=== PATIENT | female | born 1985 | race Caucasian/White ===

== ENCOUNTER 2021-06-24 00:07 | Emergency (ER) | payer MEDICARE, SELFPAY ==
[2021-06-24 00:41] VITALS: BP 111/77; PULSE 93; RESP 18; TEMP 36.4; O2SAT 98; BMI 16.6
== END 2021-06-24 01:27 | disposition left against medical advice (07) ==
PROVIDERS: Emergency Provider Emergency Medicine
DX: R10.9 Unspecified abdominal pain (principal); Z87.442 Personal history of urinary calculi
CPT/HCPCS: 99282; 99283

== ENCOUNTER 2022-09-24 15:22 | Outpatient (REF) | payer MEDICARE, MEDICAID, SELFPAY ==
--- NOTE | ~2022-09-24 | CT_ITS ---
EXAMINATION: CT SOFT TISSUE NECK WITH CONTRAST CLINICAL INFORMATION: Throat pain COMPARISON: None. TECHNIQUE: Following the administration of 60 mL of Omnipaque 350 intravenous contrast, helical imaging was performed in the axial plane with generation of coronal and sagittal reformatted images. This CT examination was performed using dose optimization techniques as appropriate, variously including the following: *Automated exposure control. *Adjustment of mA and/or kV according to patient size (this includes techniques or standardized protocols for targeted exams where dose is matched to indication/reason for exam; i.e. extremities or head). *Use of iterative reconstruction technique. DLP: 153 mGy-cm. FINDINGS: Nasopharynx/skull base: The fat planes of the skull base and soft tissues of the nasopharynx are unremarkable. The mastoids are clear. Mild mucosal thickening in the alveolar recesses of the maxillary sinuses. There are several dental caries. Periapical lucency associated with a carious left maxillary second molar with dehiscence of the buccal cortex. The temporomandibular joints are normal. Suprahyoid neck: The oral cavity, and bilateral salivary gland tissues are unremarkable. There is asymmetric fullness of the right palatine tonsil (series 2 image 37) which demonstrates peripheral hyperenhancement and central hypoenhancement measuring approximately 1.5 cm. There is minimal inflammatory change of the adjacent parapharyngeal fat. Infrahyoid neck: The hypopharynx and larynx are unremarkable. No aerodigestive tract mass. Thyroid: The thyroid gland is normal. Lymph nodes: There is no cervical chain lymphadenopathy. Lung apices: The partially visualized lung apices are clear. Small triangular soft tissue in the anterior mediastinum, likely residual thymic tissue. Vascular structures: No hemodynamically significant stenosis, dissection, or occlusion. Osseous structures: The osseous structures are intact without suspicious focal lesion. Partially visualized leftward curvature of the lower cervical and upper thoracic spine. Congenital nonfusion of the posterior arch of C1. Other: The imaged portions of the brain parenchyma are unremarkable. CT/CT soft tissue neck w IV con IMPRESSION: 1. Asymmetric fullness and peripheral hyperenhancement of the right palatine tonsil with central hypodensity. Differential considerations include a primary mucosal malignancy versus infectious tonsillitis. No cervical lymphadenopathy. Correlate with clinical history and direct visual inspection. 2. Several dental caries as well as a periapical lucency associated with a carious left maxillary second molar Findings to be called to the ordering clinician by a [facility] Admitting Clerk.
[2022-09-24] MEDS: iohexoL 350 MG/ML 100 ML INFUS..BTL IV (16:38)
== END 2022-09-24 15:23 | disposition home or self-care (01) ==
LOC: HO.CT 15:22
PROVIDERS: PCP Internal Medicine; Visit Provider Otolaryngology
DX: H92.01 Otalgia, right ear (principal)
CPT/HCPCS: 70491; Q9967

== ENCOUNTER 2022-09-26 08:45 | Outpatient (REF) | payer MEDICARE, MEDICAID, SELFPAY ==
[2022-09-26 12:51] LABS: Influenza A PCR NEGATIVE (Negative); Influenza B PCR NEGATIVE (Negative); Resp Syncy Virus RNA Qual PCR NEGATIVE (Negative); SARS COV2 PCR INHOUSE NEGATIVE (Negative)
== END 2022-09-26 08:46 | disposition home or self-care (01) ==
LOC: HO.LAB 08:45
PROVIDERS: Visit Provider Nurse Practitioner Family
DX: Z20.822 Contact with and (suspected) exposure to COVID-19 (principal); J02.9 Acute pharyngitis, unspecified
CPT/HCPCS: 0241U

== ENCOUNTER 2022-12-07 10:44 | Emergency (ER) | payer MEDICARE, MEDICAID, SELFPAY ==
[2022-12-07 10:56] VITALS: PULSE 103; RESP 19; TEMP 36.6; O2SAT 99; BMI 17.6
--- NOTE | 2022-12-07 11:15 | ECG_ITS ---
Test Reason : palpitations Blood Pressure : / mmHG Vent. Rate : 077 BPM Atrial Rate : 077 BPM P-R Int : 172 ms QRS Dur : 072 ms QT Int : 362 ms P-R-T Axes : 063 072 063 degrees QTc Int : 409 ms Normal sinus rhythm Normal ECG No previous ECGs available Referred By: Sofya Martin Electronically Signed By:DAVON CERNA
--- NOTE | 2022-12-07 11:18 | ED_ITS ---
HPI - Dizziness General Chief Complaint: Dizziness Stated Complaint: lightheadedness/sweating Time Seen by Provider: 12/07/22 11:14 Source: patient and old records reviewed Mode of arrival: ambulatory Limitations: no limitations History of Present Illness HPI Narrative: 37 yo female with history of SVT since 2013 on metoprolol and cardizem who presents to the ER for evaluation of intermittent episodes of dizziness and palpitations for the last 2 weeks. She states she has lightheaded and dizzy episodes almost every morning, or when she stands for too long. The episodes are associated with diaphoresis and cold sweats. She reports the episodes can last minutes to hours. She reports compliance with her medications. She follows w/ a [facility] in [place]. Her metoprolol was decreased several months ago f rom 50 mg per day to 25 mg per day due to soft BP 90/60s. She states during the dizzy episodes, she checks her HR and it is as high as 130s. Her BP has been stable 110s. She feels dehydrated and states her PO intake has been poor. She is tearful and anxious on arrival. She denies any associated SOB, or chest pain. She reports LE swelling when she is on her feet for too long. She is currently asymptomatic. She reports a history of anxiety and has been off of Zoloft for 1 year since moving to [facility]. elicited complaint: dizziness and other (palpitations) Pertinent past history: other Onset (ago): week(s) (2) Timing: sudden onset Severity: severe Description: lightheadedness Context: change in medication, change in body position and anxiety History of similar symptoms: Yes Exacerbating factors: change in body position and standing Relieving factors: nothing Associated symptoms: diaphoresis and other (palpitations) Related Data Home Medications Medication Instructions Recorded Confirmed aripiprazole 5 mg tablet 5 mg PO DAILY 08/19/22 aspirin 81 mg tablet,delayed 81 mg PO DAILY 08/19/22 release budesonide-formoterol HFA 160 2 puff inhalation BID 08/19/22 mcg-4.5 mcg/actuation aerosol inhaler (Symbicort) dicyclomine 10 mg capsule 10 mg PO Q6H PRN 08/19/22 diltiazem HCl 120 mg mg PO 08/19/22 capsule,extended release 24 hr ferrous sulfate 325 mg (65 mg 325 mg PO DAILY 08/19/22 iron) tablet folic acid 1 mg tablet 1 mg PO DAILY 08/19/22 medroxyprogesterone 150 mg/mL 150 mg IM [id number] 08/19/22 intramuscular suspension metoprolol succinate 50 mg 0 mg PO 08/19/22 tablet,extended release 24 hr sertraline 100 mg tablet 150 mg PO DAILY 08/19/22 Previous Rx's Medication Instructions Recorded ciprofloxacin 0.3 %-dexamethasone 4 drp otic (ears) BID 7 days #7.5 08/19/22 0.1 % ear drops,suspension mL (Ciprodex) doxycycline hyclate 100 mg capsule 100 mg PO BID 10 days #20 caps 08/19/22 azithromycin 250 mg tablet See Rx Instructions PO .COMPLEX #6 09/24/22 tabs penicillin V potassium 500 mg 500 mg PO BID 10 days #20 tabs 09/26/22 tablet clindamycin HCl 300 mg capsule 600 mg PO QID 10 days #80 caps 10/02/22 Allergies Allergy/AdvReac Type Severity Reaction Status Date / Time celecoxib [From CELEBREX] Allergy Intermediate HIVES Verified 12/07/22 10:56 vancomycin [VANCOMYCIN] Allergy Intermediate HIVES Verified 12/07/22 10:56 Review of Systems Review of Systems: Yes all other systems are reviewed and are negative [facility] Social History Social History Advance Directives: No Advance Directives Information Provided: Yes Physical Exam Vital Signs: Vital Signs: Last Vital Signs Temp 98.3 F 12/07/22 11:42 Pulse 78 12/07/22 14:00 Resp 17 12/07/22 11:42 BP 104/67 12/07/22 14:00 Pulse Ox 99 12/07/22 14:00 O2 Del Method Room Air 12/07/22 14:00 BMI result Body Mass Index 17.6 Appearance: Alert. Oriented X3. Frail and thin frame Head: normocephalic, atraumatic. Eyes: Pupils equal, round and reactive to light. ENT: Pharynx normal. No tonsillar swelling or exudate. Neck: Normal inspection. Neck supple. CVS: Normal heart rate and rhythm. Pulses normal. Respiratory: No respiratory distress. Breath sounds normal. Abdomen: Soft and nontender. +BS x4 Skin: Skin warm and dry. Normal skin color. Normal skin turgor. No rashes. Extremities: No lower extremity edema. No joint swelling. Neuro/psych: Oriented X 3. Tearful and anxious No motor deficit. No sensory deficit. CN II-XII intact. Normal speech and cognition. Medications Administered Discontinued Medications Generic Name Dose Route Start Last Admin Trade Name Irais PRN Reason Stop Dose Admin Sodium Chloride 1,000 mls @ 999 mls/hr 12/07/22 11:30 12/07/22 14:10 Ns IVCONT 12/07/22 12:30 Infused .Q1H1M ELVA Infusion Medical Decision Making Medical Decision Making [facility] Narrative: 37-year-old female with a history of SVT on both Cardizem and Lopressor presents to the ER for evaluation of frequent episodes of dizziness and palpitations along with diaphoresis for the last couple of weeks. She has been med compliant. She reports stable blood pressures at home. She states her heart rates go up to the 130s. This most likely episodes of SVT. She is hemodynamically stable here, EKG is normal. She has had no runs of SVT on telemetry here. her orthostatic vital signs are negative. Her lab workup was unremarkable including a normal TSH. At this time patient is stable for discharge home. She is to continue her metoprolol and Cardizem. 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 We discussed taking additional metoprolol if symptomatic and her heart rates are over 120. She agreed with plan. She has plenty of medications at home. She is stable for discharge home. Return precautions were discussed. Differential Diagnosis Differential Diagnoses: The differential diagnosis associated with the presentation includes SVT, WINKLER, Afib/aflutter, dehydration, hyperthyroidism, electrolyte derrangement, orthostatic hypotension, anxiety Admission/Observation Consideration of admission/observation: Escalation of care including admission/observation considered recurrent episodes likely due to cardiac arrhythmia, admission was considered Lab Data [facility] Lab Attestation statement: I reviewed the patient's lab results. Unremarkable 12/07/22 12:31 12/07/22 13:26 Labs: Lab Results 12/07/22 12/07/22 12/07/22 Range/Units 12:31 12:31 12:31 WBC 6.8 (4.8-10.8) X10*3/uL RBC 4.19 L (4.20-5.50) X10*6/uL Hgb 14.1 (12.0-16.0) g/dl Hct 43.2 (37.0-47.0) % MCV 103.1 H (80.0-98.0) fL MCH 33.7 H (27.0-33.0) pg MCHC 32.6 (31.0-35.0) g/dl RDW 14.5 (11.0-16.0) % Plt Count 283 (160-400) X10*3/uL MPV 9.2 L (9.4-12.3) fL Immature Gran % (Auto) 0.1 (0.0-0.4) % Neut % (Auto) 71.4 (45-73) % Lymph % (Auto) 18.9 L (20-40) % Milam % (Auto) 6.0 (2-11) % Eos % (Auto) 3.2 (0-4) % Baso % (Auto) 0.4 (0-2) % Lymph # (Auto) 1.3 (1.2-4.9) X10*3/uL Milam # (Auto) 0.4 (0.1-1.2) X10*3/uL Eos # (Auto) 0.2 (0.0-0.4) X10*3/uL Baso # (Auto) 0.0 (0.0-0.2) X10*3/uL Abs Immat Gran (auto) 0.01 (0.00-0.03) X10*3/uL Absolute Neuts (auto) 4.9 (2.0-8.3) x10*3/uL Absolute Nucleated RBC 0.000 (0.0-0.012) X10*3/uL Nucleated RBC % (auto) 0.0 (0.0-0.2) /100WBC Sodium (135-145) mmol/L Potassium (3.3-5.1) mmol/L Chloride (96-108) mmol/L Carbon Dioxide (22-29) mmol/L Anion Gap (12-20) BUN (9-16) mg/dL Creatinine (0.5-1.4) mg/dL Estim Creat Clear Calc Estimated GFR Random Glucose (60-115) mg/dL Calcium (8.4-10.2) mg/dL Magnesium (1.6-2.6) mg/dL Total Bilirubin (0.0-1.0) mg/dL Direct Bilirubin (0.0-0.5) mg/dL AST (5-31) U/L ALT (0-31) U/L Alkaline Phosphatase (39-117) U/L Total Protein (6.5-8.0) g/dL Albumin (3.5-5.0) g/dL TSH 0.50 (0.32-4.0) uIU/mL Urine Color Yellow Urine Appearance Clear Urine pH 6.0 (5.0-9.0) Ur Specific Bazine 1.010 (1.005-1.025) Urine Protein Negative (Neg-Trace) mg/dL Urine Glucose (UA) Negative (Negative) mg/dL Urine Ketones Negative (Negative) mg/dL Urine Blood Small (1+) H (Negative) Urine Nitrite Negative (Negative) Ur Leukocyte Esterase Trace H (Negative) Urine RBC 3-5 H (0-2) /HPF Urine WBC 0-5 (0-5) /HPF Ur Squamous Epith Cells 0-2 (0-2) /HPF Urine Bacteria None Seen (None Seen) Hyaline Casts 0-2 (0-2) /LPF Urine Opiates Screen (Not Detect) Urine Fentanyl Screen (Not Detect) Ur Barbiturates Screen (Not Detect) Ur Phencyclidine Scrn (Not Detect) Ur Amphetamines Screen (Not Detect) U Benzodiazepines Scrn (Not Detect) Urine Cocaine Screen (Not Detect) U Marijuana (THC) Screen (Not Detect) 12/07/22 12/07/22 Range/Units 12:31 13:26 WBC (4.8-10.8) X10*3/uL RBC (4.20-5.50) X10*6/uL Hgb (12.0-16.0) g/dl Hct (37.0-47.0) % MCV (80.0-98.0) fL MCH (27.0-33.0) pg MCHC (31.0-35.0) g/dl RDW (11.0-16.0) % Plt Count (160-400) X10*3/uL MPV (9.4-12.3) fL Immature Gran % (Auto) (0.0-0.4) % Neut % (Auto) (45-73) % Lymph % (Auto) (20-40) % Milam % (Auto) (2-11) % Eos % (Auto) (0-4) % Baso % (Auto) (0-2) % Lymph # (Auto) (1.2-4.9) X10*3/uL Milam # (Auto) (0.1-1.2) X10*3/uL Eos # (Auto) (0.0-0.4) X10*3/uL Baso # (Auto) (0.0-0.2) X10*3/uL Abs Immat Gran (auto) (0.00-0.03) X10*3/uL Absolute Neuts (auto) (2.0-8.3) x10*3/uL Absolute Nucleated RBC (0.0-0.012) X10*3/uL Nucleated RBC % (auto) (0.0-0.2) /100WBC Sodium 142 (135-145) mmol/L Potassium 4.4 (3.3-5.1) mmol/L Chloride 111 H (96-108) mmol/L Carbon Dioxide 22 (22-29) mmol/L Anion Gap 13 (12-20) BUN 11 (9-16) mg/dL Creatinine 0.67 (0.5-1.4) mg/dL Estim Creat Clear Calc 73.4 Estimated GFR > 60 Random Glucose 82 (60-115) mg/dL Calcium 9.0 (8.4-10.2) mg/dL Magnesium 2.1 (1.6-2.6) mg/dL Total Bilirubin 0.3 (0.0-1.0) mg/dL Direct Bilirubin 0.1 (0.0-0.5) mg/dL AST 15 (5-31) U/L ALT 26 (0-31) U/L Alkaline Phosphatase 44 (39-117) U/L Total Protein 5.8 L (6.5-8.0) g/dL Albumin 4.0 (3.5-5.0) g/dL TSH (0.32-4.0) uIU/mL Urine Color Urine Appearance Urine pH (5.0-9.0) Ur Specific Bazine (1.005-1.025) Urine Protein (Neg-Trace) mg/dL Urine Glucose (UA) (Negative) mg/dL Urine Ketones (Negative) mg/dL Urine Blood (Negative) Urine Nitrite (Negative) Ur Leukocyte Esterase (Negative) Urine RBC (0-2) /HPF Urine WBC (0-5) /HPF Ur Squamous Epith Cells (0-2) /HPF Urine Bacteria (None Seen) Hyaline Casts (0-2) /LPF Urine Opiates Screen Not Detected (Not Detect) Urine Fentanyl Screen Not Detected (Not Detect) Ur Barbiturates Screen Not Detected (Not Detect) Ur Phencyclidine Scrn Not Detected (Not Detect) Ur Amphetamines Screen Not Detected (Not Detect) U Benzodiazepines Scrn Not Detected (Not Detect) Urine Cocaine Screen Not Detected (Not Detect) U Marijuana (THC) Screen Not Detected (Not Detect) Independent Interpretation I performed an independent interpretation of an: EKG Interpretation: EKG showing normal sinus rhythm, ventricular rate 77 beats per minute, normal OR interval, normal QTC, no ST segment elevations or depressions. Independent Historian Clinical information obtained from an independent historian. History obtained from or confirmed by: Parent External Record Review External record reviewed: Outpatient record, Prior outpatient labs and Prior outpatient radiology Prescription Management I considered prescription management with: Other (antihypertensives) Chronic Conditions Patient?s care impacted by: Other (SVT, anxiety) Critical Care Time Critical Care Time Critical Care Time: No Discharge Plan Discharge Clinical Impression: Dizziness, Heart palpitations Patient Disposition: Home, Self-Care Instructions: Heart Palpitations (DC), Dizziness (ED) Additional Instructions: Your lab workup, vital signs, EKG were all unremarkable today. Your symptoms are most consistent with runs of SVT. Recommend monitoring your vital signs when your feeling lightheaded and having palpitations. If your heart rate is over 120-130, recommend taking an additional dose of metoprolol. Follow-up with your produce team member this week. Follow-up with your primary care doctor for further evaluation and treatment of anxiety. this also may be contributing. Make sure you are drinking plenty of fluids and staying hydrated. If you develop new or worsening symptoms call 911 or come back to the ER for further evaluation. Prescriptions: No Action azithromycin 250 mg tablet See Rx Instructions PO .COMPLEX Qty: 6 0RF Rx Instructions: take 500 mg today (day 1), then 250 mg for 4 days (days 2-5) PO budesonide-formoterol [Symbicort] 160-4.5 mcg/actuation HFA aerosol inhaler 2 puff inhalation BID aspirin 81 mg tablet,delayed release (DR/EC) 81 mg PO DAILY dicyclomine 10 mg capsule 10 mg PO Q6H PRN diltiazem HCl 120 mg capsule,extended release 24hr PO medroxyprogesterone 150 mg/mL suspension 150 mg IM [id number] metoprolol succinate 50 mg tablet extended release 24 hr 0 mg PO ferrous sulfate 325 mg (65 mg iron) tablet 325 mg PO DAILY folic acid 1 mg tablet 1 mg PO DAILY sertraline 100 mg tablet 150 mg PO DAILY aripiprazole 5 mg tablet 5 mg PO DAILY doxycycline hyclate 100 mg capsule 100 mg PO BID 10 Days Qty: 20 0RF ciprofloxacin-dexamethasone [Ciprodex] 0.3-0.1 % drops,suspension 4 drp otic (ears) BID 7 Days Qty: 7.5 0RF penicillin V potassium 500 mg tablet 500 mg PO BID 10 Days Qty: 20 0RF clindamycin HCl 300 mg capsule 600 mg PO QID 10 Days Qty: 80 0RF Referrals: Manjit Hall MD [Primary Care Provider] - (anxiety, SVT)
[2022-12-07 11:42] VITALS: BP 110/73; PULSE 88; RESP 17; TEMP 36.8; O2SAT 98
[2022-12-07 11:44] VITALS: BP 107/69; BP 114/76; PULSE 85; PULSE 93
[2022-12-07 11:45] VITALS: BP 109/71; PULSE 89
[2022-12-07 12:42] LABS: MANUAL DIFF FLAG NO
[2022-12-07 12:44] LABS: Basophils Percent Auto 0.4 % (0-2); Eosinophils Absolute Auto 0.2 X10*3/uL (0.0-0.4); Eosinophils Percent Auto 3.2 % (0-4); Hematocrit 43.2 % (37.0-47.0); Hemoglobin 14.1 g/dl (12.0-16.0); Imm Gran Abs Auto 0.01 X10*3/uL (0.00-0.03); Imm Gran Pct Auto 0.1 % (0.0-0.4); Lymphocytes Absolute Auto 1.3 X10*3/uL (1.2-4.9); Lymphocytes Percent Auto 18.9 % (20-40); Mean Corpuscular HGB Conc 32.6 g/dl (31.0-35.0); Mean Corpuscular Hemoglobin 33.7 pg (27.0-33.0); Mean Corpuscular Volume 103.1 fL (80.0-98.0); Mean Platelet Volume 9.2 fL (9.4-12.3); Monocytes Absolute Auto 0.4 X10*3/uL (0.1-1.2); Neutrophils Absolute Auto 4.9 x10*3/uL (2.0-8.3); Neutrophils Percent Auto 71.4 % (45-73); Platelet Count 283 X10*3/uL (160-400); Red Blood Count 4.19 X10*6/uL (4.20-5.50); Red Cell Distribution Width 14.5 % (11.0-16.0); White Blood Count 6.8 X10*3/uL (4.8-10.8)
[2022-12-07 12:46] LABS: Color Urine Yellow; Glucose Urine UA Negative (Negative); Leukocyte Esterase Urine Trace (Negative); Nitrite Urine Negative (Negative); UMIC TRIGGER UACC YES; Urine Blood Small (1+) (Negative); Urine Ketones Negative (Negative); Urine Protein Negative (Neg-Trace)
[2022-12-07] MEDS: 0.9 % Sodium Chloride 1,000 ML 999 ML IVCONT (12:46)
[2022-12-07 12:47] LABS: Appearance Urine Clear
[2022-12-07 12:58] LABS: Bacteria Urine None Seen (None Seen); Hyaline Casts Urine 0-2 /LPF (0-2); Squamous Epithelial Cell Urine 0-2 /HPF (0-2); WBC Urine 0-5 /HPF (0-5)
[2022-12-07 13:07] LABS: Amphetamine Screen Urine Not Detected (Not Detect); Barbiturates, Urine Not Detected (Not Detect); Benzodiazepines Screen Urine Not Detected (Not Detect); Cannabinoid Screen Urine Not Detected (Not Detect); Cocaine Screen Urine Not Detected (Not Detect); Opiate Screen Urine Not Detected (Not Detect); Phencyclidine Screen Urine Not Detected (Not Detect)
[2022-12-07 13:14] LABS: Fentanyl, urine Not Detected (Not Detect)
[2022-12-07 13:50] LABS: Alanine Aminotransferase 26 U/L (0-31); Alkaline Phosphatase 44 U/L (39-117); Anion Gap 13 (12-20); Aspartate Amino Transferase 15 U/L (5-31); Bilirubin Direct 0.1 mg/dL (0.0-0.5); Bilirubin Total 0.3 mg/dL (0.0-1.0); Blood Urea Nitrogen 11 mg/dL (9-16); Carbon Dioxide 22 mmol/L (22-29); Chloride 111 mmol/L (96-108); Creatinine Clr Calc Pharmacy 73.4; Estimated Glomerular Filt Rate > 60; Glucose Random 82 mg/dL (60-115); Magnesium 2.1 mg/dL (1.6-2.6); Potassium 4.4 mmol/L (3.3-5.1); Sodium 142 mmol/L (135-145); Total Protein 5.8 g/dL (6.5-8.0)
[2022-12-07 14:00] VITALS: BP 104/67; PULSE 78; O2SAT 99
--- NOTE | 2022-12-07 14:55 | PC.NURSE ---
pt cleared for discharge, discharge instructions reviewed with pt, denies pain, vss. iv removed.
== END 2022-12-07 14:55 | disposition home or self-care (01) ==
PROVIDERS: Physician Assistant; Emergency Provider Emergency Medicine; PCP Internal Medicine
DX: R00.2 Palpitations (principal); R42 Dizziness and giddiness; Z79.899 Other long term (current) drug therapy
CPT/HCPCS: 36415; 80048; 80076; 80307; 81001; 83735; 84443; 85025; 93005; 99284

== ENCOUNTER 2023-11-15 12:10 | Emergency (ER) | payer MEDICARE, MEDICAID, SELFPAY ==
[2023-11-15 12:24] VITALS: BP 110/75; PULSE 97; RESP 16; TEMP 37.3; O2SAT 97; BMI 17.1
--- NOTE | 2023-11-15 12:24 | ED.SKABFB ---
HPI - Skin/Abscess/Foreign Bdy General Chief complaint: Dental/Oral Stated complaint: Sent by urgent care - abscess Time Seen by Provider: 11/15/23 12:33 Source: patient Mode of arrival: ambulatory History of Present Illness HPI narrative: 38-year-old female with atrial fibrillation and on chronic anticoagulation who was sent in by urgent care for a throat abscess . Patient states that she has had right-sided throat discomfort for 4 days without associated fever, chills, difficulty breathing. Patient reports that she had rapid strep test done at urgent care which was negative, she is status post tonsillectomy and has had her uvula removed as well due to infection . Related Data Home Medications ?Medication ?Instructions ?Recorded ?Confirmed aripiprazole 5 mg tablet 5 mg PO DAILY 08/19/22 aspirin 81 mg tablet,delayed 81 mg PO DAILY 08/19/22 release budesonide-formoterol HFA 160 2 puff inhalation BID 08/19/22 mcg-4.5 mcg/actuation aerosol inhaler (Symbicort) dicyclomine 10 mg capsule 10 mg PO Q6H PRN 08/19/22 diltiazem HCl 120 mg mg PO 08/19/22 capsule,extended release 24 hr ferrous sulfate 325 mg (65 mg 325 mg PO DAILY 08/19/22 iron) tablet folic acid 1 mg tablet 1 mg PO DAILY 08/19/22 medroxyprogesterone 150 mg/mL 150 mg IM [id number] 08/19/22 intramuscular suspension metoprolol succinate 50 mg 0 mg PO 08/19/22 tablet,extended release 24 hr sertraline 100 mg tablet 150 mg PO DAILY 08/19/22 Previous Rx's ?Medication ?Instructions ?Recorded ciprofloxacin 0.3 %-dexamethasone 4 drp otic (ears) BID 7 days #7.5 08/19/22 0.1 % ear drops,suspension mL (Ciprodex) doxycycline hyclate 100 mg capsule 100 mg PO BID 10 days #20 caps 08/19/22 azithromycin 250 mg tablet See Rx Instructions PO .COMPLEX #6 09/24/22 tabs penicillin V potassium 500 mg 500 mg PO BID 10 days #20 tabs 09/26/22 tablet clindamycin HCl 300 mg capsule 600 mg (2 x 300 mg) PO QID 10 days 10/02/22 #80 caps Allergies Allergy/AdvReac Type Severity Reaction Status Date / Time celecoxib [From CELEBREX] Allergy Intermediate HIVES Verified 11/15/23 12:26 vancomycin [VANCOMYCIN] Allergy Intermediate HIVES Verified 11/15/23 12:26 Review of Systems Review of Systems: Pertinent positives and negatives as stated in HPI PMFSH Past Medical History Source: nursing notes reviewed Social History Social History Advance Directives: No Advance Directives Information Provided: No Physical Exam Vital Signs: Vital Signs: Last Vital Signs Temp 99.1 F 11/15/23 12:24 Pulse 97 11/15/23 12:24 Resp 16 11/15/23 12:24 BP 110/75 11/15/23 12:24 Pulse Ox 97 11/15/23 12:24 O2 Del Method Room Air 11/15/23 12:24 BMI result Body Mass Index 17.1 VITAL SIGNS: Reviewed. GENERAL: Well developed, well nourished, in no acute distress. HEAD: Normocephalic/atraumatic EYES: PERRLA, EOMI EARS: Ext canals without abnormality, TMs non-bulging and non-erythematous NOSE: Nares patent bilateral OROPHARYNX: no oral lesions noted, posterior pharynx clear and non-erythematous without noted tonsillar enlargement/erythema/exudates, no trismus, no oral thrush, most importantly I do not see any evidence of dental caries or abscess NECK: Supple, NO adenopathy LUNGS: Normal breath sounds. No adventitious sounds or accessory muscle use. SpO2<97> CARDIOVASCULAR: Regular rate and rhythm without noted murmurs ABDOMEN: Soft, non-tender, non-distended with bowel sounds. MUSCULOSKELETAL: No tenderness, deformities, or effusions noted on gross inspection. EXTREMITIES: No cyanosis, clubbing or edema. SKIN: Inspection of the skin reveals no rashes NEUROLOGIC: Alert and oriented x 4. Strength and sensation to light touch were grossly intact x 4. Course Course Course Narrative: This is an RME: Additional HPI, ROS, PE not included below will be deferred to primary provider. Patient is a 38-year-old female who presents emergency department coming from [facility] urgent care for evaluation of ?///?peritonsillar abscess, onset 4 days ago, reportedly had negative strep testing. Reports recent hx of facial abscess, MRSA +. Medical Decision Making Medical Decision Making MDM Narrative: 38-year-old female with history and clinical presentation, DDX: Pharyngitis, throat abscess, dental caries, AOM, oral thrush On my clinical exam I see no evidence of posterior pharynx abscess, patient no longer has uvula and I do not appreciate any asymmetrical tonsillar pillar distribution, there is no corresponding adenopathy, the ears are clear and do not seem to be contributing to patient's right-sided throat discomfort. Patient received Cepacol and was discharged home with strict return precautions if she should develop any fever, chills. Differential Diagnosis Differential Diagnoses: The differential diagnosis associated with the presentation includes Please see the discussion above Admission/Observation Consideration of admission/observation: Escalation of care including admission/observation considered Please see the discussion above Discharge Plan Discharge Clinical Impression: Pharyngitis Patient Disposition: Home, Self-Care Instructions: Pharyngitis (ED) Additional Instructions: 1. Recommend Tylenol for pain, [id number] Cepacol throat lozenges for the pain as well and also recommend saline gargles, 2 to 3 times a day (this is a combination of warm tap water and table salt). 2. Follow-up with primary care provider on Thursday morning. Return to the ER if you experience any fever, chills, inability to breathe. Prescriptions: No Action azithromycin 250 mg tablet See Rx Instructions PO .COMPLEX Qty: 6 0RF Rx Instructions: take 500 mg today (day 1), then 250 mg for 4 days (days 2-5) PO budesonide-formoterol [Symbicort] 160-4.5 mcg/actuation HFA aerosol inhaler 2 puff inhalation BID aspirin 81 mg tablet,delayed release (DR/EC) 81 mg PO DAILY dicyclomine 10 mg capsule 10 mg PO Q6H PRN diltiazem HCl 120 mg capsule,extended release 24hr PO medroxyprogesterone 150 mg/mL suspension 150 mg IM [id number] metoprolol succinate 50 mg tablet extended release 24 hr 0 mg PO ferrous sulfate 325 mg (65 mg iron) tablet 325 mg PO DAILY folic acid 1 mg tablet 1 mg PO DAILY sertraline 100 mg tablet 150 mg PO DAILY aripiprazole 5 mg tablet 5 mg PO DAILY doxycycline hyclate 100 mg capsule 100 mg PO BID 10 Days Qty: 20 0RF ciprofloxacin-dexamethasone [Ciprodex] 0.3-0.1 % drops,suspension 4 drp otic (ears) BID 7 Days Qty: 7.5 0RF penicillin V potassium 500 mg tablet 500 mg PO BID 10 Days Qty: 20 0RF clindamycin HCl 300 mg capsule 600 mg PO QID 10 Days Qty: 80 0RF Referrals: Manjit Hall MD [Primary Care Provider] - Print Language: Chinese
[2023-11-15 15:13] VITALS: BP 110/75; PULSE 97; RESP 16; TEMP 37.3; O2SAT 97
== END 2023-11-15 15:14 | disposition home or self-care (01) ==
PROVIDERS: Emergency Provider Student in an Organized Health Care Education/Training Program; PCP Internal Medicine
DX: J02.9 Acute pharyngitis, unspecified (principal); I48.91 Unspecified atrial fibrillation; Z79.01 Long term (current) use of anticoagulants; Z88.1 Allergy status to other antibiotic agents; Z88.6 Allergy status to analgesic agent
CPT/HCPCS: 99282

== ENCOUNTER 2024-05-22 07:00 | Emergency (ER) | payer MEDICARE, MEDICAID, SELFPAY ==
--- NOTE | 2024-05-22 | ECG_ITS ---
Test Reason : TACHYCARDIA Blood Pressure : / mmHG Vent. Rate : 092 BPM Atrial Rate : 092 BPM P-R Int : 148 ms QRS Dur : 070 ms QT Int : 338 ms P-R-T Axes : 060 071 067 degrees QTc Int : 417 ms Normal sinus rhythm Normal ECG When compared with ECG of 07-DEC-2022 13:33, No significant change was found Referred By: Poly Gutierrez Electronically Signed By:DAVON CERNA
--- NOTE | ~2024-05-22 | CT_ITS ---
EXAMINATION: CT ABDOMEN AND PELVIS WITH CONTRAST CLINICAL INFORMATION: Abdominal pain COMPARISON: CT 02/28/2019 TECHNIQUE: Multidetector volumetric images were obtained from the superior aspect of the liver through the pubic symphysis following administration 85 mL of Omnipaque 350 intravenous contrast. Sagittal and coronal reformatted images were obtained on the technologist's workstation. Oral contrast: No This CT examination was performed using dose optimization techniques as appropriate, variously including the following: *Automated exposure control *Adjustment of mA and/or kV according to patient size (this includes techniques or standardized protocols for targeted exams where dose is matched to indication/reason for exam; i.e. extremities or head) *Use of iterative reconstruction technique DLP: 209 mGy-cm FINDINGS: LUNG BASES: The visualized lung bases are unremarkable. LIVER, GALLBLADDER, AND BILIARY TREE: Diffuse fatty infiltration of the liver. No biliary ductal dilatation. The gallbladder is unremarkable with no evidence of radiopaque gallstones, gallbladder wall thickening, or obvious pericholecystic inflammatory changes. PANCREAS: Unremarkable. SPLEEN: Unremarkable. ADRENAL GLANDS: Unremarkable. KIDNEYS AND URETERS: The kidneys are normal in size, shape, and attenuation. No hydronephrosis. There are no calculi in each kidney measuring 2-4 mm in size in the upper and lower poles.. BLADDER: Unremarkable. GASTROINTESTINAL TRACT: Postsurgical changes of the stomach likely a partial gastrectomy and gastric bypass. The proximal stomach is distended with material. There are also postsurgical changes/anastomosis in the left lower quadrant which is mildly distended. Prominent stool in the cecum and ascending colon. No proximal small bowel dilatation to suggest obstruction. ABDOMINAL WALL: No significant hernia is appreciated. LYMPH NODES: Normal. VASCULAR: Unremarkable. PELVIC VISCERA: Unremarkable. OSSEOUS STRUCTURES: Unremarkable. CT/CT abdomen pelvis w IV con IMPRESSION: 1. No focal inflammatory process or small bowel obstruction. Partial gastrectomy/gastric bypass with distention of the proximal stomach with material. 2. Bilateral nephrolithiasis which is new since prior. 3. Diffuse fatty infiltration of the liver. Fleischner guidelines were followed. Electronically signed by: Jonnie Lazo MD 05/22/2024 09:50 AM EDT
[2024-05-22 07:03] VITALS: BP 109/75; PULSE 115; RESP 18; TEMP 36.3; O2SAT 100; BMI 15.8
[2024-05-22 07:22] LABS: Basophils Absolute Auto 0.1 X10*3/uL (0.0-0.2); Basophils Percent Auto 0.5 % (0-2); Eosinophils Absolute Auto 0.3 X10*3/uL (0.0-0.4); Eosinophils Percent Auto 3.2 % (0-4); Hematocrit 33.8 % (37.0-47.0); Hemoglobin 11.1 g/dl (12.0-16.0); Imm Gran Abs Auto 0.04 X10*3/uL (0.00-0.03); Imm Gran Pct Auto 0.4 % (0.0-0.4); Lymphocytes Absolute Auto 2.1 X10*3/uL (1.2-4.9); Lymphocytes Percent Auto 21.9 % (20-40); Mean Corpuscular HGB Conc 32.8 g/dl (31.0-35.0); Mean Corpuscular Hemoglobin 39.1 pg (27.0-33.0); Mean Platelet Volume 8.3 fL (9.4-12.3); Monocytes Absolute Auto 0.5 X10*3/uL (0.1-1.2); Monocytes Percent Auto 5.5 % (2-11); Neutrophils Absolute Auto 6.5 x10*3/uL (2.0-8.3); Neutrophils Percent Auto 68.5 % (45-73); Red Blood Count 2.84 X10*6/uL (4.20-5.50); Red Cell Distribution Width 14.5 % (11.0-16.0); White Blood Count 9.5 X10*3/uL (4.8-10.8)
[2024-05-22 07:37] LABS: Alanine Aminotransferase 38 U/L (0-31); Albumin Level 4.1 g/dL (3.5-5.0); Alkaline Phosphatase 124 U/L (39-117); Anion Gap 11 (12-20); Aspartate Amino Transferase 26 U/L (5-31); Bilirubin Total 0.3 mg/dL (0.0-1.0); Blood Urea Nitrogen 20 mg/dL (9-16); Calcium 9.2 mg/dL (8.4-10.2); Carbon Dioxide 13 mmol/L (22-29); Chloride 120 mmol/L (96-108); Creatinine Clr Calc Pharmacy 46.2; Estimated Glomerular Filt Rate > 60; Glucose Random 127 mg/dL (60-115); Potassium 3.8 mmol/L (3.3-5.1); Sodium 140 mmol/L (135-145); Total Protein 6.4 g/dL (6.5-8.0)
[2024-05-22 07:45] LABS: MANUAL DIFF FLAG SCAN; Platelet Count 416 X10*3/uL (160-400)
[2024-05-22 07:46] LABS: SLIDE REVIEW VERIFIED
[2024-05-22 07:53] VITALS: BP 99/59; PULSE 98; RESP 16; O2SAT 100
--- NOTE | 2024-05-22 07:55 | PC.NURSE ---
Pt is alert/oriented. RLQ abd pain x 2 days, denies n/v/d. Pt denies urinary sx or constipation. +Bowel sounds x 4 quads with abd soft and non tender. skin is mildy pale and mucous membranes appear dry however pt reports eating/drinking normally. H/O stomach surgery and SBO in the past. VSS. Speaking full sentences.
[2024-05-22] MEDS: 0.9 % Sodium Chloride 1,000 ML 999 ML IV (08:12)
--- NOTE | 2024-05-22 08:13 | ED_ITS ---
HPI - Abdominal Pain General Chief Complaint: Abdominal Pain Stated Complaint: Sciatic pain, ulcer Time Seen by Provider: 05/22/24 07:43 Source: patient Mode of arrival: ambulatory Limitations: no limitations History of Present Illness ED Provider: DR. Gutierrez HPI narrative: 38-year-old female history of SVT came in for evaluation of mild abdominal pain, patient had rectal bleed for the past 4 days last bowel movement was yesterday patient noted that the bleed was stopped, mild mid abdominal discomfort, patient had a history of perforated peptic ulcer disease that require intra-abdominal surgery and gastrectomy patient [place] official medical record are not available. Stated that she has been using lot of ibuprofen for chronic back pain and sciatica lately. Currently patient has no nausea, no vomiting, no abdominal pain, last bowel movement was yesterday was brown with no blood in it, no dysuria, no frequency urination, no vaginal bleeding, no CP, no SOB. 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 Related Data Home Medications ?Medication ?Instructions ?Recorded ?Confirmed aripiprazole 5 mg tablet 5 mg PO DAILY 08/19/22 aspirin 81 mg tablet,delayed 81 mg PO DAILY 08/19/22 release budesonide-formoterol HFA 160 2 puff inhalation BID 08/19/22 mcg-4.5 mcg/actuation aerosol inhaler (Symbicort) dicyclomine 10 mg capsule 10 mg PO Q6H PRN 08/19/22 diltiazem HCl 120 mg mg PO 08/19/22 capsule,extended release 24 hr ferrous sulfate 325 mg (65 mg 325 mg PO DAILY 08/19/22 iron) tablet folic acid 1 mg tablet 1 mg PO DAILY 08/19/22 medroxyprogesterone 150 mg/mL 150 mg IM [id number] 08/19/22 intramuscular suspension metoprolol succinate 50 mg 0 mg PO 08/19/22 tablet,extended release 24 hr sertraline 100 mg tablet 150 mg PO DAILY 08/19/22 Previous Rx's ?Medication ?Instructions ?Recorded ciprofloxacin 0.3 %-dexamethasone 4 drp otic (ears) BID 7 days #7.5 08/19/22 0.1 % ear drops,suspension mL (Ciprodex) doxycycline hyclate 100 mg capsule 100 mg PO BID 10 days #20 caps 08/19/22 azithromycin 250 mg tablet See Rx Instructions PO .COMPLEX #6 09/24/22 tabs penicillin V potassium 500 mg 500 mg PO BID 10 days #20 tabs 09/26/22 tablet clindamycin HCl 300 mg capsule 600 mg (2 x 300 mg) PO QID 10 days 10/02/22 #80 caps Allergies Allergy/AdvReac Type Severity Reaction Status Date / Time celecoxib [From CELEBREX] Allergy Intermediate HIVES Verified 05/22/24 07:06 vancomycin [VANCOMYCIN] Allergy Intermediate HIVES Verified 05/22/24 07:06 Review of Systems Review of Systems All other systems are reviewed and are negative Constitutional: Reports as per HPI and Reports no additional constitutional complaints Eyes: Reports as per HPI and Reports no additional eye complaints Reports system reviewed and no additional complaints, except as documented Cardiovascular: Reports as per HPI and Reports no additional cardiovascular complaints Respiratory: Reports as per HPI and Reports no additional respiratory complaints Gastrointestinal: Reports as per HPI and Reports no additional gastrointestinal complaints Genitourinary: Reports no additional female genitourinary complaints Musculoskeletal: Reports no additional musculoskeletal complaints Skin/Breast: Reports system reviewed and no additional complaints, except as docu Psychiatric: Reports no additional psychiatric complaints Endocrine: Reports no additional endocrine complaints Hematologic/Lymphatic: Reports no additional hematologic/lymphatic complaints Allergic/Immunologic: Reports no additional allergic/immunologic complaints Reports system reviewed and no additional complaints, except as documented and Reports Abnormal speech present [facility] Social History Social History Smoked in Last 30 Days: No Use of substances other than those prescribed or required for medical reasons: No Advance Directives: No Advance Directives Information Provided: No Do you have a plan to hurt others: No Plan Physical Exam ED Vital Signs: Vital Signs - 24 hr 05/22/24 07:03 05/22/24 07:53 05/22/24 08:23 Temperature 97.3 F Pulse Rate 115 H 98 116 H Respiratory Rate 18 16 16 Blood Pressure 109/75 99/59 L 107/75 Pulse Oximetry 100 100 100 Oxygen Delivery Method Room Air Room Air Room Air 05/22/24 08:23 05/22/24 08:24 05/22/24 08:24 Temperature Pulse Rate 102 H 116 H 128 H Respiratory Rate Blood Pressure 106/66 107/75 104/68 Pulse Oximetry Oxygen Delivery Method 05/22/24 10:44 Temperature Pulse Rate 110 H Respiratory Rate 16 Blood Pressure 114/78 Pulse Oximetry 100 Oxygen Delivery Method Room Air BMI result Body Mass Index 15.8 Vital signs have been reviewed and appear to be correct. Blood pressure elevated. Heart rate normal. Respiratory rate normal. Temperature normal. Oxygen saturation normal. Appearance: Alert. Oriented X3. No acute distress. Head: Normal external exam. Normocephalic. Atraumatic. No Palumbo signs noted. No raccoon eyes noted Eyes: PERRLA. EOMI. Conjunctiva and sclera normal. Eyelids normal. ENT: TM's Normal. Pharynx normal. Uvula midline. Moist mucous membranes. No trismus noted. No drooling noted. No muffled voice noted. Neck: Normal inspection. Neck supple. FROM. No adenopathy. Thyroid Normal. No meningeal signs. No neck mass noted. CVS: Normal heart rate and rhythm. Heart sound normal. No murmurs noted. Pulses normal throughout. Respiratory: No respiratory distress. Painless inspiration. Breath sounds normal. No wheezes/rales/rhonchi noted. Chest nontender. No accessory muscle usage noted or decreased air movement noted. Abdomen: Soft and nontender. Bowel sounds normal in all 4 quadrants. No distention noted. No organomegaly noted. No visible injury noted. Rectal exam: Brown stool guaiac trace positive for blood. Back: No CVA tenderness. Full range of motion noted. Skin: Skin warm and dry. Normal skin color. Normal skin turgor. No rashes/lesions/lacerations noted. Extremities: No lower extremity edema. Extremities exhibit normal range of motion. Extremities nontender. Neuro: Oriented X 3. Cranial nerve exam: II-XII are grossly intact No motor deficit. No sensory deficit. Reflexes normal. Course Reevaluation(s) Reevaluation #1: Patient has no abdominal pain now tolerating p.o. intake, no nausea, no vomiting patient confirmed no rod bleeding per rectum, rectal exam shows trace positive blood on guaiac card, hemodynamically stable. Patient was tachycardic EKG showed normal sinus rhythm at 92. Patient was instructed to avoid using NSAIDs, follow-up with GI. Patient is already on PPI instructed to continue on it. Time: 11:51 Medical Decision Making Differential Diagnosis Differential Diagnoses: The differential diagnosis associated with the presentation includes ( anemia, GI bleed, perforated viscus, arrhythmia, electrolyte derangement , UTI, .) Admission/Observation Consideration of admission/observation: Escalation of care including admission/observation considered Lab Data MDM Lab Attestation statement: I reviewed the patient's lab results. 05/22/24 07:13 05/22/24 07:13 Labs: Lab Results 05/22/24 05/22/24 05/22/24 Range/Units 07:13 08:22 09:27 WBC 9.5 (4.8-10.8) X10*3/uL RBC 2.84 L D (4.20-5.50) X10*6/uL Hgb 11.1 L D (12.0-16.0) g/dl Hct 33.8 L D (37.0-47.0) % MCV 119.0 H (80.0-98.0) fL MCH 39.1 H (27.0-33.0) pg MCHC 32.8 (31.0-35.0) g/dl RDW 14.5 (11.0-16.0) % Plt Count 416 H D (160-400) X10*3/uL MPV 8.3 L (9.4-12.3) fL Immature Gran % (Auto) 0.4 (0.0-0.4) % Neut % (Auto) 68.5 (45-73) % Lymph % (Auto) 21.9 (20-40) % [place] % (Auto) 5.5 (2-11) % Eos % (Auto) 3.2 (0-4) % Baso % (Auto) 0.5 (0-2) % Lymph # (Auto) 2.1 (1.2-4.9) X10*3/uL [place] # (Auto) 0.5 (0.1-1.2) X10*3/uL Eos # (Auto) 0.3 (0.0-0.4) X10*3/uL Baso # (Auto) 0.1 (0.0-0.2) X10*3/uL Abs Immat Gran (auto) 0.04 H (0.00-0.03) X10*3/uL Absolute Neuts (auto) 6.5 (2.0-8.3) x10*3/uL Absolute Nucleated RBC 0.000 (0.0-0.012) X10*3/uL Nucleated RBC % (auto) 0.0 (0.0-0.2) /100WBC Smear Tech's Comments VERIFIED Sodium 140 (135-145) mmol/L Potassium 3.8 (3.3-5.1) mmol/L Chloride 120 H (96-108) mmol/L Carbon Dioxide 13 L (22-29) mmol/L Anion Gap 11 L (12-20) BUN 20 H (9-16) mg/dL Creatinine 0.95 (0.5-1.4) mg/dL Estim Creat Clear Calc 46.2 Estimated GFR > 60 Random Glucose 127 H (60-115) mg/dL Calcium 9.2 (8.4-10.2) mg/dL Total Bilirubin 0.3 (0.0-1.0) mg/dL AST 26 (5-31) U/L ALT 38 H (0-31) U/L Alkaline Phosphatase 124 H (39-117) U/L Total Protein 6.4 L (6.5-8.0) g/dL Albumin 4.1 (3.5-5.0) g/dL Beta HCG, Quant < 2 mIU/mL Urine Color Yellow Urine Appearance Clear Urine pH 6.0 (5.0-9.0) Ur Specific [place] 1.025 (1.005-1.025) Urine Protein 100 (2+) H (Neg-Trace) mg/dL Urine Glucose (UA) Negative (Negative) mg/dL Urine Ketones Negative (Negative) mg/dL Urine Blood Moderate (2+) H (Negative) Urine Nitrite Negative (Negative) Ur Leukocyte Esterase Negative (Negative) Urine RBC 11-20 H (0-2) /HPF Urine WBC 0-5 (0-5) /HPF Ur Squamous Epith Cells 0-2 (0-2) /HPF Urine Bacteria None Seen (None Seen) Hyaline Casts 3-5 (0-2) /LPF Granular Casts Present Stool Occult Blood POSITIVE (NEGATIVE) Independent Interpretation I performed an independent interpretation of an: CT Scan ( Abdomen pelvis:. No focal inflammatory process or small bowel obstruction. Partial gastrectomy/gastric bypass with distention of the proximal stomach with material. 2. Bilateral nephrolithiasis which is new since prior. 3. Diffuse fatty infiltration of the liver. ) Radiology Impression Discussion of test interpretation with radiology: I have reviewed the radiologist's reading. Medications Administered Discontinued Medications Generic Name Dose Route Start Last Admin Trade Name Irais PRN Reason Stop Dose Admin Sodium Chloride 1,000 mls @ 999 mls/hr 05/22/24 08:08 05/22/24 10:33 Ns IV 05/22/24 09:08 Infused .Q1H1M ONE Infusion Iohexol 100 ml 05/22/24 09:25 05/22/24 09:25 Iohexol 350 Mg/Ml 100 Ml Infus..Btl IV 05/22/24 09:26 85 ml ONCE ONE Administration Pantoprazole Sodium 40 mg 05/22/24 08:08 05/22/24 08:17 Pantoprazole Sodium 40 Mg/10 Ml Vial IVPUSH 05/22/24 08:09 40 mg ONCE ONE Administration Discharge Plan Discharge Clinical Impression: Peptic ulcer disease, Abdominal pain, Anemia Patient Disposition: Home, Self-Care Instructions: Abdominal Pain (ED) Additional Instructions: refrain from eating spicy food, taking ibuprofen, Advil, or aspirin you can take Tylenol for pain. 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 Seek immediate medical attention for black stool or vomiting blood. Prescriptions: No Action azithromycin 250 mg tablet See Rx Instructions PO .COMPLEX Qty: 6 0RF Rx Instructions: take 500 mg today (day 1), then 250 mg for 4 days (days 2-5) PO budesonide-formoterol [Symbicort] 160-4.5 mcg/actuation HFA aerosol inhaler 2 puff inhalation BID aspirin 81 mg tablet,delayed release (DR/EC) 81 mg PO DAILY dicyclomine 10 mg capsule 10 mg PO Q6H PRN diltiazem HCl 120 mg capsule,extended release 24hr PO medroxyprogesterone 150 mg/mL suspension 150 mg IM [id number] metoprolol succinate 50 mg tablet extended release 24 hr 0 mg PO ferrous sulfate 325 mg (65 mg iron) tablet 325 mg PO DAILY folic acid 1 mg tablet 1 mg PO DAILY sertraline 100 mg tablet 150 mg PO DAILY aripiprazole 5 mg tablet 5 mg PO DAILY doxycycline hyclate 100 mg capsule 100 mg PO BID 10 Days Qty: 20 0RF ciprofloxacin-dexamethasone [Ciprodex] 0.3-0.1 % drops,suspension 4 drp otic (ears) BID 7 Days Qty: 7.5 0RF penicillin V potassium 500 mg tablet 500 mg PO BID 10 Days Qty: 20 0RF clindamycin HCl 300 mg capsule 600 mg PO QID 10 Days Qty: 80 0RF Print Language: Filipino
[2024-05-22] MEDS: Pantoprazole Sodium 40 MG/10 ML VIAL IVPUSH (08:17)
[2024-05-22 08:23] VITALS: BP 106/66; BP 107/75; PULSE 102; PULSE 116; RESP 16; O2SAT 100
[2024-05-22 08:24] VITALS: BP 104/68; BP 107/75; PULSE 116; PULSE 128
[2024-05-22 08:29] LABS: OBS Int Ctl Valid YES; OBS1 POSITIVE (NEGATIVE)
[2024-05-22 08:56] LABS: HCG Quantitative < 2 mIU/mL
[2024-05-22] MEDS: iohexoL 350 MG/ML 100 ML INFUS..BTL IV (09:25)
[2024-05-22 09:33] LABS: Appearance Urine Clear; Color Urine Yellow; Glucose Urine UA Negative (Negative); Leukocyte Esterase Urine Negative (Negative); Nitrite Urine Negative (Negative); Specific Gravity - Urine 1.025 (1.005-1.025); UMIC TRIGGER UACC YES; Urine Blood Moderate (2+) (Negative); Urine Ketones Negative (Negative); Urine Protein 100 (2+) mg/dL (Neg-Trace)
[2024-05-22 09:43] LABS: Bacteria Urine None Seen (None Seen); Granular Casts Urine Present; Squamous Epithelial Cell Urine 0-2 /HPF (0-2); WBC Urine 0-5 /HPF (0-5)
[2024-05-22 10:44] VITALS: BP 114/78; PULSE 110; RESP 16; O2SAT 100
[2024-05-22 12:05] VITALS: BP 114/78; PULSE 98; RESP 16; TEMP 36.7; O2SAT 100
== END 2024-05-22 12:06 | disposition home or self-care (01) ==
PROVIDERS: Emergency Provider Emergency Medicine; PCP Internal Medicine
DX: K27.9 Peptic ulcer, site unspecified, unspecified as acute or chronic, without hemorrhage or perforation (principal); M54.40 Lumbago with sciatica, unspecified side; D64.9 Anemia, unspecified; R00.0 Tachycardia, unspecified; R11.0 Nausea; R10.2 Pelvic and perineal pain; Z79.899 Other long term (current) drug therapy
CPT/HCPCS: 36415; 74177; 80053; 81001; 82272; 84702; 85025; 93005; 96361; 96374; 99284; 99285; J2470; Q9967

== ENCOUNTER → 2024-05-22 08:26 | Outpatient (BNV) | payer MEDICARE, MEDICAID, SELFPAY | PROVIDERS: Emergency Provider Emergency Medicine; PCP Internal Medicine; Visit Provider Internal Medicine | DX: R00.0 Tachycardia, unspecified (principal) | CPT/HCPCS: 93010 ==

== ENCOUNTER 2025-03-28 02:57 | Emergency (ER) | payer MEDICARE, MEDICAID, SELFPAY ==
--- OUTSIDE RECORDS SUMMARY | 2025-01-21 17:30 | XMS_ITS ---
Author Organization [facility] Address [address] [place] [address] Care Team Providers [employer] Supervisor Name Role Phone NORBERT MENDOZA Primary Care Provider Unavailab Jason Kwong Unavailable [phone] Migration, Provider Unavailable Unavailable Allergies Allergen (clinical drug ingredient) Drug/Non Drug Allergy documented on EMR Reaction Allergy Type Onset Date Status celecoxib CeleBREX Muscle Aches Drug Allergy Acti ve vancomycin Vancomycin Unknown Drug Allergy Activ e [facility] Encounter Medications Medication SIG (Take, Route, Frequency, Duration) Notes Start Date End Date Status dilTIAZem HCl ER 180 MG/24 HOURS CAPSULE, EXTENDED RELEASE TAKE 1 CAPSULE DAILY.; Duration: 90 *Please review and pick correct strength-formulatio n from [employer] options. If intended option is not shown, discontinue and re-order from Quick Search* Active ARIPiprazole 2 MG Tablet TAKE 1 TABLET DAILY; Duration: 30 Active Dulera 100-5 MCG/ACT Aerosol 2 puff(s) inhaled 2 times a day Active Metoprolol Tartrate 75 MG Tablet 1 tab(s) orally 1 times a day Active ProAir HFA CFC FREE 90 MCG/INH AEROSOL INHALE 2 PUFFS EVERY 4-6 HOURS NEEDED WITH COUGH, FOR SHORTNESS OF BREATH , AND WHEEZING; Duration: 30 *Please review and pick correct strength-formulatio n from [employer] options. If intended option is not shown, discontinue and re-order from Quick Search* Active Zoloft 150 MG TABLET 1 TAB(S) ORALLY ONCE A DAY *Please review and pick correct strength-formulatio n from [employer] options. If intended option is not shown, discontinue and re-order from Quick Search* Active KlonoPIN 0.5 MG Tablet 1 tab(s) orally bid Active Macrobid 100 MG Capsule 1 cap(s) orally 2 times a day; Duration: 7 DAYS 12/31/2017 Active Pantoprazole Sodium 40 MG Tablet Delayed Release 1 tab(s) orally once a day Active Isosorbide Mononitrate 40 MG TABLET 1 TAB(S) ORALLY QD *Please review and pick correct strength-formulatio n from [employer] options. If intended option is not shown, discontinue and re-order from Quick Search* Active Encounters Encounter Location Date Provider Diagnosis [facility] [address] [place] [address] 01/21/2025 Provider Migration Plan Of Treatment No Information Progress Notes * GHISLAINE HARRISPILIOB:[birth year] (39 yo F)Acc No.[id number]:01/21/2025 Patient: URIAH RODGERS Provider: :1985 A ge:39 Y S ex:Female Date:01/21/2025 Address:[address] [place] [address] Pcp:NORBERT MENDOZA Subjective: * Chief Complaints: * M ultum To [facility] Conversion Encounter * Medications: T akingMacrobid 100 MG Capsule 1 cap(s) orally 2 times a day Isosorbide Mononitrate 40 MG TABLET 1 TAB(S) ORALLY QD , Notes to Pharmacist: *Please review and pick correct strength-formulation from [employer] options. If intended option is not shown, discontinue and re-order from Quick Search*Pantoprazole Sodium 40 MG Tablet Delayed Release 1 tab(s) orally once a day KlonoPIN 0.5 MG Tablet 1 tab(s) orally bid Zoloft 150 MG TABLET 1 TAB(S) ORALLY ONCE A DAY , Notes to Pharmacist: *Please review and pick correct strength-formulation from [employer] options. If intended option is not shown, discontinue and re-order from Quick Search*ProAir HFA CFC FREE 90 MCG/INH AEROSOL INHALE 2 PUFFS EVERY 4-6 HOURS NEEDED WITH COUGH, FOR SHORTNESS OF BREATH , AND WHEEZING , Notes to Pharmacist: *Please review and pick correct strength-formulation from [employer] options. If intended option is not shown, discontinue and re-order from Quick Search*ARIPiprazole 2 MG Tablet TAKE 1 TABLET DAILY dilTIAZem HCl ER 180 MG/24 HOURS CAPSULE, EXTENDED RELEASE TAKE 1 CAPSULE DAILY. , Notes to Pharmacist: *Please review and pick correct strength- formulation from [employer] options. If intended option is not shown, discontinue and re-order from Quick Search*Metoprolol Tartrate 75 MG Tablet 1 tab(s) orally 1 times a day Dulera 100-5 MCG/ACT Aerosol 2 puff(s) inhaled 2 times a day Taking Macrobid 100 MG Capsule 1 cap(s) orally 2 times a day Taking Isosorbide Mononitrate 40 MG TABLET 1 TAB(S) ORALLY QD , Notes to Pharmacist: *Please review and pick correct strength- formulation from [employer] options. If intended option is not shown, discontinue and re-order from Quick Search*Taking Pantoprazole Sodium 40 MG Tablet Delayed Release 1 tab(s) orally once a day Taking KlonoPIN 0.5 MG Tablet 1 tab(s) orally bid Taking Zoloft 150 MG TABLET 1 TAB(S) ORALLY ONCE A DAY , Notes to Pharmacist: *Please review and pick correct strength-formulation from [employer] options. If intended option is not shown, discontinue and re-order from Quick Search*Taking ProAir HFA CFC FREE 90 MCG/INH AEROSOL INHALE 2 PUFFS EVERY 4-6 HOURS NEEDED WITH COUGH, FOR SHORTNESS OF BREATH , AND WHEEZING , Notes to Pharmacist: *Please review and pick correct strength-formulation from [employer] options. If intended option is not shown, discontinue and re-order from Quick Search*Taking ARIPiprazole 2 MG Tablet TAKE 1 TABLET DAILY Taking dilTIAZem HCl ER 180 MG/24 HOURS CAPSULE, EXTENDED RELEASE TAKE 1 CAPSULE DAILY. , Notes to Pharmacist: *Please review and pick correct strength-formulation from [employer] options. If intended option is not shown, discontinue and re-order from Quick Search*Taking Metoprolol Tartrate 75 MG Tablet 1 tab(s) orally 1 times a day Taking Dulera 100-5 MCG/ACT Aerosol 2 puff(s) inhaled 2 times a day * Allergies: C eleBREX: Muscle AchesVancomycin * Electronic signature of Prov ider Migration on 03/28/2025 at 06:28 AM EDT Sign off status: Pending * Provider: Date: 0 01/21/2025 Generated for Cassandra phillip/Dominguez/Akiitting on: 0 03/28/2025 06:28 AM EDT
--- OUTSIDE RECORDS SUMMARY | 2025-03-24 05:47 | XMS_ITS | Encounter Summary ---
Author Organization [facility] Address [address] [place] [address] Care Team Providers Care Fire Extinguisher Tester Name Role Phone Manjit Hall MD Primary Care Provider [phone] Reason for Visit * Auth/Cert (Routine) Specialty Diagnoses / Procedures Referred By Harlan t Referred To Contact Diagnoses Calculus of kidney Calculus of kidney Procedures TN CYSTO W URETEROSCOPY/PYELOSCOPY W LITHOTRIPSY INCL INDWELLING URTRL STNT CYSTOSCOPY URETEROSCOPY LASER LITHOTRIPSY & STENT RIGHT Alexei Medeiros MD 100 [facility] [address] [address] Phone: tel: fax: [facility] Main OR [address] [place] [phone] Phone: tel: Referral ID Status Reason Start Date Expiration Date Visits Re quested Visits Authorized [id number] 1 1 Encounter Details Date Type Department Care Team (Latest Contact Info) Description 03/24/2025 5:47 AM EDT - 03/24/2025 11:15 AM EDT Hospital Encounter [facility] Main OR [address] [place] [phone] Alexei Medeiros MD [address] [facility] [address] [address] Discharge Disposition: Home or Self Care Social History Tobacco Use Types Packs/Day Years Used Date Smoking Tobacco: Never Cigarettes Smokeless Tobacco: Never Alcohol Use Standard Drinks/Week Comments No 0 (1 standard drink = 0.6 oz pur e alcohol) Interpersonal Safety Answer Date Record ed Physical Abuse 03/24/2025 Verbal Abuse 03/24/2025 Comments No Sex and Gender Information Value Date Recorded Sex Assigned at Female 09/23/2024 10:01 AM EST Legal Sex Female 11:41 PM EST Gender Identity Female 09/23/2024 10:01 AM EST Sexual Orientation Straight 09/23/2024 10 :01 AM EST documented as of this encounter Last Filed Vital Signs Vital Sign Reading Time Taken Comments Blood Pressure 97/76 03/24/2025 9:21 AM EDT Pulse 77 03/24/2025 9:21 AM EDT Temperature 37 C (98.6 F) 03/24/2025 9:21 AM EDT Respiratory Rate 16 03/24/2025 9:21 AM EDT Oxygen Saturation 98% 03/24/2025 9:21 AM EDT Inhaled Oxygen Concentration - - Weight - - Height - - Body Mass Index - - documented in this encounter Discharge Instructions * Attachments The following attachments cannot be sent through Care Everywhere. * General Anesthesia (Welsh) documented in this encounter Medications at Time of Discharge acetaminophen (TYLENOL) 500 mg tablet Take 1 tablet (500 mg total) by mouth every 6 hours as needed. albuterol HFA (Ventolin HFA) 90 mcg/actuation inhaler Inhale 2 puffs by mouth every 4 (four) hours if needed for wheezing or shortness of breath. 8 g 5 01/24/2025 amitriptyline (ELAVIL) 10 mg tablet TAKE 1 TABLET BY MOUTH EVERYDAY AT BEDTIME 90 tablet 1 03/14/2025 ARIPiprazole (ABILIFY) 5 mg tablet 07/22/2021 cholecalciferol (Vitamin D3) 50 mcg (2,000 unit) capsule Take 1 capsule (2,000 Units total) by mouth 1 (one) time each day. 90 each 3 01/25/2025 dilTIAZem CD (CARDIZEM CD) 120 mg 24 hr capsule TAKE 1 CAPSULE (120 MG TOTAL) BY MOUTH 3 (THREE) TIMES A DAY. 270 capsule 1 01/09/2025 fluticasone propionate (FLONASE) 50 mcg/actuation nasal spray 2 Sprays by Nasal route daily. 10/18/2010 levocetirizine (XYZAL) 5 mg tablet Take 1 tablet (5 mg total) by mouth 1 (one) time each day. 12/13/2019 linaCLOtide (Linzess) 290 mcg capsule Take 1 capsule (290 mcg total) by mouth 1 (one) time each day. 30 capsule 11 10/14/2024 medroxyPROGESTERon e 150 mg/mL injection syringeIndications :Surveillance for Depo-Provera contraception Inject 1 mL (150 mg total) into the shoulder, thigh, or buttocks every 3 (three) months. 1 mL 3 09/13/2024 metoprolol succinate (TOPROL-XL) 25 mg 24 hr tablet Take 1 tablet (25 mg total) by mouth 2 (two) times a day. Do not crush or chew. 180 tablet 1 02/27/2025 mometasone-formote rol (DULERA 100) 100-5 mcg/actuation inhaler 2 inhalations by Inhaled route every 12 (twelve) hours. multivitamin (MULTIPLE VITAMINS ORAL) Take 1 tablet by mouth daily. mupirocin (BACTROBAN) 2 % ointment APPLY TO AFFECTED AREA TWICE A DAY 22 g 3 02/27/2025 naloxegoL (Movantik) 25 mg tablet Take 1 tablet (25 mg total) by mouth 1 (one) time each day. 30 tablet 11 09/28/2024 nitroglycerin (Nitrostat) 0.4 mg SL tablet 06/26/2015 omega-3/dha/epa/fi sh oil (OMEGA-3 ORAL) pantoprazole (PROTONIX) 40 mg EC tablet TAKE 1 TABLET BY MOUTH 2 TIMES DAILY (BEFORE MEALS). TAKE ON EMPTY STOMACH, WAIT 30 MINUTES AND THEN EAT TO ACTIVATE MEDICATION.- BEFORE BREAKFAST AND SUPPER 180 tablet 3 12/19/2024 pramipexole (MIRAPEX) 0.125 mg tablet 11/14/2019 sertraline (ZOLOFT) 100 mg tablet Take 1 tablet (100 mg total) by mouth 1 (one) time each day. sucralfate (CARAFATE) 1 gram tablet TAKE 1 TABLET BY MOUTH 3 TIMES DAILY WITH MEALS 30 tablet 10/13/2024 tamsulosin (FLOMAX) 0.4 mg 24 hr capsule 1 capsule (0.4 mg total) 1 (one) time each day if needed. 05/31/2020 documented as of this encounter Discharge Disposition Disposition Code Departure Means Destination Comment s Home or Self Care Wheelchair Home documented in this encounter H&P Notes * Alexei Medeiros MD - 03/24/2025 7:09 AM EDT History Of Present Illness (include Chief Complaint): Joslyn Beaulieu is a 39 y.o. female presenting with R kidney stones. Past Medical History: She has a past medical history of Allergic rhinitis (05/21/2010), Anemia, Anxiety (10/20/2011), Arrhythmia, Asperger's disorder (12/12/2021), Asthma, Autism disorder, Autistic disorder (12/12/2021), Bowel obstruction ([facility] V24, [facility] V28) (2018), Chronic constipation, Chronic kidney disease, Chronic pain disorder, Closed rib fracture (12/12/2021), Constipation, Constipation, Depression, Elbow fracture, right (12/12/2021), Endocarditis, Esophageal reflux, GERD (gastroesophageal reflux disease), H/O abdominal surgery, H/O: upper GI bleed, Hemorrhagic varicella pneumonitis (09/10/2006), History of fracture of phalanx of toe (12/12/2021), History of GI bleed (12/12/2021), History of infectious mononucleosis (01/1999), History of small bowel obstruction (12/12/2021), History of transfusion, Irregular heart beat, Irritable bowel syndrome, Lower limb amputation, ankle ([facility] V24, [facility] V28), Migraine, Mitral valve prolapse, MRSA (methicillin resistant Staphylococcus aureus), Other specified viral warts (05/2002), Palpitations (12/12/2021), Peptic ulcer disease (12/12/2021), Pepticulcer disease, Rheumatic heart disease, 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 She has no past medical history of Historical Medical DX, Nevus, non-neoplastic, or Personal history of malignant melanoma of skin. Surgical History: She has a past surgical history that includes Foot surgery; Other surgical history; Arrhythmia surgery (N/A, 09/05/2015); Arrhythmia surgery (N/A, 09/05/2015); Arrhythmia surgery (N/A, 09/05/2015); Atrial ablation surgery (N/A, 02/06/2014); Arrhythmia surgery (N/A, 02/06/2014); Arrhythmia surgery (N/A, 02/06/2014); Arrhythmia surgery (N/A, 02/06/2014); Tonsillectomy (3rd grade); Ankle surgery (11/02/2007); Wrist surgery; Foot surgery (08/03/2009); Colonoscopy (11/11/2012); Esophagogastroduodenoscopy (11/11/2012); Other surgical history (05/11/2017); Colonoscopy (07/18/2015); and Other surgical history (Left, 08/21/2023). Family History: family history includes Breast cancer in her paternal grandmother; Breast cancer (age of onset: 50)in her aunt; Leukemia in her paternal grandfather; Other: back in her father. Social History: She reports that she has never smoked. She has never used smokeless tobacco. She reports that she does not drink alcohol and does not use drugs. Allergies: Amoxicillin, Celecoxib, Fluconazole, Ibuprofen, and Vancomycin Home Medications: Medications Prior to Admission Medication Sig Dispense Refill Last Dose/Taking acetaminophen (TYLENOL) 500 mg tablet Take 1 tablet (500 mg total) by mouth every 6 hours as needed. 03/23/2025 Morning albuterol HFA (Ventolin HFA) 90 mcg/actuation inhaler Inhale 2 puffs by mouth every 4 (four) hours if needed for wheezing or shortness of breath. 8 g 5 03/23/2025 amitriptyline (ELAVIL) 10 mg tablet TAKE 1 TABLET BY MOUTH EVERYDAY AT BEDTIME 90 tablet 1 03/23/2025 Bedtime ARIPiprazole (ABILIFY) 5 mg tablet 03/23/2025 Morning cholecalciferol (Vitamin D3) 50 mcg (2,000 unit) capsule Take 1 capsule (2,000 Units total) by mouth 1 (one) time each day. 90 each 3 03/23/2025 Morning dicyclomine (BENTYL) 10 mg capsule TAKE 1 CAPSULE (10 MG TOTAL) BY MOUTH 4 (FOUR) TIMES A DAY IF NEEDED (ABDOMINAL CRAMPING). 360 capsule 0 03/23/2025 Morning dilTIAZem CD (CARDIZEM CD) 120 mg 24 hr capsule TAKE 1 CAPSULE (120 MG TOTAL) BY MOUTH 3 (THREE) TIMES A DAY. 270 capsule 1 03/24/2025 Morning fluticasone propionate (FLONASE) 50 mcg/actuation nasal spray 2 Sprays by Nasal route daily. 03/23/2025 Morning levocetirizine (XYZAL) 5 mg tablet Take 1 tablet (5 mg total) by mouth 1 (one) time each day. 03/23/2025 Morning linaCLOtide (Linzess) 290 mcg capsule Take 1 capsule (290 mcg total) by mouth 1 (one) time each day. 30 capsule 11 03/23/2025 Morning medroxyPROGESTERone 150 mg/mL injection syringe Inject 1 mL (150 mg total) into the shoulder, thigh, or buttocks every 3 (three) months. 1 mL 3 Past Month metoprolol succinate (TOPROL-XL) 25 mg 24 hr tablet Take 1 tablet (25 mg total) by mouth 2 (two) times a day. Do not crush or chew. 180 tablet 1 03/24/2025 Morning mometasone-formoterol (DULERA 100) 100-5 mcg/actuation inhaler 2 inhalations by Inhaled route every12 (twelve) hours. 03/23/2025 Evening multivitamin (MULTIPLE VITAMINS ORAL) Take 1 tablet by mouth daily. 03/23/2025 Morning naloxegoL (Movantik) 25 mg tablet Take 1 tablet (25 mg total) by mouth 1 (one) time each day. 30 tablet 11 03/23/2025 Morning nitroglycerin (Nitrostat) 0.4 mg SL tablet Past Month omega-3/dha/epa/fish oil (OMEGA-3 ORAL) 03/23/2025 Morning pantoprazole (PROTONIX) 40 mg EC tablet TAKE 1 TABLET BY MOUTH 2 TIMES DAILY (BEFORE MEALS). TAKE ON EMPTY STOMACH, WAIT 30 MINUTES AND THEN EAT TO ACTIVATE MEDICATION.- BEFORE BREAKFAST AND SUPPER 180 tablet 3 03/23/2025 Morning pramipexole (MIRAPEX) 0.125 mg tablet 03/23/2025 Morning sertraline (ZOLOFT) 100 mg tablet Take 1 tablet (100 mg total) by mouth 1 (one) time each day. 03/23/2025 Morning sucralfate (CARAFATE) 1 gram tablet TAKE 1 TABLET BY MOUTH 3 TIMES DAILY WITH MEALS 30 tablet 0 03/23/2025 Morning tamsulosin (FLOMAX) 0.4 mg 24 hr capsule 1 capsule (0.4 mg total) 1 (one) time each day if needed. Past Week mupirocin (BACTROBAN) 2 % ointment APPLY TO AFFECTED AREA TWICE A DAY 22 g 3 Review of Systems Last Recorded Vitals: Blood pressure 104/80, pulse 88, temperature 36.5 ??C (97.7 ??F), resp. rate 16, SpO2 100%. Physical Exam Relevant Results: Gen: NAD CV: RRR Resp: unlabored breathing Abd: s/nd/nt Assessment/Plan Active Problems: No Active Problems: There are no active problems currently on the Problem List. Please update the Problem List and refresh. 39yo F with R kidney stones. - to OR for R URS and LL - ancef 1g for ppx documented in this encounter Procedure Notes * Marina Rico RN - 03/24/2025 10:53 AM EDT at bedside speaking with patient Discharge instructions reviewed with stated understanding * Alexei Medeiros MD - 03/24/2025 7:58 AM EDT CYSTOSCOPY URETEROSCOPY LASER LITHOTRIPSY & STENT RIGHT (R) OPERATIVE NOTE Date: 03/24/2025 Location: [facility] OR Name: Joslyn Beualieu, : 1985, Diagnosis Pre-op Diagnosis * Calculus of kidney [N20.0] Post-op Diagnosis * Calculus of kidney [N20.0] Procedures CYSTOSCOPY URETEROSCOPY LASER LITHOTRIPSY & STENT RIGHT [address] - [place] CYSTO W URETEROSCOPY/PYELOSCOPY W LITHOTRIPSY INCL INDWELLING URTRL STNT Additional Procedures Indications: Joslyn Beaulieu is an 39 y.o. female who is having surgery for Calculus of kidney. Surgeon(s) & Digital Cartographer(s) * Alexei Medeiros MD - Primary Anesthesia: general ASA: III Estimated Blood Loss: None Drains: RIGHT 6Fr ureteral stent Specimen: none Procedure Details: The patient was consented for the operation, marked and brought to the operation room and placed inthe supine position on the operating room table. The patient was induced with general anesthesia and given perioperative weight appropriate antibiotics. The patient was then repositioned into dorsolithotomy position taking care to pad the lower extremities. SCDs were confirmed in place and active. The patient was prepped and draped in the standard sterile fashion and a preoperative timeout was performed confirming laterality of the surgery. A 21 Tunisian cystoscope was inserted via urethra into the patient's bladder. Cystoscopy was notable for a normal appearing bladder. I turned my attention to the right ureteral orifice which was cannulated with a sensor wire. I thenused a dual lumen catheter to perform a retrograde pyelogram. No filling defects or hydronephrosis noted. I then placed a second wire and then a 11-13Fr ureteral access sheath. A flexible ureteroscope was then advanced into the RIGHT kidney. Careful pyeloscopy revealed a cluster of fragments in thelower pole. Using a 200um laser fiber, this cluster was dusted. I then performed pyeloscopy and allother large fragments were dusted. I then withdrew the scope and sheath in tandem and the ureter was seen to be free of stone and injury. A 6 Fr variable length ureteral stent was placed in the standard retrograde fashion over the safetywire achieving excellent coiling proximally within the kidney on fluoroscopy and excellent coiling within the bladder as well. The patient's bladder was then emptied and the patient was woken anesthesia and brought to the recovery room in stable condition. The patient will follow up in the office for stent removal Findings: R kidney stone fragments Complications: None; patient tolerated the procedure well. Disposition: PACU - hemodynamically stable. Condition: stable * Shalini Richard RN - 03/24/2025 6:47 AM EDT Hermann pazMilagro Jasper [phone] documented in this encounter Plan of Treatment Upcoming Encounters Date Type Department Care Team (Late st Contact Info) Description 03/30/2025 3:30 PM EDT Consult Thoracic Surgery - [place] [address] [place] [phone] Kendall Ricks MD [address] [place], [place] [phone] 04/11/2025 1:00 PM EDT Appointment [facility] Interventional Radiology [address] [place] [phone] 04/17/2025 3:20 PM EDT Office Visit Gastroenterology - [place] [address] [place] [phone] Bisi Dinero, COMMUTATOR ASSEMBLER [address] [place] [address] 05/05/2025 3:30 PM EDT Office Visit [facility] [address] [place] [address] Mandeep Horn MD [address] [place] [address] [address] [place] [address] 05/08/2025 3:30 PM EDT Office Visit Adult Medicine [place] - [address] [phone] Manjit Hall MD [address] [place] [phone] 06/08/2025 3:15 PM EST Clinical Support Obstetrics and Gynecology - [address] [phone] 06/21/2025 3:30 PM EST Office Visit [facility] Hematology Oncology [address] [place] [phone] Angelito Mcfarlane MD [address] [place] [phone] 09/08/2025 3:00 PM EST Appointment [facility] Ultrasound [address] [place] [phone] documented as of this encounter Procedures Procedure Name Priority Date/Time Associated Diagnosis Comments OXYGEN THERAPY, ADULT Routine 03/24/2025 8:26 AM EDT XR UROGRAM RETROGRADE Routine 03/24/2025 8:20 AM EDT POC PREGANCY, URINE SCREENING Routine 03/24/2025 6:46 AM EDT documented in this encounter Results * XR Urogram Retrograde (03/24/2025 8:20 AM EDT) Anatomical Region Laterality Modality Body Radio Fluoroscop y 03/24/2025 8:24 AM EDT Narrative 03/24/2025 8:24 AM EDT Fluoroscopic spot radiographs obtained during a right endourologic procedure are submitted. No radiologist consultation was requested or provided during this procedure and there is no radiologist professional charge. This report is generated for documentation purposes only. The dose-area product for this procedure was 694.65 mGy*cm2. PQRI CPT II G9500 -------- FINAL REPORT -------- Dictated By: Gerber Neumann Dictated Date: 03/24/2025 08:24 ET Assigned Physician: Gerber Neumann Reviewed and Electronically Signed By: Gerber Neumann Signed Date: 03/24/2025 08:24 ET Workstation ID: [id number] Transcribed By: Self Edit Transcribed Date: 03/24/2025 08:24 ET Procedure Note Gerber Neumann MD - 03/24/2025 Fluoroscopic spot radiographs obtained during a right endourologicprocedure are submitted. No radiologist consultation was requested orprovided during this procedure and there is no radiologist professionalcharge. This report is generated for documentation purposes only. The dose-area product for this procedure was 694.65 mGy*cm2. PQRI CPT II G9500 -------- FINAL REPORT -------- Dictated By: Gerber Neumann Dictated Date: 03/24/2025 08:24 ET Assigned Physician: Gerber Neumann Reviewed and Electronically Signed By: Gerber Neumann Signed Date: 03/24/2025 08:24 ET Workstation ID: [id number] Transcribed By: Self Edit Transcribed Date: 03/24/2025 08:24 ET Alexei Medeiros MD IMG FLUOROSCOPY PROCEDURES Final Result * POC , urine NO CHARGE screening manually resulted (03/24/2025 6:46 AM EDT) HCG, Ur POC Negative Negative POC hCG Int QC Pass? Yes Yes Urine Urine specimen obtained by clean catch procedure / Unknown 03/24/2025 6:46 AM EDT Alexei Medeiros MD POINT OF CARE TEST ENTER/EDIT OR DERABLES Final Result documented in this encounter Visit Diagnoses Not on filedocumented in this encounter Administered Medications Inactive Administered Medications - up to 3 most recent administrations Medication Order MAR Action Action Date Dose Rate Site HYDROmorphone (DILAUDID) injection 0.5 mg 0.5 mg, intravenous, Every 5 min PRN, severe pain or when therapies for moderate pain were not effective, Starting on Thu03/24/25 at 0826, For 5 doses, Recovery (only) Given 03/24/2025 8:47 AM EDT 0.5 mg Given 03/24/2025 8:42 AM EDT 0.5 mg lactated Ringer's infusion 100 mL/hr, intravenous, Continuous, Starting on Thu03/24/25 at 0730, Preprocedure Restarted 03/24/2025 8:37 AM EDT 100 mL/hr 100 mL/hr New Bag 03/24/2025 7:41 AM EDT sodium chloride 0.9 % flush 10 mL 10 mL, intravenous, 2 times daily, First dose on Thu03/24/25 at 0900, Preprocedure sodium chloride 0.9 % flush 10 mL 10 mL, intravenous, As needed, line care, Starting on Thu03/24/25 at 0711, Preprocedure documented in this encounter Active and Recently Administered Medications Times are shown in EDT. Scheduled Medication Order 03/22/2025 03/23/2025 03/24/2025 ceFAZolin (ANCEF) 1 g in sterile water 10 mL IV syringe (COMPLETED) 1 g, intravenous, Administer over 3 Minutes, Once, On Thu03/24/25 at 0730, For 1 dose, Preprocedure, Indication: Prophylaxis-Surgical 0750 (New Bag - Prov ider: Matty Mckeon DO) sodium chloride 0.9 % flush 10 mL(Linked Group 1) 10 mL, intravenous, 2 times daily, First dose on Thu03/24/25 at 0900, Preprocedure 0900 (Canceled Entry - Provider: Automatic Discharge Provider - Comment: Automatically canceled at discontinue of medication order) Continuous Medication Order 03/22/2025 03/23/2025 03/24/2025 lactated Ringer's infusion 100 mL/hr, intravenous, Continuous, Starting on Thu03/24/25 at 0730, Preprocedure 0741 (New Bag - Prov ider: Matty Mckeon DO)0816 (Stopped - Provider: Matty Mckeon DO)0837 (Restarted - Provider: Kirsten Aldridge RN)1320 (Due: Stopped) PRN Medication Order 03/22/2025 03/23/2025 03/24/2025 HYDROmorphone (DILAUDID) injection 0.5 mg (CANCELED) 0.5 mg, intravenous, Every 5 min PRN, severe pain or when therapies for moderate pain were not effective, Starting on Thu03/24/25 at 0826, For 5 doses, Recovery (only) 0842 (Given - Provid er: Kirsten Aldridge RN)0847 (Given - Provider: Kirsten Aldridge RN) iopamidoL (ISOVUE-300) 300 mg iodine /mL (61 %) solution (CANCELED) As needed, Starting on Thu03/24/25 at 0758, Intraprocedure 0758 (Given - Provid er: Alexei Medeiros MD) lidocaine 2 % mucosal jelly (CANCELED) As needed, Starting on Thu03/24/25 at 0815, Intraprocedure 0815 (Given - Provid er: Alexei Medeiros MD) sodium chloride 0.9 % flush 10 mL(Linked Group 1) 10 mL, intravenous, As needed, line care, Starting on Thu03/24/25 at 0711, Preprocedure Linked Groups Order Group 1: Insert peripheral IV (CANCELED) STAT, Once, On Thu03/24/25 at 0712, For 1 occurrence, Preprocedure And Maintain IV access (CANCELED) Until discontinued, Starting on Thu03/24/25 at 0712, Until Specified, Preprocedure And Saline lock IV (CANCELED) Routine, Once, On Thu03/24/25 at 0712, For 1 occurrence, Preprocedure And sodium chloride 0.9 % flush 10 mLJump to med 10 mL, intravenous, 2 times daily, First dose on Thu03/24/25 at 0900, Preprocedure And sodium chloride 0.9 % flush 10 mLJump to med 10 mL, intravenous, As needed, line care, Starting on Thu03/24/25 at 0711, Preprocedure documented in this encounter Orders Medications Ordered That Davon ht Not Have Been Administered Count Last Ordered Date First Ordered Date acetaminophen (TYLENOL) tablet 650 mg 1 ceFAZolin (ANCEF) 1 g in paramjit rile water 10 mL IV syringe 1 03/24/2025 iopamidoL (ISOVUE-300) 300 m g iodine /mL (61 %) solution 1 03/24/2025 lactated Ringer's infusion 1 03/24/2025 lidocaine 2 % mucosal jelly 1 03/24/2025 ondansetron (PF) (ZOFRAN) injection 4 mg 1 03/24/2025 ondansetron ODT (ZOFRAN-ODT) disintegrating tablet 4 mg 1 03/24/2025 oxyCODONE (ROXICODONE) immed iate release tablet 5 mg 1 03/24/2025 sodium chloride 0.9 % flush 10 mL 2 025 Respiratory Care Count Last Ordered Date First Ordered Date OXYGEN THERAPY, ADULT 1 03/24/2025 Discharge Count Last Ordered Date First Orde red Date DISCHARGE PATIENT 1 03/24/2025 documented in this encounter Care Teams Fire Extinguisher Tester Relationship Specialty Start Date End Date Lebaka, Manjit R, MD [address] [place] [address] PCP - General Internal Medicine 12/03/21 documented as of this encounter
--- OUTSIDE RECORDS SUMMARY | 2025-03-24 07:30 | XMS_ITS | Encounter Summary ---
Author Organization [facility] Address [address] [place] [address] Care Team Providers Care Restaurant Maintenance Technician Name Role Phone Manjit Hall MD Primary Care Provider [phone]- [phone] Reason for Visit * Auth/Cert (Routine) Specialty Diagnoses / Procedures Referred By Harlan t Referred To Contact Diagnoses Calculus of kidney Calculus of kidney Procedures [place] CYSTO W URETEROSCOPY/PYELOSCOPY W LITHOTRIPSY INCL INDWELLING URTRL STNT CYSTOSCOPY URETEROSCOPY LASER LITHOTRIPSY & STENT RIGHT Alexei Medeiros MD [address] [employer] [address] [place] [address] Phone: tel: fax: [facility] OR [address] [place] [phone] Phone: tel: Referral ID Status Reason Start Date Expiration Date Visits Re quested Visits Authorized [id number] 1 1 Encounter Details Date Type Department Care Team (Late st Contact Info) Description 03/24/2025 7:30 AM EDT - 03/24/2025 9:15 AM EDT Surgery [facility] Main OR [address] [place] [phone] Alexei Medeiros MD [address] [employer] [address] [place] [address] CYSTOSCOPY URETEROSCOPY LASER LITHOTRIPSY & STENT RIGHT [63099 (CPT )] Social History Tobacco Use Types Packs/Day Years [...] Sign Reading Time Taken Comments Blood Pressure 98/74 03/24/2025 9:05 AM EDT Pulse 80 03/24/2025 9:05 AM EDT Temperature 36.4 C (97.5 F) 03/24/2025 9:05 AM EDT Respiratory Rate 11 03/24/2025 9:05 AM EDT Oxygen Saturation 99% 03/24/2025 9:05 AM EDT Inhaled Oxygen Concentration - - Weight - - Height - - Body Mass Index - - documented in this encounter Discharge Instructions * Attachments The following attachments cannot be sent through Care Everywhere. * General Anesthesia (Turkmen) documented in this encounter Medications at Time [...] Autism disorder, Autistic disorder (12/12/2021), Bowel obstruction ([facility] V24, [facility] V28) (2018), Chronic constipation, Chronic kidney disease, [...] Irritable bowel syndrome, Lower limb amputation, ankle ([facility] V24, [facility] V28), Migraine, Mitral valve prolapse, MRSA (methicillin [...] RIGHT (R) OPERATIVE NOTE Date: 03/24/2025 Location: [facility] OR Name: Joslyn Beaulieu, : 1985, Diagnosis Pre-op Diagnosis * Calculus of kidney [N20.0] Post-op Diagnosis * Calculus of kidney [N20.0] Procedures CYSTOSCOPY URETEROSCOPY LASER LITHOTRIPSY & STENT RIGHT [address] - IA CYSTO W URETEROSCOPY/PYELOSCOPY W LITHOTRIPSY INCL INDWELLING URTRL STNT Additional Procedures Indications: Joslyn Beaulieu is an 39 y.o. female who is having surgery for Calculus of kidney. Surgeon(s) & Transaction Coordinator(s) * Alexei Medeiros MD - Primary Anesthesia: [...] confirming laterality of the surgery. A 21 Nepali cystoscope was inserted via urethra into the [...] Richard RN - 03/24/2025 6:47 AM EDT Ride home, Dad Jasper [phone] documented in this encounter Plan of Treatment Upcoming Encounters Date Type Department Care Team (Late st Contact Info) Description 03/30/2025 3:30 PM EDT Consult Thoracic Surgery - [place] [address] [place] [phone] Kendall Ricks MD [address] [place] [address] 04/11/2025 1:00 PM EDT Appointment [facility] Interventional Radiology [address] [place] [phone] 04/17/2025 3:20 PM EDT Office Visit Gastroenterology - [place] [address] [facility] [address] [facility] [address] [place] [phone] Bisi Dinero, KIRA [address] [place] [address] 05/05/2025 3:30 PM EDT Office Visit [facility] Cardiology [facility] - [address] [place] [phone] Mandeep Horn MD [address] [place] [address] [address]IVE [address] [place] [address] 05/08/2025 3:30 PM EDT [facility] - [address] [phone] Manjit Hall MD [address] [place] [address] 06/08/2025 3:15 PM EST Clinical Support Obstetrics and Gynecology - [address] [phone] 06/21/2025 3:30 PM EST Office Visit [facility] Hematology Oncology [address] [place] [phone] Angelito Mcfarlane MD [address] [place] [address] 09/08/2025 3:00 PM EST Appointment [facility] Ultrasound [address] [place] [address] documented as of this encounter Procedures Procedure [...] Signed Date: 03/24/2025 08:24 ET Workstation ID: [id number] Transcribed By: Self Edit Transcribed Date: 03/24/2025 [...] Signed Date: 03/24/2025 08:24 ET Workstation ID: [id number] Transcribed By: Self Edit Transcribed Date: 03/24/2025 [...] Result documented in this encounter Visit Diagnoses Diagnosis Calculus of kidney documented in this encounter Administered Medications Inactive Administered [...] Given 03/24/2025 8:42 AM EDT 0.5 mg iopamidoL (ISOVUE-300) 300 mg iodine /mL (61 %) solution As needed, Starting on Thu03/24/25 at 0758, Intraprocedure Given 03/24/2025 7:58 AM EDT 50 mL lactated Ringer's infusion 100 mL/hr, intravenous, Continuous, Starting on Thu03/24/25 at 0730, Preprocedure Restarted 03/24/2025 8:37 AM EDT 100 mL/hr 100 mL/hr New Bag 03/24/2025 7:41 AM EDT lidocaine 2 % mucosal jelly As needed, Starting on Thu03/24/25 at 0815, Intraprocedure Given 03/24/2025 8:15 AM EDT 6 mL sodium chloride 0.9 % flush 10 mL [...] mg 1 ceFAZolin (ANCEF) 1 g in diane rile water 10 mL IV syringe 03/24/2025 lactated Ringer's infusion 03/24/2025 ondansetron (PF) (ZOFRAN) injection 4 mg 1 03/24/2025 ondansetron ODT (ZOFRAN-ODT) disintegrating tablet 4 mg 03/24/2025 oxyCODONE (ROXICODONE) immed iate release tablet 5 mg 03/24/2025 sodium chloride 0.9 % flush 10 mL 2 025 Respiratory Care Count Last Ordered Date First Ordered Date OXYGEN THERAPY, ADULT 1 03/24/2025 Discharge Count Last Ordered Date First Orde red Date DISCHARGE PATIENT 1 03/24/2025 documented in this encounter Care Teams Restaurant Maintenance Technician Relationship Specialty Start Date End Date Manjit Hall MD [address] [place] [address] PCP - General Internal Medicine 12/03/21 documented as of this encounter
--- OUTSIDE RECORDS SUMMARY | 2025-03-24 07:41 | XMS_ITS | Encounter Summary ---
Author Organization [facility] Address [address] [place] [address] Care Team Providers Care Injection Moulding Machine Operator Name Role Phone Manjit Hall MD Primary Care Provider [phone] Reason for Visit * Auth/Cert (Routine) Specialty Diagnoses / Procedures Referred By Harlan t Referred To Contact Diagnoses Calculus of kidney Calculus of kidney Procedures FL CYSTO W URETEROSCOPY/PYELOSCOPY W LITHOTRIPSY INCL INDWELLING URTRL STNT CYSTOSCOPY URETEROSCOPY LASER LITHOTRIPSY & STENT RIGHT Alexei Medeiros MD [address] [address] Phone: tel: fax: [facility] Main OR [address] [place] [address] Phone: tel: Referral ID Status Reason Start Date Expiration Date Visits Re quested Visits Authorized [id number] 1 1 Encounter Details Date Type Department Care Team (Late st Contact Info) Description 03/24/2025 7:41 AM EDT Anesthesia Event [facility] Main OR [address] [place] [address] Matty Mckeon DO [address] [place] [address] Migel Patiño MD [address] [place] [phone] Anesthesia Record Procedure Summary Procedure Name Responsible Anesthesiologist Anesthesia Start Time Anesthesia Stop Time CYSTOSCOPY URETEROSCOPY LASER LITHOTRIPSY & STENT RIGHT (Right) Matty Mckeon DO 03/24/25 0741 03/24/25 08 Events Date Time Event Comment 03/24/2025 0711 0741 An Start 0741 An Start Data The patient wa s reevaluated immediately before moderate or deep sedation use and before anesthesia induction. 0742 In Room 0755 An Induction 0755 An Intubation 0755 Anesthesia Ready 0758 Proc Start 0819 Proc Fin 0822 An Extubation 0822 an stop data 0822 Out of Room 0827 Handoff to RN I completed my handoff to the receiving nurse during which we: 1. Identified the patient 2. Identified the responsible provider 3. Reviewed the pertinent medical history 4. Discussed the surgical course 5. Reviewed intra-op anesthesia management and issues during anesthesia 6. Set expectations for post-procedure period 7. Allowed opportunity for questions and acknowledgement of understanding. 0827 An Stop Meds Name Total midazolam 1 mg/mL 2 mg fentaNYL (SUBLIMAZE) injection 100 mcg propofol (DIPRIVAN) injection 10 mg/mL 1 00 mg ondansetron 2 mg/mL 4 mg phenylephrine (NICOLETTE-SYNEPHRINE) 100 mcg/m L syringe 10 mL 100 mcg lidocaine PF (XYLOCAINE-MPF) local injec tion 2% 40 mg ceFAZolin (ANCEF) 1 g in sterile water 1 0 mL IV syringe 1 g lactated Ringer's infusion 600 mL * Agents Name O2 Inspired N2O * Blood No blood administrations on file. Lines, Drains, and Airways Type Details Placement Removal Peripheral IV Placement Date: 03/04 09/27; Placement Time: 07; Catheter Size: 20 G; Orientation: Anterior, Left, Upper; Location: Arm; Inserted by: Nakul GALLOWAY; Insertion Attempts: 4; Patient Tolerance: Tolerated well; Removal Date: 03/24/25; Removal Time: 1019 03/24/25 0736 by Shalini Richard RN 03/24/25 1019 by Marina Rico RN LMJordi 03/24/25; 0750 (quincy lai via procedure documentation); 3; 03/24/25; 0803/24/25 075 by Matty Mckeon DO 03/24/25 0822 by Matty Mckeon DO documented in this encounter Social History Tobacco Use Types Packs/Day Years [...] AM EST documented as of this encounter Progress Notes * Matty Mckeon DO - 03/24/2025 8:27 AM EDT Patient: Joslyn Beaulieu Procedure Summary Date: 03/24/25 Room / Location: [facility] OR [address] [place] [address] OR Anesthesia Start: 740 Anesthesia Stop: 826 Procedure: CYSTOSCOPY URETEROSCOPY LASER LITHOTRIPSY & STENT RIGHT (Right) Diagnosis: Calculus of kidney (Calculus of kidney) Surgeons: Alexei Medeiros MD Responsible Provider: Matty Mckeon DO Anesthesia Type: general ASA Status: 3 Anesthesia Plan: general Last Vitals: Vitals Value Taken Time BP 03/24/25 0827 Temp 36.7 ??C (98.1 ??F) 03/24/25 0825 Pulse 03/24/25 0827 Resp 03/24/25 0827 SpO2 03/24/25 0827 No data recorded Anesthesia Post Evaluation Patient location during evaluation: PACU Patient participation: complete - patient participated Level of consciousness: awake Pain score: 0 Pain management: adequate Airway patency: patent Anesthetic complications: no Cardiovascular status: acceptable Respiratory status: acceptable Hydration status: acceptable Nausea: No Vomiting: No There were no known notable events for this encounter. * Matty Mckeon DO - 03/24/2025 7:57 AM EDTAssociated Order(s): Intubation General Information and Staff Patient location during procedure: OR Anesthesiologist: Matty Mckeon DO Performed: anesthesiologist Performed by: Matty Mckeon DO Authorized by: Matty Mckeon DO Intubation Airway not difficult Urgency: elective Final Airway Details LMA Size: 3 LMA Type: LMA Seal Pressure: Final airway type: LMA Indications and Patient Condition Indications for airway management: anesthesia Spontaneous ventilation: present Preoxygenated: yes Patient position: neutral Mask difficulty assessment: 0 - not attempted Start Time: 03/24/2025 7:50 AMStop Time: 03/24/2025 7:51 AM * Migel Patiño MD - 03/24/2025 7:08 AM EDT Stress Test (2022): normal ECHO (2021): 60-65% EF, no hemodynamically significant valvular dysfunction Relevant Problems Cardio (+) CAD (coronary artery disease) (+) HTN (hypertension) (+) Hypertension (+) Mitral valve insufficiency (+) PAF (paroxysmal atrial fibrillation) (CMS/HCC V24, CMS/HCC V28) (+) PFO (patent foramen ovale) (+) PSVT (paroxysmal supraventricular tachycardia) (CMS/HCC V24) (+) Paroxysmal A-fib (CMS/HCC V24, CMS/HCC V28) (+) Pulmonary hypertension (CMS/HCC V24, CMS/HCC V28) (+) Supraventricular tachycardia (CMS/HCC V24) Pulmonary (+) Mild persistent asthma without complication (+) Obstructive sleep apnea syndrome GI (+) GERD (gastroesophageal reflux disease) (+) Peptic ulcer disease Other (+) Chronic anemia (+) Iron deficiency anemia (+) Iron deficiency anemia secondary to inadequate dietary iron intake Clinical information reviewed: Allergies Meds OB Status Anesthesia Plan ASA 3 Anesthesia Plan: general General Anesthesia Considerations: LMA Anesthesia Risks Discussed serious complications, dental injury, nausea, pain, sore throat, allergic reaction and corneal abrasion Anesthetic plan and risks discussed with patient. Anesthesia Evaluation No history of anesthetic complications Airway Mallampati: II Dental - normal exam Pulmonary - normal exam (+) asthma (moderate) Cardiovascular Exercise tolerance: good (+) dysrhythmias (h/o SVT s/p ablation in 2013) (-) past RI Rhythm: regular Rate: normal Neuro/Psych (+) psychiatric history (-) seizures, CVA Comments: RLS GI/Hepatic/Renal (+) GERD (-) liver disease, renal disease Endo/Other (-) diabetes mellitus Abdominal PONV RISK SCORE: 2 Vitals: 03/24/25 0607 BP: 104/80 Pulse: 88 Resp: 16 Temp: 36.5 ??C (97.7 ??F) SpO2: 100% SpO2 Readings from Last 1 Encounters: 03/24/25 100% WBC Date Value Ref Range Status 03/17/2025 7.4 4.8 - 10.8 K/mcL Final RBC Date Value Ref Range Status 03/17/2025 3.30 (L) 3.80 - 4.80 M/mcL Final Hemoglobin Date Value Ref Range Status 03/17/2025 12.8 11.5 - 16.0 g/dL Final Hematocrit Date Value Ref Range Status 03/17/2025 39.6 35.0 - 47.0 % Final Platelets Date Value Ref Range Status 03/17/2025 342 130 - 400 K/mcL Final MCV Date Value Ref Range Status 03/17/2025 121.5 (H) 79.0 - 98.0 FL Final Allergies Allergen Reactions Amoxicillin Diarrhea Celecoxib Itching and Other Chest pain Fluconazole Itching Ibuprofen Hives Vancomycin Itching, Other and Hives Other Reaction(s): itching hives STOP BANG: No data recorded NPO Status: Time of Last Solid: 1730 documented in this encounter Plan of Treatment Upcoming Encounters Date Type Department Care Team (Late st Contact Info) Description 03/30/2025 3:30 PM EDT Consult Thoracic Surgery [facility] [address] [phone] Kendall Ricks MD [address] [address] 04/11/2025 1:00 PM EDT Appointment [facility] Interventional Radiology [address] [place] [phone] 04/17/2025 3:20 PM EDT Office Visit Gastroenterology - [place] [facility] 175 [facility] [address] [place] [phone] Bisi Dinero, KIRA [address] [place] [address] 05/05/2025 3:30 PM EDT Office Visit [facility] - [address] [place] [address] Mandeep Horn MD [address] [place] [address] [address] [place] [address] 05/08/2025 3:30 PM EDT Office Visit [facility] - [address] [phone] Manjit Hall MD [address] [place] [address] 06/08/2025 3:15 PM EST Clinical Support Obstetrics and Gynecology - [address] [phone] 06/21/2025 3:30 PM EST Office Visit [facility] Hematology Oncology [address] [place] [phone] Angelito Mcfarlane MD [address] [place] [phone] 09/08/2025 3:00 PM EST Appointment [facility] Ultrasound [address] [place] [phone] documented as of this encounter Procedures Procedure Name Priority Date/Time Associated Diagnosis Comments TH AN LMA(NO CHARGE) Routine 03/24/2025 7:57 AM EDT documented in this encounter Results * TH AN LMA(NO CHARGE) (03/24/2025 7:57 AM EDT) Matty Ponce DO - 03/24/2025 7:57 AM EDT Matty Mkceon DO 03/24/2025 7:57 AM General Information and Staff Patient location during procedure: OR Anesthesiologist: Matty Mckeon DO Performed: anesthesiologist Performed by: Matty Mckeon DO Authorized by: Matty Mckeon DO Intubation Airway not difficult Urgency: elective Final Airway Details LMA Size: 3 LMA Type: LMA Seal Pressure: Final airway type: LMA Indications and Patient Condition Indications for airway management: anesthesia Spontaneous ventilation: present Preoxygenated: yes Patient position: neutral Mask difficulty assessment: 0 - not attempted Start Time: 03/24/2025 7:50 AMStop Time: 03/24/2025 7:51 AM us Matty Mckeon DO ANESTHESIA ORDERABLES Final Result documented in this encounter Visit Diagnoses Not on filedocumented in this encounter Administered Medications Inactive Administered Medications - up to 3 most recent administrations Medication Order MAR Action Action Date Dose Rate Site ceFAZolin (ANCEF) 1 g in sterile water 10 mL IV syringe 1 g, intravenous, Administer over 3 Minutes, Once, On Thu03/24/25 at 0730, For 1 dose, Preprocedure, Indication: Prophylaxis-Surgical New Bag 03/24/2025 7:50 AM EDT 1 g fentaNYL (PF) (SUBLIMAZE) injection intravenous, As needed, Starting on Thu03/24/25 at 0741, Anesthesia Intraprocedure Given 03/24/2025 8:13 AM EDT 50 mcg Given 03/24/2025 7:41 AM EDT 50 mcg lactated Ringer's infusion 100 mL/hr, intravenous, Continuous, Starting on Thu03/24/25 at 0730, Preprocedure Restarted 03/24/2025 8:37 AM EDT 100 mL/hr 100 mL/hr New Bag 03/24/2025 7:41 AM EDT lidocaine (PF) (XYLOCAINE-MPF) 2 % injection injection, As needed, Starting on Thu03/24/25 at 0750, Anesthesia Intraprocedure Given 03/24/2025 7:50 AM EDT 40 mg midazolam (VERSED) injection intravenous, As needed, Starting on Thu03/24/25 at 0741, Anesthesia Intraprocedure Given 03/24/2025 8:13 AM EDT 1 mg Given 03/24/2025 7:41 AM EDT 1 mg ondansetron (PF) (ZOFRAN) injection intravenous, As needed, Starting on Thu03/24/25 at 0754, Anesthesia Intraprocedure Given 03/24/2025 7:54 AM EDT 4 mg phenylephrine (NICOLETTE-SYNEPHRINE) injection intravenous, As needed, Starting on Thu03/24/25 at 0813, Anesthesia Intraprocedure Given 03/24/2025 8:13 AM ED T 100 mcg propofoL (DIPRIVAN) injection intravenous, As needed, Starting on Thu03/24/25 at 0750, Anesthesia Intraprocedure Given 03/24/2025 7:50 AM EDT 1 00 mg documented in this encounter Care Teams Injection Moulding Machine Operator Relationship Specialty Start Date End Date Manjit Hall MD [address] [place] [address] PCP - General Internal Medicine 12/03/21 documented as of this encounter
[2025-03-28 03:10] VITALS: BP 101/62; PULSE 115; RESP 16; TEMP 36.2; O2SAT 98; BMI 16.6
[2025-03-28 03:37] VITALS: BP 112/69; PULSE 88; RESP 16; TEMP 36.6; O2SAT 99
[2025-03-28 03:53] LABS: Hemoglobin 13.2 g/dl (12.0-16.0); NRBC Abs Auto 0.000 X10*3/uL (0.0-0.012); NRBC Pct Auto 0.0 /100WBC (0.0-0.2); PLT CLUMP 1; SCAN SMEAR FLAG 1
[2025-03-28 03:55] LABS: Hematocrit 38.8 % (37.0-47.0); Imm Gran Abs Auto 0.02 X10*3/uL (0.00-0.03); Imm Gran Pct Auto 0.2 % (0.0-0.4); Lymphocytes Absolute Auto 1.3 X10*3/uL (1.2-4.9); MANUAL DIFF FLAG SCAN; Mean Corpuscular HGB Conc 34.0 g/dl (31.0-35.0); Mean Corpuscular Hemoglobin 40.0 pg (27.0-33.0); Red Blood Count 3.30 X10*6/uL (4.20-5.50)
[2025-03-28 04:10] LABS: Alanine Aminotransferase 56 U/L (0-31); Albumin Level 3.9 g/dL (3.5-5.0); Alkaline Phosphatase 93 U/L (39-117); Anion Gap 16 (12-20); Aspartate Amino Transferase 61 U/L (5-31); Blood Urea Nitrogen 19 mg/dL (9-16); Calcium 9.5 mg/dL (8.4-10.2); Carbon Dioxide 12 mmol/L (22-29); Chloride 117 mmol/L (96-108); Creatinine Clr Calc Pharmacy 44.5; Estimated Glomerular Filt Rate > 60; Potassium 3.7 mmol/L (3.3-5.1); Sodium 141 mmol/L (135-145); Total Protein 6.4 g/dL (6.5-8.0)
[2025-03-28 04:16] LABS: Mean Corpuscular Volume 117.6 fL (80.0-98.0); White Blood Count 8.1 X10*3/uL (4.8-10.8)
[2025-03-28 04:17] LABS: Platelet Count 313 X10*3/uL (160-400)
--- NOTE | 2025-03-28 04:52 | ED_ITS ---
HPI - General Adult General Chief complaint: General Medical Stated complaint: post op pain Time Seen by Provider: 03/28/25 04:52 Source: patient Mode of arrival: ambulatory Limitations: no limitations History of Present Illness ED Provider: Dr. Vicky Hernandes HPI narrative: 39-year-old female with history of kidney stones, recent ureteral stent placement on 03/25/2025 at [facility] by Dr. Alexei Medeiros presenting with right flank pain and hematuria that has been ongoing since she had the stent placed last week. Admits that she has had persistent postop pain for the last 3 days. Has been taking oxycodone without relief. Has an appointment later on this morning with the office to have the stent removed however, the patient did not feel like she could wait until later in the evening to be seen. Describes severe right flank pain that is nonradiating, worse with movement. Admits to poor appetite but denies nausea or vomiting. Had a normal bowel movement earlier today that was nonbloody. No reported fever. Related Data Home Medications ?Medication ?Instructions ?Recorded ?Confirmed aripiprazole 5 mg tablet 5 mg PO DAILY 08/19/22 aspirin 81 mg tablet,delayed 81 mg PO DAILY 08/19/22 release budesonide-formoterol HFA 160 2 puff inhalation BID mcg-4.5 mcg/actuation aerosol inhaler (Symbicort) dicyclomine 10 mg capsule 10 mg PO Q6H PRN 08/19/22 diltiazem HCl 120 mg mg PO 08/19/22 capsule,extended release 24 hr ferrous sulfate 325 mg (65 mg 325 mg PO DAILY 08/19/22 iron) tablet folic acid 1 mg tablet 1 mg PO DAILY 08/19/22 medroxyprogesterone 150 mg/mL 150 mg IM [id number] 08/19 intramuscular suspension metoprolol succinate 50 mg 0 mg PO 08/19/22 tablet,extended release 24 hr sertraline 100 mg tablet 150 mg PO DAILY 08/19/22 Previous Rx's ?Medication ?Instructions ?Recorded ciprofloxacin 0.3 %-dexamethasone 4 drp otic (ears) BI D 7 days #7.5 08/19/22 0.1 % ear drops,suspension mL (Ciprodex) doxycycline hyclate 100 mg capsule 100 mg PO BID 10 da ys #20 caps 08/19/22 azithromycin 250 mg tablet See Rx Instructions PO .COM PLEX #6 09/24/22 tabs penicillin V potassium 500 mg 500 mg PO BID 10 days #2 0 tabs 09/26/22 tablet clindamycin HCl 300 mg capsule 600 mg (2 x 300 mg) PO QID 10 days 10/02/22 #80 caps cephalexin 500 mg capsule 500 mg PO QID 7 days #28 cap s 03/28/25 Allergies Allergy/AdvReac Type Severity Reaction Status Date / Time celecoxib (From CELEBREX) Allergy Intermediate HIVES Verified 03/28/25 03:20 vancomycin (VANCOMYCIN) Allergy Intermediate HIVES Verified 03/28/25 03:20 Review of Systems 2 Review of Systems: As per HPI, full review of systems performed and negative but for the above mentioned pertinent positives and negatives. [facility] Social History Social History Smoked in Last 30 Days: No Use of substances other than those prescribed or required for medical reasons: No Advance Directives: No Advance Directives Information Provided: Yes Patient : No Physical Exam ED Exam Exam: GENERAL: Ill-Appearing, appears uncomfortable. SKIN: Normal skin color for ethnicity, warm, dry, no rashes noted. HEENT: Normocephalic, atraumatic, no stridor, dry mucous membranes, dentition intact, EOMI, PERRLA. NECK: Soft, supple, full ROM, midline structures nontender, no step-offs, no deformities, no lymphadenopathy. CHEST: Heart regular tachycardia, no murmurs, symmetric chest rise and fall. PULMONARY: Clear to auscultation bilaterally, diminished at the bases, no labored breathing, no wheezes/rhales/rhonchi. ABDOMINAL: Soft, nondistended, right flank tenderness to percussion, quiet bowel sounds in all quadrants. : Deferred. MUSCULOSKELETAL: Normal tone, full range of motion, no deformities, no peripheral edema. NEURO: Alert and oriented x3, CN II through XII intact, equal strength and sensation bilateral upper and lower extremities, no focal neurologic deficits. PSYCHIATRIC: Flat affect, fluid speech, good eye contact and appropriate demeanor. Vital Signs: Vital Signs - 24 hr 03/28/25 03:10 03/28/25 03:37 Temperature 97.1 F 97.8 F Pulse Rate 115 H 88 Respiratory Rate 16 16 Blood Pressure 101/62 112/69 Pulse Oximetry 98 99 Oxygen Delivery Method Room Air Room Air BMI result Body Mass Index 16.6 Medications Administered Discontinued Medications Generic Name Dose Route Start Last Admin Trade Name Irais PRN Reason Stop Dose Admin Ceftriaxone Sodium 1 gm 03/28/25 05:27 03/28/25 05:48 Ceftriaxone Sodium 1 Gm Vial IVPUSH 03/28/25 05:28 1 gm ONCE ONE Administration Lactated Ringer's 1,000 mls @ 999 mls/hr 03/28/25 05:27 03/28/25 05:48 Lr IV 03/28/25 06:27 999 mls/hr .Q1H1M ONE Administration Morphine Sulfate 4 mg 03/28/25 05:27 03/28/25 05:48 Morphine Sulfate 4 Mg/Ml Cartridge IVPUSH 03/28/25 05:28 4 mg ONCE ONE Administration Protocol Ondansetron HCl 4 mg 03/28/25 05:27 03/28/25 05:48 Ondansetron Hcl 4 Mg/2 Ml Vial IVPUSH 03/28/25 05:28 4 mg ONCE ONE Administration Medical Decision Making Medical Decision Making [facility] Narrative: Patient presented today with a chief complaint of flank pain in the setting of recently placed ureteral stents. Differential diagnosis is certainly broad and includes but is not limited to recurrent kidney stone, infection such as pyelonephritis, vascular pathology, stent dislodgement/postop complication among many others. We will contact urologist, Dr. Medeiros, did discuss patient is presentation today. She may be able to see him in the office later today as scheduled if we can get her pain under control. We will attempt morphine. 6:34 AM 03/28/2025 (Dr. Vicky Hernandes, D.O.) case discussed with Dr. Lewis, urologist on-call for [facility] who recommends discharge and keeping her appointment in the office today at 11:30 a.m.. He reports that she could go in early and try to sit in the waiting room to see if she could get an earlier appointment than 11 30 but that he would not change her management at this point. This is expected postop pain with stent placement that is anticipated after this type of procedure. I discussed this with the patient at length. She is eager to follow up as an outpatient to have the stent removed. Plan for covering her with antibiotics for UTI. She is nitrite positive urine today, suggestive of E coli infection. We will treat with Keflex. She does have a history of MRSA though I do not believe this is what we are dealing with today. Differential Diagnosis Differential Diagnoses: The differential diagnosis associated with the presentation includes (As above) Admission/Observation Consideration of admission/observation: Escalation of care including admission/observation considered Consult Healthcare Provider Management of the patient was discussed with: Gas Regulator Repairer (Urologist) Lab Data MDM Lab Attestation statement: I reviewed the patient's lab results. 03/28/25 03:49 03/28/25 03:49 Labs: Lab Results 03/28/25 03/28/25 03/28/25 Range/Units 03:49 04:49 05:44 WBC 8.1 (4.8-10.8) X10*3/uL RBC 3.30 L (4.20-5.50) X10*6/uL Hgb 13.2 (12.0-16.0) g/dl Hct 38.8 (37.0-47.0) % MCV 117.6 H (80.0-98.0) fL MCH 40.0 H (27.0-33.0) pg MCHC 34.0 (31.0-35.0) g/dl RDW 13.2 (11.0-16.0) % Plt Count 313 (160-400) X10*3/uL MPV 8.1 L (9.4-12.3) fL Immature Gran % (Auto) 0.2 (0.0-0.4) % Neut % (Auto) 73.8 H (45-73) % Lymph % (Auto) 16.4 L (20-40) % [place] % (Auto) 6.2 (2-11) % Eos % (Auto) 2.9 (0-4) % Baso % (Auto) 0.5 (0-2) % Lymph # (Auto) 1.3 (1.2-4.9) X10*3/uL [place] # (Auto) 0.5 (0.1-1.2) X10*3/uL Eos # (Auto) 0.2 (0.0-0.4) X10*3/uL Baso # (Auto) 0.0 (0.0-0.2) X10*3/uL Abs Immat Gran (auto) 0.02 (0.00-0.03) X10*3/uL Absolute Neuts (auto) 5.9 (2.0-8.3) x10*3/uL Absolute Nucleated RBC 0.000 (0.0-0.012) X10*3/uL Nucleated RBC % (auto) 0.0 (0.0-0.2) /100WBC Smear Tech's Comments VERIFIED Sodium 141 (135-145) mmol/L Potassium 3.7 (3.3-5.1) mmol/L Chloride 117 H (96-108) mmol/L Carbon Dioxide 12 L (22-29) mmol/L Anion Gap 16 (12-20) BUN 19 H (9-16) mg/dL Creatinine 1.02 (0.5-1.4) mg/dL Estim Creat Clear Calc 44.5 Estimated GFR > 60 Random Glucose 71 (60-115) mg/dL Lactic Acid 0.5 (0.5-2.0) mmol/L Calcium 9.5 (8.4-10.2) mg/dL Total Bilirubin 0.3 (0.0-1.0) mg/dL AST 61 H (5-31) U/L ALT 56 H (0-31) U/L Alkaline Phosphatase 93 (39-117) U/L Total Protein 6.4 L (6.5-8.0) g/dL Albumin 3.9 (3.5-5.0) g/dL Urine Color RED Urine Appearance Hazy Urine pH 5.0 (5.0-9.0) Ur Specific [place] 1.020 (1.005-1.025) Urine Protein 300 (3+) H (Neg-Trace) mg/dL Urine Glucose (UA) Negative (Negative) mg/dL Urine Ketones 15 (Negative) mg/dL Urine Blood Large (3+) H (Negative) Urine Nitrite Positive H (Negative) Ur Leukocyte Esterase Moderate (2+) H (Negative) Urine RBC >20 H (0-2) /HPF Urine WBC 0-5 (0-5) /HPF Urine WBC Clumps None seen Ur Squamous Epith Cells 0-2 (0-2) /HPF Urine Bacteria 1+ (None Seen) Hyaline Casts 0-2 (0-2) /LPF External Record Review External record reviewed: Inpatient record and Outpatient record Prescription Management I considered prescription management with: Pain Medication and Antibiotic Chronic Conditions Patient?s care impacted by: Hypertension and Other (Nephrolithiasis) Discharge Plan Discharge Clinical Impression: Post-operative pain, Hematuria, Ureteral stent present, UTI (urinary tract infection) Patient Disposition: Home, Self-Care Instructions: Urinary Tract Infection in Women (DC), Pain Management After Surgery (DC) Prescriptions: New cephalexin 500 mg capsule 500 mg PO QID 7 Days Qty: 28 0RF No Action azithromycin 250 mg tablet See Rx Instructions PO .COMPLEX Qty: 6 0RF Rx Instructions: take 500 mg today (day 1), then 250 mg for 4 days (days 2-5) PO budesonide-formoterol [Symbicort] 160-4.5 mcg/actuation HFA aerosol inhaler 2 puff inhalation BID aspirin 81 mg tablet,delayed release (DR/EC) 81 mg PO DAILY dicyclomine 10 mg capsule 10 mg PO Q6H PRN diltiazem HCl 120 mg capsule,extended release 24hr PO medroxyprogesterone 150 mg/mL suspension 150 mg IM [id number] metoprolol succinate 50 mg tablet extended release 24 hr 0 mg PO ferrous sulfate 325 mg (65 mg iron) tablet 325 mg PO DAILY folic acid 1 mg tablet 1 mg PO DAILY sertraline 100 mg tablet 150 mg PO DAILY aripiprazole 5 mg tablet 5 mg PO DAILY doxycycline hyclate 100 mg capsule 100 mg PO BID 10 Days Qty: 20 0RF ciprofloxacin-dexamethasone [Ciprodex] 0.3-0.1 % drops,suspension 4 drp otic (ears) BID 7 Days Qty: 7.5 0RF penicillin V potassium 500 mg tablet 500 mg PO BID 10 Days Qty: 20 0RF clindamycin HCl 300 mg capsule 600 mg PO QID 10 Days Qty: 80 0RF Print Language: Greenlandic
[2025-03-28 04:56] LABS: Appearance Urine Hazy; Glucose Urine UA Negative (Negative); PH 5.0 (5.0-9.0); Specific Gravity - Urine 1.020 (1.005-1.025); UMIC TRIGGER UACC YES
[2025-03-28 05:09] LABS: UACC Culture Trigger YES
[2025-03-28] MEDS: Lactated Ringers 1,000 ML 999 ML IV (05:48)
--- OUTSIDE RECORDS SUMMARY | 2025-03-28 06:27 | XMS_ITS | Encounter Summary ---
Author Organization [facility] Address [address] [place] [address] Care Team Providers Care Blower Room Attendant Name Role Phone Lg Shepherd PA-C Primary Care Provider Encounter Details Date Type Department Care Team (Late st Contact Info) Description 03/03/2019 Scanned Document [facility] [address] [place] [phone] Provider, MD Rashmi [address] [place] [address] Social History Tobacco Use Types Packs/Day Years Used Date Smoking Tobacco: Former Cigarettes 1 2 Smokeless Tobacco: Never Alcohol Use Standard Drinks/Week Comments No 0 (1 standard drink = 0.6 oz pur e alcohol) Comments Unknown Sex and Gender Information Value Date Recorded Sex Assigned at Not on file Legal Sex Female 6:20 PM EDT Gender Identity Not on file Sexual Orientation Not on file documented as of this encounter Plan of Treatment Not on file documented as of this encounter Visit Diagnoses Not on filedocumented in this encounter Care Teams Blower Room Attendant Relationship Specialty Start Date End Date Lg Shepherd PA-C PCP - General Internal Medicine 12/01/17 documented as of this encounter
--- OUTSIDE RECORDS SUMMARY | 2025-03-28 06:27 | XMS_ITS | Encounter Summary ---
Author Organization [facility] Address [address] [place] [address] Care Team Providers Care Hair Machine Operator Name Role Phone Lg Shepherd PA-C Primary Care Provider Encounter Details Date Type Department Care Team (Late st Contact Info) Description 06/04/2019 Scanned Document [facility] Urologic Surgery [address] [place] [phone] Provider, Rashmi, [address] [place] [address] Social History Tobacco Use Types Packs/Day Years [...] on filedocumented in this encounter Care Teams Hair Machine Operator Relationship Specialty Start Date End Date Lg Shepherd PA-C PCP - General Internal Medicine 12/01/17 documented as of this encounter
--- OUTSIDE RECORDS SUMMARY | 2025-03-28 06:27 | XMS_ITS | Encounter Summary ---
Author Organization [facility] Address [address] [place] [address] Care Team Providers Care Claims Adjuster Name Role Phone Lg Shepherd PA-C Primary Care Provider Reason for Visit * Reason Comments Other Encounter Details Date Type Department Care Team (Late st Contact Info) Description 05/17/2020 Telephone [facility] Urologic Surgery [address] [place] [phone] Noel Blanco MD Other Social History Tobacco Use Types Packs/Day Years [...] on file Sexual Orientation Not on file COVID-19 Exposure Response Date Recorded In the last month, have you been in contact with someone who was confirmed or suspected to have Coronavirus / COVID-19? No / Unsure 05/17/2020 10:08 AM EDT documented as of this encounter Miscellaneous Notes * Telephone Encounter - Yakelin Lawson - 05/18/2020 4:[address] Rosario reviewed imaging advised pt would not need to stay for anything additional called [facility] spoke to Lakisha to advise which stated pt had already left to advise * Telephone Encounter - Yakelin Lawson - 05/17/2020 11:31 AM EDT Received a cb from [facility] advised pt is all set and scheduled for US Renal tomorrow 05/18/20 * Telephone Encounter - Yakelin Lawson - 05/17/2020 11:18 AM EDT Called [facility] to arrange appt for US Renal, lines were too busy to speak to someone had leave a message to either call me back to arrange appt for pt or can call pt directly to schedule documented in this encounter Plan of Treatment Not on file documented as of this encounter Visit Diagnoses Not on filedocumented in this encounter Care Teams Claims Adjuster Relationship Specialty Start Date End Date Lg Shepherd PA-C PCP - General Internal Medicine 12/01/17 documented as of this encounter
--- OUTSIDE RECORDS SUMMARY | 2025-03-28 06:27 | XMS_ITS | Encounter Summary ---
Author Organization [facility] Address [address] [place] [address] Care Team Providers Care Blasting Miner Name Role Phone Lg Shepherd PA-C Primary Care Provider Encounter Details Date Type Department Care Team (Late st Contact Info) Description 07/13/2019 Scanned Document [facility] Urologic Surgery [address] [place] [phone] Provider, Rashmi, [address] [place] [address] Social History Tobacco Use Types Packs/Day Years [...] on filedocumented in this encounter Care Teams Blasting Miner Relationship Specialty Start Date End Date Lg Shepherd PA-C PCP - General Internal Medicine 12/01/17 documented as of this encounter
--- OUTSIDE RECORDS SUMMARY | 2025-03-28 06:27 | XMS_ITS | Encounter Summary ---
Author Organization [facility] Address [address] [place] [address] Care Team Providers Care Flatwork Finisher Name Role Phone Lg Shepherd PA-C Primary Care Provider Encounter Details Date Type Department Care Team (Late st Contact Info) Description 09/01/2019 Scanned Document [facility] [address] [phone] Sommer Gonzalez, DO [address] [place] [id number] Social History Tobacco Use Types Packs/Day Years [...] on filedocumented in this encounter Care Teams Flatwork Finisher Relationship Specialty Start Date End Date Lg Shepherd PA-C PCP - General Internal Medicine 12/01/17 documented as of this encounter
--- OUTSIDE RECORDS SUMMARY | 2025-03-28 06:28 | XMS_ITS | Encounter Summary ---
Author Organization [facility] Address [address] [place] [address] Care Team Providers Care Aircraft Technician Name Role Phone Lg Shepherd PA-C Primary Care Provider [phone] Encounter Details Date Type Department Care Team (Late st Contact Info) Description 12/15/2018 Scanned Document [facility] [address] [place] [phone] Lg Shepherd PA-C [address] [place] [address] Social History Tobacco Use Types Packs/Day Years [...] on filedocumented in this encounter Care Teams Aircraft Technician Relationship Specialty Start Date End Date Lg Shepherd PA-C PCP - General Internal Medicine 12/01/17 documented as of this encounter
--- OUTSIDE RECORDS SUMMARY | 2025-03-28 06:28 | XMS_ITS | Encounter Summary ---
Author Organization [facility] Address [address] [place] [address] Care Team Providers Care Software Intern Name Role Phone Lg Shepherd PA-C Primary Care Provider Encounter Details Date Type Department Care Team (Late st Contact Info) Description 06/04/2019 Scanned Document [facility] Urologic Surgery [address] [place] [phone] Provider, Rashmi, [address] [place] [address] Social History Tobacco Use Types Packs/Day Years [...] on filedocumented in this encounter Care Teams Software Intern Relationship Specialty Start Date End Date Lg Shepherd PA-C PCP - General Internal Medicine 12/01/17 documented as of this encounter
--- OUTSIDE RECORDS SUMMARY | 2025-03-28 06:28 | XMS_ITS | Clinical Summary ---
Author Organization [facility] Address [address] [place] [address] Care Team Providers Care Silk Soaker Name Role Phone Manjit Hall MD Primary Care Provider [phone] Allergies Active Allergy Reactions Criticality Noted Date Comments Celecoxib Itching Medium 09/09/2012 Chest pain Fluconazole Itching Medium Vancomycin Itching,Other (See Comments) Medium 016 Medications Medication Sig Dispensed Refills Start Date End Date Status Multiple Vitamins-Mineral s (MULTIVITAMIN PO) Take 1 tablet by mouth daily. 0 Active [place] 3 1000 MG CAPS Take 1 tablet by mouth daily. 0 Active sertraline (ZOLOFT) 100 MG tablet Take 1 tablet (100 mg total) by mouth daily. 0 Active acetaminophen (TYLENOL EXTRA STRENGTH) 500 MG tablet Take 1 tablet (500 mg total) by mouth every 6 (six) hours as needed for pain. 0 Active NITROSTAT 0.4 MG SL tablet 0 06/26/2015 Active LINZESS 290 MCG CAPS daily. 0 07/03/2015 Active pantoprazole (PROTONIX) 40 MG tablet TAKE 1 TABLET TWICE A DAY 3 10/20/2016 Active mometasone-formo terol (DULERA) 100-5 MCG/ACT inhaler 2 inhalations by Inhaled route every 12 (twelve) hours. 0 Active KLOR-CON 10 10 MEQ tablet TAKE 6 TABLETS BY MOUTH TODAY, THEN TAKE 1 TABLET BY MOUTH EVERY DAY 36 tablet 5 12/24/2018 Active albuterol (PROVENTIL HFA;VENTOLIN HFA) 108 (90 Base) MCG/ACT inhaler TAKE 2 PUFFS EVERY 4 HOURS NEEDED FOR COUGH/SHORTNESS OF BREATH/WHEEZE 0 09/22/2019 Active pramipexole (MIRAPEX) 0.125 MG tablet TAKE 1 TABLET (0.125 MG TOTAL) BY MOUTH DAILY. 90 tablet 1 11/14/2019 Active budesonide-formo terol (SYMBICORT) 160-4.5 MCG/ACT inhaler TAKE 2 PUFFS BY MOUTH TWICE A DAY 0 01/04/2020 Active dicyclomine (BENTYL) 10 MG capsule TAKE 1 CAPSULE (10 MG TOTAL) BY MOUTH 4 (FOUR) TIMES A DAY. 0 01/21/2020 Active levocetirizine (XYZAL) 5 MG tablet Take 1 tablet (5 mg total) by mouth daily. 0 12/13/2019 Active tamsulosin (FLOMAX) 0.4 MG CAPS 0 05/31/2020 Active ERGOCALCIFEROL PO ergocalciferol (vitamin D2) 1,250 mcg (50,000 unit) capsule TAKE 1 CAPSULE BY MOUTH ONE TIME PER WEEK 0 Active ergocalciferol (VITAMIN D2) capsule 78080 units TAKE 1 CAPSULE BY MOUTH ONE TIME PER WEEK 0 06/20/2020 Active ferrous gluconate (FERGON) 324 MG tablet Take 1 tablet (324 mg total) by mouth daily. 0 02/26/2021 Active ARIPiprazole (ABILIFY) 5 MG tablet 0 07/22/2021 Active dilTIAZem (CARDIZEM CD) 120 MG 24 hr capsule Take 3 capsules (360 mg total) by mouth daily. 270 capsule 1 09/30/2021 Active metoprolol succinate (TOPROL-XL) 24 hr tablet 50 mg TAKE 1/2 TABLET IN THE AM AND 1 and a 1/2 in the evening 60 tablet 0 08/20/2022 Active Motegrity 2 MG TABS Take 1 tablet by mouth daily. 0 02/10/2023 Active Active Problems Problem Noted Date Diagnosed Date Iron deficiency anemia secon walter to inadequate dietary iron intake 08/28/2022 PLMD (periodic limb movement disorder) 9 Palpitations 06/17/2018 MRSA (methicillin resistant Staphylococcus aureu s) 05/04/2018 PAF (paroxysmal atrial fibrillation) 10/26/2017 Encounter for general adult medical examination without abnormal findings 12/01/2016 Hypertension 12/01/2016 Inguinal pain 12/01/2016 Obstructive sleep apnea syndrome 12/01/2016 Orthostatic hypotension 12/01/2016 Palpitations 12/01/2016 Mitral valve insufficiency 12/01/2016 Sinus tachycardia 12/01/2016 Snoring 12/01/2016 Supraventricular tachycardia 12/01/2016 Wide-complex tachycardia 12/01/2016 Social History Tobacco Use Types Packs/Day Years Used Date Smoking Tobacco: Former Cigarettes 1 Smokeless Tobacco: Former Comments:quit date 2 months ago Alcohol Use Standard Drinks/Week Comments No 0 (1 standard drink = 0.6 oz pur e alcohol) Sex and Gender Information Value Date Recorded Sex Assigned at Female 02/27/2023 3:28 PM EDT Gender Identity Not on file Sexual Orientation Not on file Job Start Date Occupation Industry Not on file Not on file Not on file Last Filed Vital Signs Vital Sign Reading Time Taken Comments Blood Pressure 99/65 03/25/2024 3:04 PM EDT Pulse 90 03/25/2024 3:04 PM EDT Temperature 37.3 C (99.1 F) 03/25/2024 3:04 PM EDT Respiratory Rate 18 02/12/2024 1:00 PM EDT Oxygen Saturation 100% 03/25/2024 3:04 PM EDT Inhaled Oxygen Concentration - - Weight 38.6 kg (85 lb 3.2 oz) 03/25/2024 3:04 PM EDT Height 152.4 cm (5') 03/25/2024 3:04 PM EDT Body Mass Index 16.64 03/25/2024 3:04 PM EDT Plan of Treatment Health Maintenance Due Date Last Done Comments Hepatitis C Screening 1984 COVID-19 Vaccine (#1) 1984 Depression Screening 1996 Preventative Health Evaluation 2002 Cervical Cancer Screening (Pap Smear) 2005 Influenza Vaccine (#1) 2025 DTap / Tdap / Td (9 - Td or Tdap) 01/30/2026 01/31/2016, 11/23/2013, 12/02/2012, Additional history exists Hepatitis B Vaccines Completed 08/31/1997, 03/28/1997, 02/10/1997 Pneumococcal Vaccine Aged Out 05/19/2014 No long er eligible based on patient's age to complete this topic RSV Ped < 20 months Aged Out No longe r eligible based on patient's age to complete this topic Advance Directives For more information, please contact: [phone] Latest Code Status on File Code Status Date Activated Date Inactivated Comments Full Code 09/05/2015 1:10 PM 09/06/2015 4:08 AM This co de status was ascertained in the following way: discussion with patient. Code Status History Code Status Date Activated Date Inactivated Comments Full Code 02/06/2014 11:51 AM 02/07/2014 12:32 AM This code status was ascertained in the following way: discussion with patient. Care Teams Silk Soaker Relationship Specialty Start Date End Date Manjit Hall MD [address] [place] [id number] PCP - General Hospitalist Medicine 08/13/22
--- OUTSIDE RECORDS SUMMARY | 2025-03-28 06:28 | XMS_ITS | Encounter Summary ---
Author Organization [facility] Address [address] [place] [address] Care Team Providers Care Director Of Direct Marketing Name Role Phone Lg Shepherd PA-C Primary Care Provider Encounter Details Date Type Department Care Team (Late st Contact Info) Description 12/09/2018 Telephone [facility] Urologic Surgery [address] [place] [id number] Noel Blanco MD Social History Tobacco Use Types Packs/Day Years [...] on file documented as of this encounter Miscellaneous Notes * Telephone Encounter - Vito Mcfarlane LPN - 12/09/2018 10:21 AM EDT PT STATES SHE STARTED WITH BODY ACHES ,AND C/O SPINE PAIN AT A 9. DENIES FEVER/CHILLS,N&V, BLOOD IN URINE, AND FLANK/ABDOMINAL PAIN PLEASE ADVISE * Telephone Encounter - Bisi Wright - 12/09/2018 10:10 AM EDT Patient phoned stating that Dr. Blanco started her on amoxicillin 875-125mg this past Thursday, and today she's experiencing body aches as if she has the flu and her spine is hurting. I did phone the [facility] and spoke to Kiera, who informed me that the nurse wasn't available. The patient can be contacted on:[phone]. Thank you, Bisi documented in this encounter Plan of Treatment Not on file documented as of this encounter Visit Diagnoses Not on filedocumented in this encounter Care Teams Director Of Direct Marketing Relationship Specialty Start Date End Date Lg Shepherd PA-C PCP - General Internal Medicine 12/01/17 documented as of this encounter
--- OUTSIDE RECORDS SUMMARY | 2025-03-28 06:28 | XMS_ITS | Clinical Summary ---
Author Organization [facility] Address [address] [place] [address] Care Team Providers Care Spud Grader Name Role Phone Kike Cornelius MD Primary Care Provider Kike Ferreira MD Unavailable Unavailable Allergies Active Allergy Reactions Criticality Noted Date Comments Celecoxib 04/25/2019 Vancomycin Hcl 04/25/2019 Medications Aripiprazole (Abilify) 2 MG tablet 0 04/25/2019 Active Sertraline HCl (Zoloft) 100 MG tablet 0 04/25/2019 Active Sertraline HCl (Zoloft) 50 MG tablet 0 04/25/2019 Active Diltiazem HCl Coated Beads (Cardizem CD) 180 MG 24 hr capsule 0 04/25/2019 Active Metoprolol Tartrate (LOPRESSOR) 25 MG tablet 0 04/25/2019 Active Pantoprazole Sodium (Protonix) 40 MG EC tablet 0 04/25/2019 Active linaCLOtide (Linzess) 290 MCG Cap 0 04/25/2019 Active Nitrofurantoin Monohyd Macro (MACROBID) 100 MG capsule TAKE 1 CAPSULE EVERY 12 HOURS DAILY. 14 0 05/10/2012 Active Active Problems Problem Noted Date Diagnosed Date Abscess of finger 04/25/2019 Anemia 05/10/2012 Pain of inguinal ring 05/10/2012 Angina pectoris 05/10/2012 Social History Tobacco Use Types Packs/Day Years Used Date Smoking Tobacco: Never Assessed Comments:Smoking Status:Neve r a smoker Comments Unknown Sex and Gender Information Value Date Recorded Sex Assigned at Not on file Legal Sex Female 5:34 PM EDT Gender Identity Not on file Sexual Orientation Not on file Last Filed Vital Signs Vital Sign Reading Time Taken Comments Blood Pressure 110/60 05/10/2012 9:27 AM EDT Pulse 103 04/25/2019 12:40 PM EDT Temperature 37.1 C (98.8 F) 04/25/2019 12:40 PM EDT Respiratory Rate 18 04/25/2019 12:40 PM EDT Oxygen Saturation 97% 04/25/2019 12:40 PM EDT Inhaled Oxygen Concentration - - Weight 39.9 kg (88 lb 0.1 oz) 04/25/2019 12:40 P M EDT Height 152.4 cm (5') 05/10/2012 9:10 AM EDT Body Mass Index 17.19 05/10/2012 9:10 AM EDT Plan of Treatment Health Maintenance Due Date Last Done Comments Hepatitis C Screening 1984 Pap Smear 2000 DTaP/Tdap/Td (1 - Tdap) 2002 Hep B (1 of 3 - 19+ 3-dose series) 2003 COVID-19 Vaccine (2023-2 5 season) 2024 Mammogram/Breast Imaging 2024 Influenza (#1) 2025 Zoster (Shingrix) (1 of 2) 2034 HPV Vaccine (No Doses Required) Completed Hep A Aged Out No longer eligi ble based on patient's age to complete this topic Hib Aged Out No longer eligi ble based on patient's age to complete this topic Meningococcal ACWY Aged Out No longer eligible based on patient's age to complete this topic Pneumococcal Aged Out No longer eligi ble based on patient's age to complete this topic Care Teams Spud Grader Relationship Specialty Start Date End Date Kike Cornelius MD PCP - General 03/09/23 Kike Cornelius MD PCP - Backup PCP 09/03/23
--- OUTSIDE RECORDS SUMMARY | 2025-03-28 06:28 | XMS_ITS | Clinical Summary ---
Author Organization [facility] Address [address] [place] [address] Phone Care Team Providers Care Director Clinical Information Services Name Role Phone Manjit Hall MD Primary Care Provider [phone] Allergies Active Allergy Reactions Criticality Noted Date Comments Amoxicillin 02/11/2024 Celecoxib Hives,Itching Medium 09/09/2012 Other Reaction(s): increased pain, itchy, Not available, rash Chest pain Chest pain Vancomycin Hives,Itching Medium 09/04/2015 Other Reaction(s): hives and itching, Other (See Comments) Medications Aspirin Low Dose 81 MG EC tablet Take 81 mg by mouth 1 (one) time each day Active budesonide-form oterol (SYMBICORT) 160-4.5 MCG/ACT inhaler Inhale 2 puffs in the morning and 2 puffs before bedtime. 0 Active tamsulosin (FLOMAX) 0.4 MG 24 hr capsule Take 0.4 mg by mouth 1 (one) time each day 0 Active clindamycin (CLEOCIN) 300 MG capsule Take 300 mg by mouth in the morning and 300 mg in the evening and 300 mg before bedtime. 4 Active dicyclomine (BENTYL) 10 MG capsule Take 10 mg by mouth 4 (four) times a day (before meals and nightly) Active dilTIAZem CD (CARDIZEM CD) 120 MG 24 hr capsule Take 120 mg by mouth in the morning and 120 mg at noon and 120 mg in the evening. Active ergocalciferol 1.25 MG (50114 UT) capsule Take 1 capsule by mouth 1 (one) time per week 5 Active metoprolol succinate XL (TOPROL XL) 50 MG 24 hr tablet Take 50 mg by mouth 1 (one) time each day Do not crush or chew. Active pantoprazole (PROTONIX) 40 MG EC tabletIndicatio ns:Gastroesopha geal Reflux Disease Take 40 mg by mouth 1 (one) time each day before breakfast Do not crush, chew, or split. Active Social History Tobacco Use Types Packs/Day Years Used Date Smoking Tobacco: Never Smokeless Tobacco: Never Tobacco Cessation:Counseling Given: Not Answered Alcohol Use Standard Drinks/Week Comments Never 0 (1 standard drink = 0.6 oz pur e alcohol) Comments Unknown Sex and Gender Information Value Date Recorded Sex Assigned at Not on file Legal Sex Female 11:36 AM EDT Gender Identity Not on file Sexual Orientation Not on file Plan of Treatment Health Maintenance Due Date Last Done Comments Hepatitis B Vaccine (1 of 3 - 19+ 3-dose series) 07/02 Pneumococcal Vaccine: Peds ( 0 to 5 Years) and At-Risk Patients (6 to 49 Years) (1 of 2 - PCV) 2003 Influenza Vaccine (#1) 2025 Insurance Medicaid [place] Care Teams Director Clinical Information Services Relationship Specialty Start Date End Date Manjit Hall MD [address] [place] [id number] PCP - [facility] 12/01/23
--- OUTSIDE RECORDS SUMMARY | 2025-03-28 06:28 | XMS_ITS | Encounter Summary ---
Author Organization [facility] Address [address] [place] [address] Care Team Providers Care Pattern Storage Clerk Name Role Phone Lg Shepherd PA-C Primary Care Provider [phone] Encounter Details Date Type Department Care Team (Late st Contact Info) Description 06/04/2019 Scanned Document [facility] Urologic Surgery [address] [place] [id number] Provider, Rashmi, [address] [place] [address] Social History Tobacco Use Types Packs/Day Years [...] on filedocumented in this encounter Care Teams Pattern Storage Clerk Relationship Specialty Start Date End Date Lg Shepherd PA-C PCP - General Internal Medicine 12/01/17 documented as of this encounter
--- OUTSIDE RECORDS SUMMARY | 2025-03-28 06:28 | XMS_ITS | Patient Health Record ---
Author Organization [employer] Address [address] [place] [address] [id number] [address] Care Team Providers Care Record Changer Tester Name Role Phone yisselHarsha Lg Primary Care Provider ALLERGIES Allergen (clinical drug ingredient) Drug/Non Drug Allergy documented on EMR Reaction Allergy Type Onset Date Status celecoxib celebrex (uncoded) PUD Allergy A ctive amoxicillin Amoxicillin diarrhea Drug Allergy Act bandar ibuprofen Ibuprofen hx of GI bleed Drug Allergy Ac tive vancomycin Vancomycin HCl hives Drug Allergy A ctive REASON FOR REFERRAL No Information MEDICATIONS Medication SIG (Take, Route, Frequency, Duration) Notes Start Date End Date Status Abilify 2 MG 1 tablet Orally Once a day Active Ergocalciferol 1.25 MG (01658 UT) 1 capsule Orally once a week for 84 days 06/20/2020 Active Cardizem CD 180 MG 1 capsule Orally Onc e a day for 30 day(s) Active Isosorbide Mononitrate ER 30 mg 1 tablet Orally Once a day per cardio for 30 day(s) Active Ferrous Sulfate 325 MG as directed Orall y 1 tab TID Active amLODIPine Besylate 5 MG 1 tablet Orally Once a day 07/26/2013 Active Adacel 5-2-15.5 LF-MCG/0.5 as directed Intramuscular for 1 dose 01/28/2016 Not-Taking Zoloft 100 MG 1 tablet Orally Once a day Active Dicyclomine HCl 10 mg 1 capsule Orally F our times a day for 20 days 03/04/2016 Not-Taki ng Lotemax 0.5 % 1 drop into left eye Ophthalmic Four times a day for 7 days 10/18/2015 Not-Taking Azithromycin 250 MG 2 tablets [facility] day, then 1 tablet daily for 4 days Orally Once a day for 5 day(s) 12/10/2020 Not-Taki ng KlonoPIN 0.5 MG 1 tablet Orally Twic e a day Not-Taking IMMUNIZATIONS Vaccine Route Administration Date Status Comme nts *Non-VFC: Pnuemococcal POLYSACCHARIDE Vaccine (PPSV23), Adult, 0.5 mL IM x 1 IM Intramuscular 05/19/2014 Administered *Non-VFC: Tdap Vaccine (7 YEARS AND UP), 0.5 mL IM x 1 Unknown 11/23/2013 Administered given at [facility] ER *Non-VFC: Tdap Vaccine (7 YEARS AND UP), 0.5 mL IM x 1 Unknown 01/31/2016 Administered SOCIAL HISTORY Sex Assigned At : Social History Observation Description Sex Assigned At Unknown Alcohol Screen Question Answer Notes Did you have a drink containing alcohol in the p ast year? No Points 0 Interpretation Negative Drug and Alcohol Question Answer Notes Total Score: 0 Interpretation: No problems reported PROBLEMS Problem Type ICD Code Onset Dates Problem Status W/U Status Risk SNOMED Code Notes Problem Vitamin D deficiency (E55.9) Active confirmed 07084106 Problem Anemia (D64.9) Active confirmed 3610391 00 Problem Aspergers' syndrome (F84.5) Active confirmed Asperger's syndrome (40890721) Problem Diarrhea (R19.7) Active confirmed 98235 008 Problem Hematuria (R31.9) Active confirmed 3443 6003 Problem Nicotine dependence (F17.200) Active confirmed Nicotine dependence (30819683) Problem Kidney stones (N20.0) Active confirmed Kidney stone (66257696) Problem Essential hypertension (I10) Active confirmed 41288403 Problem Hypoglycemia (E16.2) Active confirmed 3 48119142 Problem Asperger syndrome (F84.5) Active confirmed 33155160 Problem PUD (peptic ulcer disease) (K27.9) Active confirmed 59882648 Problem MRSA infection (A49.02) Active confirmed 873206196 Problem Cyst of ovary (N83.209) Active confirmed 55332407 Problem Melanosis, colon (K63.89) Active confirmed 54291968 Problem Nasal abscess (J34.0) Active confirmed 5442041 Problem Rheumatic disease of endocardium, 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) Active confirmed 65867307 Problem Aortic valve disorder (I35.9) Active confirmed 3885470 Problem AV reentrant tachycardia (I47.1) Active confirmed 833209496 Problem Gastrointestinal bleeding, upper (K92.2) Active confirmed 30222635 PLAN OF TREATMENT Pending Test Test Name Order Date X ray : Knee, right 10/31/2016 CULTURE, STOOL, ALYSHA/SHIG/CAMPY AND SHIGA TOXINS EIA W/RFL E.COLI O157 CULT 02/12/2016 COMPREHENSIVE METABOLIC PANEL 06/02/2017 HELICOBACTER PYLORI AG, EIA, STOOL 02/11 CBC (INCLUDES DIFF/PLT) 06/02/2017 OVA AND PARASITES, STOOL CONC AND PERM S MEAR 02/12/2016 CLOSTRIDIUM DIFFICILE CULT W/REFL TOXIN B,PCR 02/12/2016 Insurance Providers Payer Name Payer Address Payer Phone Subscriber Number Group Number Insured Name Patient Relationship to Insured Coverage Start Date Coverage End Date DAMIR HUYNH[facility] [address] [place] [address] [id number] Joslyn Beaulieu Self - patient is the insured 0 HUSKY C [address] [place] [address] [id number] Joslyn Beaulieu Self - patient is the insured MEDICAID DENTAL [address] [place] [address] [id number] Joslyn Beaulieu Self - patient is the insured MEDICAL (GENERAL) HISTORY Medical History History ICD Code 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 Gutierrez [phone], hx of en dometriosis Admitted: [facility] ER; 09/23/13; c c SOB; dx supraventricular tachycardia and anemia; Admitted [facility] 12/21/13; dx par ox atrial tachycardia SVT with hr in 200's-cardizem--sr and sinus tachycardia and postemorrhog anemia hbg 7.2 s/p transfusion 9.4 --no pe from ct scan Admitted [facility] 02/06/14 zoloft now 150 Hx of kidney stones hx of endometrosis right ovarian cyst. MRSA Hx of pylneophritis. Received flu shot 05/2014. 09/27/2014 Echo showed EF 55 -60%, mild TR, Mild MR, mildly elevated pulmonary artery systoloc pressure. 01/2015. Microscopic hematur ia with negative evaluation including CT scan, US and cystoscopy. Recurrent UTI. Currently following urology Endocarditis/valvular disease, rheumatic Loss of weight Rib pain on right side Tylenol ingestion Laceration of right lower leg mrsa 09/2017 echocardiogram 06/22: EF 55-60% undefine d GI bleed 06/23: cauterized in hospital, PUD followed by GI Surgical History Surgery Date(Month/Year) ankle wrist cath. of the heart endometriosis s/p surgical intervention tonsils cardaic ablation(Dr. Conroy) cardiac cath abd surgery 06/2017 urgent exploratory laparotomy [facility] 9 GI bleed surgery to cauterize bleeding i hospital 06/2021 Hospitalization History Reason Date(Month/Year) for four days 02/2016 loose stools 02/2016 [place] Arrhythmia 12/21/13 broken wrist broken ankle surgery
--- OUTSIDE RECORDS SUMMARY | 2025-03-28 06:28 | XMS_ITS | Encounter Summary ---
Author Organization [facility] Address [address] [place] [address] Care Team Providers Care Music Grapher Name Role Phone Lg Shepherd PA-C Primary Care Provider Encounter Details Date Type Department Care Team (Late st Contact Info) Description 06/03/2019 Scanned Document [facility] Urologic Surgery [address] [place] [phone] Provider, Rashmi, [address] [place] [address] Social History Tobacco Use Types Packs/Day Years [...] on filedocumented in this encounter Care Teams Music Grapher Relationship Specialty Start Date End Date Lg Shepherd PA-C PCP - General Internal Medicine 12/01/17 documented as of this encounter
--- OUTSIDE RECORDS SUMMARY | 2025-03-28 06:28 | XMS_ITS | Clinical Summary ---
Author Organization [facility] Address [address] [place] [address] Care Team Providers Care Undercover Operator Name Role Phone Lg Shepherd PA-C Primary Care Provider Allergies Active Allergy Reactions Criticality Noted Date Comments Celecoxib Hives Medium 09/09/2012 Chest pain Vancomycin Itching Low 09/04/2015 Medications ergocalciferol (VITAMIN D2,DRISDOL) 57345 units Cap daily. 5 Active metoPROLOL SUCCINATE (TOPROL-XL) 25 MG 24 hr tablet Take by mouth. 6 Active clonazePAM (KlonoPIN) 0.5 MG tablet 0.5 mg 2 (two) times a day as needed. 5 Active sertraline (ZOLOFT) 100 MG tablet TAKE 1 & 1/2 TABLET BY MOUTH EVERY DAY 1 7 Active ARIPiprazole (ABILIFY) 2 MG tablet 2 mg daily. 5 Active diltiazem (CARDIZEM CD) 120 MG 24 hr capsule Take by mouth. 7 Active mometasone-formote rol (DULERA) 100-5 MCG/ACT inhaler Acti ve Multiple Vitamin (MULTIVITAMINS PO) Take by mouth. Active nitroglycerin (NITROSTAT) 0.4 MG SL tablet 5 Active fluticasone (FloNASE) 50 mcg/spray nasal spray 100 mcg into each nostril. 1 Active PANTOprazole (PROTONIX) 40 MG EC tabletIndications: Gastroesophageal reflux disease without esophagitis TAKE 1 TABLET (40 MG) BY MOUTH TWICE A DAY AT 6AM AND 6PM 60 tablet 3 2 Active prucalopride succinate (Motegrity) 2 MG tabletIndications: Chronic idiopathic constipation Take 1 tablet (2 mg total) by mouth daily. 90 tablet 3 2 Active tamsulosin (FLOMAX) 0.4 MG capsuleIndications :Kidney stones,Ureteral stone with hydronephrosis Take 1 capsule (0.4 mg total) by mouth daily. 30 capsule 3 2 Active cephalexin (KEFLEX) 500 MG capsuleIndications :Recurrent UTI Take 1 capsule (500 mg total) by mouth 2 (two) times a day. 14 capsule 2 Active Linzess 290 MCG Cap capsuleIndications :Chronic idiopathic constipation TAKE 1 CAPSULE BY MOUTH EVERY DAY IN THE MORNING BEFORE BREAKFAST 30 capsule 3 Active dicyclomine (BENTYL) 10 MG capsuleIndications :Abdominal pain, unspecified abdominal location TAKE 1 CAPSULE BY MOUTH FOUR TIMES A DAY 120 capsule 4 Active Active Problems Problem Noted Date Diagnosed Date Chronic idiopathic constipation 11/01/2020 Irritable bowel syndrome with constipation 03/16 Assessment & Plan (03/16/2019 2:52 PM EDT): Sounds like she had a flare of constipation with bowel impaction and needed a clean out in [facility] with enemas and bowel rest, which helped. She had stopped takign her linzess and reglan was DC'd resently so this may be why Now she is having normal, daily, soft BMs with no blood in stool, abd pains, or rectal pains. She is compliant with Linzess 290mcg daily since then, but is she has constipation refractory to this may consider AnoRectal Manometry testing as next step. Gastroesophageal reflux disease without esophagi tis 03/16/2019 Assessment & Plan (03/16/2019 2:52 PM EDT): Patient was advised to utilize lifestyle modifications to prevent symptoms: small frequent meals, avoid eating 2 hous prior to bedtime avoid laying supine immediately after eating, elevate head of bed 6-12 inches to prevent reflux Avoid/limit: tobacco, alcohol, chocolate, peppermint, caffeine, greasy/spicy/acidic foods, citrus and tomato. Patient may utilize their PPI BID and may utilize OTC H2 receptor blockers (Zantac, Pepcid, etc) at noon and HS PRN Gastroparesis 03/16/2019 Assessment & Plan (03/16/2019 2:55 PM EDT): According to patient this was seen on prior GES study and feeling was it was related to her past ulcer. SHe was recently taken off Reglan for a trial off. Currently she is feeling ok after eating but still gets some intermittent post-prandial cramping abd pains. I agree with keeping her off Reglan unless she has recurrent vomiting or severe pain after meals Eat small frequent meals and avoid overeating Avoid eating fatty/spicy foods or foods high in insoluble fiber Drink at least 60oz water per day Try emulsifying foods (blend foods or try dietary liquid supplements like Ensure) Smoking and alcohol cessation. Avoiding narcotics Encounter for screening colonoscopy 03/16/2019 Assessment & Plan (03/16/2019 2:56 PM EDT): SHe had poor prep for 10/2018 colonoscopy with Gonzalez and she needs re-screening per prior notes as of this year. We will perform a 2 day prep with Mg Citrate and Nulytely this time. Cardiac clearance needed for palpitations and reported hx of CAD from Dr Conroy History of methicillin resis tant staphylococcus aureus (MRSA) 09/25/2017 Supraventricular tachycardia 12/01/2016 Family History Medical History Relation Name Comments Migraines Father No Known Problems Mother Relation Name Status Comments Father Alive Mother Alive Social History Tobacco Use Types Packs/Day Years [...] Sign Reading Time Taken Comments Blood Pressure 106/60 09/16/2021 3:09 PM EST Pulse 89 09/16/2021 3:09 PM EST Temperature 35.9 C (96.6 F) 09/16/2021 3:09 PM EST Respiratory Rate 12 03/16/2019 2:08 PM EDT Oxygen Saturation 97% 09/16/2021 3:09 PM EST Inhaled Oxygen Concentration - - Weight 42.2 kg (93 lb) 09/16/2021 3:09 PM EST Height 152.4 cm (5') 09/16/2021 3:09 PM EST Body Mass Index 18.16 09/16/2021 3:09 PM EST Plan of Treatment Health Maintenance Due Date Last Done Comments Hepatitis C Virus Screening 1984 HIV Screening 1997 DTaP/Tdap/Td Vaccines (1 - Tdap) 2003 Hepatitis B Vaccines (1 of 3 - 19+ 3-dose series) 2003 Pap Smear (Ages 21-65) 2005 HPV Vaccines (1 - 3-dose SCD M series) 2011 COVID-19 Vaccine ( - 2023-2 5 season) 2024 05/13/2021, 04/15/2021 Mammogram 2024 Influenza Vaccine 03/03/2025 Pneumococcal Vaccine: Pediatric (0-5 Years) and At-Risk Patients (6 to 49 Years) Aged Out No longer eligible b ased on patient's age to complete this topic Insurance [facility] Care Teams Undercover Operator Relationship Specialty Start Date End Date Lg Shepherd PA-C PCP - General Internal Medicine 12/01/17
--- OUTSIDE RECORDS SUMMARY | 2025-03-28 06:29 | XMS_ITS | Encounter Summary ---
Author Organization [facility] Address [address] [place] [id number] Care Team Providers Care Water Taxi Ferry Operator Name Role Phone Lg Shepherd PA-C Primary Care Provider Reason for Visit * Reason Comments Advice Only significant find US Renal Encounter Details Date Type Department Care Team (Late st Contact Info) Description 11/14/2020 Telephone [facility] [place] [address] [facility] [address] [place] [phone] Noel Blanco MD Advice Only (significant find US Renal) Social History Tobacco Use Types Packs/Day Years [...] have Coronavirus / COVID-19? No / Unsure 11/01/2020 3:49 PM EDT documented as of this encounter Miscellaneous Notes * Telephone Encounter - Yakelin Rawls - 11/15/2020 9:23 AM EDT [facility] [place] received * Telephone Encounter - Lynette Coreas - 11/15/2020 8:40 AM EDT Urine requisition faxed to [facility] @ [phone] and fax confirmation received * Telephone Encounter - Noel Blanco MD - 11/14/2020 5:27 PM EDT I ordered urine for culture. Please fax this to [facility]. In addition, I ordered a renal ultrasound for 1 month from now. Joslyn would like this done at [facility]. Please schedule. Thank you * Telephone Encounter - Laura Thomas LPN - 11/14/2020 3:38 PM EDT Images from the original note were not included. Please review and advise: documented in this encounter Plan of Treatment Not on file documented as of this encounter Visit Diagnoses Not on filedocumented in this encounter Care Teams Water Taxi Ferry Operator Relationship Specialty Start Date End Date Lg Shepherd PA-C PCP - General Internal Medicine 12/01/17 documented as of this encounter
--- OUTSIDE RECORDS SUMMARY | 2025-03-28 06:29 | XMS_ITS | Encounter Summary ---
Author Organization [facility] Address [address] [place] [address] Care Team Providers Care Cake Maker Name Role Phone Lg Shepherd PA-C Primary Care Provider Encounter Details Date Type Department Care Team (Late st Contact Info) Description 03/16/2018 Scanned Document [facility] Urologic Surgery [address] [place] [address] Provider, MD Rashmi [address] [place] [address] Social History Tobacco Use Types Packs/Day Years [...] on filedocumented in this encounter Care Teams Cake Maker Relationship Specialty Start Date End Date Lg Shepherd PA-C PCP - General Internal Medicine 12/01/17 documented as of this encounter
--- OUTSIDE RECORDS SUMMARY | 2025-03-28 06:29 | XMS_ITS | Encounter Summary ---
Author Organization [facility] Address [address] [place] [address] Care Team Providers Care Boilermaker Assembly And Erection Name Role Phone Lg Shepherd PA-C Primary Care Provider Encounter Details Date Type Department Care Team (Late st Contact Info) Description 10/20/2017 Scanned Document [facility] Urologic Surgery [address] [place] [address] Gerber Rosario MD [address] [place] [address] [address] [place] [address] Social History Tobacco Use Types Packs/Day Years [...] on filedocumented in this encounter Care Teams Boilermaker Assembly And Erection Relationship Specialty Start Date End Date Lg Shepherd PA-C PCP - General Internal Medicine 12/01/17 documented as of this encounter
--- OUTSIDE RECORDS SUMMARY | 2025-03-28 06:29 | XMS_ITS | Encounter Summary ---
Author Organization [facility] Address [address] [place] [address] Care Team Providers Care Tank Crewmember Name Role Phone Lg Shepherd PA-C Primary Care Provider Reason for Visit * Reason Comments Medical Complaint Encounter Details Date Type Department Care Team (Late st Contact Info) Description 11/13/2020 Telephone [facility] Urologic Surgery [address] [place] [phone] Noel Blanco MD Medical Complaint Social History Tobacco Use Types Packs/Day Years [...] encounter Miscellaneous Notes * Telephone Encounter - Elizabeth Gracia - 11/13/2020 1:30 PM EDT Pt called again, I did advise her that Dr. Blanco did order a renal u/s and I did fax it to [facility] her * Telephone Encounter - Noel Blanco MD - 11/13/2020 1:20 PM EDT I ordered renal ultrasound. Joslyn typically prefers [facility]. Please schedule. I can call her with results documented in this encounter Plan of Treatment Not on file documented as of this encounter Visit Diagnoses Not on filedocumented in this encounter Care Teams Tank Crewmember Relationship Specialty Start Date End Date Lg Shepherd PA-C PCP - General Internal Medicine 12/01/17 documented as of this encounter
--- OUTSIDE RECORDS SUMMARY | 2025-03-28 06:29 | XMS_ITS | Encounter Summary ---
Author Organization [facility] Address [address] [place] [address] Care Team Providers Care Gas Adjuster Name Role Phone Lg Shepherd PA-C Primary Care Provider Encounter Details Date Type Department Care Team (Late st Contact Info) Description 06/10/2021 Scanned Document [facility] [address] [place] [phone] Provider, MD Rashmi [address] [place] [address] Social History Tobacco Use Types Packs/Day Years [...] on filedocumented in this encounter Care Teams Gas Adjuster Relationship Specialty Start Date End Date Lg Shepherd PA-C PCP - General Internal Medicine 12/01/17 documented as of this encounter
--- OUTSIDE RECORDS SUMMARY | 2025-03-28 06:29 | XMS_ITS | Encounter Summary ---
Author Organization [facility] Address [address] [place] [address] Care Team Providers Care Echo Vascular Technologist Name Role Phone Lg Shepherd PA-C Primary Care Provider [phone] Encounter Details Date Type Department Care Team (Late st Contact Info) Description 08/19/2017 Scanned Document [facility] Urologic Surgery [address] [place] [address] Noel Blanco MD Social History Tobacco Use [...] on filedocumented in this encounter Care Teams Echo Vascular Technologist Relationship Specialty Start Date End Date Lg Shepherd PA-C PCP - General Internal Medicine 12/01/17 documented as of this encounter
--- OUTSIDE RECORDS SUMMARY | 2025-03-28 06:29 | XMS_ITS | Patient Health Record ---
Author Organization [facility] Address [address] [facility] [address] [place] [address] Care Team Providers Care Body Trimmer Name Role Phone NORBERT MENDOZA Primary Care Provider Unavailab Jason Kwong Unavailable [phone] Migration, Provider Unavailable Unavailable Allergies Allergen (clinical drug ingredient) Drug/Non Drug Allergy documented on EMR Reaction Allergy Type Onset Date Status celecoxib CeleBREX Muscle Aches Drug Allergy Acti ve vancomycin Vancomycin Unknown Drug Allergy Activ e Reason For Referral No Information Medications Medication SIG (Take, Route, Frequency, Duration) Notes Start Date End Date Status dilTIAZem HCl ER 180 MG/24 HOURS CAPSULE, EXTENDED RELEASE TAKE 1 CAPSULE DAILY.; Duration: 90 *Please review and pick correct strength-formulatio n from Mesuro options. If intended option is not shown, discontinue and re-order from Quick Search* Active ARIPiprazole 2 MG Tablet TAKE 1 TABLET DAILY; Duration: 30 Active Dulera 100-5 MCG/ACT Aerosol 2 puff(s) inhaled 2 times a day Active Metoprolol Tartrate 75 MG Tablet 1 tab(s) orally 1 times a day Active Zoloft 150 MG TABLET 1 TAB(S) ORALLY ONCE A DAY *Please review and pick correct strength-formulatio n from TouchTenan options. If intended option is not shown, discontinue and re-order from Quick Search* Active KlonoPIN 0.5 MG Tablet 1 tab(s) orally bid Active ProAir HFA CFC FREE 90 MCG/INH AEROSOL INHALE 2 PUFFS EVERY 4-6 HOURS NEEDED WITH COUGH, FOR SHORTNESS OF BREATH , AND WHEEZING; Duration: 30 *Please review and pick correct strength-formulatio n from TouchTenan options. If intended option is not shown, discontinue and re-order from Quick Search* Active Macrobid 100 MG Capsule 1 cap(s) orally 2 times a day; Duration: 7 DAYS 12/31/2017 Active Pantoprazole Sodium 40 MG Tablet Delayed Release 1 tab(s) orally once a day Active Isosorbide Mononitrate 40 MG TABLET 1 TAB(S) ORALLY QD *Please review and pick correct strength-formulatio n from Medispan options. 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 DIFFICILE BY PCR 12/19/2015 C. DIFFICILE BY PCR 11/05/2016 Future Test Test Name Order Date URINALYSIS WITH REFLEX CULTURE 8 BLOOD CULTURE 10/05/2017 Insurance Providers Payer Name Payer Address Payer Phone Subscriber Number Group Number Insured Name Patient Relationship to Insured Coverage Start Date Coverage End Date National [employer] [address] [place] [phone] [id number] URIAH HARRIS Self - patient is the insured [facility] Medicaid [address] [place] [id number] URIAH HARRIS Self - patient is the insured Medical (General) History Medical History History ICD Code Asperger's syndrome MRSA abscess and cellulitis UTI with Enterococcos and multi resistan t E.coli Anxiety Rheumatic valvular disease Anemia Pyelonephritis
--- OUTSIDE RECORDS SUMMARY | 2025-03-28 06:29 | XMS_ITS | Encounter Summary ---
Author Organization [facility] Address [address] [place] [address] Care Team Providers Care Elevator Constructor Electric Name Role Phone Manjit Hall MD Primary Care Provider [phone] Reason for Visit * Reason Onset Date Comments BONE MARROW BIOPSY APPT 03/27/2025 Encounter Details Date Type Department Care Team (Late st Contact Info) Description 03/27/2025 Telephone [facility] Hematology Oncology [address] [place] [phone] Elvira Robin MA Social History Tobacco Use Types Packs/Day Years [...] as of this encounter Progress Notes * Elvira Robin MA - 03/27/2025 11:35 AM EDT Pt has been scheduled for Bone Marrow Biopsy at [facility] on 04/11 at 1 pm. Pt aware to arrive at noon, pt aware NPO x 6 hours prior, and pt aware MUST have a bull driver with her. Pt requested letter be mailed to her with instructions as well, letter has been sent documented in this encounter Plan of Treatment Upcoming Encounters Date Type Department Care Team (Late st Contact Info) Description 03/30/2025 3:30 PM EDT Consult Thoracic Surgery [place] [address] [place] [address] Kendall Ricks MD [address] Paramj[address] [place] [address] 04/11/2025 1:00 PM EDT Appointment [facility] Interventional Radiology [address] [place] [phone] 04/17/2025 3:20 PM EDT Office Visit Gastroenterology - [place] [address] [facility] [address] [place] [phone] Bisi Dinero, SENIOR LEAD DEVELOPER [address] [place] [address] 05/05/2025 3:30 PM EDT Office Visit [facility] - [address] [place] [phone] Mandeep Horn MD [address] [place] [address] [address] [place] [address] 05/08/2025 3:30 PM EDT Office Visit [facility] - [address] [phone] Manjit Hall MD [address] [place] [address] 06/08/2025 3:15 PM EST Clinical Support Obstetrics and Gynecology - [address] [phone] 06/21/2025 3:30 PM EST Office Visit [facility] Hematology Oncology [address] [place] [phone] Angelito Mcfarlane MD [address] [place] [phone] 09/08/2025 3:00 PM EST Appointment [facility] Ultrasound [address] [place] [phone] documented as of this encounter Visit Diagnoses Not on filedocumented in this encounter Care Teams Elevator Constructor Electric Relationship Specialty Start Date End Date Manjit Hall MD [address] [place] [address] PCP - General Internal Medicine 12/03/21 documented as of this encounter
--- OUTSIDE RECORDS SUMMARY | 2025-03-28 06:29 | XMS_ITS | Encounter Summary ---
Author Organization [facility] Address [address] [place] [address] Care Team Providers Care Sql Manager Name Role Phone Lg Shepherd PA-C Primary Care Provider [phone] Encounter Details Date Type Department Care Team (Late st Contact Info) Description 06/07/2021 Scanned Document [facility] [address] [phone] Sommer Gonzalez DO [address] [place] [address] Social History Tobacco Use Types Packs/Day Years [...] on file documented as of this encounter Procedures Procedure Name Priority Date/Time Associated Diagnosis Comments PATHOLOGY REPORT 06/07/2021 11:4 6 PM EDT documented in this encounter Results * PATHOLOGY REPORT (06/07/2021 11:46 PM EDT) us Sommer Gonzalez DO PATHOLOGY/CYTOLOGY ORDERABLES Final Result documented in this encounter Visit Diagnoses Not on filedocumented in this encounter Care Teams Sql Manager Relationship Specialty Start Date End Date Lg Shepherd PA-C PCP - General Internal Medicine 12/01/17 documented as of this encounter
--- OUTSIDE RECORDS SUMMARY | 2025-03-28 06:29 | XMS_ITS | Encounter Summary ---
Author Organization [facility] Address [address] [place] [address] Care Team Providers Care Buildings And Grounds Coordinator Name Role Phone Lg Shepherd PA-C Primary Care Provider [phone] Encounter Details Date Type Department Care Team (Late st Contact Info) Description 02/26/2018 Scanned Document [facility] Urologic Surgery [address] [place] [address] Provider, MD Rashmi [address] [place] [address] Social History Tobacco Use Types Packs/Day Years [...] on filedocumented in this encounter Care Teams Buildings And Grounds Coordinator Relationship Specialty Start Date End Date Lg Shepherd PA-C PCP - General Internal Medicine 12/01/17 documented as of this encounter
--- OUTSIDE RECORDS SUMMARY | 2025-03-28 06:29 | XMS_ITS | Encounter Summary ---
Author Organization [facility] Address [address] [place] [address] Care Team Providers Care Park Activities Coordinator Name Role Phone Lg Shepherd PA-C Primary Care Provider Encounter Details Date Type Department Care Team (Late st Contact Info) Description 06/12/2021 Scanned Document [facility] [address] [place] [phone] Provider, MD Rashmi [address] [place] [address] Social History Tobacco Use Types Packs/Day Years [...] on filedocumented in this encounter Care Teams Park Activities Coordinator Relationship Specialty Start Date End Date Lg Shepherd PA-C PCP - General Internal Medicine 12/01/17 documented as of this encounter
--- OUTSIDE RECORDS SUMMARY | 2025-03-28 06:29 | XMS_ITS | Encounter Summary ---
Author Organization [facility] Address [address] [place] [address] Care Team Providers Care News Clerk Name Role Phone Lg Shepherd PA-C Primary Care Provider Encounter Details Date Type Department Care Team (Late st Contact Info) Description 09/17/2018 Scanned Document [facility] [address] [place] [phone] Provider, MD Rashmi [address] [place] [address] Social History Tobacco Use Types Packs/Day Years [...] on filedocumented in this encounter Care Teams News Clerk Relationship Specialty Start Date End Date Lg Shepherd PA-C PCP - General Internal Medicine 12/01/17 documented as of this encounter
--- OUTSIDE RECORDS SUMMARY | 2025-03-28 06:29 | XMS_ITS | Encounter Summary ---
Author Organization [facility] Address [address] [place] [address] Care Team Providers Care Cleat Feeder Name Role Phone Lg Shepherd PA-C Primary Care Provider Encounter Details Date Type Department Care Team (Late st Contact Info) Description 09/03/2021 Scanned Document [facility] [address] [place] [address] [phone] Provider, MD Rashmi [address] [place] [address] Social History Tobacco Use Types Packs/Day Years [...] on filedocumented in this encounter Care Teams Cleat Feeder Relationship Specialty Start Date End Date Lg Shepherd PA-C PCP - General Internal Medicine 12/01/17 documented as of this encounter
--- OUTSIDE RECORDS SUMMARY | 2025-03-28 06:29 | XMS_ITS ---
Author Name [facility] Organization Unknown History of Medication Use Medication Directions Dispensed Refills Start Date End Date Stat us dicyclomine (BENTYL) 10 MG capsule TAKE 1 CAPSULE BY MOUTH FOUR TIMES A DAY 01/28/2024 07/05/2024 active dicyclomine (BENTYL) 10 MG capsule TAKE 1 CAPSULE BY MOUTH FOUR TIMES A DAY 03/17/2022 01/28/2024 active Linzess 290 MCG Cap capsule TAKE 1 CAPSULE BY MOUTH EVERY DAY IN THE MORNING BEFORE BREAKFAST 11/01/2021 08/26/2022 active sertraline (ZOLOFT) 100 MG tablet TAKE 1 & 1/2 TABLET BY MOUTH EVERY DAY 09/10/2016 active ARIPiprazole (ABILIFY) 2 MG tablet 2 mg daily. 07/16/2015 active Multiple Vitamin (MULTIVITAMINS PO) Take by mouth. ac tive Allergies Allergen Reaction Severity Comment Documented Date Source Statu s VANCOMYCIN ITCHING 09/04/2015 [facility] active CELECOXIB HIVES Chest pain 09/09/2012 [facility] active Problems Problem Status Onset Date Problem Type Date of Resolution Source Gastroparesis active 2019-03-16 ProblemAct [facility] Chronic idiopathic constipation active 2020-11-01 ProblemAct [facility] Irritable bowel syndrome with constipation active 2019-03-16 ProblemAct [facility] Encounter for screening colonoscopy active 2019-03-16 ProblemAct [facility] Abdominal pain, unspecified abdominal location active EncounterDiagnosisAct [facility] History of methicillin resistant staphylococcus aureus (MRSA) active 2017-09-25 ProblemAct [facility] Gastroesophageal reflux disease without esophagitis active 2019-03-16 ProblemAct [facility] Supraventricular tachycardia active 2016-12-01 ProblemAct [facility] Encounters Encounter Type Encounter Reason Primary Diagnosis Location Date Ambulatory Chronic idiopath ic constipation [place] [facility] 09/16/2021 Care Team Organization Name Specialty Phone Email Start Date End Da te [facility] JACK ALLISON Primary Care 04/09/2023 03/21/2024 [facility] 06/05/20212021
--- OUTSIDE RECORDS SUMMARY | 2025-03-28 06:29 | XMS_ITS | Encounter Summary ---
Author Organization [facility] Address [address] [place] [address] Care Team Providers Care Clinical Massage Therapist Name Role Phone Lg Shepherd PA-C Primary Care Provider [phone] Reason for Visit * Reason Comments Medication Refill Encounter Details Date Type Department Care Team (Late st Contact Info) Description 10/23/2022 Refill [facility] [address] [phone] Sommer Gonzalez DO [address] [place] [address] Social History Tobacco Use Types Packs/Day Years [...] encounter Miscellaneous Notes * Telephone Encounter - Ann Parkinson MA - 10/23/2022 9:21 AM EDT This medication is not prescribed by Dr. Gonzalez documented in this encounter Plan of Treatment Not on file documented as of this encounter Visit Diagnoses Not on filedocumented in this encounter Care Teams Clinical Massage Therapist Relationship Specialty Start Date End Date Lg Shepherd PA-C PCP - General Internal Medicine 12/01/17 documented as of this encounter
--- OUTSIDE RECORDS SUMMARY | 2025-03-28 06:29 | XMS_ITS | Encounter Summary ---
Author Organization [facility] Address [address] [place] [address] Care Team Providers Care Project Scientist Name Role Phone Lg Shepherd PA-C Primary Care Provider [phone] Encounter Details Date Type Department Care Team (Late st Contact Info) Description 08/19/2018 Scanned Document [facility] Urologic Surgery [address] [place] [address] Provider, MD Rashmi [address] [place] [address] Social History Tobacco Use Types Packs/Day Years [...] on filedocumented in this encounter Care Teams Project Scientist Relationship Specialty Start Date End Date Lg Shepherd PA-C PCP - General Internal Medicine 12/01/17 documented as of this encounter
--- OUTSIDE RECORDS SUMMARY | 2025-03-28 06:29 | XMS_ITS | Encounter Summary ---
Author Organization [facility] Address [address] [place] [address] Care Team Providers Care Brake Repair Mechanic Name Role Phone Lg Shepherd PA-C Primary Care Provider Encounter Details Date Type Department Care Team (Late st Contact Info) Description 08/22/2017 Scanned Document [facility] Urologic Surgery [address] [place] [address] Zafar Barber MD Social History Tobacco Use Types Packs/Day [...] on filedocumented in this encounter Care Teams Brake Repair Mechanic Relationship Specialty Start Date End Date Lg Shepherd PA-C PCP - General Internal Medicine 12/01/17 documented as of this encounter
--- OUTSIDE RECORDS SUMMARY | 2025-03-28 06:29 | XMS_ITS | Clinical Summary ---
Author Organization [facility] Address [address] [place] [address] Phone Care Team Providers Care Crate Liner Name Role Phone Manjit Hall MD Primary Care Provider Allergies Active Allergy Reactions Criticality Noted Date Comments Amoxicillin Diarrhea Medium 06/12/2021 Celecoxib Itching,Other Medium 09/09/2012 Chest pain Fluconazole Itching Medium 04/04/2022 Ibuprofen Hives Medium 06/12/2021 Vancomycin Itching,Other,Hives Medium 09/04/2015 Other Reaction(s): itching hives Medications acetaminophen (TYLENOL) 500 mg tablet Take 1 tablet (500 mg total) by mouth every 6 hours as needed. Active ARIPiprazole (ABILIFY) 5 mg tablet 07/22/20 21 Active levocetirizine (XYZAL) 5 mg tablet Take 1 tablet (5 mg total) by mouth 1 (one) time each day. 12/13/19 20 Active mometasone-formo terol (DULERA 100) 100-5 mcg/actuation inhaler 2 inhalations by Inhaled route every 12 (twelve) hours. Active tamsulosin (FLOMAX) 0.4 mg 24 hr capsule 1 capsule (0.4 mg total) 1 (one) time each day if needed. 05/31/20 20 Active sertraline (ZOLOFT) 100 mg tablet Take 1 tablet (100 mg total) by mouth 1 (one) time each day. Active pramipexole (MIRAPEX) 0.125 mg tablet 11/14/19 Active nitroglycerin (Nitrostat) 0.4 mg SL tablet 06/26/20 15 Active multivitamin (MULTIPLE VITAMINS ORAL) Take 1 tablet by mouth daily. Active omega-3/dha/epa/ fish oil (OMEGA-3 ORAL) Activ e fluticasone propionate (FLONASE) 50 mcg/actuation nasal spray 2 Sprays by Nasal route daily. 10/19/19 11 Active medroxyPROGESTER one 150 mg/mL injection syringeIndicatio ns:Surveillance for Depo-Provera contraception Inject 1 mL (150 mg total) into the shoulder, thigh, or buttocks every 3 (three) months. 1 mL 09/13/19 25 2025 Active naloxegoL (Movantik) 25 mg tablet Take 1 tablet (25 mg total) by mouth 1 (one) time each day. 30 tablet 09/28/19 25 Active sucralfate (CARAFATE) 1 gram tablet TAKE 1 TABLET BY MOUTH 3 TIMES DAILY WITH MEALS 30 tablet 10/14/19 25 Active linaCLOtide (Linzess) 290 mcg capsule Take 1 capsule (290 mcg total) by mouth 1 (one) time each day. 30 capsule 10/15/19 25 Active pantoprazole (PROTONIX) 40 mg EC tablet TAKE 1 TABLET BY MOUTH 2 TIMES DAILY (BEFORE MEALS). TAKE ON EMPTY STOMACH, WAIT 30 MINUTES AND THEN EAT TO ACTIVATE MEDICATION.- BEFORE BREAKFAST AND SUPPER 180 tablet 3 12/20/19 25 Active dilTIAZem CD (CARDIZEM CD) 120 mg 24 hr capsule TAKE 1 CAPSULE (120 MG TOTAL) BY MOUTH 3 (THREE) TIMES A DAY. 270 capsule 1 01/10/20 25 Active albuterol HFA (Ventolin HFA) 90 mcg/actuation inhaler Inhale 2 puffs by mouth every 4 (four) hours if needed for wheezing or shortness of breath. 8 g 5 01/25/20 25 Active cholecalciferol (Vitamin D3) 50 mcg (2,000 unit) capsule Take 1 capsule (2,000 Units total) by mouth 1 (one) time each day. 90 each 3 01/26/20 25 Active mupirocin (BACTROBAN) 2 % ointment APPLY TO AFFECTED AREA TWICE A DAY 22 g 02/28/20 25 Active metoprolol succinate (TOPROL-XL) 25 mg 24 hr tablet Take 1 tablet (25 mg total) by mouth 2 (two) times a day. Do not crush or chew. 180 tablet 1 02/28/20 25 Active amitriptyline (ELAVIL) 10 mg tablet TAKE 1 TABLET BY MOUTH EVERYDAY AT BEDTIME 90 tablet 1 03/14/20 25 Active dicyclomine (BENTYL) 10 mg capsule TAKE 1 CAPSULE (10 MG TOTAL) BY MOUTH 4 (FOUR) TIMES A DAY IF NEEDED (ABDOMINAL CRAMPING). 360 capsule 03/24/20 25 Active mupirocin (BACTROBAN) 2 % ointment Apply 1 Applicator topically 2 times daily. 11/03/19 24 2024 Discontinued dicyclomine (BENTYL) 10 mg capsule TAKE 1 CAPSULE (10 MG TOTAL) BY MOUTH 4 (FOUR) TIMES A DAY IF NEEDED (ABDOMINAL CRAMPING). 360 capsule 12/14/19 25 2024 Discontinued amitriptyline (ELAVIL) 10 mg tablet TAKE 1 TABLET BY MOUTH EVERYDAY AT BEDTIME 30 tablet 1 01/13/20 25 2024 Discontinued dicyclomine (BENTYL) 10 mg capsule TAKE 1 CAPSULE (10 MG TOTAL) BY MOUTH 4 (FOUR) TIMES A DAY IF NEEDED (ABDOMINAL CRAMPING). 360 capsule 03/22/20 25 2024 Discontinued Hospital, Clinic, or Other Facility Administered Medication Ordered Dose Route Frequency Start Date End Date Status medroxyPROGESTERone (DEPO-PROVERA) injection 150 mgIndications:Surveillance for Depo-Provera contraception 150 mg IM Once 03/15/2025 03/15/2025 Ended Active Problems Problem Noted Date Diagnosed Date Chronic anemia 01/23/2025 Macrocytosis 01/23/2025 Constipation 01/23/2025 CAD (coronary artery disease) 03/02/2024 HTN (hypertension) 03/02/2024 PFO (patent foramen ovale) 02/18/2023 Overview (05/18/2024): Last Assessment & Plan: She states that she has a history of a PFO. I did review her echocardiograms going back as far as 2009 I do not see a mention of a PFO. Her last echocardiogram done with us did not show a PFO. We did discuss the indications for procedures on these. At this point she does not meet the criteria. We did discuss the clinical implications of a PFO and that these are very common. We did discuss that she should be on a baby aspirin which he is already taking. At her next echocardiogram we will interrogate the atrial septum further to see if we can find this. Again on the last 5 or so echocardiograms that she had in the past that I have access to there is no mention of a PFO. At this point I do not see the indication to do a JANETTE to evaluate this further. She did express understanding of this at this time and that I could not find evidence of a echocardiogram that had a PFO. She does understand that there is no indication to do invasive procedure such as a JANETTE at this time. Kidney stones 12/02/2022 Mild persistent asthma without complication 09/2022 Malnutrition ([facility] V24) 09/04/2022 Insomnia 09/04/2022 Iron deficiency anemia secon walter to inadequate dietary iron intake 08/28/2022 POTS (postural orthostatic tachycardia syndrome) 08/28/2022 Overview (05/18/2024): Last Assessment & Plan: Again this appears to be better with the changes in her medications. Been no changes to these. I encouraged her to increase her fluid intake as well. Paroxysmal A-fib ([facility] V24, [facility] V28) 05/04 Overview (05/18/2024): Last Assessment & Plan: 1 episode of documented atrial fibrillation no symptoms since PSVT (paroxysmal supraventri cular tachycardia) ([facility] V24) 05/29/2022 Overview (05/18/2024): Last Assessment & Plan: SVT status post ablation. Asymptomatic discussed with her the signs and symptoms of breakthrough and to contact us if it occurs.I did offer to cut back on her medical therapy if she wanted to try a lower dose of therapy we discontinue the diltiazem leave the metoprolol in place in case she had catecholamine induced A-fib Pulmonary hypertension ([facility] V24, [facility] V28 ) 05/29/2022 Overview (05/18/2024): Last Assessment & Plan: She had an echocardiogram done 2019 which showed mild pulmonary hypertension and mild mitral regurgitation. I have asked her to update an echocardiogram so we can continue to monitor this. Edema 05/29/2022 Overview (05/18/2024): Last Assessment & Plan: Her leg edema has been stable. We will continue to monitor this. Dizziness 05/29/2022 Overview (05/18/2024): Last Assessment & Plan: We did discuss her dizziness. See under POTS Peptic ulcer disease 12/12/2021 Autistic disorder 12/12/2021 Asperger's disorder 12/12/2021 Closed rib fracture 12/12/2021 Overview (05/18/2024): Non-displaced fx 7th rib right side. 06/26/2020 Elbow fracture, right 12/12/2021 Overview (05/18/2024): 03/2019 ED visit, cast. PLMD (periodic limb movement disorder) 9 MRSA (methicillin resistant Staphylococcus aureu s) 05/04/2018 PAF (paroxysmal atrial fibri llation) ([facility] V24, [facility] V28) 10/26/2017 Hypertension 12/01/2016 Inguinal pain 12/01/2016 Mitral valve insufficiency 12/01/2016 Obstructive sleep apnea syndrome 12/01/2016 Orthostatic hypotension 12/01/2016 Palpitations 12/01/2016 Overview (03/28/2024): Cardiac cath 09/05/2015, 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 See under POTS Sinus tachycardia 12/01/2016 Snoring 12/01/2016 Wide-complex tachycardia 12/01/2016 Supraventricular tachycardia ([facility] V24) 12/01 GERD (gastroesophageal reflux disease) 3 Overview (05/18/2024): 05/08/2017 EGD duodenitis and gastritis Dysmenorrhea 09/09/2012 Iron deficiency anemia 05/27/2012 Chest pain 12/09/2011 Overview (05/18/2024): Last Assessment & Plan: We did discuss her chest pain. This is atypical. We will be doing a stress test to rule out other potential causes of her arrhythmia. And this will also give us information on her coronary arteries. Anxiety disorder 10/20/2011 Allergic rhinitis 05/21/2010 Encounters Date Type Department Care Team Description 03/27/2025 Telephone [facility] Hematology Oncology [address] [place] [phone] Elvira Robin MA 03/24/2025 7:41 AM EDT Anesthesia Event [facility] OR [address] [place] [phone] Matty Mckeon DO Chang, Daniel J, MD 03/24/2025 7:30 AM EDT - 03/24/2025 9:15 AM EDT Surgery [facility] OR [address] [place] [phone] Alexei Medeiros MD CYSTOSCOPY URETEROSCOPY LASER LITHOTRIPSY & STENT RIGHT [15904 (CPT )] 03/24/2025 5:47 AM EDT - 03/24/2025 11:15 AM EDT Hospital Encounter [facility] OR [address] [place] [phone] Alexei Medeiros MD Discharge Disposition: Home or Self Care 03/22/2025 3:15 PM EDT Office Visit [facility] Hematology Oncology [address] [place] [phone] Angelito Mcfarlane MD Iron deficiency anemia secondary to inadequate dietary iron intake (Primary Dx); Macrocytosis; Macrocytic anemia 03/17/2025 1:37 PM EDT - 03/17/2025 11:59 PM EDT Hospital Encounter CT Scan - [address] [phone] Mass of chest wall, right; Weight loss Discharge Disposition: Home or Self Care 03/15/2025 3:00 PM EDT Clinical Support Obstetrics and Gynecology - [address] [phone] Surveillance for Depo-Provera contraception (Primary Dx) 03/14/2025 9:15 AM EDT Office Visit [address] [phone] Manjit Hall MD Mass of chest wall, right (Primary Dx); Weight loss; Hypokalemia; Abnormal CT scan, chest 03/09/2025 11:05 AM EDT - 03/09/2025 11:59 PM EDT Hospital Encounter [facility] Ultrasound [address] [place] [address] Mass of lower inner quadrant of right breast Discharge Disposition: Home or Self Care 03/07/2025 Telephone Obstetrics and Gynecology [address] [phone] Trang Corado RN 02/07/2025 3:15 PM EDT Office Visit Obstetrics and Gynecology [address] [phone] Dawn Villanueva CNM Worried well (Primary Dx) 01/31/2025 2:50 PM EDT - 01/31/2025 11:59 PM EDT Hospital Encounter Radiology Department [address] [phone] Goiter Discharge Disposition: Home or Self Care 01/24/2025 9:00 AM EDT Office Visit [address] [phone] Manjit Hall MD Costochondritis (Primary Dx); Weight loss; Mild intermittent asthma without complication; Chronic anemia; Macrocytosis; Gastroesophageal reflux disease without esophagitis; Constipation, unspecified constipation type; Kidney stones; POTS (postural orthostatic tachycardia syndrome); PSVT (paroxysmal supraventricular tachycardia) ([facility] V24); Screening for thyroid disorder; Goiter 01/20/2025 Telephone [facility] Hematology Oncology [address] [place] [phone] Aneglito Mcfarlane MD from Last 3 Months Immunizations Name Administration Dates Next Due DTP 02/23/1989, 6,01/07/1985,11/05,1984 [id number]-[id number] (Pentacel) 2mo to less than 5yo 07/03/1986 HPV, Quadrivalent 10/10/2008,03/28/2008,01/27/20 08 Hepatitis B Pediatric (Enger ix B; Recombivax HB) to less than 20 yo 08/31/1997,03/28/1997,02/10/1997 MMR, measles mumps and rubel la Live (Priorix; M-M-R II) 12mo and older 04/30/1995,11/28/1985 Meningococcal Polysaccharide 02/17/2005 OPV 02/23/1989, 6,1984,09/08 PPD Test 12/07/2012 Pneumococcal polysaccharide 23 valent (Pneumovax 23) 2yo and older 05/19/2014 Td Tetanus diptheria (Tdvax) 7yo and older 03/28/2004,02/16/1996 Tdap Tetanus diptheria acell ular pertussis (Boostrix; Adacel) 7yo and older 01/29/2016,12/02/2012 Surgical History Surgery Date Site/Laterality Comments FOOT SURGERY PROCEDURE:FOOT SURGERY OTHER SURGICAL HISTORY PROCEDURE:MT PELVIC EXAMINATION W/ANESTHESIA OTHER THAN LOCAL ARRHYTHMIA SURGERY 09/05/2015 N/A PROCEDURE:ARRHYTHMIA SURGERY;COMMENT:Procedure: Comp Eps W/ Cs/La Pac & Record; Surgeon: Roman Oliver MD; Location: [facility] ELECTROPHYSIOLOGY LAB (EP); Service: Cardiology; Laterality: N/A; ARRHYTHMIA SURGERY 09/05/2015 N/A PROCEDURE:ARRHYTHMIA SURGERY;COMMENT:Procedure: Comp Eps With Induction; Surgeon: Roman Oliver MD; Location: [facility] ELECTR[facility] (EP); Service: Cardiology; Laterality: N/A; ARRHYTHMIA SURGERY 09/05/2015 N/A PROCEDURE:ARRHYTHMIA SURGERY;COMMENT:Procedure: Pes/Pacing After Iv Drug Infusion; Surgeon: Roman Oliver MD; Location: [facility] ELECTROP[facility]OLOG[facility] (EP); Service: Cardiology; Laterality: N/A; ATRIAL ABLATION SURGERY 02/06/2014 N/A PROCEDURE:ATRIAL ABLATION SURGERY;COMMENT:Procedure: COMP EP EVAL INCL INSERT AND REPOS OF MULT ELECT CATHS W/ INDUCT OR ATTP INDUC OF ARRHY W/ R. ATRIAL && VENT PACING && RECORD W/ TX OF SVT BY ABLATION; Surgeon: Roman Oliver MD; Location: [facility] ELECTROP[facility]SIOLOGY (EP) LAB; Service: Cardiolog ARRHYTHMIA SURGERY 02/06/2014 N/A PROCEDURE:ARRHYTHMIA SURGERY;COMMENT:Procedure: INTRACARDIAC ELECTROPHYSIOLOGIC 3-D MAPPING; Surgeon: Roman Oliver MD; Location: [facility] ELECTROP[facility]OLOGY (EP) LAB; Service: Cardiology; Laterality: N/A; ARRHYTHMIA SURGERY 02/06/2014 N/A PROCEDURE:ARRHYTHMIA SURGERY;COMMENT:Procedure: COMP EP EVAL INCL INSERT AND REPOS OF MULT ELECT CATHS W/ INDUC OR ATTP INDUC OF ARRH W/ L ATRIAL PACING && RECORDING FROM JOSIANE SINUS OR L ATRIUM.; Surgeon: Roman Oliver MD; Location: [facility] ELECTROP[facility]OLOGY (EP) LAB; Service: Cardiology; ARRHYTHMIA SURGERY 02/06/2014 N/A PROCEDURE:ARRHYTHMIA SURGERY;COMMENT:Procedure: PROGRAMMED STIMULATION AND PACING AFTER INTRAVENOUS DRUG INFUSION; Surgeon: Roman Oliver MD; Location: [facility] ELECTROP[facility]Y (EP) LAB; Service: Cardiology; Laterality: N/A; TONSILLECTOMY 3rd grade PROCEDURE: HISTORICAL TONSILLECTOMY ANKLE SURGERY 11/02/2007 PROCEDURE: HISTORICAL ANKLE SURGERY; COMMENT: Non healing fracture WRIST SURGERY PROCEDURE: HISTORICAL WRIST SURGERY; COMMENT: Sprain FOOT SURGERY 08/03/2009 PROCEDURE: MT UNLISTED PROCEDURE FOOT/TOES; COMMENT: Bone spur right foot COLONOSCOPY 11/11/2012 PROCEDURE: HISTORICAL COLONOSCOPY; COMMENT: melanosis coli ESOPHAGOGASTRODUODENOSCOPY 11/11/2012 PROCEDURE: MT ESOPHAGOGASTRODUODENOSCOPY TRANSORAL DIAGNOSTIC; COMMENT: normal OTHER SURGICAL HISTORY 05/11/2017 PROCEDURE: MT EGD PARTIAL/COMPL ESOPHAGOGASTRIC FUNDOPLASTY; COMMENT: Duodenitis, gastritis COLONOSCOPY 07/18/2015 PROCEDURE: HISTORICAL COLONOSCOPY OTHER SURGICAL HISTORY 08/21/2023 Left PROCEDURE: HISTORY OTHER; COMMENT: Kidney stones removal Medical History Medical History Date Comments Chronic pain disorder DX:Chronic pain disorder;COMMENT:endometriosis History of transfusion DX:Histor y of transfusion GERD (gastroesophageal reflu x disease) DX:GERD (gastroesophageal re flux disease) Chronic constipation DX:Chronic constipation Arrhythmia DX:Arrhythmia Mitral valve prolapse DX:Mitral valve prolapse Migraine DX:Migraine Autism disorder DX:Autism disord er MRSA (methicillin resistant Staphylococcus aureus) DX:MRSA (methicillin resista nt Staphylococcus aureus) Anemia DX:Anemia Sleep apnea, obstructive DX:Slee p apnea, obstructive Depression DX:Depression Endocarditis DX:Endocarditis Rheumatic heart disease DX:Rheum atic heart disease History of infectious mononucleosis 01/1999 DX:History of infectious mononucleosis Lower limb amputation, ankle ([facility] V24, [facility] V28) DX:Lower limb amputation, an kle ([facility]) Other specified viral warts 05/2002 DX:O ther specified viral warts Anxiety 10/20/2011 DX:Anxiety 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 Allergic rhinitis 05/21/2010 DX:Allergic rh initis Peptic ulcer disease 12/12/2021 DX:Peptic u lcer disease History of GI bleed 12/12/2021 DX:History o f GI bleed; COMMENT: 06/2021 Autistic disorder 12/12/2021 DX:Autistic di sorder Asperger's disorder 12/12/2021 DX:Asperger' s disorder Closed rib fracture 12/12/2021 DX:Closed ri b fracture; COMMENT: Non-displaced fx 7th rib right side. 06/26/2020 History of fracture of phalanx of toe 12/12/2021 DX:History of fracture of phalanx of toe; COMMENT: Two toes, R foot 05/2020. History of small bowel obstruction 12/12/2021 DX:History of small bowel obstruction; COMMENT: Hospital admission 06/2019, surgery per pt in progress note. Hemorrhagic varicella pneumonitis 09/10/2006 DX:Hemorrhagic varicella pneumonitis; COMMENT: 1991 Whooping cough 09/10/2006 DX:Whooping coug h; COMMENT: 2000 Elbow fracture, right 12/12/2021 DX:Elbow f racture, right; COMMENT: 03/2019 ED visit, cast. Palpitations 12/12/2021 DX:Palpitations; COMMENT: Cardiac cath 09/05/2015, hx catheter ablation for atypical AV robert reentrant tachycardia per 09/05/2015 Esophageal reflux DX:Esophageal reflux Constipation DX:Constipation H/O: upper GI bleed DX:H/O: uppe r GI bleed H/O abdominal surgery DX:H/O abd ominal surgery Constipation DX:Constipation Irregular heart beat SVT Asthma Chronic kidney disease KIDNEY ST ONES Irritable bowel syndrome Peptic ulcer disease Bowel obstruction ([facility] V 24, [facility] V28) 2019 Family History Medical History Relation Name Comments Breast cancer Aunt Maternal aunt Other: back Father Leukemia Paternal Grandfather Breast cancer Paternal Grandmother Colon cancer Neg Hx Ovarian cancer Neg Hx Uterine cancer Neg Hx Relation Name Status Comments Aunt Maternal aunt Alive Brother Alive 3 brothers heal thy Father Alive healthy x back pain Maternal Grandfather Healhty Maternal Grandmother Healthy Mother Alive healthy Paternal Grandfather Healthy Paternal Grandmother Alive Healthy Social History Tobacco Use Types Packs/Day Years Used Date Smoking Tobacco: Never Cigarettes Smokeless Tobacco: Never Tobacco Cessation:Counseling Given: Not Answered Alcohol Use Standard Drinks/Week Comments No 0 [...] Orientation Straight 09/23/2024 10 :01 AM EST Obstetrics History Para Term AB IAB SAB Ectopic Multiple Livin g Live Births 0 0 0 0 0 0 0 0 Last Filed Vital Signs Vital Sign Reading Time Taken Comments Blood Pressure 97/76 03/24/2025 9:21 AM EDT Pulse 77 03/24/2025 9:21 AM EDT Temperature 37 C (98.6 F) 03/24/2025 9:21 AM EDT Respiratory Rate 16 03/24/2025 9:21 AM EDT Oxygen Saturation 98% 03/24/2025 9:21 AM EDT Inhaled Oxygen Concentration - - Weight 34.5 kg (76 lb) 03/22/2025 2:58 PM EDT Height 152.4 cm (5') 03/14/2025 8:49 AM EDT Body Mass Index 14.84 03/14/2025 8:49 AM EDT Plan of Treatment Upcoming Encounters Date Type Department Care Team (Late st Contact Info) Description 03/30/2025 3:30 PM EDT Consult Thoracic Surgery - [place] [address] [place] [phone] Kendall Ricks MD [address] [place] [address] 04/11/2025 1:00 PM EDT Appointment [facility] Interventional Radiology [address] [place] [phone] 04/17/2025 3:20 PM EDT Office Visit Gastroenterology - [place] [address] [place] [phone] Bisi Dinero, FI[address] [place] [phone] 05/05/2025 3:30 PM EDT Office Visit [facility] [address] [place] [phone] Mandeep Horn MD [address] [place] [address] [address] [place] [address] 05/08/2025 3:30 PM EDT Office Visit Adult Medicine [place] - [address] [phone] Manjit Hall MD [address] [place] [phone] 06/08/2025 3:15 PM EST Clinical Support Obstetrics and Gynecology - [address] [phone] 06/21/2025 3:30 PM EST Office Visit [facility] Hematology Oncology [address] [place] [phone] Angelito Mcfarlane MD [address] [place] [phone] 09/08/2025 3:00 PM EST Appointment [facility] Ultrasound [address] [place] [address] Health Maintenance Due Date Last Done Comments Breast Cancer Screening 1984 COVID-19 Vaccine (#1) 1989 Pneumococcal Vaccine: Pediatrics (0 to 5 Years) and At-Risk Patients (6 to 49 Years) (2 of 2 - PCV) 05/19/2015 05/19/2014 HIV Screening 07/10/2022 Hepatitis C Screening 07/10/2022 Medicare Annual Wellness Visit 07/10/2022 Social Influencers of Health Screening 07/10/2022 Depression Screening 08/03/2024 Influenza Vaccine (#1) 2025 DTaP,Tdap,and Td Vaccines (10 - Td or Tdap) 01/28/2026 01/29/2016, 12/02/2012, 03/28/2004, Additional history exists Hypertension/CHF/CAD Annual BMP Blood Test 03/20/2026 03/20/2025, 02/24/2025, 06/14/2024, Additional history exists Cervical Cancer Screening: HPV 06/09/2027 06/09/2022 Cholesterol Screening (Lipid Panel) 08/11/2027 08/11/2022 HIB Vaccines Completed 07/03/1986, 07/03/1986 IPV Vaccines Completed 02/23/1989, 08/1985, 02/16/1986, Additional history exists MMR Vaccines Completed 04/30/1995, 11/28/1985 Hepatitis B Vaccines Completed 08/31/1997, 03/28/1997, 02/10/1997 Meningococcal ACWY Vaccine Aged Out 02/17/2005 N o longer eligible based on patient's age to complete this topic HPV Vaccines Completed 10/10/2008, 03/04, 01/27/2008 Hepatitis A Vaccines Aged Out No long er eligible based on patient's age to complete this topic Meningococcal B Vaccine Aged Out No l onger eligible based on patient's age to complete this topic RSV Immunization Patients Under 20 months Aged Out No longer eligible based on patient's age to complete this topic Varicella Vaccines Aged Out No longer eligible based on patient's age to complete this topic Medical Devices Implanted Type Area [employer] Device Identifier Shelf Expiration Date Model / Serial / Lot Stent Uret [id number] Stiff Shft - Sn/A - [id number] Implanted:Qty: 1 on 03/24/2025 by Alexei Medeiros MD at [facility] Stents Right: Ureter [employer] [facility] 12/22/2027 [id number] / N/A / [id number] Procedures Procedure Name Priority Date/Time Associated Diagnosis Comments OXYGEN THERAPY, ADULT Routine 03/24/2025 8:26 AM EDT XR UROGRAM RETROGRADE Routine 03/24/2025 8:20 AM EDT TH AN LMA(NO CHARGE) Routine 03/24/2025 7:57 AM EDT POC PREGANCY, URINE SCREENING Routine 03/24/2025 6:46 AM EDT FERRITIN Routine 03/20/2025 8:03 AM EDT Iron deficiency anemia secondary to inadequate dietary iron intake IRON AND TIBC Routine 03/20/2025 8:03 AM EDT Iron deficiency anemia secondary to inadequate dietary iron intake BASIC METABOLIC PANEL Routine 03/20/2025 8:03 AM EDT Weight loss Hypokalemia MAGNESIUM Routine 03/20/2025 8:03 AM EDT Weight loss Hypokalemia DIANA URINE CULTURE TUBE Routine 03/17/20 2:14 PM EDT Urinary tract infection without hematuria, site unspecified CBC WITH AUTO DIFFERENTIAL Routine 03/17/2025 2:10 PM EDT Calculus, kidney URINALYSIS WITH REFLEX MICROSCOPIC AND CULTURE Routine 03/17/2025 2:10 PM EDT Urinary tract infection without hematuria, site unspecified CBC AND DIFFERENTIAL Routine 03/17/2025 2:10 PM EDT Calculus, kidney URINALYSIS WITH REFLEX MICROSCOPIC AND CULTURE Routine 03/17/2025 2:10 PM EDT Urinary tract infection without hematuria, site unspecified CULTURE URINE Routine 03/17/2025 2:10 PM EDT Urinary tract infection without hematuria, site unspecified CULTURE URINE Routine 03/17/2025 2:10 PM EDT Urinary tract infection without hematuria, site unspecified CT CHEST WO CONTRAST Routine 03/17/2025 2:01 PM EDT Mass of chest wall, right Weight loss US BREAST COMPLETE BILAT SCREENING Routine 03/09/2025 11:44 AM EDT Mass of lower inner quadrant of right breast MT PROTEIN ELECTROPHORETIC FRACTIONATION & QUANTITATION SERUM Routine 02/24/2025 8:17 AM EDT Anemia, unspecified type MT IMMUNOFIXATION ELECTROPHORESIS SERUM Routine 02/24/2025 8:17 AM EDT Anemia, unspecified type PROTEIN, TOTAL Routine 02/24/2025 8:17 AM EDT Anemia, unspecified type CBC WITH AUTO DIFFERENTIAL Routine 02/24/2025 8:17 AM EDT Anemia, unspecified type IMMUNOGLOBULINS IGG, IGA, IGM Routine 02/24/2025 8:17 AM EDT Anemia, unspecified type IMMUNOFIXATION ELECTROPHORESIS Routine 02/24/2025 8:17 AM EDT Anemia, unspecified type IRON AND TIBC Routine 02/24/2025 8:17 AM EDT Anemia, unspecified type KAPPA-LAMBDA QUANTITATIVE FREE LIGHT CHAINS Routine 02/24/2025 8:17 AM EDT Anemia, unspecified type LACTATE DEHYDROGENASE Routine 02/24/2025 8:17 AM EDT Anemia, unspecified type PROTEIN ELECTROPHORESIS, SERUM Routine 02/24/2025 8:17 AM EDT Anemia, unspecified type RETICULOCYTE COUNT Routine 02/24/2025 8: 17 AM EDT Anemia, unspecified type RHEUMATOID FACTOR Routine 02/24/2025 8:1 7 AM EDT Anemia, unspecified type SEDIMENTATION RATE Routine 02/24/2025 8: 17 AM EDT Anemia, unspecified type THYROID STIMULATING HORMONE Routine 02/24/2025 8:17 AM EDT Anemia, unspecified type VITAMIN B12 Routine 02/24/2025 8:17 AM EDT Anemia, unspecified type CBC AND DIFFERENTIAL Routine 02/24/2025 8:17 AM EDT Anemia, unspecified type COMPREHENSIVE METABOLIC PANEL Routine 02/24/2025 8:17 AM EDT Anemia, unspecified type FERRITIN Routine 02/24/2025 8:17 AM EDT Anemia, unspecified type FOLATE Routine 02/24/2025 8:17 AM EDT Anemia, unspecified type HAPTOGLOBIN Routine 02/24/2025 8:17 AM EDT Anemia, unspecified type MORIS IFA WITH TITER AND PATTERN Routine 02/24/2025 8:17 AM EDT Anemia, unspecified type IMMUNOFIXATION ELECTROPHORESIS Routine 02/24/2025 8:17 AM EDT Anemia, unspecified type THYROID STIMULATING HORMONE WITH REFLEX TO FREE T4 AND FREE T3 Routine 02/07/2025 3:02 PM EDT Screening for thyroid disorder US HEAD NECK SOFT TISSUE Routine 01/31/2025 3:37 PM EDT Goiter CBC WITH AUTO DIFFERENTIAL Routine 01/19/2025 12:33 PM EDT Iron deficiency anemia secondary to inadequate dietary iron intake CBC AND DIFFERENTIAL Routine 01/19/2025 12:33 PM EDT Iron deficiency anemia secondary to inadequate dietary iron intake LIPID PANEL Routine 08/11/2022 HM HPV Routine 06/09/2022 from Last 3 Months or Most Recently Relevant to Health Maintenance Results * XR Urogram Retrograde (03/24/2025 8:20 [...] Signed Date: 03/24/2025 08:24 ET Workstation ID: [id number] Transcribed By: Self Edit Transcribed Date: 03/24/2025 [...] Signed Date: 03/24/2025 08:24 ET Workstation ID: [id number] Transcribed By: Self Edit Transcribed Date: 03/24/2025 08:24 ET Alexei Medeiros MD IMG FLUOROSCOPY PROCEDURES Final Result * TH AN LMA(NO CHARGE) (03/24/2025 7:57 AM EDT) Narrative Matty Mckeon DO - 03/24/2025 7:57 AM EDT Matty Mckeon DO 03/24/2025 7:57 AM General Information and [...] 03/24/2025 7:50 AMStop Time: 03/24/2025 7:51 AM Matty Mckeon DO ANESTHESIA ORDERABLES Final Result * POC , urine NO CHARGE screening manually resulted (03/24/2025 6:46 AM EDT) HCG, Ur POC Negative Negative POC hCG Int QC Pass? Yes Yes Urine Urine specimen obtained by clean catch procedure / Unknown 03/24/2025 6:46 AM EDT Alexei Medeiros MD POINT OF CARE TEST ENTER/EDIT OR DERABLES Final Result * Iron and TIBC (03/20/2025 8:03 AM EDT) Only the most recent of2 resultswithin the time period is included. Iron 116 40 - 150 mcg/dL LAB CHEMISTRY METHOD 03/20/2025 11:07 AM EDT [facility] TIBC 259 250 - 450 mcg/dL LAB CHEMISTRY METHOD 03/20/2025 11:07 AM EDT [facility] Iron Saturation 45 15 - 50 % LAB CHEMISTRY METHOD 03/20/2025 11:07 AM EDT [facility] Blood Venous blood specimen / Unknown Venipuncture / Unknown 03/20/2025 8:03 AM EDT 03/20/2025 8:03 AM EDT Angelito Mcfarlane MD LAB BLOOD ORDERABLES Final Result [facility] [address] [place] [address], [place] [phone] * Magnesium (03/20/2025 8:03 AM EDT) Magnesium 2.3 1.9 - 2.6 mg/dL LAB CHEMISTRY METHOD 03/20/2025 11:07 AM EDT [facility] Blood Venous blood specimen / Unknown Venipuncture / Unknown 03/20/2025 8:03 AM EDT 03/20/2025 8:03 AM EDT us Manjit Hall MD LAB BLOOD ORDERABLES Final Result [facility] [address] [place] [address], [place] [phone] * (ABNORMAL) Ferritin (03/20/2025 8:03 AM EDT) Only the most recent of2 resultswithin the time period is included. Ferritin 339(H) 8 - 252 ng/mL LAB CHEMISTRY METHOD 03/20/2025 11:08 AM EDT [facility] Blood Venous blood specimen / Unknown Venipuncture / Unknown 03/20/2025 8:03 AM EDT 03/20/2025 8:03 AM EDT us Angelito Mcfarlane MD LAB BLOOD ORDERABLES Final Result [facility] [address] [place] [address], * (ABNORMAL) Basic metabolic panel (03/20/2025 8:03 AM EDT) Sodium 140 133 - 145 mmol/L LAB CHEMISTRY METHOD 03/20/2025 11:07 AM [facility] Potassium 3.9 3.5 - 5.5 mmol/L LAB CHEMISTRY METHOD 03/20/2025 11:07 AM [facility] Chloride 116(H) 96 - 110 mmol/L LAB CHEMISTRY METHOD 03/20/2025 11:07 AM [facility] CO2 15(L) 21 - 32 mmol/L LAB CHEMISTRY METHOD 03/20/2025 11:07 AM [facility] Anion Gap 9 3 - 11 LAB CHEMISTRY METHOD 03/20/2025 11:07 AM [facility] Glucose 76 70 - 100 mg/dL LAB CHEMISTRY METHOD 03/20/2025 11:07 AM [facility] BUN 18 5 - 25 mg/dL LAB CHEMISTRY METHOD 03/20/2025 11:07 AM [facility] Creatinine 0.88 0.50 - 1.10 mg/dL LAB CHEMISTRY METHOD 03/20/2025 11:07 AM [facility] eGFR 85 >=60 mL/min/1. 73m2 LAB CHEMISTRY METHOD 03/20/2025 11:07 AM [facility] Comment:Calculation based on the Chronic Kidney Disease Epidemiology Collaboration (CKD-EPI) equation refit without adjustment for race. BUN/Creatinine Ratio 20.5 LAB CHEMISTRY METHOD 03/20/2025 11:07 AM [facility] Calcium 9.0 8.5 - 10.5 mg/dL LAB CHEMISTRY METHOD 03/20/2025 11:07 AM EDT [facility] Blood Venous blood specimen / Unknown Venipuncture / Unknown 03/20/2025 8:03 AM EDT 03/20/2025 8:03 AM EDT Manjit Hall MD LAB BLOOD ORDERABLES Final Result Performing Organization Address City/[facility]/ZIP Co de Phone Number [facility] [address] [place] [address], [place] [phone] * Diana urine culture tube (03/17/2025 2:14 PM EDT) [facility] Extra Tube Hold for add-ons. 03/17/2025 5:01 PM EDT [facility] Comment:Auto resulted. Urine Urine specimen obtained by clean catch procedure / Unknown Non-blood Collection / Unknown 03/17/2025 2:14 PM EDT 03/17/2025 2:14 PM EDT Alexei Medeiros MD LAB URINE ORDERABLES Final Resul t Performing Organization Address [facility] Co de Phone Number [facility] [address] [place] [address], [place] [phone] * (ABNORMAL) Urinalysis with reflex microscopic and culture (03/17/2025 2:10 PM EDT) [facility] Specific Spearman Urine >1.045(H) 1.003 - 1.030 LAB URINALYSIS - AUTOMATED METHOD 03/17/2025 5:29 PM EDT [facility] pH, Urine 5.0 5.0 - 8.0 pH LAB URINALYSIS - AUTOMATED METHOD 03/17/2025 5:29 PM EDT [facility] Leukocytes, Urine Negative Negative LAB URINALYSIS - AUTOMATED METHOD 03/17/2025 5:29 PM EDT [facility] Nitrite, Urine Negative Negative LAB URINALYSIS - AUTOMATED METHOD 03/17/2025 5:29 PM [facility] Protein, Urine 300(A) <=Trace mg/dL LAB URINALYSIS - AUTOMATED METHOD 03/17/2025 5:29 PM [facility] Glucose, Urine Negative Negative mg/dL LAB URINALYSIS - AUTOMATED METHOD 03/17/2025 5:29 PM [facility] Ketones, Urine Negative Negative mg/dL LAB URINALYSIS - AUTOMATED METHOD 03/17/2025 5:29 PM [facility] Urobilinogen , Urine 0.2 0.2 - 1.0 mg/dL LAB URINALYSIS - AUTOMATED METHOD 03/17/2025 5:29 PM [facility] Bilirubin, Urine Negative Negative LAB URINALYSIS - AUTOMATED METHOD 03/17/2025 5:29 PM [facility] Blood, Urine Large(A) Negative LAB URINALYSIS - AUTOMATED METHOD 03/17/2025 5:29 PM [facility] RBC, Urine 324.1(H) 0 - 4 /HPF LAB URINALYSIS - AUTOMATED METHOD 03/17/2025 5:29 PM [facility] WBC, Urine 11.1(H) 0 - 4 /HPF LAB URINALYSIS - AUTOMATED METHOD 03/17/2025 5:29 PM [facility] Squamous Epithelial, Urine 50 0 - 60 /LPF LAB URINALYSIS - AUTOMATED METHOD 03/17/2025 5:29 PM [facility] Bacteria, Urine Negative Negative /HPF LAB URINALYSIS - AUTOMATED METHOD 03/17/2025 5:29 PM [facility] Hyaline Casts, Urine 27.7(H) 0 - 3 /LPF LAB URINALYSIS - AUTOMATED METHOD 03/17/2025 5:29 PM [facility] Urine Urine specimen obtained by clean catch procedure / Unknown Non-blood Collection / Unknown 03/17/2025 2:10 PM EDT 03/17/2025 2:14 PM EDT us Alexei Medeiros MD LAB URINE ORDERABLES Final Resul t [facility] [address] [place] [address], [place] [phone] * (ABNORMAL) CBC auto differential (03/17/2025 2:10 PM EDT) Only the most recent of3 resultswithin the time period is included. WBC 7.4 4.8 - 10.8 K/mcL LAB HEMETOLOGY METHOD 03/17/2025 5:09 PM [facility] RBC 3.30(L) 3.80 - 4.80 M/mcL LAB HEMETOLOGY METHOD 03/17[facility]2025 [facility] Hemoglobin 12.8 11.5 - 16.0 g/dL LAB HEMETOLOGY METHOD 03/17/2025 5:09 PM EDT [facility] Hematocrit 39.6 35.0 - 47.0 % LAB HEMETOLOGY METHOD 03/17/2025 5:09 PM [facility] MCV 121.5(H) 79.0 - 98.0 FL LAB HEMETOLOGY METHOD 03/17/2025 5:09 PM EDT [facility] MCH 39.3(H) 27.0 - 32.0 pcg LAB HEMETOLOGY METHOD 03/17/2025 5:09 PM [facility] MCHC 32.3 32.0 - 37.0 g/dL LAB HEMETOLOGY METHOD 03/17/2025 5:09 PM [facility] RDW 13.5 11.0 - 15.0 % LAB HEMETOLOGY METHOD 03/17/2025 5:09 PM [facility] Platelets 342 130 - 400 K/mcL LAB HEMETOLOGY METHOD 03/17/2025 5:09 PM [facility] MPV 9.0 7.0 - 11.0 FL LAB HEMETOLOGY METHOD 03/17/2025 5:09 PM [facility] NRBC 0.0 <1.0 % LAB HEMETOLOGY METHOD 03/17/2025 5:09 PM [facility] NRBC Absolute 0.00 <0.10 K/mcL LAB HEMETOLOGY METHOD 03/17/2025 5:09 PM [facility] Neutrophils Relative 68.4 % LAB HEMETOLOGY METHOD 03/17/2025 5:09 PM [facility] Lymphocytes Relative 21.6 % LAB HEMETOLOGY METHOD 03/17/2025 5:09 PM [facility] Monocytes Relative 6.4 % LAB HEMETOLOGY METHOD 03/17/2025 5:09 PM [facility] Eosinophils Relative 2.6 % LAB HEMETOLOGY METHOD 03/17/2025 5:09 PM [facility] Basophils Relative 0.7 % LAB HEMETOLOGY METHOD 03/17/2025 5:09 PM [facility] Immature Granulocytes Relative 0.3 % LAB HEMETOLOGY METHOD 03/17/2025 5:09 PM [facility] Neutrophils Absolute 4.92 1.50 - 7.00 K/mcL LAB HEMETOLOGY METHOD 03/17/2025 5:09 PM [facility] Lymphocytes Absolute 1.55 1.00 - 5.00 K/mcL LAB HEMETOLOGY METHOD 03/17/2025 5:09 PM [facility] Monocytes Absolute 0.46 0.20 - 1.00 K/mcL LAB HEMETOLOGY METHOD 03/17/2025 5:09 PM [facility] Eosinophils Absolute 0.19 0.00 - 0.50 K/[facility] LAB HEMETOLOGY METHOD 03/17/2025 5:09 PM EDT [facility] Basophils Absolute 0.05 0.00 - 0.20 K/[facility] LAB HEMETOLOGY METHOD 03/17/2025 5:09 PM EDT [facility] Immature Granulocytes Absolute 0.02 0.00 - 0.03 K/[facility] LAB HEMETOLOGY METHOD 03/17/2025 5:09 PM EDT [facility] Blood Venous blood specimen / Unknown Venipuncture / Unknown 03/17/2025 2:10 PM EDT 03/17/2025 2:14 PM EDT us Alexei Medeiros MD LAB BLOOD ORDERABLES Final Resul t Performing Organization Address City/[facility]/ZIP Co de Phone Number [facility] [address] [place] [address], [place] [phone] * Culture urine (03/17/2025 2:10 PM EDT) Only the most recent of2 resultswithin the time period is included. Culture, Urine <10,000 CFU/mL gram negative bacilli, insignificant count, no further workup 03/18/2025 12:49 PM EDT [facility] Urine Urine specimen obtained by clean catch procedure / Unknown Non-blood Collection / Unknown 03/17/2025 2:10 PM EDT 03/17/2025 5:29 PM EDT us Alexei Medeiros MD LAB MICROBIOLOGY - GENERAL ORDER KAROLYN Final Result [facility] [address] [place] [address], [place] [phone] * CT Chest wo Contrast (03/17/2025 2:01 PM EDT) Anatomical Region Laterality Modality Body Computed Tomogra phy 03/17/2025 5:15 PM EDT Impressions 03/18/2025 9:43 AM EDT No right chest wall mass identified in the area of concern. 4 mm subpleural nodule in the right lower lobe. If there are risk factors for malignancy such as smoking history then recommend 12 month follow-up CT. POS - [id number] -------- FINAL REPORT -------- Dictated By: Conchis Dowling Dictated Date: 03/17/2025 17:15 ET Assigned Physician: Conchis Dowling Reviewed and Electronically Signed By: Conchis Dowling Signed Date: 03/18/2025 09:43 ET Workstation ID: [id number] Transcribed By: Self Edit Transcribed Date: 03/17/2025 17:49 ET Narrative 03/18/2025 9:43 AM EDT EXAM: Chest CT HISTORY: Right-sided chest wall mass. Weight loss. COMPARISON: None TECHNIQUE: Multidetector CT is obtained from lung apex to base without IV contrast. Sagittal and coronal reformatted images obtained. Automated exposure control utilized. TOTAL CTDIvol: 4.15 mGy FINDINGS: Lungs/pleura: No mass or infiltrate. 4 mm subpleural nodule with an adjacent tiny nodule in the right lower lobe on image 187. Scattered areas of minimal mucus plugging in the right lung. No pleural effusion or pneumothorax. Lymph nodes: Sensitivity for lymphadenopathy is limited without IV contrast. Subcentimeter mediastinal lymph nodes. No definite enlarged hilar lymph nodes. Cardiovascular: Heart is not enlarged. No pericardial effusion. No thoracic aortic aneurysm. Soft tissues: Thyroid gland is not enlarged. No esophageal abnormality. BB markers placed at the upper and lower margins of the palpable lump at the level of the mid and lower sternum right of midline. No solid or cystic lesion. Partially calcified costal cartilages in the region which have similar appearance to the contralateral side. Upper abdomen: No adrenal mass. 3 mm stone in the left mid kidney. Surgical clips at the gastroesophageal junction and along the proximal stomach. Bones: No destructive bone lesion. Procedure Note Conchis Dowling MD - 03/18/2025 EXAM: Chest CT HISTORY: Right-sided chest wall mass. Weight loss. COMPARISON: None TECHNIQUE: Multidetector CT is obtained from lung apex to base without IVcontrast. Sagittal and coronal reformatted images obtained. Automatedexposure control utilized. TOTAL CTDIvol: 4.15 mGy FINDINGS: Lungs/pleura: No mass or infiltrate. 4 mm subpleural nodule with anadjacent tiny nodule in the right lower lobe on image 187. Scattered areasof minimal mucus plugging in the right lung. No pleural effusion orpneumothorax. Lymph nodes: Sensitivity for lymphadenopathy is limited without IVcontrast. Subcentimeter mediastinal lymph nodes. No definite enlargedhilar lymph nodes. Cardiovascular: Heart is not enlarged. No pericardial effusion. Nothoracic aortic aneurysm. Soft tissues: Thyroid gland is not enlarged. No esophageal abnormality. BBmarkers placed at the upper and lower margins of the palpable lump at thelevel of the mid and lower sternum right of midline. No solid or cysticlesion. Partially calcified costal cartilages in the region which havesimilar appearance to the contralateral side. Upper abdomen: No adrenal mass. 3 mm stone in the left mid kidney.Surgical clips at the gastroesophageal junction and along the proximalstomach. Bones: No destructive bone lesion. IMPRESSION: No right chest wall mass identified in the area of concern. 4 mm subpleural nodule in the right lower lobe. If there are risk factorsfor malignancy such as smoking history then recommend 12 month follow-upCT. POS - [id number] -------- FINAL REPORT -------- Dictated By: Conchis Dowling Dictated Date: 03/17/2025 17:15 ET Assigned Physician: Conchis Dowling Reviewed and Electronically Signed By: Conchis Dowling Signed Date: 03/18/2025 09:43 ET Workstation ID: [id number] Transcribed By: Self Edit Transcribed Date: 03/17/2025 17:49 ET us Manjit Hall MD IMG CT PROCEDURES Final Res ult * US Breast Complete bilat Screening (03/09/2025 11:44 AM EDT) Anatomical Region Laterality Modality Breast Bilateral Ultrasound 03/09/2025 11:2 6 AM EDT Impressions 03/09/2025 11:39 AM EDT The area of tenderness and palpable concern on the right correlates to an asymmetric prominence of the costosternal junction with calcified or ossified component. This should be managed on the basis of the clinical exam. There is a probably benign circumscribed oval hypoechoic right breast mass in the 12:00 position 2 cm from right nipple. Recommend short interval follow-up targeted right breast ultrasound in 6 months No sonographic abnormality in the left breast ASSESSMENT: BI-RADS 3: PROBABLY BENIGN RECOMMENDATION(S): 1: Ultrasound follow-up RIGHT in 6 months. [facility] [address], [address] -------- FINAL REPORT -------- Dictated By: Snaya Malloy Dictated Date: 03/09/2025 11:26 ET Assigned Physician: Sanya Malloy Reviewed and Electronically Signed By: Sanya Malloy Signed Date: 03/09/2025 11:39 ET Workstation ID: [id number] Transcribed By: Self Edit Transcribed Date: 03/09/2025 11:26 ET Narrative 03/09/2025 11:39 AM EDT EXAM: BREAST ULTRASOUND, BILATERAL HISTORY: Painful lump in the region of the costosternal junction on the right for several months. Unsuccessful attempt at screening mammography secondary to body habitus. TECHNIQUE: BILATERAL BREAST. High-frequency linear transducer grayscale examination. Color mapping was performed. Examination targeted to the area of concern. Targeted diagnostic examination of the area of palpable concern in the 5:00 region 5 cm from the right nipple IMAGING: High-frequency linear transducer grayscale imaging of each breast was performed. Documentation and archived of images in multiple planes from all 4 quadrants of each breast and of the axilla and retroareolar regions performed. COMPARISON: Initial exam FINDINGS: RIGHT BREAST Palpable area 5:00 position, 5 cm from right nipple There is ossified or calcified costosternal junction with shadowing. This does not appear to be within the breast tissue. The interface with the subjacent lung appears sharply defined. The area is tender to transducer pressure. No abnormality in the overlying breast tissue. RIGHT BREAST: The remainder of the right breast was examined. 12:00 position, 2 cm from right nipple There is a homogeneous hypoechoic circumscribed oval mass with long axis parallel. There are no posterior features. There is no color signal. The interface with the adjacent muscular fascia and skin is sharply defined. 8/7/25-1.3 cm This has probably benign features LEFT BREAST: No suspicious mass. No suspicious area of altered echotexture. No suspicious abnormality the axilla on either side Procedure Note Sanya Malloy MD - 03/09/2025 EXAM: BREAST ULTRASOUND, BILATERAL HISTORY: Painful lump in the region of the costosternal junction on theright for several months. Unsuccessful attempt at screening mammography secondary to body habitus. TECHNIQUE: BILATERAL BREAST. High-frequency linear transducer grayscale examination. Color mapping wasperformed. Examination targeted to the area of concern. Targeted diagnostic examination of the area of palpable concern in the5:00 region 5 cm from the right nipple IMAGING: High-frequency linear transducer grayscale imaging of each breastwas performed. Documentation and archived of images in multiple planesfrom all 4 quadrants of each breast and of the axilla and retroareolarregions performed. COMPARISON: Initial exam FINDINGS: RIGHT BREAST Palpable area 5:00 position, 5 cm from right nipple There is ossified or calcified costosternal junction with shadowing. Thisdoes not appear to be within the breast tissue. The interface with thesubjacent lung appears sharply defined. The area is tender to transducer pressure. No abnormality in the overlying breast tissue. RIGHT BREAST: The remainder of the right breast was examined. 12:00 position, 2 cm from right nipple There is a homogeneous hypoechoic circumscribed oval mass with long axisparallel. There are no posterior features. There is no color signal. Theinterface with the adjacent muscular fascia and skin is sharply defined. 8/7/25-1.3 cm This has probably benign features LEFT BREAST: No suspicious mass. No suspicious area of altered echotexture. No suspicious abnormality the axilla on either side IMPRESSION: The area of tenderness and palpable concern on the right correlates to anasymmetric prominence of the costosternal junction with calcified orossified component. This should be managed on the basis of the clinicalexam. There is a probably benign circumscribed oval hypoechoic right breast massin the 12:00 position 2 cm from right nipple. Recommend short intervalfollow-up targeted right breast ultrasound in 6 months No sonographic abnormality in the left breast ASSESSMENT: BI-RADS 3: PROBABLY BENIGN RECOMMENDATION(S): 1: Ultrasound follow-up RIGHT in 6 months. [facility]amm[facility] location: [facility] [address] [place], [address] -------- FINAL REPORT -------- Dictated By: Sanya Malloy Dictated Date: 03/09/2025 11:26 ET Assigned Physician: Sanya Malloy Reviewed and Electronically Signed By: Sanya Malloy Signed Date: 03/09/2025 11:39 ET Workstation ID: [id number] Transcribed By: Self Edit Transcribed Date: 03/09/2025 11:26 ET us Dawn Villanueva CNM IMG US PROCEDURES Final Result * Pathologist Review Immunofixation (02/24/2025 8:17 AM EDT) Pathologist Interpretation Reviewed by Janette Yo MD 02/27/2025 10:58 AM EDT [facility] Blood Venous blood specimen / Unknown Venipuncture / Unknown 02/24/2025 8:17 AM EDT 02/24/2025 8:17 AM EDT us Angelito Mcfarlane MD LAB BLOOD ORDERABLES Final Result [facility] [address] [place] [address], * PATHOLOGIST REVIEW PROTEIN ELECTROPHORESIS (02/24/2025 8:17 AM EDT) Pathologist Interpretation Reviewed by Janette Yo MD 02/28/2025 2:26 PM EDT [facility] Blood Venous blood specimen / Unknown Venipuncture / Unknown 02/24/2025 8:17 AM EDT 02/24/2025 8:17 AM EDT Angelito Mcfalrane MD LAB BLOOD ORDERABLES Final Result Performing Organization Address City/[facility]/ZIP Co de Phone Number [facility] [address] [place] [address], [place] [phone] * (ABNORMAL) Momeyer-lambda free light chains, quantitative (02/24/2025 8:17 AM EDT) Momeyer Free Light Chain 3.93(H) 0.33 - 1.94 mg/dL 02/27/2025 3:03 PM EDT [facility] Lambda Free Light Chain 2.25 0.57 - 2.63 mg/dL 02/27/2025 3:03 PM EDT [facility] Momeyer/Lambda FLC Ratio 1.75(H) 0.26 - 1.65 02/27/2025 3:03 PM EDT [facility] Comment: Test performed at [facility], [address], [place] [address] Sho Kruger MD, PhD - Coin Machine Supervisor Blood Venous blood specimen / Unknown Venipuncture / Unknown 02/24/2025 8:17 AM EDT 02/24/2025 8:17 AM EDT Angelito Mcfarlane MD LAB BLOOD ORDERABLES Final Result Performing Organization Address [facility]/ZIP Co de Phone Number [facility] [address] [place] [address] * MORIS IFA with titer and pattern (02/24/2025 8:17 AM EDT) MORIS Negative Negative 02/27/2025 12:27 PM EDT [facility] Blood Venous blood specimen / Unknown Venipuncture / Unknown 02/24/2025 8:17 AM EDT 02/24/2025 8:17 AM EDT Angelito Mcfarlane MD LAB BLOOD ORDERABLES Final Result [facility] [address] [place] [address], [place] [phone] * Sedimentation rate (02/24/2025 8:17 AM EDT) [facility] Sed Rate 5 0 - 20 mm/hr LAB HEMETOLOGY METHOD 02/24/2025 10:28 AM EDT [facility] Blood Venous blood specimen / Unknown Venipuncture / Unknown 02/24/2025 8:17 AM EDT 02/24/2025 8:17 AM EDT us Angelito Mcfarlane MD LAB BLOOD ORDERABLES Final Result Performing Organization Address [facility]/ZIP Co de Phone Number [facility] [address] [place] [address], [place] [phone] * (ABNORMAL) Reticulocyte count (02/24/2025 8:17 AM EDT) [facility] Retic Ct Abs 0.150(H) 0.030 - 0.090 M/mcL LAB HEMETOLOGY METHOD 02/24/2025 10:23 AM EDT [facility] Retic Ct Pct 4.6(H) 0.7 - 1.7 % LAB HEMETOLOGY METHOD 02/24/2025 10:23 AM EDT [facility] Immature Retic Fract 15.6 2.3 - 15.9 % LAB HEMETOLOGY METHOD 02/24/2025 10:23 AM EDT [facility] Reticulocyte Hemoglobin 39.9 >29.0 pcg LAB HEMETOLOGY METHOD 02/24/2025 10:23 AM EDT [facility] Blood Venous blood specimen / Unknown Venipuncture / Unknown 02/24/2025 8:17 AM EDT 02/24/2025 8:17 AM EDT us Angelito Mcfarlane MD LAB BLOOD ORDERABLES Final Result [facility] [address] [place] [address], * Rheumatoid factor (02/24/2025 8:17 AM EDT) [facility] Rheumatoid Factor <10.0 <15.0 I Unit/mL LAB CHEMISTRY METHOD 02/24/2025 10:54 AM EDT [facility] Blood Venous blood specimen / Unknown Venipuncture / Unknown 02/24/2025 8:17 AM EDT 02/24/2025 8:17 AM EDT Angelito Mcfarlane MD LAB BLOOD ORDERABLES Final Result Performing Organization Address [facility] Co de Phone Number [facility] [address] [place] [address], * Immunofixation electrophoresis serum (02/24/2025 8:17 AM EDT) [facility] Immunofixation Result, Serum No monoclonal immunoglobulins detected. LAB CHEMISTRY METHOD 02/27/2025 10:58 AM EDT [facility] Blood Venous blood specimen / Unknown Venipuncture / Unknown 02/24/2025 8:17 AM EDT 02/24/2025 8:17 AM EDT Angelito Mcfarlane MD LAB BLOOD ORDERABLES Final Result Performing Organization Address [facility]/ZIP Co de Phone Number [facility] [address] [place] [address], * Immunoglobulins IgG, IgA, IgM (02/24/2025 8:17 AM EDT) [facility] Total IgG 716 549 - 1,584 mg/dL LAB CHEMISTRY METHOD 02/24/2025 10:54 AM EDT [facility] IgA 154 61 - 348 mg/dL LAB CHEMISTRY METHOD 02/24/2025 10:54 AM EDT [facility] IgM 108 23 - 259 mg/dL LAB CHEMISTRY METHOD 02/24/2025 10:54 AM EDT [facility] Blood Venous blood specimen / Unknown Venipuncture / Unknown 02/24/2025 8:17 AM EDT 02/24/2025 8:17 AM EDT Angelito Mcfarlane MD LAB BLOOD ORDERABLES Final Result Performing Organization Address City/[facility]/ZIP Co de Phone Number [facility] [address] [place] [address], [place] [phone] * Thyroid stimulating hormone (02/24/2025 8:17 AM EDT) [facility] TSH 1.28 0.40 - 4.00 mcIU/mL LAB CHEMISTRY METHOD 02/24/2025 11:39 AM EDT [facility] Blood Venous blood specimen / Unknown Venipuncture / Unknown 02/24/2025 8:17 AM EDT 02/24/2025 8:17 AM EDT Angelito Mcfarlane MD LAB BLOOD ORDERABLES Final Result Performing Organization Address [facility] de Phone Number [facility] [address] [place] [address], [place] [phone] * Protein electrophoresis, serum (02/24/2025 8:17 AM EDT) Pathologist [facility] Total Protein 6.9 6.0 - 8.0 g/dL LAB CHEMISTRY METHOD 02/28/2025 2:26 PM EDT [facility] Albumin, Serum 3.7 2.9 - 4.1 g/dL LAB CHEMISTRY METHOD 02/28/2025 2:26 PM EDT [facility] Alpha 1 Globulin (g/dL) 0.3 0.1 - 0.5 g/dL LAB CHEMISTRY METHOD 02/28/2025 2:26 PM EDT [facility] Alpha 2 Globulin (g/dL) 0.9 0.7 - 1.5 g/dL LAB CHEMISTRY METHOD 02/28/2025 2:26 PM EDT [facility] Beta (g/dL) 1.2 0.7 - 1.5 g/dL LAB CHEMISTRY METHOD 02/28/2025 2:26 PM EDT [facility] Gamma Globulin (g/dL) 0.8 0.7 - 1.9 g/dL LAB CHEMISTRY METHOD 02/28/2025 2:26 PM EDT [facility] SPEP Interpretation No M-David seen. Essentially normal pattern. LAB CHEMISTRY METHOD 02/28/2025 2:26 PM EDT [facility] Blood Venous blood specimen / Unknown Venipuncture / Unknown 02/24/2025 8:17 AM EDT 02/24/2025 8:17 AM EDT us Angelito Mcfarlane MD LAB BLOOD ORDERABLES Final Result Performing Organization Address City/[facility]/ZIP Co de Phone Number [facility] [address] [place] [address], [place] [phone] * Protein, total (02/24/2025 8:17 AM EDT) Total Protein 6.9 6.0 - 8.0 g/dL LAB CHEMISTRY METHOD 02/24/2025 10:41 AM EDT [facility] Blood Venous blood specimen / Unknown Venipuncture / Unknown 02/24/2025 8:17 AM EDT 02/24/2025 8:17 AM EDT us Angelito Mcfarlane MD LAB BLOOD ORDERABLES Final Result [facility] [address] [place] [address], [place] [phone] * Lactate dehydrogenase (02/24/2025 8:17 AM EDT) LDH 197 120 - 246 unit/L LAB CHEMISTRY METHOD 02/24/2025 10:27 AM EDT [facility] Blood Venous blood specimen / Unknown Venipuncture / Unknown 02/24/2025 8:17 AM EDT 02/24/2025 8:17 AM EDT us Angelito Mcfarlane MD LAB BLOOD ORDERABLES Final Result Performing Organization Address City/[facility]/ZIP Co de Phone Number [facility] [address] [place] [address], [place] [phone] * Haptoglobin (02/24/2025 8:17 AM EDT) Pathologist [facility] Haptoglobin 61 16 - 200 mg/dL LAB CHEMISTRY METHOD 02/24/2025 10:54 AM EDT [facility] Blood Venous blood specimen / Unknown Venipuncture / Unknown 02/24/2025 8:17 AM EDT 02/24/2025 8:17 AM EDT us Angelito Mcfarlane MD LAB BLOOD ORDERABLES Final Result Performing Organization Address [facility] de Phone Number [facility] [address] [place] [address], [place] [phone] * Folate (02/24/2025 8:17 AM EDT) Pathologist [facility] Folate 15.6 2.8 - 17.0 ng/ml LAB CHEMISTRY METHOD 02/24/2025 10:54 AM EDT [facility] Blood Venous blood specimen / Unknown Venipuncture / Unknown 02/24/2025 8:17 AM EDT 02/24/2025 8:17 AM EDT us Angelito Mcfarlane MD LAB BLOOD ORDERABLES Final Result Performing Organization Address City/[facility]/ZIP Co de Phone Number [facility] [address] [place] [address], [place] [phone] * Vitamin B12 (02/24/2025 8:17 AM EDT) [facility] Vitamin B-12 641 250 - 900 pcg/mL LAB CHEMISTRY METHOD 02/24/2025 10:54 AM [facility] Blood Venous blood specimen / Unknown Venipuncture / Unknown 02/24/2025 8:17 AM EDT 02/24/2025 8:17 AM EDT Angelito Mcfarlane MD LAB BLOOD ORDERABLES Final Result [facility] [address] [place] [address], [place] [phone] * (ABNORMAL) Comprehensive metabolic panel (02/24/2025 8:17 AM EDT) [facility] Sodium 139 133 - 145 mmol/L LAB CHEMISTRY METHOD 02/24/2025 10:54 AM [facility] Potassium 3.3(L) 3.5 - 5.5 mmol/L LAB CHEMISTRY METHOD 02/24/2025 10:54 AM [facility] Chloride 114(H) 96 - 110 mmol/L LAB CHEMISTRY METHOD 02/24/2025 10:54 AM [facility] CO2 16(L) 21 - 32 mmol/L LAB CHEMISTRY METHOD 02/24/2025 10:54 AM [facility] Anion Gap 9 3 - 11 LAB CHEMISTRY METHOD 02/24/2025 10:54 AM [facility] Glucose 79 70 - 100 mg/dL LAB CHEMISTRY METHOD 02/24/2025 10:54 AM [facility] BUN 20 5 - 25 mg/dL LAB CHEMISTRY METHOD 02/24/2025 10:54 AM [facility] Creatinine 0.85 0.50 - 1.10 mg/dL LAB CHEMISTRY METHOD 02/24/2025 10:54 AM [facility] eGFR 89 >=60 mL/min/1. 73m2 LAB CHEMISTRY METHOD 02/24/2025 10:54 AM [facility] Comment:Calculation based on the Chronic Kidney Disease Epidemiology Collaboration (CKD-EPI) equation refit without adjustment for race. BUN/Creatinine Ratio 23.5 LAB CHEMISTRY METHOD 02/24/2025 10:54 AM [facility] Calcium 9.7 8.5 - 10.5 mg/dL LAB CHEMISTRY METHOD 02/24/2025 10:54 AM [facility] AST (SGOT) 28 10 - 42 unit/L LAB CHEMISTRY METHOD 02/24/2025 10:54 AM [facility] ALT (SGPT) 50 10 - 60 unit/L LAB CHEMISTRY METHOD 02/24/2025 10:54 AM [facility] Alkaline Phosphatase 115 42 - 121 unit/L LAB CHEMISTRY METHOD 02/24/2025 10:54 AM [facility] Total Protein 7.2 6.0 - 8.0 g/dL LAB CHEMISTRY METHOD 02/24/2025 10:54 AM [facility] Albumin 4.2 3.2 - 5.0 g/dL LAB CHEMISTRY METHOD 02/24/2025 10:54 AM [facility] Total Bilirubin 0.3 0.0 - 1.4 mg/dL LAB CHEMISTRY METHOD 02/24/2025 10:54 AM [facility] Blood Venous blood specimen / Unknown Venipuncture / Unknown 02/24/2025 8:17 AM EDT 02/24/2025 8:17 AM EDT us Angelito Mcfarlane MD LAB BLOOD ORDERABLES Final Result [facility] [address] [place] [address], [place] [phone] * Thyroid stimulating hormone with reflex to free t4 and free t3 (02/07/2025 3:02 PM EDT) TSH 1.45 0.40 - 4.00 mcIU/mL LAB CHEMISTRY METHOD 02/07/2025 6:36 PM EDT [facility] Blood Venous blood specimen / Unknown Venipuncture / Unknown 02/07/2025 3:02 PM EDT 02/07/2025 3:02 PM EDT us Manjit Hall MD LAB BLOOD ORDERABLES Final Result [facility] [address] [place] [address], [place] [phone] * US Head Neck Soft Tissue (01/31/2025 3:37 PM EDT) Anatomical Region Laterality Modality Head and Neck Ultrasound 01/31/2025 4:06 PM EDT Impressions 01/31/2025 4:08 PM EDT Unremarkable thyroid ultrasound -------- FINAL REPORT -------- Dictated By: Luis Alberto Portillo Dictated Date: 01/31/2025 16:06 ET Assigned Physician: Luis Alberto Portillo Reviewed and Electronically Signed By: Luis Alberto Portillo Signed Date: 01/31/2025 16:08 ET Workstation ID: [id number] Transcribed By: Self Edit Transcribed Date: 01/31/2025 16:06 ET Narrative 01/31/2025 4:08 PM EDT Exam: Thyroid ultrasound. HISTORY: Goiter COMPARISON: None Technique: Grayscale and Doppler images of the thyroid gland were obtained. FINDINGS: The thyroid gland is normal in size. The right lobe measures 4.0 x 1.5 x 1.1 cm. The left lobe measures 3.9 x 1.2 x 1.1 cm. The thyroid isthmus is normal in size and measures 0.1 cm. The thyroid parenchyma is homogenous. No focal nodules Procedure Note Luis Alberto Portillo MD - 01/31/2025 Exam: Thyroid ultrasound. HISTORY: Goiter COMPARISON: None Technique: Grayscale and Doppler images of the thyroid gland wereobtained. FINDINGS: The thyroid gland is normal in size. The right lobe measures 4.0 x 1.5 x1.1 cm. The left lobe measures 3.9 x 1.2 x 1.1 cm. The thyroid isthmus isnormal in size and measures 0.1 cm. The thyroid parenchyma is homogenous.No focal nodules IMPRESSION: Unremarkable thyroid ultrasound -------- FINAL REPORT -------- Dictated By: Luis Alberto Portillo Dictated Date: 01/31/2025 16:06 ET Assigned Physician: Luis Alberto Portillo Reviewed and Electronically Signed By: Luis Alberto Portillo Signed Date: 01/31/2025 16:08 ET Workstation ID: [id number] Transcribed By: Self Edit Transcribed Date: 01/31/2025 16:06 ET Manjit Hall MD IMG US PROCEDURES Final Res ult * (ABNORMAL) Lipid panel (08/11/2022) LDL/HDL Ratio 3 0 - 4 Triglycerides 146 0 - 150 mg/dL Cholesterol 208(A) 0 - 200 mg/dL HDL 68 >=40 mg/dL LDL Cholesterol 111(A) 0 - 100 mg/dL Blood Venous blood specimen / Unknown Historical Provider LAB BLOOD ORDERABLES Lakia l Result * Cervical Cancer Screening: HPV (06/09/2022) Cervical Cancer Screening: HPV negative, abstracted Historical Provider HEALTH MAINTENANCE Final Result from Last 3 Months or Most Recently Relevant to Health Maintenance Insurance MEDICARE [place]ICAID - [place] Care Teams Crate Liner Relationship Specialty Start Date End Date Manjit Hall MD [address] [place] [address] PCP - General Internal Medicine 12/03/21
--- OUTSIDE RECORDS SUMMARY | 2025-03-28 06:29 | XMS_ITS | Encounter Summary ---
Author Organization [facility] Address [address] [place] [address] Care Team Providers Care Special Effects Person Name Role Phone Lg Shepherd PA-C Primary Care Provider Encounter Details Date Type Department Care Team (Late st Contact Info) Description 07/04/2022 Scanned Document [facility] [address] [place] [address] [phone] Provider, MD Rashmi [address] [place] [address] Social History Tobacco Use Types Packs/Day Years [...] on filedocumented in this encounter Care Teams Special Effects Person Relationship Specialty Start Date End Date Lg Shepherd PA-C PCP - General Internal Medicine 12/01/17 documented as of this encounter
--- OUTSIDE RECORDS SUMMARY | 2025-03-28 06:29 | XMS_ITS | Encounter Summary ---
Author Organization [facility] Address [address] [place] [address] Care Team Providers Care Roll Tester Name Role Phone Lg Shepherd PA-C Primary Care Provider Encounter Details Date Type Department Care Team (Late st Contact Info) Description 01/21/2018 Scanned Document [facility] Urologic Surgery [address] [place] [address] Provider, MD Rashmi [address] [place] [address] Social History Tobacco Use Types Packs/Day Years [...] on filedocumented in this encounter Care Teams Roll Tester Relationship Specialty Start Date End Date Lg Shepherd PA-C PCP - General Internal Medicine 12/01/17 documented as of this encounter
--- OUTSIDE RECORDS SUMMARY | 2025-03-28 06:29 | XMS_ITS | Encounter Summary ---
Author Organization [facility] Address [address] [place] [address] Care Team Providers Care Tobacco Shaker Name Role Phone Lg Shepherd PA-C Primary Care Provider Encounter Details Date Type Department Care Team (Late st Contact Info) Description 09/03/2017 Scanned Document [facility] Urologic Surgery [address] [place] [address] Noel Blanco MD Social History Tobacco Use [...] on filedocumented in this encounter Care Teams Tobacco Shaker Relationship Specialty Start Date End Date Lg Shepherd PA-C PCP - General Internal Medicine 12/01/17 documented as of this encounter
--- OUTSIDE RECORDS SUMMARY | 2025-03-28 06:29 | XMS_ITS | Encounter Summary ---
Author Organization [facility] Address [address] [place] [address] Care Team Providers Care Clinical Quality Assurance Specialist Name Role Phone Lg Shepherd PA-C Primary Care Provider Reason for Visit * Reason Comments Medication Refill Encounter Details Date Type Department Care Team (Late st Contact Info) Description 10/09/[address] [facility] [address] [phone] Sommer Gonzalez, DO [address] [place] [address] Chronic idiopathic constipation Social History Tobacco Use Types Packs/Day Years [...] documented as of this encounter Visit Diagnoses Diagnosis Chronic idiopathic constipation Unspecified constipation documented in this encounter Care Teams Clinical Quality Assurance Specialist Relationship Specialty Start Date End Date Lg Shepherd PA-C PCP - General Internal Medicine 12/01/17 documented as of this encounter
--- OUTSIDE RECORDS SUMMARY | 2025-03-28 06:29 | XMS_ITS | Encounter Summary ---
Author Organization [facility] Address [address] [place] [address] Care Team Providers Care Snuff Drier Name Role Phone Lg Shepherd PA-C Primary Care Provider Encounter Details Date Type Department Care Team (Late st Contact Info) Description 06/10/2021 Scanned Document [facility] [address] [place] [address] [phone] Provider, MD Rashmi [address] [place] [address] Social History Tobacco Use Types Packs/Day Years [...] on filedocumented in this encounter Care Teams Snuff Drier Relationship Specialty Start Date End Date Lg Shepherd PA-C PCP - General Internal Medicine 12/01/17 documented as of this encounter
--- OUTSIDE RECORDS SUMMARY | 2025-03-28 06:29 | XMS_ITS | Encounter Summary ---
Author Organization [facility] Address [address] [place] [address] Care Team Providers Care Pastrycook Name Role Phone Lg Shepherd PA-C Primary Care Provider Encounter Details Date Type Department Care Team (Late st Contact Info) Description 10/21/2017 Scanned Document [facility] Urologic Surgery [address] [place] [address] Provider, MD Rashmi [address] [place] [address] Social History Tobacco Use Types Packs/Day Years [...] on filedocumented in this encounter Care Teams Pastrycook Relationship Specialty Start Date End Date Lg Shepherd PA-C PCP - General Internal Medicine 12/01/17 documented as of this encounter
--- OUTSIDE RECORDS SUMMARY | 2025-03-28 06:29 | XMS_ITS | Encounter Summary ---
Author Organization [facility] Address [address] [place] [address] Care Team Providers Care Qa Software Tester Name Role Phone Lg Shepherd PA-C Primary Care Provider Encounter Details Date Type Department Care Team (Late st Contact Info) Description 09/11/2017 Scanned Document [facility] Urologic Surgery [address] [place] [phone] Gerber oRsario MD [address] [place] [address] [address] [place] [phone] Social History Tobacco Use Types Packs/Day Years [...] on filedocumented in this encounter Care Teams Qa Software Tester Relationship Specialty Start Date End Date Lg Shepherd PA-C PCP - General Internal Medicine 12/01/17 documented as of this encounter
[2025-03-28 06:34] VITALS: BP 103/71; PULSE 81; RESP 16; TEMP 36.8; O2SAT 99
[2025-03-28 06:43] VITALS: BP 103/71; PULSE 81; RESP 16; TEMP 36.8; O2SAT 99
== END 2025-03-28 06:45 | disposition home or self-care (01) ==
PROVIDERS: Emergency Provider Emergency Medicine
DX: G89.18 Other acute postprocedural pain (principal); R31.9 Hematuria, unspecified; N39.0 Urinary tract infection, site not specified; N99.89 Other postprocedural complications and disorders of genitourinary system; Z87.442 Personal history of urinary calculi; Z79.899 Other long term (current) drug therapy
CPT/HCPCS: 36415; 80053; 81001; 83605; 85025; 87040; 87086; 96361; 96374; 96375; 99284; J0696; J2270; J2405; J7120

== ENCOUNTER 2025-07-05 10:03 | Emergency (ER) | payer MEDICARE, MEDICAID, SELFPAY ==
--- OUTSIDE RECORDS SUMMARY | 2025-07-01 09:13 | XMS_ITS | Encounter Summary ---
Author Organization [facility] Address [address] [place] [address] Care Team Providers Care Personnel Monitor Name Role Phone Bette Corona MD Primary Care Provider Reason for Visit * Reason Comments Female Dysuria Encounter Details Date Type Department Care Team (Late st Contact Info) Description 07/01/2025 9:13 AM EST - 07/01/2025 1:08 PM EST Emergency [facility] Emergency [address] [place] [phone] Pyelonephritis (Primary Dx) Discharge Disposition: Home or Self Care Social History Tobacco Use Types Packs/Day Years Used Date Smoking Tobacco: Never Cigarettes Smokeless Tobacco: Never Alcohol Use Standard Drinks/Week Comments No 0 (1 standard drink = 0.6 oz pur e alcohol) Interpersonal Safety Answer Date Record ed Physical Abuse Unrecognized value 03/24/2025 Verbal Abuse Unrecognized value 03/24/2025 Comments No Sex and Gender Information Value Date Recorded Sex Assigned at Female 09/23/2024 10:01 AM EST Legal Sex Female 11:41 PM EST Gender Identity Female 09/23/2024 10:01 AM EST Sexual Orientation Straight 09/23/2024 10 :01 AM EST documented as of this encounter Last Filed Vital Signs Vital Sign Reading Time Taken Comments Blood Pressure 100/82 07/01/2025 12:50 PM EST Pulse 85 07/01/2025 12:50 PM EST Temperature 36.1 C (97 F) 07/01/2025 8:53 AM EST Respiratory Rate 15 07/01/2025 12:50 PM EST Oxygen Saturation 100% 07/01/2025 12:50 PM EST Inhaled Oxygen Concentration - - Weight 40.8 kg (90 lb) 07/01/2025 8:53 AM EST Height 152.4 cm (5') 07/01/2025 8:53 AM EST Body Mass Index 17.58 07/01/2025 8:53 AM EST documented in this encounter Functional Status * Calculated C-SSRS Risk Score (Lifetime/Recent) Answer Date of Assessment Author No Risk Indicated 07/01/2025 8:51 AM EST Tosha Sharma RN * [place] Suicide Severity Rating Scale (Screener/Recent Self-Report) Question Answer Date of Assessment Author 1. Wish to be (Past 1 Month) No 025 8:51 AM EST Tosha Sharma RN documented as of this encounter Discharge Summaries * Drake Reid RN - 07/01/2025 12:33 PM EST Pt seen and cleared for d/c by ED provider, d/c instructions reviewed. Rx'd medication education provided, all questions answered. Pt seen ambulating out of department with ease. documented in this encounter Discharge Instructions * Discharge Instructions* SUNNY Garvey - 07/01/2025 12:23 PM EST Your workup today suspicious for urinary tract infection Take antibiotics as prescribed Take [id number] Pyridium (AZO) for bladder ache, note that this will cause your urine to turnorange Drink 4+ glasses of water daily Okay to use cranberry supplements Follow-up primary care doctor if symptoms persist Return to ED with severe pain uncontrolled nausea vomiting fever or gross blood in urine * Attachments The following attachments cannot be sent through Care Everywhere. * Pyelonephritis (Qatari) documented in this encounter Medications at Time of Discharge acetaminophen (TYLENOL) 500 mg tablet Take 1 tablet (500 mg total) by mouth every 6 hours as needed. acetaminophen (TYLENOL) 500 mg tablet Take 2 tablets (1,000 mg total) by mouth every 6 (six) hours if needed for mild pain for up to 10 days. 30 tablet 07/01/2025 5 albuterol HFA (Ventolin HFA) 90 mcg/actuation inhaler Inhale 2 puffs by mouth every 4 (four) hours if needed for wheezing or shortness of breath. 8 g 5 01/24/2025 amitriptyline (ELAVIL) 10 mg tablet TAKE 1 TABLET BY MOUTH EVERYDAY AT BEDTIME 90 tablet 1 03/14/2025 ARIPiprazole (ABILIFY) 5 mg tablet 07/22/2021 cephalexin (KEFLEX) 500 mg capsule Take 1 capsule (500 mg total) by mouth 4 (four) times a day for 7 days. 28 each 07/01/2025 5 cholecalciferol (Vitamin D3) 50 mcg (2,000 unit) capsule Take 1 capsule (2,000 Units total) by mouth 1 (one) time each day. 90 each 3 01/25/2025 dicyclomine (BENTYL) 10 mg capsule TAKE 1 CAPSULE (10 MG TOTAL) BY MOUTH 4 (FOUR) TIMES A DAY IF NEEDED (ABDOMINAL CRAMPING). 360 capsule 03/24/2025 dicyclomine (BENTYL) 20 mg tablet Take 1 tablet (20 mg total) by mouth 2 (two) times a day for 10 days. 20 tablet 07/01/2025 5 dilTIAZem CD (CARDIZEM CD) 120 mg 24 hr capsule TAKE 1 CAPSULE BY MOUTH 3 TIMES A DAY 270 capsule 07/04/2025 ergocalciferol (VITAMIN D-2) 1,250 mcg (50,000 unit) capsule Take 1 capsule (50,000 Units total) by mouth 1 (one) time per week. 8 capsule 07/04/2025 6 fluticasone propionate (FLONASE) 50 mcg/actuation nasal spray [...] 3 (three) months. 1 mL 3 09/13/2024 6 metoprolol succinate (TOPROL-XL) 25 mg 24 hr [...] nitroglycerin (Nitrostat) 0.4 mg SL tablet 06/26/2015 nystatin (MYCOSTATIN) 100,000 unit/mL suspension Take 5 mL (500,000 Units total) by mouth 4 (four) times a day. Swish in mouth and swallow. 280 mL 05/08/2025 omega-3/dha/epa/fi sh oil (OMEGA-3 ORAL) ondansetron (ZOFRAN) 4 mg tablet Take 1 tablet (4 mg total) by mouth every 8 (eight) hours if needed for nausea or vomiting for up to 7 days. 20 tablet 07/01/2025 5 oxyCODONE (ROXICODONE) 5 mg immediate release tablet Take 1 tablet (5 mg total) by mouth every 6 (six) hours if needed for severe pain. Max Daily Amount: 20 mg 7 tablet 07/01/2025 pantoprazole (PROTONIX) 40 mg EC tablet TAKE [...] (one) time each day if needed. 05/31/2020 dilTIAZem CD (CARDIZEM CD) 120 mg 24 hr capsule TAKE 1 CAPSULE (120 MG TOTAL) BY MOUTH 3 (THREE) TIMES A DAY. 270 capsule 1 01/09/2025 5 documented as of this encounter Ordered Prescriptions Prescription Sig Dispense Quantity Refills Last Filled Start Date End Date ondansetron (ZOFRAN) 4 mg tablet Take 1 tablet (4 mg total) by mouth every 8 (eight) hours if needed for nausea or vomiting for up to 7 days. 20 tablet 07/01/2025 5 oxyCODONE (ROXICODONE) 5 mg immediate release tablet Take 1 tablet (5 mg total) by mouth every 6 (six) hours if needed for severe pain. Max Daily Amount: 20 mg 7 tablet 07/01/2025 dicyclomine (BENTYL) 20 mg tablet Take 1 tablet (20 mg total) by mouth 2 (two) times a day for 10 days. 20 tablet 07/01/2025 5 acetaminophen (TYLENOL) 500 mg tablet Take 2 tablets (1,000 mg total) by mouth every 6 (six) hours if needed for mild pain for up to 10 days. 30 tablet 07/01/2025 5 cephalexin (KEFLEX) 500 mg capsule Take 1 capsule (500 mg total) by mouth 4 (four) times a day for 7 days. 28 each 07/01/2025 5 documented in this encounter Discharge Disposition Disposition Code Departure Means Destination Comment s Home or Self Care documented in this encounter Progress Notes * Tosha Sharma RN - 07/01/2025 8:51 AM EST Pt comes to ER with c/o burning and increasing frequency in urinating x1 week. Pt states she also feels pain in her left flank. Pt a&ox.4. ambulates with steady gait in triage. * SUNNY Garvey - 07/01/2025 8:49 AM EST HPI Chief Complaint Patient presents with Female Dysuria HPI patient with history of kidney infection presenting with dysuria and left flank pain denying fever chills chest pain abdominal pain diarrhea constipation hematuria but has had some nausea and increased urinary frequency Eunice Coma Scale Score: 15 Patient History Medical History[1] Surgical History[2] Family History[3] Social History Tobacco Use Smoking status: Never Smokeless tobacco: Never Substance Use Topics Alcohol use: No Drug use: No Review of Systems Review of Systems Physical Exam ED Triage Vitals [07/01/25 0853] Temp Heart Rate Resp BP 36.1 ??C (97 ??F) 101 16 108/83 SpO2 Temp Source Heart Rate Source Patient Position 100 % Temporal Monitor Sitting BP Location FiO2 (%) Left arm -- Physical Exam GENERAL: No acute distress HEENT: Normocephalic and atraumatic, EOMI NECK: Supple, trachea is midline RESP: No respiratory distress, lung sounds clear and equal bilaterally, speaking complete sentences CARDIOVASCULAR: Heart sounds crisp without murmur, regular rate GASTROINTESTINAL: Abdomen is soft, non distended, no CVA tenderness MUSCULOSKELETAL: No obvious acute deformities, ROM intact SKIN: Warm and dry NEUROLOGIC: At baseline, no acute focal deficits PSYCHIATRIC: Calm and cooperative ED Course & MDM Clinical Impressions as of 07/02/25 0741 Pyelonephritis Medical Decision Making Differential diagnosis pyelonephritis kidney stone other GI MSK reproductive condition Vital signs reviewed Pulse oximetry reviewed and found to be > 94% on room air Physical exam as above Nursing notes reviewed CBC negative for significant leukocytosis or anemia requiring blood transfusion Metabolic panel negative for significant electrolyte abnormality with no signs of acute organ dysfunction UA shows for infection with hematuria CAT scan noting no obvious kidney stone or pyelonephritis, enterocolitis noted On reevaluation patient reportedly feeling better Social determinants of health considered including housing follow-up social and financial support Patient deemed appropriate for discharge with antibiotics/symptomatic treatment, recommendations tofollow-up with primary care doctor / specialist with return precautions provided Procedures [1] Past Medical History: Diagnosis Date Allergic rhinitis 05/21/2010 DX:Allergic rhinitis Anemia DX:Anemia Anxiety 10/20/2011 DX:Anxiety Arrhythmia DX:Arrhythmia Asperger's disorder 12/12/2021 DX:Asperger's disorder Asthma Autism disorder DX:Autism disorder Autistic disorder 12/12/2021 DX:Autistic disorder Bowel obstruction (CMS/HCC V24, CMS/HCC V28) 2019 Chronic constipation DX:Chronic constipation Chronic kidney disease KIDNEY STONES Chronic pain disorder DX:Chronic pain disorder;COMMENT:endometriosis Closed rib fracture 12/12/2021 DX:Closed rib fracture; COMMENT: Non-displaced fx 7th rib right side. 06/26/2020 Constipation DX:Constipation Constipation DX:Constipation Depression DX:Depression Elbow fracture, right 12/12/2021 DX:Elbow fracture, right; COMMENT: 03/2019 ED visit, cast. Endocarditis DX:Endocarditis Esophageal reflux DX:Esophageal reflux GERD (gastroesophageal reflux disease) DX:GERD (gastroesophageal reflux disease) H/O abdominal surgery DX:H/O abdominal surgery H/O: upper GI bleed DX:H/O: upper GI bleed Hemorrhagic varicella pneumonitis 09/10/2006 DX:Hemorrhagic varicella pneumonitis; COMMENT: 1991 History of fracture of phalanx of toe 12/12/2021 DX:History of fracture of phalanx of toe; COMMENT: Two toes, R foot 05/2020. History of GI bleed 12/12/2021 DX:History of GI bleed; COMMENT: 06/2021 History of infectious mononucleosis 01/1999 DX:History of infectious mononucleosis History of small bowel obstruction 12/12/2021 DX:History of small bowel obstruction; COMMENT: Hospital admission 06/2019, surgery per pt in progress note. 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 per 09/05/2015 Peptic ulcer disease 12/12/2021 DX:Peptic ulcer disease Peptic ulcer disease Rheumatic heart disease DX:Rheumatic heart disease 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 Sleep apnea, obstructive DX:Sleep apnea, obstructive Whooping cough 09/10/2006 DX:Whooping cough; COMMENT: 2000 [2] Past Surgical History: Procedure Laterality Date ANKLE SURGERY 11/02/2007 PROCEDURE: HISTORICAL ANKLE SURGERY; COMMENT: Non healing fracture ARRHYTHMIA SURGERY N/A 09/05/2015 PROCEDURE:ARRHYTHMIA SURGERY;COMMENT:Procedure: Comp Eps W/ Cs/La Pac & Record; Surgeon: Roman Oliver MD; Location: [facility] ELECTROPHYSIOLOGY LAB (EP); Service: Cardiology; Laterality: N/A; ARRHYTHMIA SURGERY N/A 09/05/2015 PROCEDURE:ARRHYTHMIA SURGERY;COMMENT:Procedure: Comp Eps With Induction; Surgeon: Roman Oliver MD; Location: [facility] ELECTROPHYSIOLOGY [facility] (EP); Service: Cardiology; Laterality: N/A; ARRHYTHMIA SURGERY N/A 09/05/2015 PROCEDURE:ARRHYTHMIA SURGERY;COMMENT:Procedure: Pes/Pacing After Iv Drug Infusion; Surgeon: Roman Oliver MD; Location: [facility] ELECTROPHYSIOLOGY LAB (EP); Service: Cardiology; Laterality: N/A; ARRHYTHMIA SURGERY N/A 02/06/2014 PROCEDURE:ARRHYTHMIA SURGERY;COMMENT:Procedure: INTRACARDIAC ELECTROPHYSIOLOGIC 3-D MAPPING; Surgeon: Roman Oliver MD; Location: [facility] ELECTROPHYSIOLOGY (EP) LAB; Service: Cardiology; Laterality: N/A; ARRHYTHMIA SURGERY N/A 02/06/2014 PROCEDURE:ARRHYTHMIA SURGERY;COMMENT:Procedure: COMP EP EVAL INCL INSERT AND REPOS OF MULT ELECT CATHS W/ INDUC OR ATTP INDUC OF ARRH W/ L ATRIAL PACING && RECORDING FROM JOSIANE SINUS OR L ATRIUM.; Surgeon: Roman Oliver MD; Location: [facility] ELECTROPHYSIOLOGY (EP) LAB; Service: Cardiology; ARRHYTHMIA SURGERY N/A 02/06/2014 PROCEDURE:ARRHYTHMIA SURGERY;COMMENT:Procedure: PROGRAMMED STIMULATION AND PACING AFTER INTRAVENOUSDRUG INFUSION; Surgeon: Roman Oliver MD; Location: [facility] ELECTROPHYSIOLOGY (EP) LAB; Service: Cardiology; Laterality: N/A; ATRIAL ABLATION SURGERY N/A 02/06/2014 PROCEDURE:ATRIAL ABLATION SURGERY;COMMENT:Procedure: COMP EP EVAL INCL INSERT AND REPOS OF MULT ELECT CATHS W/ INDUCT OR ATTP INDUC OF ARRHY W/ R. ATRIAL && VENT PACING && RECORD W/ TX OF SVT BY ABLATION; Surgeon: Roman Oliver MD; Location: [facility] ELECTROPHYSIOLOGY (EP) LAB; Service:Cardiolog COLONOSCOPY 11/11/2012 PROCEDURE: HISTORICAL COLONOSCOPY; COMMENT: melanosis coli COLONOSCOPY 07/18/2015 PROCEDURE: HISTORICAL COLONOSCOPY ESOPHAGOGASTRODUODENOSCOPY 11/11/2012 PROCEDURE: NM ESOPHAGOGASTRODUODENOSCOPY TRANSORAL DIAGNOSTIC; COMMENT: normal FOOT SURGERY PROCEDURE:FOOT SURGERY FOOT SURGERY 08/03/2009 PROCEDURE: NM UNLISTED PROCEDURE FOOT/TOES; COMMENT: Bone spur right foot OTHER SURGICAL HISTORY PROCEDURE:NM PELVIC EXAMINATION W/ANESTHESIA OTHER THAN LOCAL OTHER SURGICAL HISTORY 05/11/2017 PROCEDURE: NM EGD PARTIAL/COMPL ESOPHAGOGASTRIC FUNDOPLASTY; COMMENT: Duodenitis, gastritis OTHER SURGICAL HISTORY Left 08/21/2023 PROCEDURE: HISTORY OTHER; COMMENT: Kidney stones removal TONSILLECTOMY 3rd grade PROCEDURE: HISTORICAL TONSILLECTOMY WRIST SURGERY PROCEDURE: HISTORICAL WRIST SURGERY; COMMENT: Sprain [3] Family History Problem Relation Name Age of Onset Other (Other: back) Father Breast cancer Paternal Grandmother Leukemia Paternal Grandfather Breast cancer Aunt Maternal aunt 50 Ovarian cancer Neg Hx Uterine cancer Neg Hx Colon cancer Neg Hx SUNNY Garvey 07/02/25 0742 Cosigned by Yohannes Gipson MD at 07/03/2025 11:19 PM EST documented in this encounter Plan of Treatment Upcoming Encounters Date Type Department Care Team (Late st Contact Info) Description 08/10/2025 3:30 PM EST Office Visit Adult Medicine [address] [phone] Bette Coroan MD [address] [place] [phone] 08/31/2025 3:00 PM EST Clinical Support Obstetrics and Gynecology - [address] [phone] 09/08/2025 3:00 PM EST Appointment [facility] Ultrasound [address] [place] [address] 09/21/2025 3:30 PM EST Office Visit [facility] Hematology Oncology [address] [place] [phone] Angelito Mcfarlane MD [address] [place] [phone] 10/16/2025 3:20 PM EDT Office Visit Gastroenterology - [address] [facility] [address] [place] [phone] Bisi Dinero, KIRA [address] [address] Pending Results Name Type Priority Associated Diagnoses Date /Time Blood Culture, Peripheral Draw #1 Microbiology STAT 07/01/2025 10 :05 AM EST Blood Culture, Peripheral Draw #2 Microbiology STAT 07/01/2025 10 :35 AM EST documented as of this encounter Procedures Procedure Name Priority Date/Time Associated Diagnosis Comments CT ABDOMEN PELVIS W CONTRAST STAT 07/01/2025 11:52 AM EST CULTURE BLOOD STAT 07/01/2025 10:35 AM EST LACTATE, WITH REFLEX STAT 07/01/2025 10:05 AM EST CBC WITH AUTO DIFFERENTIAL STAT 07/01/2025 10:05 AM EST CULTURE BLOOD STAT 07/01/2025 10:05 AM EST CBC AND DIFFERENTIAL STAT 07/01/2025 10:05 AM EST LIPASE STAT 07/01/2025 10:05 AM EST COMPREHENSIVE METABOLIC PANEL STAT 07/01/2025 10:05 AM EST POC , URINE DIAGNOSTIC STAT 07/01/2025 9:11 AM EST URINALYSIS WITH REFLEX MICROSCOPIC AND CULTURE STAT 07/01/2025 9:02 AM EST DIANA URINE CULTURE TUBE STAT 07/01/2025 9:02 AM EST URINALYSIS WITH REFLEX MICROSCOPIC AND CULTURE STAT 07/01/2025 9:02 AM EST documented in this encounter Results * CT Abdomen Pelvis w Contrast (07/01/2025 11:52 AM EST) Anatomical Region Laterality Modality Body Computed Tomogra phy 07/01/2025 12:0 7 PM EST Impressions 07/01/2025 12:12 PM EST Mild infectious or inflammatory enterocolitis with diarrheal illness. No abscess or free air. -------- FINAL REPORT -------- Dictated By: DAV VERA Dictated Date: 07/01/2025 12:07 ET Assigned Physician: DAV VERA Reviewed and Electronically Signed By: DAV VERA Signed Date: 07/01/2025 12:12 ET Workstation ID: [id number] Transcribed By: Self Edit Transcribed Date: 07/01/2025 12:07 ET Narrative 07/01/2025 12:12 PM EST PROCEDURE: CT ABDOMEN/PELVIS INDICATION: Pain TECHNIQUE: CT of the abdomen and pelvis following the intravenous administration of 70cc Isovue 370. Multiplanar reformats. The examination was performed utilizing dose reduction techniques. Total DLP 366 COMPARISON: 04/01/2025 FINDINGS: LOWER THORAX: Lung bases are clear. HEPATOBILIARY: No focal liver lesions. No cholelithiasis or biliary duct dilatation. SPLEEN: No splenomegaly. PANCREAS: No focal mass or ductal dilatation. ADRENALS: No nodules. KIDNEYS/URETERS: Nonobstructive renal calculi bilaterally measuring 4 mm in the right 10 2 mm on the left. No ureteral calculi or hydronephrosis. No solid renal mass. PELVIC ORGANS/BLADDER: Hysterectomy. Bladder is unremarkable. No adnexal mass. PERITONEUM / RETROPERITONEUM: No ascites or free air. No retroperitoneal lymphadenopathy. VESSELS: Portal vein is patent. Abdominal aorta is normal in size GI TRACT: Partial gastrectomy. No bowel obstruction. Mild wall thickening at the proximal small bowel and throughout the colon with fluid-filled distal small bowel and proximal colon.. BONES AND SOFT TISSUES: No superficial soft tissue mass or fluid collection. Bones are normal. Procedure Note Dav Vera MD - 07/01/2025 PROCEDURE: CT ABDOMEN/PELVIS INDICATION: Pain TECHNIQUE: CT of the abdomen and pelvis following the intravenousadministration of 70cc Isovue 370. Multiplanar reformats. The examinationwas performed utilizing dose reduction techniques. Total DLP 366 COMPARISON: 04/01/2025 FINDINGS: LOWER THORAX: Lung bases are clear. HEPATOBILIARY: No focal liver lesions. No cholelithiasis or biliary ductdilatation. SPLEEN: No splenomegaly. PANCREAS: No focal mass or ductal dilatation. ADRENALS: No nodules. KIDNEYS/URETERS: Nonobstructive renal calculi bilaterally measuring 4 mmin the right 10 2 mm on the left. No ureteral calculi or hydronephrosis.No solid renal mass. PELVIC ORGANS/BLADDER: Hysterectomy. Bladder is unremarkable. No adnexalmass. PERITONEUM / RETROPERITONEUM: No ascites or free air. No retroperitoneallymphadenopathy. VESSELS: Portal vein is patent. Abdominal aorta is normal in size GI TRACT: Partial gastrectomy. No bowel obstruction. Mild wallthickening at the proximal small bowel and throughout the colon withfluid-filled distal small bowel and proximal colon.. BONES AND SOFT TISSUES: No superficial soft tissue mass or fluidcollection. Bones are normal. IMPRESSION: Mild infectious or inflammatory enterocolitis with diarrheal illness. Noabscess or free air. -------- FINAL REPORT -------- Dictated By: DAV VERA Dictated Date: 07/01/2025 12:07 ET Assigned Physician: DAV VERA Reviewed and Electronically Signed By: DAV VERA Signed Date: 07/01/2025 12:12 ET Workstation ID: [id number] Transcribed By: Self Edit Transcribed Date: 07/01/2025 12:07 ET us [facility] CORREA IMG CT PROCEDURES Final Res ult * (ABNORMAL) CBC auto differential (07/01/2025 10:05 AM EST) WBC 7.9 4.8 - 10.8 K/mcL LAB HEMETOLOGY METHOD 07/01/2025 10:16 AM [facility] RBC 3.50(L) 3.80 - 4.80 M/mcL LAB HEMETOLOGY METHOD 07/01/2025 10:16 AM [facility] Hemoglobin 13.7 11.5 - 16.0 g/dL LAB HEMETOLOGY METHOD 07/01/2025 10:16 AM [facility] Hematocrit 41.3 35.0 - 47.0 % LAB HEMETOLOGY METHOD 07/01/2025 10:16 AM [facility] MCV 118.7(H) 79.0 - 98.0 FL LAB HEMETOLOGY METHOD 07/01/2025 10:16 AM [facility] MCH 39.4(H) 27.0 - 32.0 pcg LAB HEMETOLOGY METHOD 07/01/2025 10:16 AM [facility] MCHC 33.2 32.0 - 37.0 g/dL LAB HEMETOLOGY METHOD 07/01/2025 10:16 AM [facility] RDW 13.4 11.0 - 15.0 % LAB HEMETOLOGY METHOD 07/01/2025 10:16 AM [facility] Platelets 336 130 - 400 K/mcL LAB HEMETOLOGY METHOD 07/01/2025 10:16 AM [facility] MPV 8.4 7.0 - 11.0 FL LAB HEMETOLOGY METHOD 07/01/2025 10:16 AM [facility] NRBC 0.0 <1.0 % LAB HEMETOLOGY METHOD 07/01/2025 10:16 AM [facility] NRBC Absolute 0.00 <0.10 K/mcL LAB HEMETOLOGY METHOD 07/01/2025 10:16 AM [facility] Neutrophils Relative 76.5 % LAB HEMETOLOGY METHOD 07/01/2025 10:16 AM [facility] Lymphocytes Relative 15.6 % LAB HEMETOLOGY METHOD 07/01/2025 10:16 AM [facility] Monocytes Relative 5.8 % LAB HEMETOLOGY METHOD 07/01/2025 10:16 AM [facility] Eosinophils Relative 1.1 % LAB HEMETOLOGY METHOD 07/01/2025 10:16 AM [facility] Basophils Relative 0.5 % LAB HEMETOLOGY METHOD 07/01/2025 10:16 AM [facility] Immature Granulocytes Relative 0.5 % LAB HEMETOLOGY METHOD 07/01/2025 10:16 AM [facility] Neutrophils Absolute 6.06 1.50 - 7.00 K/mcL LAB HEMETOLOGY METHOD 07/01/2025 10:16 AM [facility] Lymphocytes Absolute 1.24 1.00 - 5.00 K/mcL LAB HEMETOLOGY METHOD 07/01/2025 10:16 AM [facility] Monocytes Absolute 0.46 0.20 - 1.00 K/mcL LAB HEMETOLOGY METHOD 07/01/2025 10:16 AM [facility] Eosinophils Absolute 0.09 0.00 - 0.50 K/mcL LAB HEMETOLOGY METHOD 07/01/2025 10:16 AM [facility] Basophils Absolute 0.04 0.00 - 0.20 K/mcL LAB HEMETOLOGY METHOD 07/01/2025 10:16 AM [facility] Immature Granulocytes Absolute 0.04(H) 0.00 - 0.03 K/mcL LAB HEMETOLOGY METHOD 07/01/2025 10:16 AM [facility] Blood Venous blood specimen / Unknown Venipuncture / Unknown 07/01/2025 10:05 AM EST 07/01/2025 10:10 AM EST us Pino CORREA LAB BLOOD ORDERABLES Final Result Performing Organization Address City/[facility]/ZIP Co de Phone Number [facility] [address] [place] [address], [place] [phone] * Lipase (07/01/2025 10:05 AM EST) Lipase 48 12 - 53 unit/L 07/01/2025 10:50 AM EST [facility] Blood Venous blood specimen / Unknown Venipuncture / Unknown 07/01/2025 10:05 AM EST 07/01/2025 10:10 AM EST [facility]REA LAB BLOOD ORDERABLES Final Result Performing Organization Address [facility] Co de Phone Number [facility] [address] [place] [address], [place] [phone] * Lactate, with Reflex (07/01/2025 10:05 AM EST) LACTIC ACID 0.7 0.4 - 2.0 mmol/L 07/01/2025 10:43 AM EST [facility] Blood Venous blood specimen / Unknown Venipuncture / Unknown 07/01/2025 10:05 AM EST 07/01/2025 10:10 AM EST [facility] LAB BLOOD ORDERABLES Final Result Performing Organization Address City/[facility]/ZIP Co de Phone Number [facility] [address] [place] [address], [place] [phone] * (ABNORMAL) Comprehensive Metabolic Panel (CMP) (07/01/2025 10:05 AM EST) Sodium 143 133 - 145 mmol/L 07/01/2025 10:56 AM EST [facility] Potassium 4.0 3.5 - 5.5 mmol/L 07/01/2025 10:56 AM [facility] Chloride 114(H) 96 - 110 mmol/L 07/01/2025 10:56 AM [facility] CO2 17(L) 21 - 32 mmol/L 07/01/2025 10:56 AM [facility] Anion Gap 12(H) 3 - 11 07/01/2025 10:56 AM [facility] Glucose 95 70 - 100 mg/dL 07/01/2025 10:56 AM [facility] BUN 14 5 - 25 mg/dL 07/01/2025 10:56 AM [facility] Creatinine 0.98 0.50 - 1.10 mg/dL 07/01/2025 10:56 AM [facility] eGFR 75 >=60 mL/min/1. 73m2 07/01/2025 10:56 AM [facility] Comment:Calculation based on the Chronic Kidney Disease Epidemiology Collaboration (CKD-EPI) equation refit without adjustment for race. BUN/Creatinine Ratio 14.3 07/01/2025 10:56 AM [facility] Calcium 9.6 8.5 - 10.5 mg/dL 07/01/2025 10:56 AM [facility] AST (SGOT) 40 10 - 42 unit/L 07/01/2025 10:56 AM [facility] ALT (SGPT) 45 10 - 60 unit/L 07/01/2025 10:56 AM [facility] Alkaline Phosphatase 113 42 - 121 unit/L 07/01/2025 10:56 AM [facility] Total Protein 7.1 6.0 - 8.0 g/dL 07/01/2025 10:56 AM [facility] Albumin 4.7 3.2 - 5.0 g/dL 07/01/2025 10:56 AM EST [facility] Total Bilirubin 0.2 0.0 - 1.4 mg/dL 07/01/2025 10:56 AM EST [facility] Blood Venous blood specimen / Unknown Venipuncture / Unknown 07/01/2025 10:05 AM EST 07/01/2025 10:10 AM EST [facility] BLOOD ORDERABLES Final Result [facility] [address] [place] [address], [place] [phone] * POC , urine manually resulted (07/01/2025 9:11 AM EST) [facility] HCG, Ur POC Negative Negative POC hCG Int QC Pass? Yes Yes Urine Urine specimen obtained by clean catch procedure / Unknown 07/01/2025 9:11 AM EST [facility] POINT OF CARE TEST ENTER/ED IT ORDERABLES Final Result * Diana urine culture tube (07/01/2025 9:02 AM EST) [facility] Extra Tube Hold for add-ons. 07/01/2025 11:01 AM EST [facility] Comment:Auto resulted. Urine Urine specimen obtained by clean catch procedure / Unknown Non-blood Collection / Unknown 07/01/2025 9:02 AM EST 07/01/2025 9:20 AM EST us [facility] URINE ORDERABLES Final Result [facility] [address] [place] [address], [place] [phone] * (ABNORMAL) Urinalysis with reflex microscopic and culture (07/01/2025 9:02 AM EST) [facility] Specific [place] Urine 1.032(H) 1.003 - 1.030 LAB URINALYSIS - AUTOMATED METHOD 07/01/2025 9:42 AM [facility] pH, Urine 6.0 5.0 - 8.0 pH LAB URINALYSIS - AUTOMATED METHOD 07/01/2025 9:42 AM [facility] Leukocytes, Urine Negative Negative LAB URINALYSIS - AUTOMATED METHOD 07/01/2025 9:42 AM [facility] Nitrite, Urine Negative Negative LAB URINALYSIS - AUTOMATED METHOD 07/01/2025 9:42 AM [facility] Protein, Urine 300(A) <=Trace mg/dL LAB URINALYSIS - AUTOMATED METHOD 07/01/2025 9:42 AM [facility] Glucose, Urine Negative Negative mg/dL LAB URINALYSIS - AUTOMATED METHOD 07/01/2025 9:42 AM [facility] Ketones, Urine Negative Negative mg/dL LAB URINALYSIS - AUTOMATED METHOD 07/01/2025 9:42 AM [facility] Urobilinogen, Urine 0.2 0.2 - 1.0 mg/dL LAB URINALYSIS - AUTOMATED METHOD 07/01/2025 9:42 AM [facility] Bilirubin, Urine Negative Negative LAB URINALYSIS - AUTOMATED METHOD 07/01/2025 9:42 AM [facility] Blood, Urine Large(A) Negative LAB URINALYSIS - AUTOMATED METHOD 07/01/2025 9:42 AM [facility] RBC, Urine 30(H) 0 - 4 /HPF 07/01/2025 9:42 AM [facility] WBC, Urine 1 0 - 4 /HPF 07/01/2025 9:42 AM [facility] Squamous Epithelial, Urine 10 0 - 60 /LPF 07/01/2025 9:42 AM [facility] Bacteria, Urine Few(A) Negative /HPF 07/01/2025 9:42 AM EST [facility] Hyaline Casts, Urine 20(H) 0 - 3 /LPF 07/01/2025 9:42 AM EST [facility] Urine Urine specimen obtained by clean catch procedure / Unknown Non-blood Collection / Unknown 07/01/2025 9:02 AM EST 07/01/2025 9:20 AM EST us [facility] URINE ORDERABLES Final Result [facility] [address] [place] [address], documented in this encounter Visit Diagnoses Diagnosis Pyelonephritis- Primary Unspecified pyelonephritis documented in this encounter Administered Medications Inactive Administered Medications - up to 3 most recent administrations Medication Order MAR Action Action Date Dose Rate Site iopamidoL (ISOVUE-370) 370 mg iodine /mL (76 %) injection 90 mL 90 mL, intravenous, Once in imaging, Starting on 07/01/25 at 1147, For 1 dose Given 07/01/2025 11:48 AM EST 70 mL morphine injection 2 mg 2 mg, intravenous, Once, On 07/01/25 at 0955, For 1 dose Given 07/01/2025 10:18 AM EST 2 mg morphine injection 2 mg 2 mg, intravenous, Once, On 07/01/25 at 1207, For 1 dose Given 07/01/2025 12:12 PM EST 2 mg ondansetron (PF) (ZOFRAN) injection 4 mg 4 mg, intravenous, Once, On 07/01/25 at 0955, For 1 dose Given 07/01/2025 10:18 AM EST 4 mg sodium chloride 0.9 % bolus 1,000 mL 1,000 mL, intravenous, at 2,000 mL/hr, Administer over 30 Minutes, Once, On 07/01/25 at 0955, For 1 dose New Bag 07/01/2025 10:18 AM EST 1,000 mL 2000 mL/hr sodium chloride 0.9 % flush 10 mL 10 mL, intravenous, Once, On 07/01/25 at 1148, For 1 dose Given 07/01/2025 11:48 AM EST 10 mL documented in this encounter Active and Recently Administered Medications Times are shown in EST. Scheduled Medication Order 06/29/2025 06/30/2025 07/01/2025 iopamidoL (ISOVUE-370) 370 mg iodine /mL (76 %) injection 90 mL (COMPLETED) 90 mL, intravenous, Once in imaging, Starting on 07/01/25 at 1147, For 1 dose 1148 (Given - Provid er: Garry Nino) morphine injection 2 mg (COMPLETED) 2 mg, intravenous, Once, On 07/01/25 at 0955, For 1 dose 1018 (Given - Provid er: Drake Reid RN) morphine injection 2 mg (COMPLETED) 2 mg, intravenous, Once, On 07/01/25 at 1207, For 1 dose 1212 (Given - Provid er: Taco Oquendo RN) ondansetron (PF) (ZOFRAN) injection 4 mg (COMPLETED) 4 mg, intravenous, Once, On 07/01/25 at 0955, For 1 dose 1018 (Given - Provid er: Drake Reid RN) sodium chloride 0.9 % bolus 1,000 mL (COMPLETED) 1,000 mL, intravenous, at 2,000 mL/hr, Administer over 30 Minutes, Once, On 07/01/25 at 0955, For 1 dose 1018 (New Bag - Prov ider: Drake Reid RN)1101 (Stopped - Provider: Drake Reid RN) sodium chloride 0.9 % flush 10 mL (COMPLETED) 10 mL, intravenous, Once, On 07/01/25 at 1148, For 1 dose 1148 (Given - Provid er: Garry Nino) documented in this encounter Care Teams Personnel Monitor Relationship Specialty Start Date End Date Bette Corona MD [address] [place] [address] PCP - General Internal Medicine 05/09/25 documented as of this encounter
--- NOTE | ~2025-07-05 | XR_ITS ---
EXAMINATION: XR HIP, RIGHT CLINICAL INFORMATION: pain after fall COMPARISON: None available. TECHNIQUE: AP pelvis, and 2 views of the right hip. FINDINGS: No fracture, dislocation, or suspicious bone lesion. Normal bone mineralization. Normal alignment. Joint spaces are preserved. No significant arthropathy. Soft tissues appear normal. XR/XR hip RT w [id number] IMPRESSION: No definite fracture evident. Normal right hip. Electronically signed by: Frank Calderon MD 07/05/2025 11:16 AM [facility]
--- NOTE | ~2025-07-05 | CT_ITS ---
EXAMINATION: CT HIP WITHOUT CONTRAST, RIGHT CLINICAL INFORMATION: Unable to bear weight after a fall. COMPARISON: Correlated to hip x-ray dated July 05, 2025. TECHNIQUE: Multidetector volumetric imaging was obtained through the right hip without contrast material. Multiplanar reformatted images were submitted in coronal and sagittal planes. This CT examination was performed using dose optimization techniques as appropriate, variously including the following: *Automated exposure control *Adjustment of mA and/or kV according to patient size (this includes techniques or standardized protocols for targeted exams where dose is matched to indication/reason for exam; i.e. extremities or head) *Use of iterative reconstruction technique DLP: 181 mGy-cm FINDINGS: There is a cortical comminuted disruption involving the greater trochanter. Right femoral head and neck are intact. Right acetabulum is intact. The right coxofemoral joint is well seated in the osseous structures without malalignment. The right superior and inferior pubic rami are intact. No gross soft tissue hematoma. No joint effusion, right coxofemoral joint. CT/CT hip RT wo IV con IMPRESSION: Acute comminuted fracture, greater trochanter right femur. Electronically signed by: Livan Brady MD 07/05/2025 12:45 PM EST
[2025-07-05 10:15] VITALS: BP 108/74; PULSE 113; O2SAT 97
--- NOTE | 2025-07-05 10:17 | ED_ITS ---
HPI - General Adult General Chief complaint: Extremity Injury, Lower Stated complaint: FALL OFF STEP STOOL, R HIP PAIN Time Seen by Provider: 07/05/25 10:12 Source: patient, EMS, RN notes reviewed and old records reviewed Mode of arrival: EMS Limitations: no limitations History of Present Illness ED Provider: Dwayne HPI narrative: Patient is a 40-year-old female with history of AFib and SVT not anticoagulated, PUD, appears older than stated age presenting to the emergency department with complaint of right hip pain after a fall at home prior to arrival. Patient states that she was standing on a ladder attempting to clear snow off the roof of her car when her foot slipped causing her to fall onto her right side on the concrete. She denies head strike or loss of consciousness. Denies any other injury. Reports pain is 05/12. MD complaint: right hip pain Related Data Home Medications ?Medication ?Instructions ?Recorded ?Confirmed aripiprazole 5 mg tablet 5 mg PO DAILY 08/19/2207/06 budesonide-formoterol HFA 160 2 puff inhalation BID 07/06/25 mcg-4.5 mcg/actuation aerosol inhaler (Symbicort) dicyclomine 10 mg capsule 10 mg PO Q6H PRN Cramps 08/0307/06/25 diltiazem HCl 120 mg 120 mg PO DAILY 08/19/2211/25 capsule,extended release 24 hr medroxyprogesterone 150 mg/mL 150 mg IM [id number] 08/1907/06/25 intramuscular suspension metoprolol succinate 50 mg 50 mg PO DAILY 08/19/2211/25 tablet,extended release 24 hr sertraline 100 mg tablet 150 mg PO DAILY 08/19/2211/25 amitriptyline 10 mg tablet 10 mg PO BEDTIME PRN Insomn ia 07/06/25 07/06/25 linaclotide 290 mcg capsule 290 mcg PO DAILY 07/06/25 07/06/25 (Linzess) naloxegol 25 mg tablet (Movantik) 25 mg PO DAILY 07/0607/06/25 pantoprazole 40 mg tablet,delayed 40 mg PO DAILY 07/0607/06/25 release Previous Rx's ?Medication ?Instructions ?Recorded cephalexin 500 mg capsule 500 mg PO QID 7 days #28 cap s 03/28/25 oxycodone 5 mg tablet 5 mg PO Q6H PRN pain (scale score 07/07/25 7-10) 3 days #9 tabs Allergies Allergy/AdvReac Type Severity Reaction Status Date / Time celecoxib (From CELEBREX) Allergy Intermediate HIVES Verified 07/05/25 10:25 vancomycin (VANCOMYCIN) Allergy Intermediate HIVES Verified 07/05/25 10:25 Milk Containing Products Allergy Diarrhea Verified 07/06/25 07:59 (Dairy) Review of Systems 2 Review of Systems: as per hpi Yes all other systems are reviewed and are negative Constitutional: Constitutional: Reports as per H[facility] Social History Social History Smoked in Last 30 Days: No Advance Directives: No Advance Directives Information Provided: Yes Physical Exam ED Vital Signs: Vital Signs - 24 hr 07/06/25 08:24 07/06/25 09:39 07/06/25 09:40 Temperature 98.7 F Pulse Rate 99 99 Respiratory Rate Blood Pressure 110/75 110/75 Pulse Oximetry Oxygen Delivery Method 07/06/25 12:20 07/06/25 14:01 07/06/25 19:54 Temperature 98.0 F 98.1 F 98.0 F Pulse Rate 84 82 Respiratory Rate 14 12 Blood Pressure 96/63 91/53 L Pulse Oximetry 95 95 Oxygen Delivery Method Room Air Room Air 07/06/25 22:15 07/07/25 04:00 Temperature 98.0 F 98.1 F Pulse Rate 70 76 Respiratory Rate 12 16 Blood Pressure 92/56 L 98/62 Pulse Oximetry 95 95 Oxygen Delivery Method Room Air Room Air BMI result Body Mass Index 17.6 Vital signs have been reviewed and appear to be correct. Blood pressure normal. Heart rate normal. Respiratory rate normal. Temperature normal. Oxygen saturation normal. Const General: cooperative and no acute distress Nutritional Appearance: cachectic Orientation/consciousness: oriented to person, oriented to place, oriented to time and patient oriented x3 Limitations: no limitations HENMT Head: Yes normocephalic and Yes atraumatic Ears: external ears normal General nose exam: Normal external nose present Face and sinus: Yes face symmetric Mouth: oropharynx normal and moist mucous membranes Throat: Yes uvula midline Eyes Pupils: Equal, round and reactive pupils present Neck Neck: Yes normal visual inspection and Yes supple Resp Effort & Inspection: normal respiratory effort and able to speak in complete sentences Auscultation: clear to auscultation bilaterally Cardio Rate: regular rate Rhythm: regular rhythm Heart sounds: S1 normal heart sound present and S2 normal heart sound present GI Palpation (GI): Soft to palpation and nontender Auscultation: normoactive bowel sounds General: Yes no CVA tenderness Back/Spine/Pelvis Back: no CVA tenderness Skin General skin exam: elasticity normal and turgor normal Neuro General: oriented to person, oriented to place, oriented to time, patient oriented x3, moves all extremities, no focal motor deficits and CN's II-XI intact bilaterally Cranial nerves: Yes Equal, round and reactive pupils present Cognition (Neuro): normal cognition Extrem General: Yes full ROM, Yes no pedal edema and Yes no calf tenderness Psych Mental Status: mental status grossly normal Affect: normal affect Thought process: Normal thought process present Medications Administered Discontinued Medications Generic Name Dose Route Start Last Admin Trade Name Freq PRN Reason Stop Dose Admin Acetaminophen 650 mg 07/06/25 07:41 07/07/25 09:13 Acetaminophen 325 Mg Tablet PO 650 mg RQ6H PRN Administration Pain, Moderate(Pain Scale 4-6) Dicyclomine HCl 10 mg 07/06/25 08:01 07/06/25 08:08 Dicyclomine Hcl 10 Mg Capsule PO 10 mg Q6H PRN Administration Cramps Diltiazem HCl 120 mg 07/06/25 09:00 07/07/25 09:11 Diltiazem Hcl Cd 120 Mg Cap.Er.Deg PO 120 mg DAILY ELVA Administration Protocol Metoprolol Succinate 50 mg 07/06/25 09:00 07/07/25 09:10 Metoprolol Succinate Er 50 Mg Tab.Er.24h PO 50 mg DAILY ELVA Administration Protocol Morphine Sulfate 4 mg 07/05/25 10:30 07/05/25 10:40 Morphine Sulfate 4 Mg/Ml Cartridge IVPUSH 07/05/25 10:31 4 mg ONCE ONE Administration Protocol Morphine Sulfate 4 mg 07/05/25 19:38 07/05/25 19:52 Morphine Sulfate 4 Mg/Ml Cartridge IVPUSH 07/05/25 19:39 4 mg ONCE ONE Administration Protocol Oxycodone HCl 5 mg 07/05/25 13:06 07/05/25 13:15 Oxycodone Hcl Immed Release 5 Mg Tablet PO 07/05/25 13:07 5 mg ONCE ONE Administration Oxycodone HCl 5 mg 07/05/25 19:15 07/06/25 07:53 Oxycodone Hcl Immed Release 5 Mg Tablet PO 5 mg Q6H PRN Administration Pain, Severe (Pain Scale 7-10) Medical Decision Making Medical Decision Making [facility] Narrative: Patient is a 40-year-old female with history of AFib and SVT not anticoagulated, PUD, appears older than stated age presenting to the emergency department with complaint of right hip pain after a fall at home prior to arrival. On exam patient is awake, A+Ox3, VS WNL, afebrile, normal neurological exam without focal deficits, physical exam findings as above. Given reported symptoms and physical exam findings, initial differential includes but is not limited to right hip contusion, fracture, dislocation. Labs notable for (specific to DDX). X-ray right hip notable for no overt fracture. My interpretation is in agreement with the radiologist's interpretation. Patient updated on results, states she is unable to bear weight on her right leg. Will obtain CT hip to rule out occult fracture. CT right hip notable for greater trochanteric fracture. Case discussed with jose Cruz. She states patient can be partial weight bearing with walker, no abduction, outpatient follow up. Will place PT/CM consults as patient stating she is unable to get up at all. Time: 08:22 Date: 07/06/25 Provider: SUNNY Smith Patient in physician observation for case management needs. No acute events reported overnight.? Physical therapy recommending rehab, awaiting case management disposition. We will continue to monitor. Time: 08:08 Date: 07/07/25 Provider: SUNNY Bass Patient in physician observation for case management needs. No acute events reported overnight.?VS stable. Patient will d/c to [facility] via BLS at 9am as long as [facility] approval is obtained from [facility]. Differential Diagnosis Differential Diagnoses: The differential diagnosis associated with the presentation includes as per [facility] Admission/Observation Consideration of admission/observation: Escalation of care including admission/observation considered Patient would have been admitted to the hospital and transferred to appropriate facility had their clinical presentation warranted hospital admission. Consult Healthcare Provider Management of the patient was discussed with: Utility Bill Collection Clerk (jose Cruz) Lab Data 07/05/25 16:50 07/05/25 16:50 Labs: Lab Results 07/05/25 Range/Units 16:50 WBC 11.7 H (4.8-10.8) X10*3/uL RBC 3.00 L (4.20-5.50) X10*6/uL Hgb 11.8 L (12.0-16.0) g/dl Hct 35.5 L (37.0-47.0) % MCV 118.3 H (80.0-98.0) fL MCH 39.3 H (27.0-33.0) pg MCHC 33.2 (31.0-35.0) g/dl RDW 12.6 (11.0-16.0) % Plt Count 261 (160-400) X10*3/uL MPV 8.3 L (9.4-12.3) fL Immature Gran % (Auto) 0.4 (0.0-0.4) % Neut % (Auto) 77.3 H (45-73) % Lymph % (Auto) 14.3 L (20-40) % [place] % (Auto) 6.4 (2-11) % Eos % (Auto) 1.3 (0-4) % Baso % (Auto) 0.3 (0-2) % Lymph # (Auto) 1.7 (1.2-4.9) X10*3/uL [place] # (Auto) 0.8 (0.1-1.2) X10*3/uL Eos # (Auto) 0.2 (0.0-0.4) X10*3/uL Baso # (Auto) 0.0 (0.0-0.2) X10*3/uL Abs Immat Gran (auto) 0.05 H (0.00-0.03) X10*3/uL Absolute Neuts (auto) 9.0 H (2.0-8.3) x10*3/uL Absolute Nucleated RBC 0.000 (0.0-0.012) X10*3/uL Nucleated RBC % (auto) 0.0 (0.0-0.2) /100WBC PT 12.2 (11.2-13.5) SEC INR 1.0 (0.9-1.1) Sodium 141 (135-145) mmol/L Potassium 3.7 (3.3-5.1) mmol/L Chloride 118 H (96-108) mmol/L Carbon Dioxide 16 L (22-29) mmol/L Anion Gap 11 L (12-20) BUN 16 (9-16) mg/dL Creatinine 1.05 (0.5-1.4) mg/dL Estim Creat Clear Calc 45.4 Estimated GFR 58 Random Glucose 95 (60-115) mg/dL Calcium 9.2 (8.4-10.2) mg/dL Total Bilirubin 0.3 (0.0-1.0) mg/dL AST 26 (5-31) U/L ALT 53 H (0-31) U/L Alkaline Phosphatase 79 (39-117) U/L Total Protein 5.8 L (6.5-8.0) g/dL Albumin 4.0 (3.5-5.0) g/dL Independent Interpretation I performed an independent interpretation of an: Plain X-Ray Interpretation: Right hip x-ray initially read as no acute fracture. CT right hip notable for right greater trochanteric fracture Radiology Impression Discussion of test interpretation with radiology: I have reviewed the radiologist's reading. Radiologist Impression: XR/XR hip RT w [id number] IMPRESSION: No definite fracture evident. Normal right hip. ADDENDUM: Upon further review, there is a very subtle cortical lucency involving the right greater trochanter, and a nondisplaced greater trochanteric fracture is a possibility. Consider correlating with CT. Electronically signed by: Frank Calderon MD 07/05/2025 12:[address]/CT hip RT wo IV con IMPRESSION: Acute comminuted fracture, greater trochanter right femur. Electronically signed by: Livan Brady MD 07/05/2025 12:45 PM Discharge Plan Discharge Clinical Impression: Closed fracture of greater trochanter of femur, Femur fracture, right, Comminuted fracture, Fall involving stool as cause of accidental injury Patient Disposition: Xfer Inpatient Rehab Fac Transfer Details: TO: [facility]PT[facility] Instructions: Hip Fracture (ED) Additional Instructions: You have a right greater trochanteric fracture partial weight bearing with walker, no abduction You need outpatient follow up with Orthopedics. Please call to make an appointment Prescriptions: New oxycodone 5 mg tablet 5 mg PO Q6H PRN (Reason: pain (scale score 7-10)) 3 Days Qty: 9 0RF Rx Instructions: Partial Fill upon patient request. No Action cephalexin 500 mg capsule 500 mg PO QID 7 Days Qty: 28 0RF pantoprazole 40 mg tablet,delayed release (DR/EC) 40 mg PO DAILY Movantik 25 mg tablet 25 mg PO DAILY amitriptyline 10 mg tablet 10 mg PO BEDTIME PRN (Reason: Insomnia) Linzess 290 mcg capsule 290 mcg PO DAILY budesonide-formoterol [Symbicort] 160-4.5 mcg/actuation HFA aerosol inhaler 2 puff inhalation BID dicyclomine 10 mg capsule 10 mg PO Q6H PRN (Reason: Cramps) diltiazem HCl 120 mg capsule,extended release 24hr 120 mg PO DAILY medroxyprogesterone 150 mg/mL suspension 150 mg IM [id number] metoprolol succinate 50 mg tablet extended release 24 hr 50 mg PO DAILY sertraline 100 mg tablet 150 mg PO DAILY aripiprazole 5 mg tablet 5 mg PO DAILY Referrals: [facility] [Provider Group] - 1 week [facility] [Outside] Manjit Hall MD [Primary Care Provider, Internal Medicine] Discharge Date/Time: 07/07/25 09:58 Print Language: Ethiopian
[2025-07-05 10:22] VITALS: BP 106/72; PULSE 85; RESP 20; TEMP 36.6; O2SAT 99; BMI 17.6
--- NOTE | 2025-07-05 10:30 | ECG_ITS ---
Test Reason : AFIB Blood Pressure : */* mmHG Vent. Rate : 104 BPM Atrial Rate : 104 BPM P-R Int : 134 ms QRS Dur : 64 ms QT Int : 320 ms P-R-T Axes : 74 72 57 degrees QTcB Int : 420 ms Sinus tachycardia Possible Anterior infarct , age undetermined Abnormal ECG When compared with ECG of 22-May-2024 08:26, No significant change was found Referred By: Luisa Rice Electronically Signed By: DAVON CERNA
[2025-07-05 10:40] VITALS: RESP 18
[2025-07-05] MEDS: oxyCODONE HCl Immed Release 5 MG TABLET PO ×2 (13:15→23:55)
--- OUTSIDE RECORDS SUMMARY | 2025-07-05 13:44 | XMS_ITS | Clinical Summary ---
Author Organization [facility] Address [address] [place] [address] Care Team Providers Care Environmental Auditor Name Role Phone Kike Cornelius MD Primary [...] of 3 - 19+ 3-dose series) 2003 Mammogram/Breast Imaging 2024 COVID-19 Vaccine ( - 2024-2 6 season) 2025 Influenza (#1) 2025 Zoster (Shingrix) (1 of [...] age to complete this topic Care Teams Environmental Auditor Relationship Specialty Start Date End Date Kike Cornelius MD PCP - General 03/09/23 Kike Cornelius MD PCP - Backup PCP 09/03/23
--- OUTSIDE RECORDS SUMMARY | 2025-07-05 13:44 | XMS_ITS | Encounter Summary ---
Author Organization [facility] Address [address] [place] [address] Care Team Providers Care Per Diem Interpreter Name Role Phone Lg Shepherd PA-C Primary Care Provider Encounter Details Date Type Department Care Team (Late st Contact Info) Description 06/03/2019 Scanned Document [facility] Urologic Surgery [address] [place] [id number] Provider, Rashmi, [address] [place] [address] Social History Tobacco Use Types Packs/Day Years [...] on filedocumented in this encounter Care Teams Per Diem Interpreter Relationship Specialty Start Date End Date Lg Shepherd PA-C PCP - General Internal Medicine 12/01/17 documented as of this encounter
--- OUTSIDE RECORDS SUMMARY | 2025-07-05 13:44 | XMS_ITS | Encounter Summary ---
Author Organization [facility] Address [address] [place] [address] Care Team Providers Care Bat Lathe Operator Name Role Phone Lg Shepherd PA-C Primary Care Provider Encounter Details Date Type Department Care Team (Late st Contact Info) Description 09/01/2019 Scanned Document [facility] [address] [id number] Sommer Gonzalez, DO [address] [place] [id number] Social History Tobacco Use Types Packs/Day Years [...] on filedocumented in this encounter Care Teams Bat Lathe Operator Relationship Specialty Start Date End Date Lg Shepherd PA-C PCP - General Internal Medicine 12/01/17 documented as of this encounter
--- OUTSIDE RECORDS SUMMARY | 2025-07-05 13:44 | XMS_ITS | Encounter Summary ---
Author Organization [facility] Address [address] [place] [address] Care Team Providers Care Circulation Director Name Role Phone gL Shepherd PA-C Primary Care Provider [phone] Encounter Details Date Type Department Care Team (Late st Contact Info) Description 03/03/2019 Scanned Document [facility] [address] [place] [phone] Provider, MD Rashmi [address] [place] [address] Social History Tobacco Use Types Packs/Day Years [...] on filedocumented in this encounter Care Teams Circulation Director Relationship Specialty Start Date End Date Lg Shepherd PA-C PCP - General Internal Medicine 12/01/17 documented as of this encounter
--- OUTSIDE RECORDS SUMMARY | 2025-07-05 13:44 | XMS_ITS | Clinical Summary ---
Author Organization [facility] Address [address] [place] [address] Care Team Providers Care Audiology Director Name Role Phone Lg Shepherd PA-C Primary Care Provider Allergies Active Allergy Reactions Criticality Noted Date Comments Celecoxib Hives Medium 09/09/2012 Chest pain Vancomycin Itching Low 09/04/2015 Medications ergocalciferol (VITAMIN D2,DRISDOL) 09751 units Cap daily. 5 Active metoPROLOL SUCCINATE [...] impaction and needed a clean out in [facility] with enemas and bowel rest, which helped. [...] series) 2003 Pap Smear (Ages 21-65) 2005 Mammogram 2024 Influenza Vaccine 03/03/2025 COVID-19 Vaccine (3 - 2024-2 6 season) 2025 05/13/2021, 04/15/2021 HPV Vaccines (No Doses Required) Completed Pneumococcal Vaccine: Pediatric (0-5 Years) and At-Risk Patients (6 to 49 Years) Aged Out No longer eligible b ased on patient's age to complete this topic Insurance [facility] Care Teams Audiology Director Relationship Specialty Start Date End Date Lg Shepherd PA-C PCP - General Internal Medicine 12/01/17
--- OUTSIDE RECORDS SUMMARY | 2025-07-05 13:44 | XMS_ITS | Encounter Summary ---
Author Organization Formerly [facility] Address [address] [place] [address] Care Team Providers Care Production Tester Name Role Phone Lg Shepherd PA-C Primary Care Provider Encounter Details Date Type Department Care Team (Late st Contact Info) Description 06/04/2019 Scanned Document [facility] Urologic Surgery [address] [place] [phone] Provider, Rashmi, [address] [place] [address] Social History Tobacco Use Types Packs/Day Years [...] on filedocumented in this encounter Care Teams Production Tester Relationship Specialty Start Date End Date Lg Shepherd PA-C PCP - General Internal Medicine 12/01/17 documented as of this encounter
--- OUTSIDE RECORDS SUMMARY | 2025-07-05 13:44 | XMS_ITS | Encounter Summary ---
Author Organization Formerly [facility] Address [address] [place] [address] Care Team Providers Care Religious Activities Director Name Role Phone Lg Shepherd PA-C Primary Care Provider [phone] Encounter Details Date Type Department Care Team (Late st Contact Info) Description 07/13/2019 Scanned Document [facility] Urologic Surgery [address] [place] [phone] Provider, Rashmi, [address] [place] [address] Social History Tobacco Use Types Packs/Day Years [...] on filedocumented in this encounter Care Teams Religious Activities Director Relationship Specialty Start Date End Date Lg Shepherd PA-C PCP - General Internal Medicine 12/01/17 documented as of this encounter
--- OUTSIDE RECORDS SUMMARY | 2025-07-05 13:44 | XMS_ITS | Encounter Summary ---
Author Organization Formerly [facility] Address [address] [place] [address] Care Team Providers Care Hris Developer Name Role Phone Lg Shepherd PA-C Primary Care Provider Encounter Details Date Type Department Care Team (Late st Contact Info) Description 06/04/2019 Scanned Document [facility] Urologic Surgery [address] [place] [phone] Provider, Rashmi, [address] [place] [address] Social History Tobacco Use Types Packs/Day Years [...] on filedocumented in this encounter Care Teams Hris Developer Relationship Specialty Start Date End Date Lg Shepherd PA-C PCP - General Internal Medicine 12/01/17 documented as of this encounter
--- OUTSIDE RECORDS SUMMARY | 2025-07-05 13:44 | XMS_ITS | Continuity of Care Document ---
Author Organization [place] [facility] Address [address] [place] [address] Care Team Providers Care Postal Service Window Clerk Name Role Phone GINNA GOLDSTEIN Primary Care Provider [phone] Assessment Encounter Date Assessment Date Assessment LastModified by Organization Details LastModified Time 05/15/2025 05/15/2025 39-year-old mihaela torres presents today with intermittent right sided ear blockage. Nasopharyngoscopy does not show any obstruction at the ET orifice. On exam today middle ears are well aerated. Most recent audiogram in 2022 showed a high-frequency loss. CT around that time showed clear mastoids. She does have a history of seasonal allergies. I recommended trying azelastine instead of ipratropium. I also recommended that she discuss with her dentist possible mouthguard as clenching the teeth can contribute to a sensation of ear blockage. She is scheduled for updated audiometric testing next year and she will keep that appointment. She declines moving it up. Incidentally noted on exam is patchy white secretions along the palate concerning for thrush. I did resend in clotrimazole. [email or web address] Not available 05/16/2025 06:56:07 Plan of Treatment Reminders Order Date Submit Date Provider Last Modified By Organization Details Last Modified Time Details Appointments Hearing Test 2025 03:00P M Hearing Test Not available Not available Not available Establish ed 15 2025 03:15P M LEDA MARINA MD Not available Not available Not available Lab None recorded. Referral None recorded. Procedures None recorded. Surgeries None recorded. Imaging None recorded. Medication Orders clotrimaz ole 10 mg jagdeep 2024 025 [facility][id number], [address] [place], [address], 06/05/2025 05:01:56 azelastin e 137 mcg (0.1 %) nasal spray 2024 025 [facility] #[id number], [address] [place], [address], 05/15/2025 15:37:00 Patient TargetsNo targets recorded. Patient InstructionsNo instructions recorded. Reason for Referral None Reported. Problems Name Problem SNOMED Code Status Onset Date Resolution Date Notes Provider Name and Address Organization Details Recorded Time Otalgia of right ear 3531612917 Active 2022 Otalgia, right ear; Note: Date Diagnosed : 09/08/2022 9:29 AM (H92.01) Not Available [facility] 4 02:34:05 Central perforati on of right tympanic membrane 67922621446 16036 Active 2022 Central perforati on of tympanic membrane, right ear; Note: Date Diagnosed : 09/08/2022 9:29 AM (H72.01) Not Available [facility] 4 02:34:03 Acute pharyngit is 737263698 Active 2022 Pharyngit is (acute) NOS; Note: Date Diagnosed : 10/03/2022 3:23 PM (J02.9) Not Available [facility] 4 02:33:53 Abnormal auditory perceptio n 11411833 Active 2022 Other abnormal auditory perceptio ns, right ear; Note: Date Diagnosed : 10/21/2022 4:59 PM (H93.291) Not Available [facility] 4 02:34:10 Disorder of right Eustachia n tube 86397655417 87822 Active 2022 Other specified disorders of Eustachia n tube, right ear; Note: Date Diagnosed : 10/24/2022 10:15 AM (H69.81) Not Available [facility] 4 02:34:01 Chronic rhinitis 37820050 Active 2022 Chronic rhinitis; Note: Date Diagnosed : 02/01/2023 8:07 AM (J31.0) Not Available [facility] 4 02:33:59 Deviated nasal septum 582943119 Active 2023 Deviated nasal septum; Note: Date Diagnosed : 08/09/2023 10:14 AM (J34.2) Not Available [facility] 4 02:34:11 Candidias is of mouth 39084877 Active 2023 LEDA MARINA MD [address], [place], [place], [address] , [place] - [facility] 5 11:41:55 Sensorine ural hearing loss 17389300 Active 2023 HALI RUDOLPH [address], [place], [place], [address] , [place] - [facility] 4 15:29:05 Candidias is 47815788 Active 2023 LEDA MARINA MD [address], [place], [place], [address] , [place] - [facility] 4 15:44:05 Impacted cerumen of bilateral ears 01993929909 57441 Active 2024 LINDY FIGUEROA PA-C [address], [place], [place], [address] , [place] [facility] 5 15:18:47 Dysfuncti on of right eustachia n tube 19001341650 91559 Active 2024 LEDA MARINA MD [address], [place], [place], [address] , [place] [facility] 5 15:33:28 Seasonal allergy 658467375 Active 2024 LEDA MARINA MD [address], [place], [address] , [place] [facility] 5 06:56:25 Problem Notes None recorded. Procedures Surgical History Date Name Laterality Status Provider Name and Address Organization Details Recorded Time 025 Fiberoptic Nasopharyngoscopy completed LEDA MARINA MD [address] [facility],[address], [address], [place] [facility] 05/15/2025 15:36:43 025 Cerumen removal without microscope bilat completed LINDY FIGUEROA PA-C [address] [facility],[address], [address], [place] [facility] 11/18/2024 15:18:54 024 Air & Speech Audio with Tymps - 30921, 83837 & 24247 completed HALI RUDOLPH [address] [place] [address],[address], [address], [facility] - [facility] 07/15/2024 15:28:58 tonsillectomy completed LEDA MARINA MD [address] [place] [address],[address], [address], [facility] - [facility] 06/13/2024 15:50:24 catheter ablation of arrhythmogenic focus completed LEDA MARINA MD [address] [place] [address],[address], [address], [facility] - [facility] 06/13/2024 15:52:52 subtotal gastrectomy completed ARIELLE MARINA MD [address] [place] [address],[address], [address], [facility] - [facility] 06/13/2024 15:53:16 exploratory laparotomy completed LEDA MARINA MD [address] [place] [address],[address], [address], [facility] - [facility] 06/13/2024 15:53:31 Imaging Results None recorded. Procedure Notes None recorded. Medical Equipment None Reported. Allergies Allergen ID Allergen Name Allergen Category Reaction Reaction Severity Criticality Documentation Date Start Date Code Code System Note Provider Name and Address Organization Details Recorded Time 65415 Celebrex medicatio n other Not available Not available 12/15/2023 69377 7 RxNorm React ion: Unkno wn; Not Available [facility] 4 01:04:33 78419 vancomyci n medicatio n other Not available Not available 12/15/2023 03647 RxNorm React ion: Unkno wn; Not Available [facility] 4 01:04:36 Medications Name Sig Start Date Stop Date Status Note LastModified by Organization Details LastModified Time clotrimazol e 10 mg jagdeep Take 1 tablet 5 times a day by oral route for 14 days. 06/05 completed Not Available Not Available Not Available nystatin 100,000 unit/mL oral suspension TAKE 5 ML BY MOUTH 4 TIMES A DAY FOR 14 DAYS. 05/15 completed Not Available Not Available Not Available prednisone 10 mg tablet TAKE 5 TABLETS BY MOUTH DAILY FOR 5 DAYS 06/13 completed Not Available Not Available Not Available doxycycline hyclate 100 mg capsule TAKE 1 CAPSULE BY MOUTH TWICE A DAY FOR 7 DAYS 01/27 completed Not Available Not Available Not Available clindamycin HCl 300 mg capsule TAKE 1 CAPSULE BY MOUTH 4 TIMES A DAY UNTIL FINISHED 11/18 completed Not Available Not Available Not Available azithromyci n 250 mg tablet TAKE 2 TABLETS BY MOUTH TODAY, THEN TAKE 1 TABLET DAILY FOR 4 DAYS DIRECTED 06/13 completed Not Available Not Available Not Available Lidocaine Viscous 2 % mucosal solution TAKE 15 ML BY MOUTH EVERY 3 HOURS NEEDED (SORE THROAT). DO NOT EXCEED 8 DOSES PER 24 HOUR PERIOD 05/15 completed Not Available Not Available Not Available ofloxacin 0.3 % eye drops INSTILL 1 DROP INTO AFFECTED EYE 4 TIMES A DAY FOR 7 DAYS 05/15 completed Not Available Not Available Not Available sucralfate 1 gram tablet TAKE 1 TABLET BY MOUTH 3 TIMES DAILY WITH MEALS. active Not Available Not Available No t Available metronidazo le 250 mg tablet TAKE 1 TABLET BY MOUTH 4 TIMES A DAY FOR 14 DAYS. 11/18 completed Not Available Not Available Not Available aspirin 81 mg tablet,billy yed release TAKE 1 TABLET BY MOUTH EVERY DAY active Not Available Not Available No t Available doxycycline monohydrate 100 mg tablet TAKE 1 TABLET BY MOUTH TWICE A DAY FOR 7 DAYS 11/18 completed Not Available Not Available Not Available acetaminoph en 500 mg tablet TAKE 2 TABLETS BY MOUTH EVERY 6 HOURS NEEDED FOR PAIN 05/15 completed Not Available Not Available Not Available tamsulosin 0.4 mg capsule TAKE 1 CAPSULE BY MOUTH ONCE A DAY NEEDED FOR STONE PASSAGE active Not Available Not Available No t Available amitriptyli ne 10 mg tablet TAKE 1 TABLET BY MOUTH EVERYDAY AT BEDTIME active Not Available Not Available No t Available cephalexin 500 mg capsule TAKE 1 CAPSULE BY MOUTH 4 TIMES A DAY FOR 7 DAYS 05/12 completed Not Available Not Available Not Available pantoprazol e 40 mg tablet,billy yed release PLEASE SEE ATTACHED FOR DETAILED DIRECTION S active Not Available Not Available No t Available oseltamivir 75 mg capsule TAKE 1 CAPSULE BY MOUTH EVERY 12 HOURS FOR 5 DAYS 05/15 completed Not Available Not Available Not Available neomycin-po lymyxin-dex ameth 3.5 mg/mL-10,00 0 unit/mL-0.1 % eye drops INSTILL ONE DROP INTO THE AFFECTED EYE THREE TIMES PER DAY FOR A MAXIMUM OF 7 DAYS. SHAKE. 05/12 completed Not Available Not Available Not Available oxybutynin chloride ER 5 mg tablet,exte nded release 24 hr TAKE 1 TABLET BY MOUTH EVERY DAY active Not Available Not Available No t Available bismuth subsalicyla te 262 mg chewable tablet CHEW AND SWALLOW 2 TABLETS (524 MG TOTAL) BY MOUTH 4 TIMES A DAY FOR 14 DAYS. active Not Available Not Available No t Available diltiazem CD 120 mg capsule,ext ended release 24 hr TAKE 1 CAPSULE BY MOUTH 3 TIMES A DAY active Not Available Not Available No t Available mupirocin 2 % topical ointment APPLY TOPICALLY TO AFFECTED AREA(S) TWICE DAILY FOR 7 DAYS active Not Available Not Available No t Available gabapentin 100 mg capsule 01/27 completed Not Available Not Available Not Available metoprolol succinate ER 25 mg tablet,exte nded release 24 hr TAKE 1 TABLET (25 MG TOTAL) BY MOUTH 2 (TWO) TIMES A DAY. DO NOT CRUSH OR CHEW. active Not Available Not Available No t Available azelastine 137 mcg (0.1 %) nasal spray SPRAY 2 SPRAYS BY INTRANASA L ROUTE TWICE A DAY FOR 30 DAYS active Not Available Not Available No t Available albuterol sulfate HFA 90 mcg/actuati on aerosol inhaler INHALE 2 PUFFS BY MOUTH EVERY 4 (FOUR) HOURS IF NEEDED FOR WHEEZING OR SHORTNESS OF BREATH. active Not Available Not Available No t Available medroxyprog esterone 150 mg/mL intramuscul ar suspension INJECT 1 ML INTO THE MUSCLE EVERY 3 MONTHS 06/13 completed Not Available Not Available Not Available doxycycline hyclate 100 mg tablet TAKE 1 TABLET BY MOUTH EVERY 12 HOURS,X14 DAYS 06/13 completed Not Available Not Available Not Available dicyclomine 10 mg capsule TAKE 1 CAPSULE (10 MG TOTAL) BY MOUTH 4 (FOUR) TIMES A DAY IF NEEDED (ABDOMINA L CRAMPING) . active Not Available Not Available No t Available ipratropium bromide 21 mcg (0.03 %) nasal spray NASL 2 SPRAYS IN EACH NOSTRIL 2 TIMES A DAY for 90 days 2024 active Not Available Not Available Not Avai lable oxycodone 5 mg tablet TAKE 1 TABLET BY MOUTH EVERY 4 TO 6 HOURS NEEDED active Not Available Not Available No t Available neomycin 3.5 mg/g-polymy saumya B 10,000 unit/g-dexa meth 0.1 % eye oint APPLY A SMALL AMOUNT TO THE EYELID MARGIN OF BOTH EYES AT BEDTIME FOR 10 DAYS 05/12 completed Not Available Not Available Not Available medroxyprog esterone 150 mg/mL intramuscul ar syringe INJECT 1 MILLILITE R INTO THE SHOULDER, THIGH, OR BUTTOCKS EVERY 3 MONTHS active Not Available Not Available No t Available cyclobenzap rine 5 mg tablet TAKE 1 TABLET BY MOUTH 3 TIMES DAILY NEEDED FOR MUSCLE SPASMS FOR UP TO 7 DAYS. 11/18 completed Not Available Not Available Not Available budesonide- formoterol HFA 160 mcg-4.5 mcg/actuati on aerosol inhaler INHALE 2 PUFFS INTO THE LUNGS TWICE A DAY active Not Available Not Available No t Available cholecalcif christel (vitamin D3) 50 mcg (2,000 unit) capsule TAKE 1 CAPSULE (2,000 UNITS TOTAL) BY MOUTH ONCE DAILY active Not Available Not Available No t Available Vitamin D3 50 mcg (2,000 unit) tablet TAKE 1 TABLET BY MOUTH EVERY DAY active Not Available Not Available No t Available Linzess 290 mcg capsule TAKE 1 CAPSULE (290 MCG TOTAL) BY MOUTH 1 (ONE) TIME EACH DAY. active Not Available Not Available No t Available Movantik 25 mg tablet TAKE 1 TABLET BY MOUTH 1 TIME EACH DAY. active Not Available Not Available No t Available omeprazole 20 mg delayed release,dis integrating tablet CRUSH 1 TABLET & MIX WITH 1 TABLESPOO N OF APPLESAUC E & TAKE TWICE A DAY BY MOUTH BEFORE MEALS. active Not Available Not Available No t Available prucaloprid e 2 mg tablet TAKE 1 TABLET BY MOUTH EVERY DAY active Not Available Not Available No t Available Paxlovid 300 mg (150 mg x 2)-100 mg tablets in a dose pack TAKE 3 TABLETS BY MOUTH TWICE A DAY 06/13 completed Not Available Not Available Not Available Vitals Date Recorded Body height Body mass index (BMI) Body weight Provider Name and Address Organization Details Last Updated DateTime 05/15/2025 152.4 cm 16.6 kg/m2 28633.35 g Kavya Ghosh [place] - [facility] 05/15/2025 15:22:11 Social History None recorded. Functional Status None recorded. Mental Status None recorded. Family History Nothing Reported. Medical History Condition Response Allergies/Hayfever Y Heart Problems Y Anxiety N Tonsil Infections Y Emphysema N Migraines Y Thyroid Problems N Glaucoma N Depression N COPD N Developmental Delay N Nasal or Sinus Problems Y Anemia Y Immune System Disorder N Anesthesia Complications N Heart Attack ([place]) N Other Skin Condition Y Diabetes N Rhinitis N Bleeding Disorder N Food Allergy N Arthritis Y Hearing Loss Y Hyperlipidemia N Cancer N Stroke N Dementia N Nasal polyps N Asthma Y High Cholesterol N Sleep Disorder N GERD/Reflux Y Liver Disease N Headaches Y Fibromyalgia N Hypertension N Speech Delay N Kidney Disease Y Gynecological HistoryNo gynecological history recorded. Obstetrics History GPAL:G 0 P 0 0 0 0 Past Encounters Encounter ID Performer Location Encounter Start Date Encounter Closed Date Diagnosis/Indication Diagnosis SNOMED-CT Code Diagnosis ICD10 Code Diagnosis IMO Codes Diagnosis Note [id number] LEDA MARINA MD [facility] [address] [address] 05/15/2025 14:37:32 05/15/2025 15:38:36 Candidiasis of mouth 58108969 B37.0 649418 Dysfunctio n of right eustachian tube 7111097330 645600 H69.91 32859409 Seasonal allergy 9087006 04 J30.2 26518 Health Concerns Section Related Observation LastModified by Organization Detai ls LastModified Time None Recorded Concern Status LastModified by Organization Details LastModified Time None Recorded Payers Encounter Date Sequence Insurance Name Policy Number Policy Young Covered Member ID Young Member ID Guarantor Name 05/15/2025 1 [place] [employer] Joslyn Beaulieu [id number] Joslyn Beaulieu 05/15/2025 2 [place] [facility] Joslyn Beaulieu [id number] Joslyn Christofer Notes Date Note Type Note Provider Name and Address Organization Details Recorded Time 05/15/2025 text/html 39-year-old female presents today for evaluation of right sided ear blockage does clench teeth, right ear intermittent blockage previous rast testing 10/2023 showed trees, grasses, weeds were positivecould not have skin testing due to metoprolol LEDA MARINA MD [address] [place] [address], [phone], [facility] - [facility] 05/16/2025 06:57:11 OBGyn Episode No OBEpisode recorded.
--- OUTSIDE RECORDS SUMMARY | 2025-07-05 13:44 | XMS_ITS | Encounter Summary ---
Author Organization [facility] Address [address] [place] [address] Care Team Providers Care Undercar Specialist Name Role Phone Lg Shepehrd PA-C Primary Care Provider Encounter Details Date Type Department Care Team (Late st Contact Info) Description 06/04/2019 Scanned Document [facility] Urologic Surgery [address] [place] [phone] Provider, Rashmi, [address] [place] [address] Social History Tobacco Use Types Packs/Day Years [...] on filedocumented in this encounter Care Teams Undercar Specialist Relationship Specialty Start Date End Date Lg Shepherd PA-C PCP - General Internal Medicine 12/01/17 documented as of this encounter
--- OUTSIDE RECORDS SUMMARY | 2025-07-05 13:45 | XMS_ITS | Encounter Summary ---
Author Organization [facility] Address [address] [place] [address] Care Team Providers Care Second Butler Name Role Phone Lg Shepherd PA-C Primary Care Provider Encounter Details Date Type Department Care Team (Late st Contact Info) Description 10/20/2017 Scanned Document [facility] Urologic Surgery [address] [place] [address] Gerber Rosario MD [address] [place] [address] [address] [place] [address] Social History Tobacco Use Types Packs/Day Years [...] on filedocumented in this encounter Care Teams Second Butler Relationship Specialty Start Date End Date Lg Shepherd PA-C PCP - General Internal Medicine 12/01/17 documented as of this encounter
--- OUTSIDE RECORDS SUMMARY | 2025-07-05 13:45 | XMS_ITS | Encounter Summary ---
Author Organization [facility] Address [address] [place] [address] Care Team Providers Care Aircraft Structural Fitter Name Role Phone Lg Shepherd PA-C Primary Care Provider [phone] Encounter Details Date Type Department Care Team (Late st Contact Info) Description 02/26/2018 Scanned Document [facility] Urologic Surgery [address] [place] [address] Provider, MD Rashmi [address] [place] [address] Social History Tobacco Use Types Packs/Day Years [...] filedocumented in this encounter Care Teams Aircraft Structural Fitter Relationship Specialty Start Date End Date Lg Shepherd PA-C PCP - General Internal Medicine 12/01/17 documented as of this encounter
--- OUTSIDE RECORDS SUMMARY | 2025-07-05 13:45 | XMS_ITS | Encounter Summary ---
Author Organization [facility] Address [address] [place] [address] Care Team Providers Care Residence Hall Director Name Role Phone Lg Shepherd PA-C Primary Care Provider Encounter Details Date Type Department Care Team (Late st Contact Info) Description 12/15/2018 Scanned Document [facility] [address] [place] [phone] Lg Shepherd PA-C [address] [place] [address] Social History Tobacco Use Types Packs/Day Years [...] on filedocumented in this encounter Care Teams Residence Hall Director Relationship Specialty Start Date End Date Lg Shepherd PA-C PCP - General Internal Medicine 12/01/17 documented as of this encounter
--- OUTSIDE RECORDS SUMMARY | 2025-07-05 13:45 | XMS_ITS | Encounter Summary ---
Author Organization [facility] Address [address] [place] [address] Care Team Providers Care Oncology Social Worker Name Role Phone Lg Shepherd PA-C Primary Care Provider [phone] Encounter Details Date Type Department Care Team (Late st Contact Info) Description 07/04/2022 Scanned Document [facility] [address] [place] [phone] Provider, MD Rashmi [address] [place] [address] Social History Tobacco Use Types Packs/Day Years [...] on filedocumented in this encounter Care Teams Oncology Social Worker Relationship Specialty Start Date End Date Lg Shepherd PA-C PCP - General Internal Medicine 12/01/17 documented as of this encounter
--- OUTSIDE RECORDS SUMMARY | 2025-07-05 13:45 | XMS_ITS | Encounter Summary ---
Author Organization [facility] Address [address] [place] [address] Care Team Providers Care Manager Publishing Name Role Phone Lg Shepherd PA-C Primary Care Provider Encounter Details Date Type Department Care Team (Late st Contact Info) Description 09/17/2018 Scanned Document [facility] [address] [place] [address] [phone] Provider, MD Rashmi [address] [place] [address] Social History Tobacco Use Types Packs/Day Years [...] on filedocumented in this encounter Care Teams Manager Publishing Relationship Specialty Start Date End Date Lg Shepherd PA-C PCP - General Internal Medicine 12/01/17 documented as of this encounter
--- OUTSIDE RECORDS SUMMARY | 2025-07-05 13:45 | XMS_ITS | Clinical Summary ---
Author Organization [address] [facility] Address [address] [place] [address] Phone Care Team Providers Care Muffler Tender Name Role Phone Bette Corona MD Primary Care Provider Allergies Active Allergy [...] SUPPER 180 tablet 3 12/20/19 25 Active albuterol HFA (Ventolin HFA) 90 [...] AREA TWICE A DAY 22 g 3 02/28/20 25 Active metoprolol succinate (TOPROL-XL) 25 mg 24 hr tablet Take 1 tablet (25 mg total) by mouth 2 (two) times a day. Do not crush or chew. 180 tablet 1 02/28/20 Active amitriptyline (ELAVIL) 10 mg tablet TAKE 1 TABLET BY MOUTH EVERYDAY AT BEDTIME 90 tablet 1 03/14/20 25 Active dicyclomine (BENTYL) 10 mg capsule TAKE 1 CAPSULE (10 MG TOTAL) BY MOUTH 4 (FOUR) TIMES A DAY IF NEEDED (ABDOMINAL CRAMPING). 360 capsule 03/24/20 Active nystatin (MYCOSTATIN) 100,000 unit/mL suspension Take 5 mL (500,000 Units total) by mouth 4 (four) times a day. Swish in mouth and swallow. 280 mL 05/08/20 Active dilTIAZem CD (CARDIZEM CD) 120 mg 24 hr capsule TAKE 1 CAPSULE BY MOUTH 3 TIMES A DAY 270 capsule 07/04/20 Active cephalexin (KEFLEX) 500 mg capsule Take 1 capsule (500 mg total) by mouth 4 (four) times a day for 7 days. 28 each 07/01/20 25 2024 Active acetaminophen (TYLENOL) 500 mg tablet Take 2 tablets (1,000 mg total) by mouth every 6 (six) hours if needed for mild pain for up to 10 days. 30 tablet 07/01/20 25 2024 Active dicyclomine (BENTYL) 20 mg tablet Take 1 tablet (20 mg total) by mouth 2 (two) times a day for 10 days. 20 tablet 07/01/202024 Active oxyCODONE (ROXICODONE) 5 mg immediate release tablet Take 1 tablet (5 mg total) by mouth every 6 (six) hours if needed for severe pain. Max Daily Amount: 20 mg 7 tablet 07/01/20 Active ondansetron (ZOFRAN) 4 mg tablet Take 1 tablet (4 mg total) by mouth every 8 (eight) hours if needed for nausea or vomiting for up to 7 days. 20 tablet 07/01/20 25 2024 Active ergocalciferol (VITAMIN D-2) 1,250 mcg (50,000 unit) capsule Take 1 capsule (50,000 Units total) by mouth 1 (one) time per week. 8 capsule 07/04/20 25 2025 Active dilTIAZem CD (CARDIZEM CD) 120 mg 24 hr capsule TAKE 1 CAPSULE (120 MG TOTAL) BY MOUTH 3 (THREE) TIMES A DAY. 270 capsule 1 01/10/20 25 2024 Discontinued Hospital, Clinic, or Other Facility Administered Medication Ordered Dose Route Frequency Start Date End Date Status medroxyPROGESTERone (DEPO-PROVERA) injection 150 mgIndications:Surveillance for Depo-Provera contraception 150 mg IM Once 06/08/2025 06/08/2025 Ended Active Problems Problem Noted Date Diagnosed Date Pulmonary nodule 03/30/2025 Chronic anemia 01/23/2025 Macrocytosis 01/23/2025 Constipation 01/23/2025 [...] Mild persistent asthma without complication 09/2022 Malnutrition (CMS/HCC V24) 09/04/2022 Insomnia 09/04/2022 Iron deficiency anemia secon walter to inadequate dietary iron intake 08/28/2022 POTS (postural orthostatic tachycardia syndrome) 08/28/2022 Overview (05/18/2024): Last Assessment & Plan: Again this appears to be better with the changes in her medications. Been no changes to these. I encouraged her to increase her fluid intake as well. Paroxysmal A-fib (CMS/HCC V24, CMS/HCC V28) 05/04 Overview (05/18/2024): Last Assessment & Plan: 1 episode of documented atrial fibrillation no symptoms since PSVT (paroxysmal supraventri cular tachycardia) (CMS/HCC V24) 05/29/2022 Overview (05/18/2024): Last Assessment & [...] she had catecholamine induced A-fib Pulmonary hypertension (CMS/HCC V24, CMS/HCC V28 ) 05/29/2022 Overview (05/18/2024): Last Assessment [...] s) 05/04/2018 PAF (paroxysmal atrial fibri llation) ([facility] V24, [facility] V28) 10/26/2017 Hypertension 12/01/2016 Inguinal pain 12/01/2016 Mitral valve insufficiency 12/01/2016 Obstructive sleep apnea syndrome 12/01/2016 Orthostatic hypotension 12/01/2016 Palpitations 12/01/2016 Overview (03/28/2024): Cardiac cath 09/05/2015, 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 See under POTS Sinus tachycardia 12/01/2016 Snoring 12/01/2016 Wide-complex tachycardia 12/01/2016 Supraventricular tachycardia ([facility] V24) 12/01 GERD (gastroesophageal reflux disease) 3 [...] Encounters Date Type Department Care Team Description 07/01/2025 9:13 AM EST - 07/01/2025 1:08 PM EST Emergency [facility] Emergency [address] [place] [phone] Pyelonephritis (Primary Dx) Discharge Disposition: Home or Self Care 06/28/2025 10:40 AM EST Lab Draw Station - [address] [phone] Renal tubular acidosis, type 1 (Primary Dx); Calculus of kidney; Other disorders resulting from impaired renal tubular function 06/21/2025 3:30 PM EST Office Visit [facility] Hematology Oncology [address] [place] [phone] Angelito Mcfarlane MD Iron deficiency anemia secondary to inadequate dietary iron intake (Primary Dx); B12 deficiency 06/16/2025 2:55 PM EST Lab Draw [address] Macrocytosis; Metabolic acidosis; Iron deficiency anemia secondary to inadequate dietary iron intake 06/16/2025 Results Follow-Up Adult [address] [phone] Manjit Hall MD 06/08/2025 3:15 PM EST Clinical Support Obstetrics and Gynecology [address] [phone] Surveillance for Depo-Provera contraception (Primary Dx) 05/17/2025 Lab Requisition [facility] - Main Lab [address] [place] [address] Kike Reynolds MD Encounter for screening for other suspected endocrine disorder 05/08/2025 3:30 PM EDT Office Visit [address] [phone] Manjit Hall MD Oral thrush (Primary Dx); Macrocytosis; Weight loss; Metabolic acidosis; Gastroesophageal reflux disease without esophagitis; POTS (postural orthostatic tachycardia syndrome); Kidney stones; Anxiety and depression 04/28/2025 Telephone [facility] [address] [place] [address] Mandeep Horn MD 04/27/2025 Telephone [facility] Hematology Oncology [address] [place] [address] Donita Lau MA 04/17/2025 3:20 PM EDT Office Visit Gastroenterology - [place] [address] [facility] [address] [facility] [address] [place] [address] Bisi Dinero NP Chronic GERD without esophagitis (Primary Dx); Chronic idiopathic constipation; Patient underweight 04/17/2025 Telephone [facility] Hematology Oncology [address] [place] [address] Angelito Mcfarlane MD 04/11/2025 11:21 AM EDT - 04/11/2025 11:59 PM EDT Hospital Encounter [facility] Interventional Radiology [address] [place] [address] Macrocytic anemia Discharge Disposition: Home or Self Care from Last 3 Months Immunizations Immunization Administration Dates Next Due DTP 02/23/1989, 6,01/07/1985,11/05,1984 [id number] (Pentacel) 2mo to less than 5yo 07/03/1986 [...] FOOT SURGERY PROCEDURE:FOOT SURGERY OTHER SURGICAL HISTORY PROCEDURE:UT PELVIC EXAMINATION W/ANESTHESIA OTHER THAN LOCAL ARRHYTHMIA SURGERY 09/05/2015 N/A PROCEDURE:ARRHYTHMIA SURGERY;COMMENT:Procedure: Comp Eps W/ Cs/La Pac & Record; Surgeon: Roman Oliver MD; Location: [facility] ELECTROPHYSIOLOGY LAB (EP); Service: Cardiology; Laterality: N/A; ARRHYTHMIA SURGERY 09/05/2015 N/A PROCEDURE:ARRHYTHMIA SURGERY;COMMENT:Procedure: Comp Eps With Induction; Surgeon: Roman Oliver MD; Location: [facility] ELECTROPHYSIOLOGY LAB (EP); Service: Cardiology; Laterality: N/A; ARRHYTHMIA SURGERY 09/05/2015 N/A PROCEDURE:ARRHYTHMIA SURGERY;COMMENT:Procedure: Pes/Pacing After Iv Drug Infusion; Surgeon: Roman Oliver MD; Location: [facility] ELECTROPHYSIOLOGY LAB (EP); Service: Cardiology; Laterality: N/A; ATRIAL ABLATION SURGERY 02/06/2014 N/A PROCEDURE:ATRIAL ABLATION SURGERY;COMMENT:Procedure: COMP EP EVAL INCL INSERT AND REPOS OF MULT ELECT CATHS W/ INDUCT OR ATTP INDUC OF ARRHY W/ R. ATRIAL && VENT PACING && RECORD W/ TX OF SVT BY ABLATION; Surgeon: Roman Oliver MD; Location: [facility] ELECTROPHYSIOLOGY (EP) LAB; Service: Cardiolog ARRHYTHMIA SURGERY 02/06/2014 N/A PROCEDURE:ARRHYTHMIA SURGERY;COMMENT:Procedure: INTRACARDIAC ELECTROPHYSIOLOGIC 3-D MAPPING; Surgeon: Roman Oliver MD; Location: [facility] ELECTROPHYSIOLOGY (EP) LAB; Service: Cardiology; Laterality: N/A; ARRHYTHMIA SURGERY 02/06/2014 N/A PROCEDURE:ARRHYTHMIA SURGERY;COMMENT:Procedure: COMP EP EVAL INCL INSERT AND REPOS OF MULT ELECT CATHS W/ INDUC OR ATTP INDUC OF ARRH W/ L ATRIAL PACING && RECORDING FROM JOSIANE SINUS OR L ATRIUM.; Surgeon: Roman Oliver MD; Location: [facility] ELECTROPHYSIOLOGY (EP) LAB; Service: Cardiology; ARRHYTHMIA SURGERY 02/06/2014 N/A PROCEDURE:ARRHYTHMIA SURGERY;COMMENT:Procedure: PROGRAMMED STIMULATION AND PACING AFTER INTRAVENOUS DRUG INFUSION; Surgeon: Roman Oliver MD; Location: [facility] ELECTROPHYSIOLOGY (EP) LAB; Service: Cardiology; Laterality: N/A; TONSILLECTOMY 3rd grade PROCEDURE: HISTORICAL TONSILLECTOMY ANKLE SURGERY 11/02/2007 PROCEDURE: HISTORICAL ANKLE SURGERY; COMMENT: Non healing fracture WRIST SURGERY PROCEDURE: HISTORICAL WRIST SURGERY; COMMENT: Sprain FOOT SURGERY 08/03/2009 PROCEDURE: UT UNLISTED PROCEDURE FOOT/TOES; COMMENT: Bone spur right foot COLONOSCOPY 11/11/2012 PROCEDURE: HISTORICAL COLONOSCOPY; COMMENT: melanosis coli ESOPHAGOGASTRODUODENOSCOPY 11/11/2012 PROCEDURE: UT ESOPHAGOGASTRODUODENOSCOPY TRANSORAL DIAGNOSTIC; COMMENT: normal OTHER SURGICAL HISTORY 05/11/2017 PROCEDURE: UT EGD PARTIAL/COMPL ESOPHAGOGASTRIC FUNDOPLASTY; COMMENT: Duodenitis, gastritis [...] of infectious mononucleosis Lower limb amputation, ankle ([facility] V24, CMS/HCC V28) DX:Lower limb amputation, an kle ([facility]) Other specified viral warts 05/2002 DX:O ther [...] bowel syndrome Peptic ulcer disease Bowel obstruction ([facility] V 24, CMS/[facility] V28) 2019 Family History Medical History Relation [...] Mass Index 17.58 07/01/2025 8:53 AM EST Plan of Treatment Upcoming Encounters Date Type Department Care Team (Late st Contact Info) Description 08/10/2025 3:30 PM EST Office Visit [facility] [place] [address] [place] [address] Bette Corona MD [address] [place], [place] 08/31/2025 3:00 PM EST Clinical Support Obstetrics and Gynecology - [address] [phone] 09/08/2025 3:00 PM EST Appointment [facility] Ultrasound [address] [place] [phone] 09/21/2025 3:30 PM EST Office Visit [facility] Hematology Oncology [address] [place] [phone] Angelito Mcfarlane MD [address] [place] [phone] 10/16/2025 3:20 PM EDT Office Visit Gastroenterology - [address] [facility] [address] [phone] Bisi Dinero, KIRA [address] [address] Health Maintenance Due Date Last Done Comments [...] history exists Hypertension/CHF/CAD Annual BMP Blood Test 07/01/2026 07/01/2025, 06/28/2025, 06/28/2025, Additional history exists Cervical Cancer Screening: HPV 06/09/2027 06/09/2022 Cholesterol Screening (Lipid Panel) 08/11/2027 08/11/2022 RSV Immunization Adult Patients (1 - 1-dose 75+ series) 2059 HIB Vaccines Completed 07/03/1986, 07/03/1986 IPV Vaccines [...] this topic Medical Devices Implanted Type Area [employer] Internship Device Identifier Shelf Expiration Date Model / Serial / Lot Stent Uret [id number] Contr Percuflex Hydroplus - Sn/A - [id number] Implanted:Qty: 1 on 03/24/2025 by Alexei Medeiros MD at [facility] Stents Right: U[employer]GYNECOLG Y 12/22/2027 [id number] / N/A / [id number] Procedures Procedure Name Priority Date/Time Associated Diagnosis Comments CT ABDOMEN PELVIS W CONTRAST STAT 07/01/2025 11:52 AM EST CULTURE BLOOD STAT 07/01/2025 10:35 AM EST CBC WITH AUTO DIFFERENTIAL STAT 07/01/2025 10:05 AM EST CBC AND DIFFERENTIAL STAT 07/01/2025 10:05 AM EST LIPASE STAT 07/01/2025 10:05 AM EST LACTATE, WITH REFLEX STAT 07/01/2025 10:05 AM EST COMPREHENSIVE METABOLIC PANEL STAT 07/01/2025 10:05 AM EST CULTURE BLOOD STAT 07/01/2025 10:05 AM EST POC , URINE DIAGNOSTIC STAT 07/01/2025 9:11 AM EST DIANA URINE CULTURE TUBE STAT 07/01/2025 9:02 AM EST URINALYSIS WITH REFLEX MICROSCOPIC AND CULTURE STAT 07/01/2025 9:02 AM EST URINALYSIS WITH REFLEX MICROSCOPIC AND CULTURE STAT 07/01/2025 9:02 AM EST CBC WITH AUTO DIFFERENTIAL Routine 06/28/2025 11:02 AM EST Renal tubular acidosis, type 1 URINALYSIS WITH REFLEX MICROSCOPIC Routine 06/28/2025 11:02 AM EST Calculus of kidney Other disorders resulting from impaired renal tubular function CBC AND DIFFERENTIAL Routine 06/28/2025 11:02 AM EST Renal tubular acidosis, type 1 BASIC METABOLIC PANEL Routine 06/28/2025 11:02 AM EST Calculus of kidney Other disorders resulting from impaired renal tubular function URINALYSIS WITH REFLEX MICROSCOPIC Routine 06/28/2025 11:02 AM EST Calculus of kidney Other disorders resulting from impaired renal tubular function PROTEIN AND CREATININE WITH RATIO, URINE Routine 06/28/2025 11:02 AM EST Calculus of kidney Other disorders resulting from impaired renal tubular function MICROALBUMIN CREATININE URINE RATIO Routine 06/28/2025 11:02 AM EST Calculus of kidney Other disorders resulting from impaired renal tubular function VITAMIN D 25 HYDROXY Routine 06/28/2025 11:02 AM EST Calculus of kidney Other disorders resulting from impaired renal tubular function PARATHYROID HORMONE INTACT Routine 06/28/2025 11:02 AM EST Calculus of kidney Other disorders resulting from impaired renal tubular function CALCIUM, IONIZED Routine 06/28/2025 11:0 2 AM EST Calculus of kidney Other disorders resulting from impaired renal tubular function MAGNESIUM Routine 06/28/2025 11:02 AM EST Calculus of kidney Other disorders resulting from impaired renal tubular function PHOSPHORUS Routine 06/28/2025 11:02 AM EST Calculus of kidney Other disorders resulting from impaired renal tubular function SODIUM, URINE, RANDOM Routine 06/28/2025 11:02 AM EST Calculus of kidney Other disorders resulting from impaired renal tubular function CHLORIDE, URINE, RANDOM Routine 06/28/2025 11:02 AM EST Calculus of kidney Other disorders resulting from impaired renal tubular function UREA NITROGEN, URINE Routine 06/28/2025 11:02 AM EST Calculus of kidney Other disorders resulting from impaired renal tubular function POTASSIUM, URINE, RANDOM Routine 06/28/2025 11:02 AM EST Calculus of kidney Other disorders resulting from impaired renal tubular function CALCIUM, URINE, RANDOM Routine 11:02 AM EST Calculus of kidney Other disorders resulting from impaired renal tubular function CBC WITH AUTO DIFFERENTIAL Routine 06/16/2025 3:04 PM EST Macrocytosis FERRITIN Routine 06/16/2025 3:04 PM EST Iron deficiency anemia secondary to inadequate dietary iron intake Macrocytosis IRON AND TIBC Routine 06/16/2025 3:04 PM EST Iron deficiency anemia secondary to inadequate dietary iron intake Macrocytosis RETICULOCYTE COUNT Routine 06/16/2025 3: 04 PM EST Iron deficiency anemia secondary to inadequate dietary iron intake Macrocytosis BASIC METABOLIC PANEL Routine 06/16/2025 3:04 PM EST Metabolic acidosis CBC AND DIFFERENTIAL Routine 06/16/2025 3:04 PM EST Macrocytosis PARATHYROID HORMONE INTACT Routine 05/17/2025 3:32 PM EDT Encounter for screening for other suspected endocrine disorder EXTERNAL CT REPORT 05/17/2025 IR BX AND ASP BONE MARROW Routine 04/11/2025 1:19 PM EDT Macrocytic anemia BONE MARROW EXAM Routine 04/11/2025 1:18 PM EDT Macrocytic anemia CYTOGENETICS MISCELLANEOUS Routine 04/11/2025 1:18 PM EDT Macrocytic anemia FLOW CYTOMETRY Routine 04/11/2025 1:18 PM EDT Macrocytic anemia LIPID PANEL Routine 08/11/2022 HM HPV Routine 06/09/2022 from Last 3 Months or Most Recently Relevant to Health Maintenance Results * CT Abdomen Pelvis w Contrast (07/01/2025 11:52 AM EST) Anatomical Region Laterality Modality Body Computed Tomogra phy 07/01/2025 12:0 7 PM EST Impressions 07/01/2025 12:12 PM EST Mild infectious or inflammatory enterocolitis with diarrheal illness. No abscess or free air. -------- FINAL REPORT -------- Dictated By: DAV VÁSQUEZ Dictated Date: 07/01/2025 12:07 ET Assigned Physician: DAV VÁSQUEZ Reviewed and Electronically Signed By: DAV VÁSQUEZ Signed Date: 07/01/2025 12:12 ET Workstation ID: [id number] Transcribed By: Self Edit Transcribed Date: 07/01/2025 [...] collection. Bones are normal. Procedure Note Dav Vásquez MD - 07/01/2025 PROCEDURE: CT ABDOMEN/PELVIS INDICATION: [...] -------- FINAL REPORT -------- Dictated By: DAV VÁSQUEZ Dictated Date: 07/01/2025 12:07 ET Assigned Physician: DAV VÁSQUEZ Reviewed and Electronically Signed By: DAV VÁSQUEZ Signed Date: 07/01/2025 12:12 ET Workstation ID: [id number] Transcribed By: Self Edit Transcribed Date: 07/01/2025 12:07 ET [facility] CORREA IMG CT PROCEDURES Final Res ult * Lactate, with Reflex (07/01/2025 10:05 AM EST) [facility] LACTIC ACID 0.7 0.4 - 2.0 mmol/L 07/01/2025 10:43 AM EST [facility] Blood Venous blood specimen / Unknown Venipuncture / Unknown 07/01/2025 10:05 AM EST 07/01/2025 10:10 AM EST [facility] LAB BLOOD ORDERABLES Final Result [facility] [address] [place] [address], * (ABNORMAL) CBC auto differential (07/01/2025 10:05 AM EST) Only the most recent of3 resultswithin the time period is included. [facility] WBC 7.9 4.8 - 10.8 K/mcL LAB HEMETOLOGY METHOD 07/01/2025 10:16 AM [facility] RBC 3.50(L) 3.80 - 4.80 M/mcL LAB HEMETOLOGY METHOD 07/01/2025 10:16 AM [facility] Hemoglobin 13.7 11.5 - 16.0 g/dL LAB HEMETOLOGY METHOD 07/01/2025 10:16 AM [facility] Hematocrit 41.3 35.0 - 47.0 % LAB HEMETOLOGY METHOD 07/01/2025 10:16 AM [facility] MCV 118.7(H) 79.0 - 98.0 FL LAB HEMETOLOGY METHOD 07/01/2025 10:16 AM [facility] MCH 39.4(H) 27.0 - 32.0 pcg LAB HEMETOLOGY METHOD 07/01/2025 10:16 AM [facility] MCHC 33.2 32.0 - 37.0 g/dL LAB HEMETOLOGY METHOD 07/01/2025 10:16 AM [facility] RDW 13.4 11.0 - 15.0 % LAB HEMETOLOGY METHOD 07/01/2025 10:16 AM [facility] Platelets 336 130 - 400 K/[facility] LAB HEMETOLOGY METHOD 07/01/2025 10:16 AM [facility] MPV 8.4 7.0 - 11.0 FL LAB HEMETOLOGY METHOD 07/01/2025 10:16 AM [facility] NRBC 0.0 <1.0 % LAB HEMETOLOGY METHOD 07/01/2025 10:16 AM [facility] NRBC Absolute 0.00 <0.10 K/mcL LAB HEMETOLOGY METHOD 07/01/2025 10:16 AM [facility] Neutrophils Relative 76.5 % LAB HEMETOLOGY METHOD 07/01/2025 10:16 AM [facility] Lymphocytes Relative 15.6 % LAB HEMETOLOGY METHOD 07/01/2025 10:16 AM [facility] Monocytes Relative 5.8 % LAB HEMETOLOGY METHOD 07/01/2025 10:16 AM [facility] Eosinophils Relative 1.1 % LAB HEMETOLOGY METHOD 07/01/2025 10:16 AM [facility] Basophils Relative 0.5 % LAB HEMETOLOGY METHOD 07/01/2025 10:16 AM [facility] Immature Granulocytes Relative 0.5 % LAB HEMETOLOGY METHOD 07/01/2025 10:16 AM [facility] Neutrophils Absolute 6.06 1.50 - 7.00 K/mcL LAB HEMETOLOGY METHOD 07/01/2025 10:16 AM [facility] Lymphocytes Absolute 1.24 1.00 - 5.00 K/mcL LAB HEMETOLOGY METHOD 07/01/2025 10:16 AM [facility] Monocytes Absolute 0.46 0.20 - 1.00 K/mcL LAB HEMETOLOGY METHOD 07/01/2025 10:16 AM [facility] Eosinophils Absolute 0.09 0.00 - 0.50 K/mcL LAB HEMETOLOGY METHOD 07/01/2025 10:16 AM [facility] Basophils Absolute 0.04 0.00 - 0.20 K/mcL LAB HEMETOLOGY METHOD 07/01/2025 10:16 AM [facility] Immature Granulocytes Absolute 0.04(H) 0.00 - 0.03 K/mcL LAB HEMETOLOGY METHOD 07/01/2025 10:16 AM [facility] Blood Venous blood specimen / Unknown Venipuncture / Unknown 07/01/2025 10:05 AM EST 07/01/2025 10:10 AM EST [facility] LAB BLOOD ORDERABLES Final Result [facility] [address] [place] [address], [place] [phone] * Lipase (07/01/2025 10:05 AM EST) Pathologist [facility] Lipase 48 12 - 53 unit/L 07/01/2025 10:50 AM [facility] Blood Venous blood specimen / Unknown Venipuncture / Unknown 07/01/2025 10:05 AM EST 07/01/2025 10:10 AM EST [facility] LAB BLOOD ORDERABLES Final Result Performing Organization Address [facility]/ZIP Co de Phone Number [facility] [address] [place] [address], [place] [phone] * (ABNORMAL) Comprehensive Metabolic Panel (CMP) (07/01/2025 10:05 AM EST) [facility] Sodium 143 133 - 145 mmol/L 07/01/2025 10:56 AM [facility] Potassium 4.0 3.5 - 5.5 mmol/L 07/01/2025 10:56 AM [facility] Chloride 114(H) 96 - 110 mmol/L 07/01/2025 10:56 AM [facility] CO2 17(L) 21 - 32 mmol/L 07/01/2025 10:56 AM [facility] Anion Gap 12(H) 3 - 11 07/01/2025 10:56 AM [facility] Glucose 95 70 - 100 mg/dL 07/01/2025 10:56 AM [facility] BUN 14 5 - 25 mg/dL 07/01/2025 10:56 AM [facility] Creatinine 0.98 0.50 - 1.10 mg/dL 07/01/2025 10:56 AM [facility] eGFR 75 >=60 mL/min/1. 73m2 07/01/2025 10:56 AM [facility] Comment:Calculation based on the Chronic Kidney Disease Epidemiology Collaboration (CKD-EPI) equation refit without adjustment for race. BUN/Creatinine Ratio 14.3 07/01/2025 10:56 AM [facility] Calcium 9.6 8.5 - 10.5 mg/dL 07/01/2025 10:56 AM [facility] AST (SGOT) 40 10 - 42 unit/L 07/01/2025 10:56 AM [facility] ALT (SGPT) 45 10 - 60 unit/L 07/01/2025 10:56 AM [facility] Alkaline Phosphatase 113 42 - 121 unit/L 07/01/2025 10:56 AM [facility] Total Protein 7.1 6.0 - 8.0 g/dL 07/01/2025 10:56 AM [facility] Albumin 4.7 3.2 - 5.0 g/dL 07/01/2025 10:56 AM [facility] Total Bilirubin 0.2 0.0 - 1.4 mg/dL 07/01/2025 10:56 AM [facility] Blood Venous blood specimen / Unknown Venipuncture / Unknown 07/01/2025 10:05 AM EST 07/01/2025 10:10 AM EST us [facility] LAB BLOOD ORDERABLES Final Result [facility] [address] [place] [address], * POC , urine manually resulted (07/01/2025 9:11 AM EST) Pathologist [facility] HCG, Ur POC Negative Negative POC hCG Int QC Pass? Yes Yes Urine Urine specimen obtained by clean catch procedure / Unknown 07/01/2025 9:11 AM EST Pino CORREA POINT OF CARE TEST ENTER/ED IT ORDERABLES Final Result * (ABNORMAL) Urinalysis with reflex microscopic and culture (07/01/2025 9:02 AM EST) [facility] Specific [place] Urine 1.032(H) 1.003 - 1.030 LAB URINALYSIS - AUTOMATED METHOD 07/01/2025 9:42 AM [facility] pH, Urine 6.0 5.0 - 8.0 pH LAB URINALYSIS - AUTOMATED METHOD 07/01/2025 9:42 AM [facility] Leukocytes, Urine Negative Negative LAB URINALYSIS - AUTOMATED METHOD 07/01/2025 9:42 AM [facility] Nitrite, Urine Negative Negative LAB URINALYSIS - AUTOMATED METHOD 07/01/2025 9:42 AM [facility] Protein, Urine 300(A) <=Trace mg/dL LAB URINALYSIS - AUTOMATED METHOD 07/01/2025 9:42 AM [facility] Glucose, Urine Negative Negative mg/dL LAB URINALYSIS - AUTOMATED METHOD 07/01/2025 9:42 AM [facility] Ketones, Urine Negative Negative mg/dL LAB URINALYSIS - AUTOMATED METHOD 07/01/2025 9:42 AM [facility] Urobilinogen, Urine 0.2 0.2 - 1.0 mg/dL LAB URINALYSIS - AUTOMATED METHOD 07/01/2025 9:42 AM [facility] Bilirubin, Urine Negative Negative LAB URINALYSIS - AUTOMATED METHOD 07/01/2025 9:42 AM [facility] Blood, Urine Large(A) Negative LAB URINALYSIS - AUTOMATED METHOD 07/01/2025 9:42 AM [facility] RBC, Urine 30(H) 0 - 4 /HPF 07/01/2025 9:42 AM [facility] WBC, Urine 1 0 - 4 /HPF 07/01/2025 9:42 AM [facility] Squamous Epithelial, Urine 10 0 - 60 /LPF 07/01/2025 9:42 AM [facility] Bacteria, Urine Few(A) Negative /HPF 07/01/2025 9:42 AM [facility] Hyaline Casts, Urine 20(H) 0 - 3 /LPF 07/01/2025 9:42 AM [facility] Urine Urine specimen obtained by clean catch procedure / Unknown Non-blood Collection / Unknown 07/01/2025 9:02 AM EST 07/01/2025 9:20 AM EST Pino CORREA LAB URINE ORDERABLES Final Result Performing Organization Address City/[facility]/ZIP Co de Phone Number [facility] [address] [place] [address], [place] [phone] * Diana urine culture tube (07/01/2025 9:02 AM EST) Extra Tube Hold for add-ons. 07/01/2025 11:01 AM [facility] Comment:Auto resulted. Urine Urine specimen obtained by clean catch procedure / Unknown Non-blood Collection / Unknown 07/01/2025 9:02 AM EST 07/01/2025 9:20 AM EST Pino CORREA LAB URINE ORDERABLES Final Result Performing Organization Address [facility]/ZIP Co de Phone Number [facility] [address] [place] [address], [place] [phone] * (ABNORMAL) Urinalysis with reflex microscopic (06/28/2025 11:02 AM EST) Specific Murray Urine 1.043(H) 1.003 - 1.030 LAB URINALYSIS - AUTOMATED METHOD 06/28/2025 12:27 PM [facility] pH, Urine 5.5 5.0 - 8.0 pH LAB URINALYSIS - AUTOMATED METHOD 06/28/2025 12:27 PM [facility] Leukocytes, Urine Negative Negative LAB URINALYSIS - AUTOMATED METHOD 06/28/2025 12:27 PM [facility] Nitrite, Urine Negative Negative LAB URINALYSIS - AUTOMATED METHOD 06/28/2025 12:27 PM [facility] Protein, Urine 300(A) <=Trace mg/dL LAB URINALYSIS - AUTOMATED METHOD 06/28/2025 12:27 PM [facility] Glucose, Urine Negative Negative mg/dL LAB URINALYSIS - AUTOMATED METHOD 06/28/2025 12:27 PM [facility] Ketones, Urine Negative Negative mg/dL LAB URINALYSIS - AUTOMATED METHOD 06/28/2025 12:27 PM [facility] Urobilinogen , Urine 0.2 0.2 - 1.0 mg/dL LAB URINALYSIS - AUTOMATED METHOD 06/28/2025 12:27 PM [facility] Bilirubin, Urine Negative Negative LAB URINALYSIS - AUTOMATED METHOD 06/28/2025 12:27 PM [facility] Blood, Urine Large(A) Negative LAB URINALYSIS - AUTOMATED METHOD 06/28/2025 12:27 PM [facility] RBC, Urine 20(H) 0 - 4 /HPF 06/28/2025 12:27 PM [facility] WBC, Urine 20(H) 0 - 4 /HPF 06/28/2025 12:27 PM [facility] Squamous Epithelial, Urine 50 0 - 60 /LPF 06/28/2025 12:27 PM [facility] Bacteria, Urine Few(A) Negative /HPF 06/28/2025 12:27 PM [facility] Other Casts, Urine 30 COARSE GRANULAR CASTS /LPF 06/28/2025 12:27 PM [facility] Urine Urine specimen obtained by clean catch procedure / Unknown Non-blood Collection / Unknown 06/28/2025 11:02 AM EST 06/28/2025 11:02 AM EST us Mikey Guido MD LAB URINE ORDERABLES Final Result Performing Organization Address City/[facility]/ZIP Co de Phone Number [facility] [address] [place] [address], [place] [phone] * Urea nitrogen, urine (06/28/2025 11:02 AM EST) Urea Nitrogen, Ur 714 mg/dL 06/28/2025 1:11 PM [facility] Urine Urine specimen obtained by clean catch procedure / Unknown Non-blood Collection / Unknown 06/28/2025 11:02 AM EST 06/28/2025 11:02 AM EST us Mikey Guido MD LAB URINE ORDERABLES Final Result [facility] [address] [place] [address], [place] [phone] * (ABNORMAL) Protein and creatinine with ratio, urine (06/28/2025 11:02 AM EST) Protein, Urine 205 mg/dL 06/28/2025 2:02 PM [facility] Comment:Results verified by repeat testing Prot/Creat, Ur 3.15(H) <=0.20 mg/mg creat 06/28/2025 2:02 PM [facility] Creatinine, Urine 65.0 mg/dL 06/28/2025 2:02 PM [facility] Urine Urine specimen obtained by clean catch procedure / Unknown Non-blood Collection / Unknown 06/28/2025 11:02 AM EST 06/28/2025 11:02 AM EST us Mikey Guido MD LAB URINE ORDERABLES Final Result [facility] [address] [place] [address], [place] [phone] * (ABNORMAL) Microalbumin creatinine urine ratio (06/28/2025 11:02 AM EST) Creatinine, Urine 65.0 mg/dL 06/28/2025 2:02 PM [facility] Microalb, Ur 672.0(H) 0.0 - 29.0 mg/L 06/28/2025 2:02 PM [facility] Comment:Results verified by repeat testing Microalb/Creat Ratio 1,034(H) <30 mg/g creat 06/28/2025 2:02 PM [facility] Urine Urine specimen obtained by clean catch procedure / Unknown Non-blood Collection / Unknown 06/28/2025 11:02 AM EST 06/28/2025 11:02 AM EST us Mikey Guido MD LAB URINE ORDERABLES Final Result [facility] [address] [place] [address], [place] [phone] * Sodium, urine, random (06/28/2025 11:02 AM EST) Sodium, Ur 57 mmol/L 06/28/2025 1:02 PM EST [facility] Urine Urine specimen obtained by clean catch procedure / Unknown Non-blood Collection / Unknown 06/28/2025 11:02 AM EST 06/28/2025 11:02 AM EST us Mikey Guido MD LAB URINE ORDERABLES Final Result Performing Organization Address City/[facility]/ZIP Co de Phone Number [facility] [address] [place] [address], [place] [phone] * Potassium, urine, random (06/28/2025 11:02 AM EST) Potassium, Ur 43.0 mmol/L 06/28/2025 1:02 PM [facility] Urine Urine specimen obtained by clean catch procedure / Unknown Non-blood Collection / Unknown 06/28/2025 11:02 AM EST 06/28/2025 11:02 AM EST us Mikey Guido MD LAB URINE ORDERABLES Final Result Performing Organization Address City/[facility]/ZIP Co de Phone Number [facility] [address] [place] [address], [place] [phone] * Chloride, urine, random (06/28/2025 11:02 AM EST) Chloride, Ur 70 mmol/L 06/28/2025 1:02 PM EST [facility] Urine Urine specimen obtained by clean catch procedure / Unknown Non-blood Collection / Unknown 06/28/2025 11:02 AM EST 06/28/2025 11:02 AM EST us Mikey Guido MD LAB URINE ORDERABLES Final Result [facility] [address] [place] [address], [place] [phone] * Calcium, urine, random (06/28/2025 11:02 AM EST) Calcium, Ur 34.0 mg/dL 06/28/2025 2:02 PM EST [facility] Comment:Results verified by repeat testing Urine Urine specimen obtained by clean catch procedure / Unknown Non-blood Collection / Unknown 06/28/2025 11:02 AM EST 06/28/2025 11:02 AM EST us Mikey Guido MD LAB URINE ORDERABLES Final Result [facility] [address] [place] [address], [place] [phone] * (ABNORMAL) Vitamin D 25 hydroxy (06/28/2025 11:02 AM EST) Vit D, 25-Hydroxy 9.6(L) 30.0 - 80.0 ng/mL 06/28/2025 2:51 PM EST [facility] Blood Venous blood specimen / Unknown Venipuncture / Unknown 06/28/2025 11:02 AM EST 06/28/2025 11:02 AM EST us Mikey Guido MD LAB BLOOD ORDERABLES Final Result [facility] [address] [place] [address], [place] [phone] * Phosphorus (06/28/2025 11:02 AM EST) Phosphorus 3.6 2.5 - 4.5 mg/dL 06/28/2025 2:56 PM EST [facility] Blood Venous blood specimen / Unknown Venipuncture / Unknown 06/28/2025 11:02 AM EST 06/28/2025 11:02 AM EST us Mikey Guido MD LAB BLOOD ORDERABLES Final Result Performing Organization Address City/[facility]/ZIP Co de Phone Number [facility] [address] [place] [address], [place] [phone] * Parathyroid hormone intact (06/28/2025 11:02 AM EST) Only the most recent of2 resultswithin the time period is included. PTH 37.4 18.5 - 88.0 pcg/mL 06/28/2025 2:48 PM EST [facility] Blood Venous blood specimen / Unknown Venipuncture / Unknown 06/28/2025 11:02 AM EST 06/28/2025 11:02 AM EST us Mikey Guido MD LAB BLOOD ORDERABLES Final Result Performing Organization Address City/[facility]/ZIP Co de Phone Number [facility] [address] [place] [address], [place] [phone] * Magnesium (06/28/2025 11:02 AM EST) Pathologist [facility] Magnesium 2.3 1.9 - 2.6 mg/dL 06/28/2025 2:56 PM EST [facility] Blood Venous blood specimen / Unknown Venipuncture / Unknown 06/28/2025 11:02 AM EST 06/28/2025 11:02 AM EST us Mikey Guido MD LAB BLOOD ORDERABLES Final Result [facility] [address] [place] [address], [place] [phone] * Calcium, ionized (06/28/2025 11:02 AM EST) Calcium Ionized 4.9 4.6 - 5.4 mg/dL 07/04/2025 9:41 AM EST [facility] Comment: Test performed at [facility], [address], [place] [address] Sho Kruger MD, PhD - Belt Builder Blood Venous blood specimen / Unknown Venipuncture / Unknown 06/28/2025 11:02 AM EST 06/28/2025 11:02 AM EST Mikey Guido MD LAB BLOOD ORDERABLES Final Result [facility] [address] [place] [address] * (ABNORMAL) Basic metabolic panel (06/28/2025 11:02 AM EST) Only the most recent of2 resultswithin the time period is included. Sodium 142 133 - 145 mmol/L 06/28/2025 2:56 PM [facility] Potassium 4.0 3.5 - 5.5 mmol/L 06/28/2025 2:56 PM [facility] Chloride 112(H) 96 - 110 mmol/L 06/28/2025 2:56 PM [facility] CO2 16(L) 21 - 32 mmol/L 06/28/2025 2:56 PM [facility] Anion Gap 14(H) 3 - 11 06/28/2025 2:56 PM [facility] Glucose 81 70 - 100 mg/dL 06/28/2025 2:56 PM [facility] BUN 19 5 - 25 mg/dL 06/28/2025 2:56 PM [facility] Creatinine 0.88 0.50 - 1.10 mg/dL 06/28/2025 2:56 PM [facility] eGFR 85 >=60 mL/min/1. 73m2 06/28/2025 2:56 PM [facility] Comment:Calculation based on the Chronic Kidney Disease Epidemiology Collaboration (CKD-EPI) equation refit without adjustment for race. BUN/Creatinine Ratio 21.6 06/28/2025 2:56 PM EST [facility] Calcium 7.9(L) 8.5 - 10.5 mg/dL 06/28/2025 2:56 PM EST [facility] Blood Venous blood specimen / Unknown Venipuncture / Unknown 06/28/2025 11:02 AM EST 06/28/2025 11:02 AM EST Mikey Guido MD LAB BLOOD ORDERABLES Final Result Performing Organization Address [facility]/ZIP Co de Phone Number [facility] [address] [place] [address], [place] [phone] * Iron and TIBC (06/16/2025 3:04 PM EST) Iron 54 40 - 150 mcg/dL LAB CHEMISTRY METHOD 06/16/2025 7:18 PM [facility] TIBC 295 250 - 450 mcg/dL LAB CHEMISTRY METHOD 06/16/2025 7:18 PM [facility] Iron Saturation 18 15 - 50 % LAB CHEMISTRY METHOD 06/16/2025 7:18 PM [facility] Blood Venous blood specimen / Unknown Venipuncture / Unknown 06/16/2025 3:04 PM EST 06/16/2025 3:04 PM EST Angelito Mcfarlane MD LAB BLOOD ORDERABLES Final Result [facility] [address] [place] [address], [place] [phone] * (ABNORMAL) Reticulocyte count (06/16/2025 3:04 PM EST) Retic Ct Abs 0.130(H) 0.030 - 0.090 M/mcL LAB HEMETOLOGY METHOD 06/16/2025 5:55 PM [facility] Retic Ct Pct 4.3(H) 0.7 - 1.7 % LAB HEMETOLOGY METHOD 06/16/2025 5:55 PM [facility] Immature Retic Fract 11.4 2.3 - 15.9 % LAB HEMETOLOGY METHOD 06/16/2025 5:55 PM [facility] Reticulocyte Hemoglobin 38.2 >29.0 pcg LAB HEMETOLOGY METHOD 06/16/2025 5:55 PM [facility] Blood Venous blood specimen / Unknown Venipuncture / Unknown 06/16/2025 3:04 PM EST 06/16/2025 3:04 PM EST Angelito Mcfarlane MD LAB BLOOD ORDERABLES Final Result Performing Organization Address City/[facility]/ZIP Co de Phone Number [facility] [address] [place] [address], [place] [phone] * (ABNORMAL) Ferritin (06/16/2025 3:04 PM EST) Ferritin 387(H) 8 - 252 ng/mL LAB CHEMISTRY METHOD 06/16/2025 7:20 PM [facility] Blood Venous blood specimen / Unknown Venipuncture / Unknown 06/16/2025 3:04 PM EST 06/16/2025 3:04 PM EST Angelito Mcfarlane MD LAB BLOOD ORDERABLES Final Result [facility] [address] [place] [address], [place] [phone] * External CT Report (05/17/2025) Anatomical Region Laterality Modality Computed Tomogra phy us Provider [facility] CT PROCEDURES Final Result * IR Bx and Asp Bone Marrow (04/11/2025 1:19 PM EDT) Anatomical Region Laterality Modality Interventional R adiology 04/11/2025 3:24 PM EDT Impressions 04/11/2025 3:[address]-guided bone marrow core biopsy as well as bone marrow aspiration biopsy. -------- FINAL REPORT -------- Dictated By: Cyndi Moran Dictated Date: 04/11/2025 15:24 ET Assigned Physician: Shabana Parry Reviewed and Electronically Signed By: Shabana Parry Signed Date: 04/11/2025 15:36 ET Workstation ID: [id number] Transcribed By: Self Edit Transcribed Date: 04/11/2025 15:28 ET Resident/PA/BUS OR TRUCK GARAGE MECHANIC: Cyndi Moran Narrative 04/11/2025 3:36 PM EDT INDICATION: Macrocytic anemia PROCEDURE: Consent obtained for CT guided bone marrow biopsy under conscious sedation. Prior relevant studies: CT abdomen pelvis without contrast April 01, 2025 reviewed MEDICATIONS: Local anesthesia: 8 cc of 1% buffered lidocaine administered subcutaneously. 5 cc of 0.25% bupivacaine administered along the periosteum. Sedation: Moderate intravenous sedation was initiated and maintained for 30 minutes while the patient was independently monitored by the radiology nurse under the supervision of the interventional radiologist. A total of 1.5 mg of Versed and 50 mcg of fentanyl administered during the procedure. TECHNIQUE: Patient placed prone on the CT table and multiple axial images obtained through the pelvis. Appropriate area of the skin was marked, draped and prepped using maximum sterile barrier. Moderate sedation initiated followed by administration of local anesthetic. Under CT fluoroscopic guidance a 11-gauge coaxial needle was advanced into the posterior iliac bone. Bone marrow core biopsy performed followed by bone marrow aspiration. FINDINGS: Initial limited CT images of the pelvis demonstrate adequate percutaneous access into the posterior right iliac bone. Images obtained during localization and needle positioning demonstrate coaxial needle positioned within the posterior right iliac bone. SPECIMENS: Core sample placed within formalin. Bone marrow aspirate samples placed while within green and purple top tubes. DLP: 73.46 mGy-cm Procedure Note Shabana Parry MD - 04/11/2025 INDICATION: Macrocytic anemia PROCEDURE: Consent obtained for CT guided bone marrow biopsy underconscious sedation. Prior relevant studies: CT abdomen pelvis without contrast April 01, 2025reviewed MEDICATIONS: Local anesthesia: 8 cc of 1% buffered lidocaine administeredsubcutaneously. 5 cc of 0.25% bupivacaine administered along theperiosteum. Sedation: Moderate intravenous sedation was initiated and maintained for30 minutes while the patient was independently monitored by the radiologynurse under the supervision of the interventional radiologist. A total of1.5 mg of Versed and 50 mcg of fentanyl administered during the procedure. TECHNIQUE: Patient placed prone on the CT table and multiple axial imagesobtained through the pelvis. Appropriate area of the skin was marked,draped and prepped using maximum sterile barrier. Moderate sedationinitiated followed by administration of local anesthetic. Under CTfluoroscopic guidance a 11-gauge coaxial needle was advanced into theposterior iliac bone. Bone marrow core biopsy performed followed by bonemarrow aspiration. FINDINGS: Initial limited CT images of the pelvis demonstrate adequatepercutaneous access into the posterior right iliac bone. Images obtained during localization and needle positioning demonstratecoaxial needle positioned within the posterior right iliac bone. SPECIMENS: Core sample placed within formalin. Bone marrow aspiratesamples placed while within green and purple top tubes. DLP: 73.46 mGy-cm IMPRESSION: CT-guided bone marrow core biopsy as well as bone marrow aspirationbiopsy. -------- FINAL REPORT -------- Dictated By: Cyndi Moran Dictated Date: 04/11/2025 15:24 ET Assigned Physician: Shabana Parry Reviewed and Electronically Signed By: Shabana Parry Signed Date: 04/11/2025 15:36 ET Workstation ID: [id number] Transcribed By: Self Edit Transcribed Date: 04/11/2025 15:28 ET Resident/PA/BUS OR TRUCK GARAGE MECHANIC: Cyndi Moran us Angelito Mcfarlane MD IMG IR PROCEDURES Final Res ult * Cytogentic Miscellaneous (04/11/2025 1:18 PM EDT) Scan Result See Scanned Result 04/20/2025 10:05 PM EDT EXTERNAL LAB (NON-INTERFAC ED) Bone Marrow Specimen from bone marrow obtained by aspiration / Unknown 04/11/2025 1:18 PM EDT 04/11/2025 1:59 PM EDT us Cyndi CORREA LAB CYTOGENETICS ORDERABLES Lakia lucas Result EXTERNAL LAB (NON-INTERFACED) * Flow cytometry (04/11/2025 1:18 PM EDT) Flow Cytometry Interpretation Bone marrow, Flow cytometry: - No monotypic B cell population identified. - Most of the lymphocytes are CD3-positive T cells including CD4-positive and CD8-positive subsets without diagnostic phenotypic aberrancy. - There is no increase in the proportion of [id number] blasts (less than 1%). Note: The flow cytometry findings are not diagnostic of a B-cell or T-cell lymphoproliferative disorder. The proportion of CD34 positive blasts is not increased (less than 1%). Immature B-cell precursors (hematogones) are rare. It is noted that although the monocytes are otherwise phenotypically unremarkable, a subset of the monocytes expresses CD56, a finding that can be seen in reactive or neoplastic conditions. Correlation with the morphologic findings in the accompanying bone marrow biopsy and aspirate specimen is recommended. (See separate report, [id number], for additional information.) Please note that myeloid disorders cannot be reliably excluded by flow cytometry. SPECIMEN: Bone marrow VIABILITY: 96.3% TOTAL CELL YIELD: 55.8 x106/mL IMMUNOPHENOTYPIC FINDINGS: Lymphocytes are 16.7% of total. - T cells are 13.9% of total (83.2% of cells in lymphocyte gate) with no aberrant phenotype, CD4:CD8= 1.7. - B cells are 2.6% of total (15.4% of cells in lymphocyte gate) and are polytypic (kappa:lambda ratio = 1.8). The B cells show no significant expression of CD5, CD10, or CD38 and show no overexpression of CD200. Rare events with dim CD45, low side light scatter, CD10, and CD19 expression suggestive of hematogones are noted. - Plasma cells are 0.3 of total and show dim expression of CD45 and CD19. - Granulocytes are 54.5% of total and show generally emissions technician immunophenotypic maturation. - Monocytic cells are 3.1% of total and show generally emissions technician immunophenotypic maturation but exhibit partial expression of CD56. - CD45 dim cells are 3.2% of total. The proportion of CD34+ blasts is not increased (less than 1%). The blasts show expression of CD13 (partial, weak), CD33, CD38, CD117 and HLA-DR with Antibodies (27 markers): CD2, CD3, CD4, CD5, CD7, CD8, CD10, CD11b, CD13, CD14, CD15, CD16, CD19, CD20, CD33, CD34, CD38, CD45, CD56, CD64, CD117, CD123, CD200, HLA-DR, [place], Lambda, TCR??. 04/13/2025 5:39 PM EDT [facility] Disclaimer This test was developed and its performance characteristics determined by [facility]. It has not been cleared or approved by U.S. Food and Drug Administration. The FDA does not require this test to go through premarket FDA review. This test is used for clinical purposes. It should not be regarded as investigational or for research. This laboratory is certified under Clinical Laboratory Improvement Amendments of 1988 (CLIA) as qualified to perform high complexity clinical laboratory testing. 04/13/2025 5:39 PM EDT [facility] Bone Marrow Specimen from bone marrow obtained by aspiration / Unknown 04/11/2025 1:18 PM EDT 04/11/2025 1:59 PM EDT Cyndi CORREA LAB BLOOD ORDERABLES Final Resul t [facility] [address] [place] [address], * Bone marrow exam (04/11/2025 1:18 PM EDT) Addendum This case was sent t o [facility], [address] [place], (CLIA #[id number]) for Oncology Chromosome Analysis studies. Their diagnosis is as follows: Cytogenetics Oncology Chromosome Analysis Karyotype: 46,XX[20] Interpretation: NORMAL FEMALE KARYOTYPE Cytogenetic analysis shows a normal female karyotype in all cells analyzed. Comments: Standard cytogenetic analysis may not detect subtle submicroscopic rearrangements and may not include metaphases from abnormal cell populations with low mitotic rates or present in low levels. Test Detail: Metaphases Counted: 20 Metaphases Analyzed: 20 Metaphases Karyotyped: 2 Culture Type: 24EB, 48EB Banding Technique: GTG Banding Resolution: 400 Electronic Signature Tess Woods M.D., Ph.D, Pump Technician Electronic Signature Debby Abraham M.D., Pathologist Report Date: 04/19/2025 01:07:26 PM ET (Full report on file) 11:46 AM EDT [facility] Addendum electronically signed by Julien Dubois MD on 04/20/2025 at 1146 EDT Final Diagnosis Bone Marrow, aspiration, core biopsy, and clot: - Hypocellular bone marrow for patient age (overall cellularity estimated at 20-30%) with maturing myeloid and erythroid precursors, a reduced myeloid:erythroid ratio, adequate numbers of megakaryocytes and less than 1% blasts in a 300-cell aspirate differential. - No marrow infiltrative process is identified. Note: The bone marrow is adequate in length but limited by crush/fragmentation artifacts and areas of artifactually empty marrow. Rare foci appear relatively normocellular but the overall cellularity is low for the patient's age. Trilineage hematopoiesis is present including maturing myeloid and erythroid precursors and scattered megakaryocytes. Reticulin staining shows no increase in reticulin-stained fibers (MF-0). Storage iron is present (3+/6) and pathologic ring sideroblasts are not identified. Immunophenotyping studies were performed. Flow cytometry shows no monotypic B cell population and no aberrant T cell population. The proportion of GD27-bilkuirf blasts is not increased. A definitive morphologic explanation for this patient's macrocytic red blood cells is not identified. The morphologic changes in the bone marrow are not diagnostic of a myelodysplastic syndrome or other neoplasm. Possible causes for macrocytic red blood cells include medication/toxin effects, liver disease, hypothyroidism, B12/folate or copper deficiency, some cases of aplastic anemia, and other causes including some infrequent hereditary causes. Karyotype is pending, addendum to follow. CBC (04/01/2025): WBC 5.7 k/uL, Hemoglobin 11.8 g/dL, Hematocrit 36.9%, MCV 122.2 fL, RDW 13.1%, Platelets 358 k/uL. Differential: Neutrophils: 63.4%, Lymphs: 25.0%, Monos: 8.5%, Eos: 2.0%, Basos: 0.9%, Immature granulocytes: 0.2%. Bone marrow aspirate smear (Navarro stain): Specimen quality: Suboptimal (scattered paucicellular marrow particles are present, some of which are associated with many stripped nuclei/degenerated cells). Myeloid:Erythroid ratio: 1.3 (reduced). Myeloid maturation: A complete range of myeloid maturation is present. Erythroid maturation: A complete range of erythroid maturation is present. Some megaloblastic forms and rare binucleated erythroid precursors are present. Megakaryocyte number and morphology: Scattered megakaryocytes are present. Iron stain: Storage iron is present (3+/6). Pathologic ring sideroblasts are not identified. 300 cell Differential count of aspirate: 0.7% Blasts 0.3% Promyelocytes 12.0% Myelocytes/metamyeloc ytes 33.3% Neutrophils/bands 0.7% Monocytes 2.7% Eosinophils 0.0% Basophils 11.0% Lymphocytes 2.3% Plasma cells 36.0% Erythroid precursors Microscopic finding of bone marrow biopsy and clot (H&E, PAS and Reticulin): Specimen quality: -Core: Adequate in length (approximately 20 mm) but limited by crush artifact and artifactually 'empty' areas. -Clot: Few paucicellular marrow particles. Cellularity: Overall cellularity is difficult to assess but the marrow appears hypocellular for the patient's age (estimated at 20-30% cellularity in the sparse areas of intact marrow). Myeloid maturation: Maturing myeloid precursors are present. Erythroid maturation: Maturing erythroid precursors are present. Megakaryocyte number and maturation: Megakaryocytes appear adequate in number. Plasma cells: No expansile aggregates of plasma cells are identified. Lymphocytes: A rare small non-paratrabecular aggregate of small lymphocytes is noted. Reticulin stain: No significant increase in reticulin-stained fibers (MF-0). Other findings: PAS Stain highlights megakaryocytes. Flow Cytometry (case [id number]) - No monotypic B cell population identified. - Most of the lymphocytes are CD3-positive T cells including CD4-positive and CD8-positive subsets without diagnostic phenotypic aberrancy. - There is no increase in the proportion of BO09-bzxrpnio blasts (less than 1%). Note: The flow cytometry findings are not diagnostic of a B-cell or T-cell lymphoproliferative disorder. The proportion of CD34 positive blasts is not increased (less than 1%). Immature B-cell precursors (hematogones) are rare. It is noted that although the monocytes are otherwise phenotypically unremarkable, a subset of the monocytes expresses CD56, a finding that can be seen in reactive or neoplastic conditions. Please note that myeloid disorders cannot be reliably excluded by flow cytometry. SPECIMEN: Bone marrow VIABILITY: 96.3% TOTAL CELL YIELD: 55.8 x106/mL IMMUNOPHENOTYPIC FINDINGS: Lymphocytes are 16.7% of total. - T cells are 13.9% of total (83.2% of cells in lymphocyte gate) with no aberrant phenotype, CD4:CD8= 1.7. - B cells are 2.6% of total (15.4% of cells in lymphocyte gate) and are polytypic (kappa:lambda ratio = 1.8). The B cells show no significant expression of CD5, CD10, or CD38 and show no overexpression of CD200. Rare events with dim CD45, low side light scatter, CD10, and CD19 expression suggestive of hematogones are noted. - Plasma cells are 0.3 of total and show dim expression of CD45 and CD19. - Granulocytes are 54.5% of total and show generally emissions technician immunophenotypic maturation. - Monocytic cells are 3.1% of total and show generally emissions technician immunophenotypic maturation but exhibit partial expression of CD56. - CD45 dim cells are 3.2% of total. The proportion of CD34+ blasts is not increased (less than 1%). The blasts show expression of CD13 (partial, weak), CD33, CD38, CD117 and HLA-DR with Antibodies (27 markers): CD2, CD3, CD4, CD5, CD7, CD8, CD10, CD11b, CD13, CD14, CD15, CD16, CD19, CD20, CD33, CD34, CD38, CD45, CD56, CD64, CD117, CD123, CD200, HLA-DR, [place], Lambda, TCR??. This test was developed and its performance characteristics determined by [facility]. It has not been cleared or approved by U.S. Food and Drug Administration. The FDA does not require this test to go through premarket FDA review. This test is used for clinical purposes. It should not be regarded as investigational or for research. This laboratory is certified under the Clinical Laboratory Improvement Amendments of 1988 (CLIA) as qualified to perform high complexity clinical laboratory testing. Additional Testing (Addendum to follow): Conventional karyotype All special stains were performed with appropriate controls. 11:46 AM EDT [facility] at 1440 EDT Comment The case was discussed with Dr. Radha Mcfarlane by Dr. Mor Dubois on 04/18/2025. 11:46 AM EDT [facility] Gross Description A. Bone Marrow Aspirate, : Labeled bone marrow aspirate smears . Eleven slides are prepared. One slide subsequently is stained for iron. Two slides are stained with Navarro's giemsa. Approximately 2.5 ml of bone marrow aspirate is received in a purple top tube and submitted to [facility], flow cytometry lab, [place], [place] for flow cytometric studies. Additionally, 2.5ml of bone marrow aspirate is received in a purple top tube and approximately 6ml of bone marrow aspirate is received in two green top tubes and submitted in to [facility], [place], [place], for cytogenetic studies. B. Bone Marrow Biopsy, : Labeled hip R . Received in formalin is a hard, 1.9 x 0.25 cm degroot-red bone core and a separately received 0.6 x 0.3 x 0.1 cm aggregate of red grumous tissue/blood clot. The specimen is wrapped in paper and submitted in toto in two cassettes, x 2. 1-bone marrow core, one piece, following decalcification in Immunocal 2-clot, multiple pieces TS 5 11:46 AM EDT [facility] Disclaimer Unless otherwise specified, all tissue is 10% NB formalin fixed and paraffin embedded. NOTE: The immunohistochemical tests and in situ hybridization tests were developed and their performance characteristics were determined by [facility]. They have not been cleared or approved by the U.S. Food and Drug Administration. The FDA has determined that such clearance or approval is not necessary. These tests are used for clinical purposes. They should not be regarded as investigational or for research. This laboratory is certified under the Clinical Laboratory Improvement Amendments of 1988 (CLIA) as qualified to perform high complexity clinical laboratory testing. (controls appropriate) 5 11:46 AM EDT [facility] Bone Marrow Specimen from bone marrow obtained by aspiration / Unknown 04/11/2025 1:18 PM EDT 04/11/2025 1:46 PM EDT Bone marrow specimen (specimen) Specimen from bone marrow obtained by biopsy / Unknown 04/11/2025 1:18 PM EDT 04/11/2025 1:46 PM EDT Cyndi CORREA LAB PATHOLOGY ORDERABLES Edited Result - Final [facility] [address] [place] [address], * (ABNORMAL) Lipid panel (08/11/2022) Pathologist [facility] LDL/HDL Ratio 3 0 - 4 Triglycerides 146 0 - 150 mg/dL Cholesterol 208(A) 0 - 200 mg/dL HDL 68 >=40 mg/dL LDL Cholesterol 111(A) 0 - 100 mg/dL Blood Venous blood specimen / Unknown Historical Provider LAB BLOOD ORDERABLES Lakia l Result * Cervical Cancer Screening: HPV (06/09/2022) Pathologist [facility] Cervical Cancer Screening: HPV negative, abstracted Historical Provider HEALTH MAINTENANCE Final Result from Last 3 Months or Most Recently Relevant to Health Maintenance Insurance [place]ARE [place]ICA[place] Care Teams Muffler Tender Relationship Specialty Start Date End Date Bette Corona MD [address] [place] [address] PCP - General Internal Medicine 05/09/25
--- OUTSIDE RECORDS SUMMARY | 2025-07-05 13:45 | XMS_ITS | Encounter Summary ---
Author Organization [facility] Address [address] [place] [address] Care Team Providers Care Fruit Preserver Name Role Phone gL Shepherd PA-C Primary Care Provider Encounter Details Date Type Department Care Team (Late st Contact Info) Description 09/11/2017 Scanned Document [facility] Urologic Surgery [address] [place] [address] Gerber Rosario MD [address] [place] [address] [address] [place] [address] Social History Tobacco Use Types Packs/Day Years [...] on filedocumented in this encounter Care Teams Fruit Preserver Relationship Specialty Start Date End Date Lg Shepherd PA-C PCP - General Internal Medicine 12/01/17 documented as of this encounter
--- OUTSIDE RECORDS SUMMARY | 2025-07-05 13:45 | XMS_ITS | Patient Health Record ---
Author Organization [employer] Address [address] [facility] [id number] [address] Care Team Providers Care Mathematics Lecturer Name Role Phone yisselHarsha Lg Primary Care [...] Once a day Active Ergocalciferol 1.25 MG (99181 UT) 1 capsule Orally once a week [...] Azithromycin 250 MG 2 tablets on the [facility] st day, then 1 tablet [...] x 1 Unknown 11/23/2013 Administered given at [facility] ER *Non-VFC: Tdap Vaccine (7 YEARS AND [...] Problem Vitamin D deficiency (E55.9) Active confirmed 47586179 Problem Anemia (D64.9) Active confirmed 9076356 00 Problem Aspergers' syndrome (F84.5) Active confirmed Asperger's syndrome (65220536) Problem Diarrhea (R19.7) Active confirmed 73267 008 Problem Hematuria (R31.9) Active confirmed 3443 6003 Problem Nicotine dependence (F17.200) Active confirmed Nicotine dependence (50056210) Problem Kidney stones (N20.0) Active confirmed Kidney stone (65821099) Problem Essential hypertension (I10) Active confirmed 37343498 Problem Hypoglycemia (E16.2) Active confirmed 3 19823026 Problem Asperger syndrome (F84.5) Active confirmed 98947040 Problem PUD (peptic ulcer disease) (K27.9) Active confirmed 40405657 Problem MRSA infection (A49.02) Active confirmed 111481646 Problem Cyst of ovary (N83.209) Active confirmed 59980439 Problem Melanosis, colon (K63.89) Active confirmed 33294367 Problem Nasal abscess (J34.0) Active confirmed 8839937 Problem Rheumatic disease of endocardium, 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) Active confirmed 68615830 Problem Aortic valve disorder (I35.9) Active confirmed 6304362 Problem AV reentrant tachycardia (I47.1) Active confirmed 601347709 Problem Gastrointestinal bleeding, upper (K92.2) Active confirmed 15891898 PLAN OF TREATMENT Pending Test Test Name [...] Date Coverage End Date [facility] [address] [place] [address] [id number] 2 Joslyn Beaulieu Self - patient is the insured 0 HUSKY C [address] [place] [address] [id number] Joslyn Beaulieu Self - patient is the insured MEDICAID DENTAL [address] [place] [address] [id number] Joslyn Beaulieu Self - patient is the insured MEDICAL (GENERAL) HISTORY Medical History History ICD 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 Gutierrez [phone], hx of en dometriosis Admitted: [facility] ER; 09/23/13; c c SOB; dx supraventricular tachycardia and anemia; Admitted [facility] 12/21/13; dx par ox atrial tachycardia SVT with hr in 200's-cardizem--sr and sinus tachycardia and postemorrhog anemia hbg 7.2 s/p transfusion 9.4 --no pe from ct scan Admitted [facility] 02/06/14 zoloft now 150 Hx of kidney [...] cath abd surgery 06/2017 urgent exploratory laparotomy [facility] 9 GI bleed surgery to cauterize bleeding [facility] hospital 06/2021 Hospitalization History Reason Date(Month/Year) for four days 02/2016 loose stools 02/2016 [place] Arrhythmia 12/21/13 broken wrist broken ankle surgery
--- OUTSIDE RECORDS SUMMARY | 2025-07-05 13:45 | XMS_ITS | Encounter Summary ---
Author Organization [facility] Address [address] [place] [address] Care Team Providers Care Vitreo Retinal Surgeon Name Role Phone Lg Shepherd PA-C Primary Care Provider [phone] Encounter Details Date Type Department Care Team (Late st Contact Info) Description 03/16/2018 Scanned Document [facility] Urologic Surgery [address] [place] [address] Provider, MD Rashmi [address] [place] [address] Social History Tobacco Use Types Packs/Day Years [...] on filedocumented in this encounter Care Teams Vitreo Retinal Surgeon Relationship Specialty Start Date End Date Lg Shepherd PA-C PCP - General Internal Medicine 12/01/17 documented as of this encounter
--- OUTSIDE RECORDS SUMMARY | 2025-07-05 13:45 | XMS_ITS | Encounter Summary ---
Author Organization [facility] Address [address] [place] [address] Care Team Providers Care Plate And Weld Inspector Name Role Phone Bette Corona MD Primary Care Provider [phone] Reason for Referral * Consultation (Urgent) - Closed Specialty Diagnoses / Procedures Referred By Harlan boyd Referred To Contact Nephrology Diagnoses Metabolic acidosis Manjit Hall MD [address] [place] [address] Phone: tel: fax: [facility] [address] [address] Phone: tel: fax: Referral ID Status Reason Start Date Expiration Date V isits Requested Visits Authorized [id number] Closed Specialty Services Required 06/16/2025 06/16/2026 1 1 Encounter Details Date Type Department Care Team (Late st Contact Info) Description 06/16/2025 Results Follow-Up Adult Medicine [address] [phone] Manjit Hall MD [address] [place] [address] Social History Tobacco Use Types Packs/Day Years [...] AM EST documented as of this encounter Plan of Treatment Upcoming Encounters Date Type Department Care Team (Late st Contact Info) Description 08/10/2025 3:30 PM EST Office Visit Adult Medicine [address] [phone] Bette Corona MD [address] [place] [address] 08/31/2025 3:00 PM EST Clinical Support Obstetrics and Gynecology - [address] [phone] 09/08/2025 3:[address] [facility] Ultrasound [address] [place] [address] 09/21/2025 3:30 PM EST Office Visit [facility] Hematology Oncology [address] [place] [address] Angelito Mcfarlane MD [address] [place] [address] 10/16/2025 3:20 PM EDT Office Visit Gastroenterology - 299 [facility] [address] [phone] Bisi Dinero NP [address] [address] Scheduled Referrals Name Type Priority Associated Diagnoses Order Schedule Ambulatory referral to Nephrology Outpatient Referral Routine Metabolic acidosis Expected: 06/30/2025, Expires: 06/16/2026 documented as of this encounter Visit Diagnoses Diagnosis Metabolic acidosis- Primary Acidosis documented in this encounter Care Teams Plate And Weld Inspector Relationship Specialty Start Date End Date Bette Corona MD [address] [place] [address] PCP - General Internal Medicine 05/09/25 documented as of this encounter
--- OUTSIDE RECORDS SUMMARY | 2025-07-05 13:45 | XMS_ITS | Encounter Summary ---
Author Organization [facility] Address [address] [place] [address] Care Team Providers Care Inspector Eyeglass Frames Name Role Phone Lg Shepherd PA-C Primary Care Provider Encounter Details Date Type Department Care Team (Late st Contact Info) Description 06/10/2021 Scanned Document [facility] [address] [place] [phone] Provider, MD Rashmi [address] [place] [address] Social History Tobacco Use Types Packs/Day Years [...] on filedocumented in this encounter Care Teams Inspector Eyeglass Frames Relationship Specialty Start Date End Date Lg Shepherd PA-C PCP - General Internal Medicine 12/01/17 documented as of this encounter
--- OUTSIDE RECORDS SUMMARY | 2025-07-05 13:45 | XMS_ITS | Encounter Summary ---
Author Organization [facility] Address [address] [place] [address] Care Team Providers Care Cook Dinner Name Role Phone Lg Shepherd PA-C Primary Care Provider Encounter Details Date Type Department Care Team (Late st Contact Info) Description 09/03/2017 Scanned Document [facility] Urologic Surgery [address] [place] [address] Noel Blanco MD Social History Tobacco Use [...] on filedocumented in this encounter Care Teams Cook Dinner Relationship Specialty Start Date End Date Lg Shepherd PA-C PCP - General Internal Medicine 12/01/17 documented as of this encounter
--- OUTSIDE RECORDS SUMMARY | 2025-07-05 13:45 | XMS_ITS | Encounter Summary ---
Author Organization [facility] Address [address] [place] [address] Care Team Providers Care Disease Intervention Specialist Name Role Phone Lg Shepherd PA-C Primary Care Provider [phone] Encounter Details Date Type Department Care Team (Late st Contact Info) Description 08/19/2018 Scanned Document [facility] Urologic Surgery [address] [place] [address] Provider, MD Rashmi [address] [place] [address] Social History Tobacco Use Types Packs/Day Years [...] on filedocumented in this encounter Care Teams Disease Intervention Specialist Relationship Specialty Start Date End Date Lg Shepherd PA-C PCP - General Internal Medicine 12/01/17 documented as of this encounter
--- OUTSIDE RECORDS SUMMARY | 2025-07-05 13:45 | XMS_ITS | Encounter Summary ---
Author Organization [facility] Address [address] [place] [address] Care Team Providers Care Medical Billing Assistant Name Role Phone Lg Shepherd PA-C Primary Care Provider Encounter Details Date Type Department Care Team (Late st Contact Info) Description 06/12/2021 Scanned Document [facility] [address] [place] [phone] Provider, MD Rashmi [address] [place] [address] Social History Tobacco Use Types Packs/Day Years [...] on filedocumented in this encounter Care Teams Medical Billing Assistant Relationship Specialty Start Date End Date Lg Shepherd PA-C PCP - General Internal Medicine 12/01/17 documented as of this encounter
--- OUTSIDE RECORDS SUMMARY | 2025-07-05 13:45 | XMS_ITS | Data Portability ---
Author Organization [place] - [facility], Allergy Address [address] [address] Care Team Providers Care Library Customer Service Clerk Name Role Phone GINNA GOLDSTEIN Primary Care Provider Assessment Encounter Date Assessment Date Assessment LastModified by Organization Details LastModified Time 11/18/2024 11/18/2024 39yo female with history of recurrent pharyngitis presents for evaluation of the throat and ears. Cerumen impactions removed from bilateral external auditory canals. TMs are normal to inspection. Oropharyngeal exam is unremarkable. Patient was treated with doxycycline 2 weeks ago for throat infection, and symptoms since resolved. Recommend continuing allergy management with Pema and Flonase. Patient will return in 2 months for updated audiometric testing. [email or web address] Not available 11/18/2024 15:41:06 05/15/2025 05/15/2025 39-year-old femsulaiman torres presents today with intermittent right sided [...] clotrimaz ole 10 mg jagdeep 2024 025 [id number] [address] [place], [address], 06/05/2025 05:01:56 azelastin e 137 mcg (0.1 %) nasal spray 2024 025 [id number], [address] [place], [address], 05/15/2025 15:37:00 clotrimaz ole 10 mg jagdeep 2024 025 [id number], [address] [place], [address], 06/05/2025 05:01:56 clotrimaz ole 10 mg jagdeep 2023 024 [id number] [address] [place], [address], 06/05/2025 05:01:56 Patient TargetsNo targets recorded. Patient InstructionsNo instructions recorded. Reason for Referral None Reported. Problems Name Problem SNOMED Code Status Onset Date Resolution Date Notes Provider Name and Address Organization Details Recorded Time Otalgia of right ear 1591629750 Active 2022 Otalgia, right ear; Note: Date Diagnosed : 09/08/2022 9:29 AM (H92.01) Not Available [facility] 02:34:05 Central perforati on of right tympanic membrane 27069269296 08778 Active 2022 Central perforati on of tympanic membrane, right ear; Note: Date Diagnosed : 09/08/2022 9:29 AM (H72.01) Not Available [facility] 4 02:34:03 Acute pharyngit is 509974797 Active 2022 Pharyngit is (acute) NOS; Note: Date Diagnosed : 10/03/2022 3:23 PM (J02.9) Not Available [facility] 4 02:33:53 Abnormal auditory perceptio n 45885448 Active 2022 Other abnormal auditory perceptio ns, right ear; Note: Date Diagnosed : 10/21/2022 4:59 PM (H93.291) Not Available [facility] 4 02:34:10 Disorder of right Eustachia n tube 56701592593 72835 Active 2022 Other specified disorders of Eustachia n tube, right ear; Note: Date Diagnosed : 10/24/2022 10:15 AM (H69.81) Not Available [facility] 4 02:34:01 Chronic rhinitis 37320541 Active 2022 Chronic rhinitis; Note: Date Diagnosed : 02/01/2023 8:07 AM (J31.0) Not Available [facility] 4 02:33:59 Deviated nasal septum 342095373 Active 2023 Deviated nasal septum; Note: Date Diagnosed : 08/09/2023 10:14 AM (J34.2) Not Available [facility] 4 02:34:11 Candidias is of mouth 86831097 Active 2023 LEDA MARINA MD [address] [place] [address],[place] [address], [place], [address] , [place] [facility] 5 11:41:55 Sensorine ural hearing loss 69826120 Active 2023 HALI RUDOLPH [address] [place] [address],[place] [address], [place], [place]LO, [address] , [place] - [facility] 4 15:29:05 Candidias is 51600583 Active 2023 LEDA MARINA MD [address] [place] [address],[place] [address], [place], [address] , [place] [facility] 4 15:44:05 Impacted cerumen of bilateral ears 38269990881 77164 Active 2024 LINDY FIGUEROA PA-C [address], [place], [address] , [place] - [facility] 5 15:18:47 Dysfuncti on of right eustachia n tube 31497071303 Active 2024 LEDA MARINA MD [address],[place] [facility], [place], [address] , [place] [facility] 5 15:33:28 Seasonal allergy 691189773 Active 2024 LEDA MARINA MD [facility] [place] [address], [place], [address] , [place] [facility] 5 06:56:25 Problem Notes None recorded. Procedures Surgical History Date Name Laterality Status Provider Name and Address Organization Details Recorded Time 025 Fiberoptic Nasopharyngoscopy completed LEDA MARINA MD [facility] [place],[address], [address], [place] - [facility] 05/15/2025 15:36:43 025 Cerumen removal without microscope bilat completed LINDY FIGUEROA PA-C [facility] [place] [address], [place], [address], [place] [facility] 11/18/2024 15:18:54 024 Air & Speech Audio with Tymps - 53299, 01266 & 54167 completed HALI RUDOLPH [facility] [place],[address], [address], [place] [facility] 07/15/2024 15:28:58 tonsillectomy completed LEDA MARINA MD [address] [facility] [place] [address], [place], [address], [place] [facility] 06/13/2024 15:50:24 catheter ablation of arrhythmogenic focus completed LEDA MARINA MD [facility] [place],[address], [address], [facility] - [facility] 06/13/2024 15:52:52 subtotal gastrectomy completed ARIELLE MARINA MD [address] [facility] [place] [facility], [place], [address], [facility] - [facility] 06/13/2024 15:53:16 exploratory laparotomy completed LEDA MARINA MD [address] [facility] [place] [facility], [place], [address], [facility] - [facility] 06/13/2024 15:53:31 Imaging Results None recorded. Procedure Notes None recorded. Medical Equipment None Reported. Allergies Allergen ID Allergen Name Allergen Category Reaction Reaction Severity Criticality Documentation Date Start Date Code Code System Note Provider Name and Address Organization Details Recorded Time 19905 Celebrex medicatio n other Not available Not available 12/15/2023 92165 7 RxNorm React ion: Unkno wn; Not Available [facility] 4 01:04:33 54347 vancomyci n medicatio n other Not available Not available 12/15/2023 16851 RxNorm React ion: Unkno wn; Not Available [facility] 4 01:04:36 Medications Name Sig Start Date [...] and Address Organization Details Last Updated DateTime 11/18/2024 152.4 cm 17.6 kg/m2 10398.31 g Cristine Galindo [place] - [facility] 11/18/2024 15:00:31 Date Recorded Body height Body mass index (BMI) Body weight Provider Name and Address Organization Details Last Updated DateTime 01/27/2025 152.4 cm 17.2 kg/m2 82682.13 g Kavya Ghosh [facility] 01/27/2025 11:27:34 Date Recorded Body height Body mass index (BMI) Body weight Provider Name and Address Organization Details Last Updated DateTime 05/15/2025 152.4 cm 16.6 kg/m2 64815.35 g Kavya Ghosh [facility] 05/15/2025 15:22:11 Date Recorded Body height Body mass index (BMI) Body weight Provider Name and Address Organization Details Last Updated DateTime 07/15/2024 152.4 cm 16.6 kg/m2 74254.35 g Kavya Ghosh [facility] 07/15/2024 15:41:13 Social History None recorded. Functional Status None recorded. Mental Status None recorded. Family History Nothing Reported. Medical History Condition Response Allergies/Hayfever Y Heart Problems Y Anxiety N Tonsil Infections Y Emphysema N Migraines Y Thyroid Problems N COPD N Depression N Developmental Delay N Glaucoma N Nasal or Sinus Problems Y Anemia Y Immune System Disorder N Anesthesia Complications N Heart Attack (ME) N Other Skin Condition Y Diabetes N Rhinitis N Bleeding Disorder N Food Allergy N Hearing Loss Y Arthritis Y Hyperlipidemia N Cancer N Stroke N Dementia N Nasal polyps N Asthma Y Sleep Disorder N High Cholesterol N GERD/Reflux Y Liver Disease N Headaches Y Fibromyalgia N Hypertension N Speech Delay N Kidney Disease Y Gynecological HistoryNo gynecological history recorded. Obstetrics History GPAL:G 0 P 0 0 0 0 Past Encounters Encounter ID Performer Location Encounter Start Date Encounter Closed Date Diagnosis/Indication Diagnosis SNOMED-CT Code Diagnosis ICD10 Code Diagnosis IMO Codes Diagnosis Note [id number] LEDA MARINA MD [facility] [address] [address] 06/13/2024 15:39:26 06/13/2024 16:13:15 Candidiasis of mouth 96439947 B37.0 Abnormal a uditory perception 57806162 H93.291 [id number] LEDA MARINA MD [facility] [address] [address] 07/15/2024 15:01:43 07/15/2024 15:50:41 Candidiasis 81930544 B37.9 There is still thrush. Previously on nystatin, sent in clotrimazo le. Improved fullness right tonsillar pillar and she is asymptomat ic for sore throat. Abnormal a uditory perception 38655153 H93.291 No cerumen today. Audiometri c testing shows stable HF SNHL. [id number] HALI RUDOLPH [facility] [address] [address] 07/15/2024 15:28:23 07/18/2024 08:40:51 Sensorineural hearing loss 75003957 H90.5 Right Ear:Normal hearing through 3K Hz sloping to a mild SNHL with excellent speech discrimina tion.Type Ad tympanogra m.Left Ear:Normal hearing through 3K Hz sloping to a mild SNHL with excellent speech discrimina tion.Type Ad tympanogra m. [id number] LINDY FIGUEROA PA-C [facility] [address] [address] 11/18/2024 14:53:20 11/18/2024 15:20:34 Impacted cerumen of bilateral ears 6080769537 641320 H61.23 [id number] LEDA MARINA MD [facility] [address] [address] 01/27/2025 10:41:32 01/27/2025 11:45:15 Candidiasis of mouth 54650795 B37.0 [id number] 39-year-ol d female presents today for follow-up. She has recurrent pharyngiti s. Sore throat is resolved since her last visit, but she does have evidence of thrush on exam for which I sent in clotrimazo le. We can reassess in a year with audio then. [id number] LEDA MARINA MD [facility] [address] [address] 05/15/2025 14:37:32 05/15/2025 15:38:36 Candidiasis of mouth 80092122 B37.0 210404 Dysfunctio n of right eustachian tube 4182733329 718335 H69.91 12799350 Seasonal allergy 3401290 04 J30.2 70168 Health Concerns Section Related Observation LastModified by Organization Detai ls LastModified Time None Recorded Concern Status LastModified by Organization Details LastModified Time None Recorded Advance Directives Directive None Recorded Payers Insurance Date Sequence Insurance Name Policy Number Policy Young Covered Member ID Young Member ID Guarantor Name 05/12/2025 1 [place] [employer] Joslyn Beaulieu [id number] Joslyn Beaulieu 05/12/2025 2 [place] [facility] Joslyn Beaulieu [id number] Joslyn Beaulieu Notes Date Note Type Note Provider Name and Address Organization Details Recorded Time 07/15/2024 text/html ROS as noted in the HPI Getting some right ear blockage. Better since last visit after cerumen removal. No sore throat or dysphagia. Previous RAST testing showed sensitivities to elm, oak, [place] grass, [place], pecan, [place] grass, birch all relatively mild. PV: 38-year-old female presents today for follow-up after Rast allergy testing. She was unable to come off her beta-serge forintradermal testing. Sore throat comes and goes. Acute pharyngitis since her last visit has resolved. LEDA MARINA MD [address] [place] [address], [address], [place] [facility] 07/16/2024 14:32:03 11/18/2024 text/html ROS as noted in the HPI 39yo female with history of recurrent pharyngitis presents for evaluation of the throat and ears. She reports right sided ear blockage sensation. She was treated for throat infection with doxycycline two weeks ago, and symptoms resolved. She tested negative for strep throat. Endorses to throat infections per year. She takes Pema and flonase daily for allergy management. LEDA MARINA MD [address] [place] [address],[address], [address], [place] [facility] 11/19/2024 15:29:17 01/27/2025 text/html 39-year-old female presents today for follow-up. Sore throat has resolved since her last visit. getting headaches more than the sore throatno sinus infections 1-2 time per weekstaying hydrated ipratropium and antihistamine LEDA MARINA MD [address] [place] [address],[address], [address], [place] [facility] 01/28/2025 11:57:28 05/15/2025 text/html 39-year-old female presents today for evaluation of right sided ear blockage does clench teeth, right ear intermittent blockage previous rast testing 10/2023 showed trees, grasses, weeds were positivecould not have skin testing due to metoprolol LEDA MARINA MD [address] [place] [address], [place], [address], [place] [facility] 05/16/2025 06:57:11 OBGyn Episode No OBEpisode recorded.
--- OUTSIDE RECORDS SUMMARY | 2025-07-05 13:45 | XMS_ITS | Encounter Summary ---
Author Organization [facility] Address [address] [place] [address] Care Team Providers Care Academic Interventionist Name Role Phone Lg Shepherd PA-C Primary Care Provider Encounter Details Date Type Department Care Team (Late st Contact Info) Description 06/07/2021 Scanned Document [facility] [address] [phone] Sommer Gonzalez DO [address] [place] [address] Social History Tobacco Use Types Packs/Day Years [...] on filedocumented in this encounter Care Teams Academic Interventionist Relationship Specialty Start Date End Date Lg Shepherd PA-C PCP - General Internal Medicine 12/01/17 documented as of this encounter
--- OUTSIDE RECORDS SUMMARY | 2025-07-05 13:45 | XMS_ITS | Encounter Summary ---
Author Organization [facility] Address [address] [place] [address] Care Team Providers Care Rail Grinder Name Role Phone Lg Shepherd PA-C Primary Care Provider Encounter Details Date Type Department Care Team (Late st Contact Info) Description 06/10/2021 Scanned Document [facility] [address] [place] [phone] Provider, MD Rashmi [address] [place] [address] Social History Tobacco Use Types Packs/Day Years [...] on filedocumented in this encounter Care Teams Rail Grinder Relationship Specialty Start Date End Date Lg Shepherd PA-C PCP - General Internal Medicine 12/01/17 documented as of this encounter
--- OUTSIDE RECORDS SUMMARY | 2025-07-05 13:45 | XMS_ITS | Encounter Summary ---
Author Organization [facility] Address [address] [place] [address] Care Team Providers Care Corporate Associate Attorney Name Role Phone Lg Shepherd PA-C Primary Care Provider Encounter Details Date Type Department Care Team (Late st Contact Info) Description 08/22/2017 Scanned Document [facility] Urologic Surgery [address] [place] [address] Zafar Barber MD Social History Tobacco Use [...] on filedocumented in this encounter Care Teams Corporate Associate Attorney Relationship Specialty Start Date End Date Lg Shepherd PA-C PCP - General Internal Medicine 12/01/17 documented as of this encounter
--- OUTSIDE RECORDS SUMMARY | 2025-07-05 13:45 | XMS_ITS | Encounter Summary ---
Author Organization [facility] Address [address] [place] [address] Care Team Providers Care Asbestos Siding Installer Name Role Phone Lg Shepherd PA-C Primary Care Provider [phone] Encounter Details Date Type Department Care Team (Late st Contact Info) Description 10/21/2017 Scanned Document [facility] Urologic Surgery [address] [place] [address] Provider, MD Rashmi [address] [place] [address] Social History Tobacco Use Types Packs/Day Years [...] on filedocumented in this encounter Care Teams Asbestos Siding Installer Relationship Specialty Start Date End Date Lg Shepherd PA-C PCP - General Internal Medicine 12/01/17 documented as of this encounter
--- OUTSIDE RECORDS SUMMARY | 2025-07-05 13:45 | XMS_ITS | Encounter Summary ---
Author Organization [facility] Address [address] [place] [address] Care Team Providers Care School Of Nursing Director Name Role Phone Lg Shepherd PA-C Primary Care Provider Encounter Details Date Type Department Care Team (Late st Contact Info) Description 08/19/2017 Scanned Document [facility] Urologic Surgery [address] [place] [address] Noel Blanco MD Social History Tobacco Use [...] on filedocumented in this encounter Care Teams School Of Nursing Director Relationship Specialty Start Date End Date Lg Shepherd PA-C PCP - General Internal Medicine 12/01/17 documented as of this encounter
--- OUTSIDE RECORDS SUMMARY | 2025-07-05 13:45 | XMS_ITS | Encounter Summary ---
Author Organization [facility] Address [address] [place] [address] Care Team Providers Care Oiler Helper Name Role Phone Lg Shepherd PA-C Primary Care Provider Encounter Details Date Type Department Care Team (Late st Contact Info) Description 01/21/2018 Scanned Document [facility] Urologic Surgery [address] [place] [address] Provider, MD Rashmi [address] [place] [address] Social History Tobacco Use Types Packs/Day Years [...] on filedocumented in this encounter Care Teams Oiler Helper Relationship Specialty Start Date End Date Lg Shepherd PA-C PCP - General Internal Medicine 12/01/17 documented as of this encounter
--- OUTSIDE RECORDS SUMMARY | 2025-07-05 13:45 | XMS_ITS | Clinical Summary ---
Author Organization [facility] Prior to 12/31/24 Address [address] [place] [address] Care Team Providers Care Retail Financial Analyst Name Role Phone Manjit Hall MD Primary Care Provider [phone] Allergies Active Allergy Reactions Criticality Noted Date Comments Celecoxib Itching Medium 09/09/2012 Chest pain Fluconazole Itching Medium Vancomycin Itching,Other (See Comments) Medium 016 Medications Medication Sig Dispensed Refills Start Date End Date Status Multiple Vitamins-Mineral s (MULTIVITAMIN PO) Take 1 tablet by mouth daily. 0 Active [place] 3 1000 MG CAPS Take 1 tablet [...] WEEK 0 Active ergocalciferol (VITAMIN D2) capsule 56896 units TAKE 1 CAPSULE BY MOUTH ONE [...] Advance Directives For more information, please contact: [phone] Latest Code Status on File Code Status [...] following way: discussion with patient. Care Teams Retail Financial Analyst Relationship Specialty Start Date End Date Manjit Hall MD [address] [place] [address] PCP - General Hospitalist Medicine 08/13/22
--- OUTSIDE RECORDS SUMMARY | 2025-07-05 13:45 | XMS_ITS | Encounter Summary ---
Author Organization [facility] Address [address] [place] [address] Care Team Providers Care Operations Recruiter Name Role Phone Lg Shepherd PA-C Primary Care Provider Encounter Details Date Type Department Care Team (Late st Contact Info) Description 09/03/2021 Scanned Document [facility] [address] [place] [phone] Provider, MD Rashmi [address] [place] [address] Social History Tobacco Use Types Packs/Day Years [...] on filedocumented in this encounter Care Teams Operations Recruiter Relationship Specialty Start Date End Date Lg Shepherd PA-C PCP - General Internal Medicine 12/01/17 documented as of this encounter
--- OUTSIDE RECORDS SUMMARY | 2025-07-05 13:45 | XMS_ITS | Encounter Summary ---
Author Organization [facility] Address [address] [place] [address] Care Team Providers Care Oxyacetylene Welder Name Role Phone Bette Corona MD Primary Care Provider Encounter Details Date Type Department Care Team (Late Contact Info) Description 05/17/2025 Lab Requisition [facility] - Main Lab [address] [facility] [place] [phone] Kike Reynolds MD [address] [facility] [address] [place] [phone] Encounter for screening for other suspected endocrine disorder Social History Tobacco Use Types Packs/Day Years [...] Encounters Date Type Department Care Team (Late Contact Info) Description 08/10/2025 3:30 PM EST Office Visit Adult Medicine [address] [phone] Bette Corona MD [address] [facility] [place] [address] 08/31/2025 3:00 PM EST Clinical Support Obstetrics and Gynecology - [place] [address] [place], [place] [phone] 09/08/2025 3:00 PM EST Appointment [facility] Ultrasound [address] [place] [phone] 09/21/2025 3:30 PM EST Office Visit [facility] Hematology Oncology [address] [place] [phone] Angelito Mcfarlane MD [address] [place] [phone] 10/16/2025 3:20 PM EDT Office Visit Gastroenterology - [address] [phone] Bisi Dinero, FASHION MERCHANDISER [address] [address] documented as of this encounter Procedures Procedure Name Priority Date/Time Associated Diagnosis Comments PARATHYROID HORMONE INTACT Routine 05/17/2025 3:32 PM EDT Encounter for screening for other suspected endocrine disorder documented in this encounter Results * Parathyroid hormone intact (05/17/2025 3:32 PM EDT) PTH 22.7 18.5 - 88.0 pcg/mL LAB CHEMISTRY METHOD 05/17/2025 6:39 PM EDT [facility] ([facility]) [facility] Blood Venous blood specimen / Unknown 05/17/2025 3:32 PM EDT 05/17/2025 5:46 PM EDT us Kike Reynolds MD LAB BLOOD ORDERABLES Final R esult MERCNidia HASKINS [place] ([facility]) H[facility] LAB [address] [place] [address], documented in this encounter Visit Diagnoses Diagnosis Encounter for screening for other suspected endocrine disorder documented in this encounter Care Teams Oxyacetylene Welder Relationship Specialty Start Date End Date Bette Corona MD [address] [place] [address] PCP - General Internal Medicine 05/09/25 documented as of this encounter
[2025-07-05 14:25] VITALS: BP 136/88; PULSE 101; RESP 20; TEMP 36.7; O2SAT 98
[2025-07-05 16:56] LABS: MANUAL DIFF FLAG NO
[2025-07-05 16:58] LABS: Hematocrit 35.5 % (37.0-47.0); Hemoglobin 11.8 g/dl (12.0-16.0); Imm Gran Abs Auto 0.05 X10*3/uL (0.00-0.03); Imm Gran Pct Auto 0.4 % (0.0-0.4); Lymphocytes Absolute Auto 1.7 X10*3/uL (1.2-4.9); Mean Corpuscular HGB Conc 33.2 g/dl (31.0-35.0); Mean Corpuscular Hemoglobin 39.3 pg (27.0-33.0); NRBC Abs Auto 0.000 X10*3/uL (0.0-0.012); NRBC Pct Auto 0.0 /100WBC (0.0-0.2); Platelet Count 261 X10*3/uL (160-400); Red Blood Count 3.00 X10*6/uL (4.20-5.50); White Blood Count 11.7 X10*3/uL (4.8-10.8)
[2025-07-05 17:10] LABS: INTERNATIONAL NORM RATIO 1.0 (0.9-1.1); Prothrombin Time 12.2 SEC (11.2-13.5)
[2025-07-05 17:12] LABS: Alanine Aminotransferase 53 U/L (0-31); Albumin Level 4.0 g/dL (3.5-5.0); Alkaline Phosphatase 79 U/L (39-117); Anion Gap 11 (12-20); Aspartate Amino Transferase 26 U/L (5-31); Blood Urea Nitrogen 16 mg/dL (9-16); Calcium 9.2 mg/dL (8.4-10.2); Carbon Dioxide 16 mmol/L (22-29); Chloride 118 mmol/L (96-108); Creatinine Clr Calc Pharmacy 45.4; Estimated Glomerular Filt Rate 58; Potassium 3.7 mmol/L (3.3-5.1); Sodium 141 mmol/L (135-145); Total Protein 5.8 g/dL (6.5-8.0)
[2025-07-05 17:13] LABS: Mean Corpuscular Volume 118.3 fL (80.0-98.0)
--- NOTE | 2025-07-05 18:47 | MHC.CM.ED ---
CM met with patient. A&Ox3. Fell off a step ladder today. Sustained an acute comminuted Fx greater trochanter R femur. PT recommending rehab. Ortho recommends outpatient follow up-partial weight bearing with walker. Pt was unable to bear any weight with walker d/t pain. Pt lives with her parents. Uses no DME or services. Is independent. Is unemployed. No HCP on file. HCP reviewed, completed and signed. HCP/father Jasper Beaulieu ([phone]). Uploaded into Care Port and [facility]. Local referrals will be placed. Pt has Medicaid/Medicare
[2025-07-05 19:33] VITALS: BP 103/74; PULSE 91; RESP 15; TEMP 36.7; O2SAT 98
[2025-07-05 19:52] VITALS: RESP 18
--- NOTE | 2025-07-05 19:53 | PC.NURSE ---
this rn assumed care of pt, pt resting in stretcher, reporting 9/10 r hip pain, PA Saud aware and pt medicated per oct. vss
--- NOTE | 2025-07-05 20:00 | PC.NURSE ---
pt IV noted to not flush at this time, I removed and 22g placed in left hand
--- NOTE | 2025-07-05 23:55 | PC.NURSE ---
pt assisted onto bedpan to urinate, pt reports 10/10 right hip pain and medicated per mar
[2025-07-06] VITALS (10 sets, daily range): BP systolic 91–110; BP diastolic 53–75; PULSE 70–99; RESP 12–20; TEMP 36.7–37.4; O2SAT 95–97
[2025-07-06] MEDS: oxyCODONE HCl Immed Release 5 MG TABLET PO (07:53)
--- NOTE | 2025-07-06 08:15 | PHA.MEDREC ---
Pharmacy Consult ? Medication Reconciliation Pharmacy has completed the medication reconciliation. Spoke with patient at bedside and she verbally confirmed meds with me, matches claims.
--- NOTE | 2025-07-06 09:20 | MHC.CM.ED ---
Addendum entered by Katja Anthony 07/06/25 10:34: [facility] is able to offer a bed. MDS, PASRR Level 1 and Level 2 will be sent to [facility]. Addendum entered by Katja Anthony 07/06/25 09:25: Patient has a history of Aspergers, anxiety and depression. Patient sees an outpatient psychiatrist. Original Note: [facility] remains in ER[facility], [facility], [facility], [facility], and [facility] are able to offer a bed. [facility], [facility], [facility], [facility], [place], [facility], [facility], [facility] and [facility] are still reviewing. Met with patient to discuss d/c planning. Choices: 1) [facility] 2) [facility]. Patient will need MDS and Level 2 sent to [facility] for [facility] approval. Continue to monitor for d/c needs.
[2025-07-06] MEDS: Metoprolol Succinate ER 50 MG TAB.ER.24H PO (09:39)
[2025-07-06] MEDS: dilTIAZem HCL CD 120 MG CAP.ER.DEG PO (09:40)
--- NOTE | 2025-07-06 13:34 | MHC.CM.ED ---
Patient will d/c to [facility] via BLS tomorrow 07/07 at 9am as long as Intern approval is obtained from [facility]. Med [facility] with chart. Patient, Carissa GARCIA and Loyda CORREA aware. Continue to monitor for d/c needs.
--- NOTE | 2025-07-07 00:38 | PC.NURSE ---
applied barrier cream to pts bottom per pt request. Bottom noted to be pink and blanchable. offered to reposition and offset pts bottom with pillows but pt refused due to pain.
[2025-07-07 04:00] VITALS: BP 98/62; PULSE 76; RESP 16; TEMP 36.7; O2SAT 95
[2025-07-07 09:10] VITALS: BP 98/66; PULSE 83
[2025-07-07] MEDS: Metoprolol Succinate ER 50 MG TAB.ER.24H PO (09:10)
[2025-07-07 09:11] VITALS: BP 98/66; PULSE 83
[2025-07-07] MEDS: dilTIAZem HCL CD 120 MG CAP.ER.DEG PO (09:11)
--- NOTE | 2025-07-07 09:58 | PC.NURSE ---
Bedside report to EMS. This RN to call [facility] for nurse to nurse. [facility] nurse states she'll just read the paperwork . Pt has arrived.
--- NOTE | 2025-07-07 10:11 | MHC.CM.PN ---
Pt was d/c'd to [facility] today via [facility].
== END 2025-07-07 09:58 ==
PROVIDERS: Registered Nurse Emergency; Emergency Provider Emergency Medicine; PCP Internal Medicine
DX: S72.111A Displaced fracture of greater trochanter of right femur, initial encounter for closed fracture (principal); W11.XXXA Fall on and from ladder, initial encounter; Y93.H1 Activity, digging, shoveling and raking; Y92.007 Garden or yard of unspecified non-institutional (private) residence as the place of occurrence of the external cause; Y99.9 Unspecified external cause status; M25.551 Pain in right hip; I48.91 Unspecified atrial fibrillation; I47.10 Supraventricular tachycardia, unspecified; K27.9 Peptic ulcer, site unspecified, unspecified as acute or chronic, without hemorrhage or perforation
CPT/HCPCS: 36415; 73502; 73700; 80053; 85025; 85610; 93005; 96374; 96376; 97162; 99285; J2270

== ENCOUNTER → 2025-07-05 10:30 | Outpatient (BNV) | payer MEDICARE, MEDICAID, SELFPAY | PROVIDERS: Emergency Provider Emergency Medicine; PCP Internal Medicine; Visit Provider Radiology Diagnostic Radiology | DX: M25.551 Pain in right hip (principal); Z04.3 Encounter for examination and observation following other accident | CPT/HCPCS: 73502; 73700 ==

== ENCOUNTER → 2025-07-05 10:30 | Outpatient (BNV) | payer MEDICARE, MEDICAID, SELFPAY | PROVIDERS: Emergency Provider Emergency Medicine; PCP Internal Medicine; Visit Provider Internal Medicine | DX: R00.0 Tachycardia, unspecified (principal) | CPT/HCPCS: 93010 ==

== ENCOUNTER 2025-07-25 12:47 | Outpatient (AMB) | payer MEDICARE, MEDICAID, SELFPAY ==
--- NOTE | 2025-07-25 13:00 | MHC.OFFVIS ---
Vital Signs 07/25/25 13:09 Height 5 ft Weight 85 lb BMI 16.6 Handedness Right Intake Visit Reasons: ED Follow Up - Right GT Fracture 07/05/25 Intake Note: Joslyn is a 40 year old female who presents today for a ER follow up of her right hip injury, DOI 07/05/25. Patient reports she was standing on a ladder attempting to clear snow off the roof of her car when her foot slipped causing her to fall onto her right side on the concrete drive way. She mentions that her pain is on the the whole him but she is having pain through out her whole leg and foot. She states that she tried taking tylenol with mild relief. Patient expresses that she had surgery in her right ankle back in 11/2007 she had a over stretched achilles tendon and got it fixed. Allergies celecoxib (From CELEBREX) Allergy (Intermediate, Verified 07/25/25 13:04) HIVES vancomycin (VANCOMYCIN) Allergy (Intermediate, Verified 07/25/25 13:04) HIVES Milk Containing Products (Dairy) Allergy (Verified 07/25/25 13:04) Diarrhea HPI HPI ED Follow Up - Right GT Fracture 07/05/25: Details: The patient is a 40-year-old female who presents to the office today for follow-up status post right greater troch fracture that occurred on 07/05/2025 after the patient reports she was clearing ice off of a vehicle on a ladder. Her snow breast got stuck and she yanked the brush to free it losing her balance falling directly onto the right hip. She felt immediate pain and presented to the emergency department where x-rays were obtained and initially were found negative. Due to the patient's pain out of proportion a CT scan was obtained where she was found to have a comminuted right hip greater troch fracture. She has been using a walker to assist with ambulation. Additionally, she reports that she has severe right foot pain after the fall but did not have any x-rays taken as her hip was focused on at that time. 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 Able to perform straight leg raise. Right ankle: Mild edema located over the dorsal aspect of the foot. Patient is able to demonstrate dorsiflexion and plantar flexion with pain. Sensation intact. Pedal Pulse intact. Psych Appearance: grossly normal Mental Status: mental status grossly normal Attitude: cooperative Office Procedures AMB Fracture Care Fracture Billing Code: Fracture Billing Code Assessment & Plan Assessment & Plan (1) Fracture of greater trochanter of right femur: Code(s): S72.111A - Displaced fracture of greater trochanter of right femur, initial encounter for closed fracture Category: Medical (2) Right foot sprain: Code(s): S93.601A - Unspecified sprain of right foot, initial encounter Category: Medical (3) Right ankle sprain: Code(s): S93.401A - Sprain of unspecified ligament of right ankle, initial encounter Category: Medical Plan The patient is a 40-year-old female who presents to the office today for follow-up status post right greater troch fracture that occurred on 07/05/2025 after the patient reports she was clearing ice off of a vehicle on a ladder. Her snow breast got stuck and she yanked the brush to free it losing her balance falling directly onto the right hip. She felt immediate pain and presented to the emergency department where x-rays were obtained and initially were found negative. Due to the patient's pain out of proportion a CT scan was obtained where she was found to have a comminuted right hip greater troch fracture. She has been using a walker to assist with ambulation. Additionally, she reports that she has severe right foot pain after the fall but did not have any x-rays taken as her hip was focused on at that time. While in the office today, I educated the patient that with a right hip greater trochanteric fracture patient should avoid any abduction. She may weightbear as tolerated with the use of a walker. However, the patient was bearing icing extreme right foot/ankle pain and inability to bear weight. I obtained an x-ray of the right ankle while in the office today which was negative for any acute fracture or dislocation. The patient was placed into a mini tracts walking brace (pediatric walking boot) and instructed she may weightbear as tolerated. She will follow up with podiatry for further evaluation and treatment of her right foot/ankle injury. X-rays of the right hip which were obtained while in the office today and were reviewed by meNancy PA-C, revealed no further displacement of the right hip greater trochanteric fracture. X-rays of the right ankle which were obtained while in the office today and were reviewed by me, Nancy Harley PA-C, revealed no obvious fracture or dislocation. Orders: Orders XR hip RT min 2V Today M25.559 - Pain in unspecified hip XR ankle RT min 3V Today M25.579 - Pain in unspecified ankle and joints of unspecified foot Coding Level of Care Code New Pt Level 4 (44757) Diagnoses Fracture of greater trochanter of right femur S72.111A Right foot sprain S93.601A Right ankle sprain S93.401A CPT Codes Fracture Care - Fracture Billing Code: Fracture Billing Code ([id number])
[2025-07-25 13:09] VITALS: BMI 16.6
--- OUTSIDE RECORDS SUMMARY | 2025-07-25 13:49 | XMS_ITS | Clinical Summary ---
Author Organization [facility] Address [address] [place] [address] Phone Care Team Providers Care Pelota Maker Name Role Phone Manjit Hall MD Primary Care Provider [phone] Allergies Active Allergy Reactions Criticality Noted Date Comments Amoxicillin 02/11/2024 Celecoxib Hives,Itching Medium 09/09/2012 Other Reaction(s): increased pain, itchy, Not available, rash Chest pain Chest pain Vancomycin Hives,Itching Medium 09/04/2015 Other Reaction(s): hives and itching, Other (See Comments) Medications Aspirin Low Dose 81 MG EC tablet Take 81 mg by mouth 1 (one) time each day Active budesonide-for moterol (SYMBICORT) 160-4.5 MCG/ACT inhaler Inhale 2 puffs in the morning and 2 puffs before bedtime. 01/04/20 20 Active tamsulosin (FLOMAX) 0.4 MG 24 hr capsule Take 0.4 mg by mouth 1 (one) time each day 05/31/20 20 Active dicyclomine (BENTYL) 10 MG capsule Take 10 mg by mouth 4 (four) times a day (before meals and nightly) Active dilTIAZem CD (CARDIZEM CD) 120 MG 24 hr capsule Take 120 mg by mouth in the morning and 120 mg at noon and 120 mg in the evening. Active ergocalciferol 1.25 MG (82104 UT) capsule Take 1 capsule by mouth 1 (one) time per week 07/14/20 15 Active metoprolol succinate XL (TOPROL XL) 50 MG 24 hr tablet Take 50 mg by mouth 1 (one) time each day Do not crush or chew. Active pantoprazole (PROTONIX) 40 MG EC tabletIndicati ons:Gastroesop hageal Reflux Disease Take 40 mg by mouth 1 (one) time each day before breakfast Do not crush, chew, or split. Active clindamycin (CLEOCIN) 300 MG capsule Take 300 mg by mouth in the morning and 300 mg in the evening and 300 mg before bedtime. 11/16/19 025 Discontinued Active Problems Problem Noted Date Diagnosed Date Asthma 06/27/2025 Nodule of lung 03/30/2025 Coronary arteriosclerosis 03/02/2024 Renal stone 12/02/2022 Uncomplicated mild persistent asthma 09/04/2022 Iron deficiency anemia verónica watson to inadequate dietary iron intake 08/28/2022 Pulmonary hypertension 05/29/2022 Overview (06/27/2025): Last Assessment & Plan: She had an echocardiogram done 2019 which showed mild pulmonary hypertension and mild mitral regurgitation. I have asked her to update an echocardiogram so we can continue to monitor this. Edema 05/29/2022 Overview (06/27/2025): Last Assessment & Plan: Her leg edema has been stable. We will continue to monitor this. 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 Orthostatic hypotension 12/01/2016 Obstructive sleep apnea syndrome 12/01/2016 Hypertensive disorder 09/26/2013 Chronic anemia 05/10/2012 Anxiety disorder 10/20/2011 Encounters Date Type Department Care Team Description 06/28/2025 9:00 AM EST Office Visit [facility] [address] [address] Mikey Guido MD Nephrolithiasis (Primary Dx); Renal tubular acidosis from Last 3 Months Social History Tobacco Use Types Packs/Day Years Used Date Smoking Tobacco: Never Smokeless Tobacco: Never Tobacco Cessation:Counseling Given: Yes Alcohol Use Standard Drinks/Week Comments Never 0 (1 standard drink = 0.6 oz pur e alcohol) Comments Unknown Sex and Gender Information Value Date Recorded Sex Assigned at Not on file Legal Sex Female 11:36 AM EDT Gender Identity Not on file Sexual Orientation Not on file Last Filed Vital Signs Vital Sign Reading Time Taken Comments Blood Pressure 98/72 06/28/2025 8:49 AM EST Pulse 100 06/28/2025 8:49 AM EST Temperature - - Respiratory Rate - - Oxygen Saturation 97% 06/28/2025 8:49 AM EST Inhaled Oxygen Concentration - - Weight 34.5 kg (76 lb) 06/28/2025 8:49 AM EST Height - - Body Mass Index - - Plan of Treatment Upcoming Encounters Date Type Department Care Team (Late st Contact Info) Description 10/10/2025 3:00 PM EDT Office Visit [facility] [address] [facility] [address] [place] [address] Mikey Guido MD [address] [address] Health Maintenance Due Date Last Done Comments Pneumococcal Vaccine: Peds ( 0 to 5 Years) and At-Risk Patients (6 to 49 Years) (2 of 2 - PCV) 05/19/2015 05/19/2014 Influenza Vaccine (#1) 2025 Hepatitis B Vaccine Completed 08/31/1997, 03/28/1997, 02/10/1997 Procedures Procedure Name Priority Date/Time Associated Diagnosis Comments CBC WITH AUTO DIFFERENTIAL Routine 06/28/2025 11:02 AM EST URINALYSIS RFX MICROSCOPIC Routine 06/28/2025 11:02 AM EST CALCIUM, URINE, RANDOM Routine 06/28/2025 11:02 AM EST Nephrolithiasis Renal tubular acidosis POTASSIUM, URINE, RANDOM Routine 06/28/2025 11:02 AM EST Nephrolithiasis Renal tubular acidosis UREA NITROGEN, URINE Routine 06/28/2025 11:02 AM EST Nephrolithiasis Renal tubular acidosis CHLORIDE, URINE, RANDOM Routine 06/28/2025 11:02 AM EST Nephrolithiasis Renal tubular acidosis SODIUM, URINE, RANDOM Routine 06/28/2025 11:02 AM EST Nephrolithiasis Renal tubular acidosis PHOSPHATE ( PHOSPHORUS) Routine 06/28/2025 11:02 AM EST Nephrolithiasis Renal tubular acidosis MAGNESIUM Routine 06/28/2025 11:02 AM EST Nephrolithiasis Renal tubular acidosis CALCIUM, IONIZED Routine 06/28/2025 11:0 2 AM EST Nephrolithiasis Renal tubular acidosis PTH, INTACT Routine 06/28/2025 11:02 AM EST Nephrolithiasis Renal tubular acidosis VITAMIN D 25 HYDROXY Routine 06/28/2025 11:02 AM EST Nephrolithiasis Renal tubular acidosis URINE ALBUMIN / CREATININE RATIO Routine 06/28/2025 11:02 AM EST Nephrolithiasis Renal tubular acidosis PROTEIN / CREATININE RATIO, URINE Routine 06/28/2025 11:02 AM EST Nephrolithiasis Renal tubular acidosis BASIC METABOLIC PANEL Routine 06/28/2025 11:02 AM EST Nephrolithiasis Renal tubular acidosis from Last 3 Months Results * (ABNORMAL) CBC auto differential (06/28/2025 11:02 AM EST) WBC 5.1 4.8 - 10.8 K/[facility] RBC 3.10(L) 3.80 - 4.80 M/[facility] Hgb 12.1 11.5 - 16.0 g/dL [facility] Hematocrit 37.2 35.0 - 47.0 % [facility] MCV 120.4(H) 79.0 - 98.0 FL [facility] MCH 39.2(H) 27.0 - 32.0 pcg [facility] MCHC 32.5 32.0 - 37.0 g/dL [facility] RDW 13.5 11.0 - 15.0 % [facility] Platelets 313 130 - 400 K/[facility] MPV 8.6 7.0 - 11.0 FL [facility] nRBC Count 0.0 <1.0 % [facility] NRBC Absolute 0.00 <0.10 K/[facility] Bands Relative 62.8 % [facility] Lymphocyte Realative Percent 24.1 % [facility] Monocyte Relative Percent 8.4 % [facility] Eosinophil Relative Percent 3.5 % [facility] Basophils Relative Diff 0.8 % [facility] Immature Granulocytes 0.4 % [facility] Neutrophils Absolute 3.20 1.50 - 7.00 K/[facility] Lymphocytes Absolute 1.23 1.00 - 5.00 K/[facility] Monocytes Absolute 0.43 0.20 - [facility] Eosin[facility] Absolute 0.18 0.00 - 0.50 [facility] Basophil ABS 0.04 0.00 - 0.20 K/[facility] Immature Grans (Absolute) 0.02 0.00 - 0.03 K/[facility] 06/28/2025 11:0 2 AM EST 06/28/2025 11:57 AM EST us Mikey Guido MD LAB BLOOD ORDERABLES Final Result LOC [facility] [address] [place] [address] * Urea nitrogen, urine (06/28/2025 11:02 AM EST) Urea Nitrogen, Ur 714 mg/dL [facility] Urine Urine specimen obtained by clean catch procedure / Unknown 06/28/2025 11:02 AM EST 06/28/2025 11:58 AM EST us Mikey Guido MD LAB URINE ORDERABLES Final Result Performing Organization Address City/[facility] Co de Phone Number [facility] [address] [place] [address] * (ABNORMAL) Protein, Total, Random Urine w/Creatinine (Protein/Creat Ratio) (06/28/2025 11:02 AM EST) Protein, Ur 205 mg/dL [facility] Comment:Results verified by repeat testing Urine Protein/Creati nine Ratio 3.15(H) <=0.20 mg/mg creat [facility] Creatinine, Urine 65.0 mg/dL [facility] Urine Urine specimen obtained by clean catch procedure / Unknown 06/28/2025 11:02 AM EST 06/28/2025 11:58 AM EST us Mikey Guido MD LAB URINE ORDERABLES Final Result Performing Organization Address City/[facility] Co de Phone Number [facility] [address] [place] [address] * (ABNORMAL) Urine Albumin / Creatinine Ratio (06/28/2025 11:02 AM EST) Creatinine, Urine 65.0 mg/dL [facility] Microalbumin Urine Random 672.0(H) 0.0 - 29.0 mg/L [facility] Comment:Results verified by repeat testing Microalbumin/Cre atinine Ratio 1,034(H) <30 mg/g creat [facility] Urine Urine specimen obtained by clean catch procedure / Unknown 06/28/2025 11:02 AM EST 06/28/2025 11:58 AM EST Narrative LOC - 06/28/2025 2:02 PM EST To be Done in ( For [facility] patients use ) For [facility] use us Mikey Guido MD LAB URINE ORDERABLES Final Result Performing Organization Address City/[facility] Co de Phone Number [facility] [address] [place] [address] * Sodium, urine, random (06/28/2025 11:02 AM EST) Sodium, Ur 57 mmol/L [facility] Urine Urine specimen obtained by clean catch procedure / Unknown 06/28/2025 11:02 AM EST 06/28/2025 11:58 AM EST Narrative LOC - 06/28/2025 1:02 PM EST To be Done in ( For [facility] patients use ) For [facility] use us Mikey Guido MD LAB URINE ORDERABLES Final Result Performing Organization Address [facility] Co de Phone Number [facility] [address] [place] [address] * Potassium, urine, random (06/28/2025 11:02 AM EST) Potassium, Ur 43.0 mmol/L [facility] Urine Urine specimen obtained by clean catch procedure / Unknown 06/28/2025 11:02 AM EST 06/28/2025 11:58 AM EST us Mikey Guido MD LAB URINE ORDERABLES Final Result Performing Organization Address City/[facility] Co de Phone Number [facility] [address] [place] [address] * (ABNORMAL) Urinalysis Reflex Microscopic (06/28/2025 11:02 AM EST) Specific [place] 1.043(H) 1.003 - 1.030 [facility] pH Urine 5.5 5.0 - 8.0 pH [facility] LEUKOCYTES, URINE Negative Negative [facility] Nitrite, Urine Negative Negative [facility] Protein, Urine 300(A) <=Trace mg/dL [facility] Glucose Urine Negative Negative mg/dL [facility] Ketones, Urine Negative Negative mg/dL [facility] Urobilinogen Urine 0.2 0.2 - 1.0 mg/dL [facility] Bilirubin Urine Negative Negative [facility] Blood Urine Large(A) Negative [facility] RBC, Urine 20(H) 0 - 4 /HPF [facility] WBC, Urine 20(H) 0 - 4 /HPF [facility] Squamous Epithelial, Urine 50 0 - 60 /LPF [facility] Bacteria, Urine Few(A) Negative /HPF [facility] UR CAST OTHER 30 COARSE GRANULAR CASTS /LPF [facility] 06/28/2025 11:0 2 AM EST 06/28/2025 11:58 AM EST Narrative LOC - 06/28/2025 12:27 PM EST To be Done in ( For [facility] patients use ) For [facility] use Microscopic Required->Yes Culture if Indicated?->No us Mikey Guido MD LAB URINE ORDERABLES Final Result [facility] [address] [place] [address] * Chloride, urine, random (06/28/2025 11:02 AM EST) Chloride, Ur 70 mmol/L [facility] Urine Urine specimen obtained by clean catch procedure / Unknown 06/28/2025 11:02 AM EST 06/28/2025 11:58 AM EST us Mikey Guido MD LAB URINE ORDERABLES Final Result [facility] [address] [place] [address] * Calcium, urine, random (06/28/2025 11:02 AM EST) Calcium, Ur 34.0 mg/dL [facility] Comment:Results verified by repeat testing Urine Urine specimen obtained by clean catch procedure / Unknown 06/28/2025 11:02 AM EST 06/28/2025 11:58 AM EST us Mikey Guido MD LAB URINE ORDERABLES Final Result [facility] [address] [place] [address] * (ABNORMAL) Vitamin D 25 Hydroxy (06/28/2025 11:02 AM EST) Vitamin D, 25-OH, Total 9.6(L) 30.0 - 80.0 ng/mL [facility] Blood Venous blood / Unknown 06/28/2025 11:02 AM EST 06/28/2025 1:45 PM EST Narrative LOC - 06/28/2025 2:51 PM EST To be Done in ( For [facility] patients use ) For [facility] use us Mikey Guido MD LAB BLOOD ORDERABLES Final Result Performing Organization Address City/[facility]/ZIP Co de Phone Number [facility] [address] [place] [address] * Phosphorus (06/28/2025 11:02 AM EST) Phosphorus 3.6 2.5 - 4.5 mg/dL [facility] Blood Venous blood / Unknown 06/28/2025 11:02 AM EST 06/28/2025 1:45 PM EST Narrative LOC - 06/28/2025 2:56 PM EST To be Done in ( For [facility] patients use ) For [facility] use us Mikey Guido MD LAB BLOOD ORDERABLES Final Result Performing Organization Address [facility] Co de Phone Number [facility] [address] [place] [address] * PTH, Intact (06/28/2025 11:02 AM EST) PTH 37.4 18.5 - 88.0 pcg/mL [facility] Blood Venous blood / Unknown 06/28/2025 11:02 AM EST 06/28/2025 1:45 PM EST Narrative LOC - 06/28/2025 2:48 PM EST To be Done in ( For [facility] patients use ) For [facility] use us Mikey Guido MD LAB BLOOD ORDERABLES Final Result Performing Organization Address City/[facility] Co de Phone Number [facility] [address] [place] [address] * Magnesium (06/28/2025 11:02 AM EST) Magnesium 2.3 1.9 - 2.6 mg/dL [facility] Blood Venous blood / Unknown 06/28/2025 11:02 AM EST 06/28/2025 1:45 PM EST Narrative LOC - 06/28/2025 2:56 PM EST To be Done in ( For [facility] patients use ) For [facility] use us Mikey Guido MD LAB BLOOD ORDERABLES Final Result Performing Organization Address City/[facility]/ZIP Co de Phone Number [facility] [address] [place] [address] * Calcium, ionized (06/28/2025 11:02 AM EST) [facility] Calcium, Ion 4.9 4.6 - 5.4 mg/dL [facility] Comment: Test performed at [facility], [address], [place] [address] Sho Kruger MD, PhD - Unix Systems Administrator Blood Venous blood / Unknown 06/28/2025 11:02 AM EST 06/28/2025 2:48 PM EST Mikey Guido MD LAB BLOOD ORDERABLES Final Result Performing Organization Address City/[facility]/ZIP Co de Phone Number [facility] [address] [place] [address] * (ABNORMAL) Basic Metabolic Panel (06/28/2025 11:02 AM EST) [facility] Sodium 142 133 - 145 mmol/L [facility] Potassium 4.0 3.5 - 5.5 mmol/L [facility] Chloride 112(H) 96 - 110 mmol/L [facility] Bicarbonate (CO2) 16(L) 21 - 32 mmol/L [facility] Anion Gap 14(H) 3 - 11 [facility] Glucose 81 70 - 100 mg/dL [facility] BUN 19 5 - 25 mg/dL [facility] Creatinine Serum 0.88 0.50 - 1.10 mg/dL [facility] eGFR 85 >=60 mL/min/1. 73m2 [facility] Comment:Calculation based on the Chronic Kidney Disease Epidemiology Collaboration (CKD-EPI) equation refit without adjustment for race. BUN/Creatinine Ratio 21.6 [facility] Calcium 7.9(L) 8.5 - 10.5 mg/dL [facility] Blood Venous blood / Unknown 06/28/2025 11:02 AM EST 06/28/2025 1:45 PM EST Narrative LOC - 06/28/2025 2:56 PM EST To be Done in ( For [facility] patients use ) For [facility] use Fasting?->No Mikey Guido MD LAB BLOOD ORDERABLES Final Result [facility] [address] [place] [address] from Last 3 Months Insurance Medicaid [place] Medicare Medicare Medicaid [place] Care Teams Pelota Maker Relationship Specialty Start Date End Date Manjit Hall MD [address] [place] [phone] PCP - [facility] 12/01/23
--- OUTSIDE RECORDS SUMMARY | 2025-07-25 13:49 | XMS_ITS | Clinical Summary ---
Author Organization [facility] Address [address] [place] [address] Care Team Providers Care Massage Therapy Instructor Name Role Phone Lg Shepherd PA-C Primary Care Provider Allergies Active Allergy Reactions Criticality Noted Date Comments Celecoxib Hives Medium 09/09/2012 Chest pain Vancomycin Itching Low 09/04/2015 Medications ergocalciferol (VITAMIN D2,DRISDOL) 45463 units Cap daily. 5 Active metoPROLOL SUCCINATE [...] impaction and needed a clean out in [facility] with enemas and bowel rest, which helped. [...] patient's age to complete this topic Insurance [facility] Care Teams Massage Therapy Instructor Relationship Specialty Start Date End Date Lg Shepherd PA-C PCP - General Internal Medicine 12/01/17
--- OUTSIDE RECORDS SUMMARY | 2025-07-25 13:49 | XMS_ITS | Encounter Summary ---
Author Organization [facility] Address [address] [place] [address] Care Team Providers Care Brand Engineer Name Role Phone Lg Shepherd PA-C Primary Care Provider Encounter Details Date Type Department Care Team (Late st Contact Info) Description 06/04/2019 Scanned Document [facility] Urologic Surgery [address] [place] [phone] Provider, Rashmi, [address] [place] [address] Social History Tobacco Use Types Packs/Day Years [...] on filedocumented in this encounter Care Teams Brand Engineer Relationship Specialty Start Date End Date Lg Shepherd PA-C PCP - General Internal Medicine 12/01/17 documented as of this encounter
--- OUTSIDE RECORDS SUMMARY | 2025-07-25 13:49 | XMS_ITS | Encounter Summary ---
Author Organization [facility] Address [address] [place] [address] Care Team Providers Care School Guard Name Role Phone Bette Corona MD Primary Care Provider Reason for Visit * Reason Onset Date Comments Hospital Follow-up 07/18/2025 Encounter Details Date Type Department Care Team ([facility] st Contact Info) Description 07/18/2025 Telephone Adult Medicine [facility] [address] [place] [address] Bette Corona MD [address] [place] [address] Social History Tobacco Use Types Packs/Day Years [...] as of this encounter Progress Notes * Angelica Cervantes RN - 07/20/2025 9:13 AM EST Robert is in a meeting , will call back * Vicky Wong - 07/19/2025 9:03 AM EST Robert is returning JOSE Dominguez a call back, cell number [phone] * Angelica Cervantes RN - 07/18/2025 4:30 PM EST Call to robert at [facility] to book tcm Left message to call triage * Sumaya Vásquez - 07/18/2025 4:23 PM EST Hospital/ER follow up appointment needed Hospital patient was treated at: [facility] Was this only an ER visit or was the patient admitted to the hospital? Admitted to the hospital/kept overnight Date of visit if ER visit only: N/A If patient was admitted what was the date of discharge? 07/07/2025 Reason/diagnosis for visit or stay: Right Femur Fracture When was the patient told to follow up? Unknown Was visit or stay related to an injury? If yes, what was the date of injury (DOI)? No If yes, was the injury due to: N/A documented in this encounter Plan of Treatment Upcoming Encounters Date Type Department Care Team (Late st Contact Info) Description 07/26/2025 1:45 PM EST Office Visit Adult Medicine [address] [phone] Manjit Hall MD [address] [place] [address] 08/10/2025 3:30 PM EST Office Visit [address] [phone] Bette Corona MD [address] [place] [address] [place] [address] 08/31/2025 3:00 PM EST Clinical Support Obstetrics and Gynecology - [place] [address] [place] [address] 09/08/2025 3:00 PM EST Appointment [facility] Ultrasound [address] [place] [phone] 09/21/2025 3:30 PM EST Office Visit [facility] Hematology Oncology [address] [place] [phone] Angelito Mcfarlane MD [address] [place] [phone] 10/16/2025 3:20 PM EDT Office Visit Gastroenterology - [address] [phone] Bisi Dinero, SHAKE PACKER [address] [address] documented as of this encounter Visit Diagnoses Not on filedocumented in this encounter Care Teams School Guard Relationship Specialty Start Date End Date Bette Corona MD [address] [facility] [place] [address] PCP - General Internal Medicine 05/09/25 documented as of this encounter
--- OUTSIDE RECORDS SUMMARY | 2025-07-25 13:49 | XMS_ITS | Clinical Summary ---
Author Organization [facility] Address [address] [place] [address] Care Team Providers Care Chute Operator Name Role Phone Kike Cornelius MD Primary [...] age to complete this topic Care Teams Chute Operator Relationship Specialty Start Date End Date Kike Cornelius MD PCP - General 03/09/23 Kike Cornelius MD PCP - Backup PCP 09/03/23
--- OUTSIDE RECORDS SUMMARY | 2025-07-25 13:49 | XMS_ITS | Encounter Summary ---
Author Organization [facility] Address [address] [place] [address] Care Team Providers Care Crate Icer Name Role Phone Lg Shepherd PA-C Primary Care Provider [phone] Encounter Details Date Type Department Care Team (Late st Contact Info) Description 03/03/2019 Scanned Document [facility] [address] [place] [phone] Provider, MD Rashmi [address] [place] [address] Social History Tobacco Use Types Packs/Day Years [...] on filedocumented in this encounter Care Teams Crate Icer Relationship Specialty Start Date End Date Lg Shepherd PA-C PCP - General Internal Medicine 12/01/17 documented as of this encounter
--- OUTSIDE RECORDS SUMMARY | 2025-07-25 13:49 | XMS_ITS | Encounter Summary ---
Author Organization [facility] Address [address] [place] [address] Care Team Providers Care Database Analyst Name Role Phone Lg Shepherd PA-C Primary Care Provider Encounter Details Date Type Department Care Team (Late st Contact Info) Description 06/04/2019 Scanned Document [facility] Urologic Surgery [address] [place] [phone] Provider, Rashmi, [address] [place] [address] Social History Tobacco Use Types Packs/Day Years [...] on filedocumented in this encounter Care Teams Database Analyst Relationship Specialty Start Date End Date Lg Shepherd PA-C PCP - General Internal Medicine 12/01/17 documented as of this encounter
--- OUTSIDE RECORDS SUMMARY | 2025-07-25 13:49 | XMS_ITS | Encounter Summary ---
Author Organization [facility] Address [address] [place] [address] Care Team Providers Care Building Stonecutter Name Role Phone Lg Shepherd PA-C Primary Care Provider Encounter Details Date Type Department Care Team (Late st Contact Info) Description 06/04/2019 Scanned Document [facility] Urologic Surgery [address] [place] [phone] Provider, Rashmi, [address] [place] [address] Social History Tobacco Use Types Packs/Day Years [...] on filedocumented in this encounter Care Teams Building Stonecutter Relationship Specialty Start Date End Date Lg Shepherd PA-C PCP - General Internal Medicine 12/01/17 documented as of this encounter
--- OUTSIDE RECORDS SUMMARY | 2025-07-25 13:49 | XMS_ITS | Encounter Summary ---
Author Organization [facility] Address [address] [place] [address] Care Team Providers Care Senior Principal Architect Name Role Phone Lg Shepherd PA-C Primary Care Provider [phone] Encounter Details Date Type Department Care Team (Late st Contact Info) Description 06/03/2019 Scanned Document [facility] Urologic Surgery [address] [place] [id number] Provider, Rashmi, [address] [place] [address] Social History Tobacco Use Types Packs/Day Years [...] on filedocumented in this encounter Care Teams Senior Principal Architect Relationship Specialty Start Date End Date Lg Shehperd PA-C PCP - General Internal Medicine 12/01/17 documented as of this encounter
--- OUTSIDE RECORDS SUMMARY | 2025-07-25 13:49 | XMS_ITS | Continuity of Care Document ---
Author Organization [place] [facility], [facility] Address [address] [place] [address] Care Team Providers Care Double Reamer Operator Name Role Phone GINNA GOLDSTEIN Primary Care Provider [phone] Assessment Encounter Date Assessment Date Assessment LastModified [...] clotrimaz ole 10 mg jagdeep 2024 025 [facility]armacy #[id number], [address] [place], [address], 06/05/2025 05:01:56 azelastin e 137 mcg (0.1 %) nasal spray 2024 025 [facility]/Pharmacy #[id number], [address] [place], [address], 05/15/2025 15:37:00 Patient TargetsNo targets recorded. Patient InstructionsNo instructions recorded. Reason for Referral None Reported. Problems Name Problem SNOMED Code Status Onset Date Resolution Date Notes Provider Name and Address Organization Details Recorded Time Otalgia of right ear 3708296600 Active 2022 Otalgia, right ear; Note: Date Diagnosed : 09/08/2022 9:29 AM (H92.01) Not Available [facility] 4 02:34:05 Central perforati on of right tympanic membrane 18169799600 16738 Active 2022 Central perforati on of tympanic membrane, right ear; Note: Date Diagnosed : 09/08/2022 9:29 AM (H72.01) Not Available [facility] 4 02:34:03 Acute pharyngit is 107539223 Active 2022 Pharyngit is (acute) NOS; Note: Date Diagnosed : 10/03/2022 3:23 PM (J02.9) Not Available [facility] 4 02:33:53 Abnormal auditory perceptio n 78492344 Active 2022 Other abnormal auditory perceptio ns, right ear; Note: Date Diagnosed : 10/21/2022 4:59 PM (H93.291) Not Available [facility] 4 02:34:10 Disorder of right Eustachia n tube 89555643407 15595 Active 2022 Other specified disorders of Eustachia n tube, right ear; Note: Date Diagnosed : 10/24/2022 10:15 AM (H69.81) Not Available [facility] 4 02:34:01 Chronic rhinitis 55718659 Active 2022 Chronic rhinitis; Note: Date Diagnosed : 02/01/2023 8:07 AM (J31.0) Not Available [facility] 4 02:33:59 Deviated nasal septum 652466731 Active 2023 Deviated nasal septum; Note: Date Diagnosed : 08/09/2023 10:14 AM (J34.2) Not Available [facility] 4 02:34:11 Candidias is of mouth 51449482 Active 2023 LEDA MARINA MD [address], [place], [place], [address] , [place] [facility] 5 11:41:55 Sensorine ural hearing loss 25454865 Active 2023 HALI RUDOLPH [address], [place], [place], [address] , [place] - [facility] 4 15:29:05 Candidias is 11035615 Active 2023 LEDA MARINA MD [address], [place], [place], [address] , [place] - [facility] 4 15:44:05 Impacted cerumen of bilateral ears 48862670716 45887 Active 2024 LINDY FIGUEROA PA-C [address], [place], [place], [address] , [place] [facility] 5 15:18:47 Dysfuncti on of right eustachia n tube 02205079550 02068 Active 2024 LEDA MARINA MD [address], [place], [place], [address] , [place] [facility] 5 15:33:28 Seasonal allergy 147857851 Active 2024 LEDA MARINA MD [address], [place], [address] , [place] [facility] 5 06:56:25 Problem Notes None recorded. Procedures Surgical History Date Name Laterality Status Provider Name and Address Organization Details Recorded Time 025 Fiberoptic Nasopharyngoscopy completed LEDA MARINA MD 100 [facility],[address], [address], [place] [facility] 05/15/2025 15:36:43 025 Cerumen removal without microscope bilat completed LINDY FIGUEROA PA-C 100 [facility],[address], [address], [place] [facility] 11/18/2024 15:18:54 024 Air & Speech Audio with Tymps - 78561, 31697 & 11857 completed HALI RUDOLPH [address] [place] [address],[address], [address], [facility] - [facility] 07/15/2024 15:28:58 tonsillectomy completed LEDA MARINA MD [address] [place] [address],[address], [address], [facility] - [facility] 06/13/2024 15:50:24 catheter ablation of arrhythmogenic focus completed LEDA MARINA MD [address] [place] [address],[address], [address], [facility] - [facility] 06/13/2024 15:52:52 subtotal gastrectomy completed ARIELLE MARINA MD [address] [place] [address],[address], [address], [facility] - [facility] 06/13/2024 15:53:16 exploratory laparotomy completed LEDA MARINA MD [address] [place] [address],[address], [address], [facility] - [facility] 06/13/2024 15:53:31 Imaging Results None recorded. Procedure Notes None recorded. Medical Equipment None Reported. Allergies Allergen ID Allergen Name Allergen Category Reaction Reaction Severity Criticality Documentation Date Start Date Code Code System Note Provider Name and Address Organization Details Recorded Time 11634 Celebrex medicatio n other Not available Not available 12/15/2023 81930 7 RxNorm React ion: Unkno wn; Not Available [facility] 4 01:04:33 68598 vancomyci n medicatio n other Not available Not available 12/15/2023 99353 RxNorm React ion: Unkno wn; Not Available [facility] 4 01:04:36 Medications Name Sig Start [...] Updated DateTime 05/15/2025 152.4 cm 16.6 kg/m2 64441.35 g Kavya Ghosh [place] - [facility] 05/15/2025 15:22:11 Social History None recorded. Functional Status None recorded. Mental Status None recorded. Family History Nothing Reported. Medical History Condition Response Allergies/Hayfever Y Heart Problems Y Anxiety N Tonsil Infections Y Emphysema N Migraines Y Thyroid Problems N Glaucoma N Developmental Delay N Depression N COPD N Nasal or Sinus Problems Y Anemia Y Immune System Disorder N Anesthesia Complications N Heart Attack ([place]) N Other Skin Condition Y Diabetes N [...] ICD10 Code Diagnosis IMO Codes Diagnosis Note [id number] LEDA MARINA MD [facility] [address] [address] 05/15/2025 14:37:32 05/15/2025 15:38:36 Candidiasis of mouth 27168174 B37.0 089293 Dysfunctio n of right eustachian tube 0472442133 240007 H69.91 17082712 Seasonal allergy 5135923 04 J30.2 16571 Health Concerns Section Related Observation LastModified by Organization Detai ls LastModified Time None Recorded Concern Status LastModified by Organization Details LastModified Time None Recorded Payers Encounter Date Sequence Insurance Name Policy Number Policy Young Covered Member ID Young Member ID Guarantor Name 05/15/2025 1 [place] [employer] Joslyn Beaulieu [id number] Joslyn Beaulieu 05/15/2025 2 [place] [facility] Joslyn Beaulieu [id number] Joslyn Christofer Notes Date Note Type Note Provider Name and Address Organization Details Recorded Time 05/15/2025 text/html 39-year-old female presents today for evaluation of right sided ear blockage does clench teeth, right ear intermittent blockage previous rast testing 10/2023 showed trees, grasses, weeds were positivecould not have skin testing due to metoprolol LEDA MARINA MD [address] [place] [address], [address], [facility] - [facility] 05/16/2025 06:57:11 OBGyn Episode No OBEpisode recorded.
--- OUTSIDE RECORDS SUMMARY | 2025-07-25 13:49 | XMS_ITS | Clinical Summary ---
Author Organization [facility] Prior to 12/31/24 Address [address] [place] [address] Care Team Providers Care Dumpster Operator Name Role Phone Manjit Hall MD Primary Care Provider [phone] Allergies Active Allergy Reactions Criticality Noted Date Comments Celecoxib Itching Medium 09/09/2012 Chest pain Fluconazole Itching Medium Vancomycin Itching,Other (See Comments) Medium 016 Medications Medication Sig Dispensed Refills Start Date End Date Status Multiple Vitamins-Mineral s (MULTIVITAMIN PO) Take 1 tablet by mouth daily. 0 Active [place] 3 1000 MG CAPS Take 1 tablet [...] WEEK 0 Active ergocalciferol (VITAMIN D2) capsule 35163 units TAKE 1 CAPSULE BY MOUTH ONE [...] Advance Directives For more information, please contact: [phone] Latest Code Status on File Code Status [...] following way: discussion with patient. Care Teams Dumpster Operator Relationship Specialty Start Date End Date Manjit Hall MD [address] [place] [address] PCP - General Hospitalist Medicine 08/13/22
--- OUTSIDE RECORDS SUMMARY | 2025-07-25 13:49 | XMS_ITS | Encounter Summary ---
Author Organization [facility] Address [address] [place] [address] Care Team Providers Care Manager Of Loss Prevention Operations Name Role Phone Lg Shepherd PA-C Primary Care Provider Encounter Details Date Type Department Care Team (Late st Contact Info) Description 09/01/2019 Scanned Document [facility] [address] [address] Sommer Gonzalez, DO [address] [place] [address] Social History Tobacco Use Types Packs/Day Years [...] filedocumented in this encounter Care Teams Manager Of Loss Prevention Operations Relationship Specialty Start Date End Date Lg Shepherd PA-C PCP - General Internal Medicine 12/01/17 documented as of this encounter
--- OUTSIDE RECORDS SUMMARY | 2025-07-25 13:49 | XMS_ITS | Data Portability ---
Author Organization [place] [facility], Allergy Address [address] [address] Care Team Providers Care Eeg Technician Name Role Phone GINNA GOLDSTEIN Primary Care [...] clotrimaz ole 10 mg jagdeep 2024 025 [id number] [address] [place], [address], 06/05/2025 05:01:56 azelastin e 137 mcg (0.1 %) nasal spray 2024 025 [id number] [address] [place], [address], 05/15/2025 15:37:00 clotrimaz ole 10 mg jagdeep 2024 025 [id number] [address] [place], [address], 06/05/2025 05:01:56 clotrimaz ole 10 mg jagdeep 2023 024 [id number] [address] [place], [address], 06/05/2025 05:01:56 Patient TargetsNo targets recorded. Patient InstructionsNo instructions recorded. Reason for Referral None Reported. Problems Name Problem SNOMED Code Status Onset Date Resolution Date Notes Provider Name and Address Organization Details Recorded Time Otalgia of right ear 3820210052 Active 2022 Otalgia, right ear; Note: Date Diagnosed : 09/08/2022 9:29 AM (H92.01) Not Available [facility] 02:34:05 Central perforati on of right tympanic membrane 34048539422 44200 Active 2022 Central perforati on of tympanic membrane, right ear; Note: Date Diagnosed : 09/08/2022 9:29 AM (H72.01) Not Available [facility] 4 02:34:03 Acute pharyngit is 213778108 Active 2022 Pharyngit is (acute) NOS; Note: Date Diagnosed : 10/03/2022 3:23 PM (J02.9) Not Available [facility] 4 02:33:53 Abnormal auditory perceptio n 14762539 Active 2022 Other abnormal auditory perceptio ns, right ear; Note: Date Diagnosed : 10/21/2022 4:59 PM (H93.291) Not Available [facility] 4 02:34:10 Disorder of right Eustachia n tube 23406782976 13087 Active 2022 Other specified disorders of Eustachia n tube, right ear; Note: Date Diagnosed : 10/24/2022 10:15 AM (H69.81) Not Available [facility] 4 02:34:01 Chronic rhinitis 88618980 Active 2022 Chronic rhinitis; Note: Date Diagnosed : 02/01/2023 8:07 AM (J31.0) Not Available [facility] 4 02:33:59 Deviated nasal septum 890897074 Active 2023 Deviated nasal septum; Note: Date Diagnosed : 08/09/2023 10:14 AM (J34.2) Not Available [facility] 4 02:34:11 Candidias is of mouth 95999534 Active 2023 LEDA MARINA MD [address] [place] [address],[place] [address], [place], [address] , [place] - [facility] 5 11:41:55 Sensorine ural hearing loss 16176089 Active 2023 HALI RUDOLPH [address] [place] [address],[place] [address], [place], [place], [address] , [place] - [facility] 4 15:29:05 Candidias is 91207542 Active 2023 LEDA MARINA MD [address] [place] [address],[place] [address], [place], [address] , [place] [facility] 4 15:44:05 Impacted cerumen of bilateral ears 94750179430 78642 Active 2024 LINDY FIGUEROA PA-C [address], [place], [address] , [place] [facility] 5 15:18:47 Dysfuncti on of right eustachia n tube 09972781139 Active 2024 LEDA MARINA MD [address],[place] [facility], [place], [address] , [place] [facility] 5 15:33:28 Seasonal allergy 227376234 Active 2024 LEDA MARINA MD 100 [facility],[place] [address], [place], [address] , [place] [facility] 5 06:56:25 Problem Notes None recorded. Procedures Surgical History Date Name Laterality Status Provider Name and Address Organization Details Recorded Time 025 Fiberoptic Nasopharyngoscopy completed LEDA MARINA MD 100 [facility],[address], [address], [place] [facility] 05/15/2025 15:36:43 025 Cerumen removal without microscope bilat completed LINDY FIGUEROA PA-C 100 [facility],[place] [address], [place], [address], [place] [facility] 11/18/2024 15:18:54 024 Air & Speech Audio with Tymps - 30553, [address] & [address] completed HALI RUDOLPH 100 [facility],[address], [address], [place] [facility] 07/15/2024 15:28:58 tonsillectomy completed LEDA MARINA MD 100 [facility],[place] [address], [place], [address], [place] [facility] 06/13/2024 15:50:24 catheter ablation of arrhythmogenic focus completed LEDA MARINA MD 100 [facility],[address], [address], [facility] - [facility] 06/13/2024 15:52:52 subtotal gastrectomy completed ARIELLE MARINA MD 100 [facility],[place] [facility], [place], [address], [facility] - [facility] 06/13/2024 15:53:16 exploratory laparotomy completed LEDA MARINA MD 100 [facility],[place] [facility], [place], [address], [facility] - [facility] 06/13/2024 15:53:31 Imaging Results None recorded. Procedure Notes None recorded. Medical Equipment None Reported. Allergies Allergen ID Allergen Name Allergen Category Reaction Reaction Severity Criticality Documentation Date Start Date Code Code System Note Provider Name and Address Organization Details Recorded Time 00249 Celebrex medicatio n other Not available Not available 12/15/2023 46202 7 RxNorm React ion: Unkno wn; Not Available [facility] 4 01:04:33 50978 vancomyci n medicatio n other Not available Not available 12/15/2023 32963 RxNorm React ion: Unkno wn; Not Available [facility] 4 01:04:36 Medications Name Sig Start Date [...] Updated DateTime 11/18/2024 152.4 cm 17.6 kg/m2 62285.31 g Cristine Galindo [place] - [facility] 11/18/2024 15:00:31 Date Recorded Body height Body mass index (BMI) Body weight Provider Name and Address Organization Details Last Updated DateTime 01/27/2025 152.4 cm 17.2 kg/m2 44474.13 g Kavya Ghosh [facility] 01/27/2025 11:27:34 Date Recorded Body height Body mass index (BMI) Body weight Provider Name and Address Organization Details Last Updated DateTime 05/15/2025 152.4 cm 16.6 kg/m2 64368.35 g Kavya Ghosh [facility] 05/15/2025 15:22:11 Date Recorded Body height Body mass index (BMI) Body weight Provider Name and Address Organization Details Last Updated DateTime 07/15/2024 152.4 cm 16.6 kg/m2 01948.35 g Kavya Ghosh [facility] [...] Disorder N Anesthesia Complications N Heart Attack ([place]) N Other Skin Condition Y Diabetes N [...] ICD10 Code Diagnosis IMO Codes Diagnosis Note [id number] LEDA MARINA MD [facility] [address] [address] 06/13/2024 15:39:26 06/13/2024 16:13:15 Candidiasis of mouth 76234400 B37.0 Abnormal a uditory perception 76932676 H93.291 [id number] LEDA MARINA MD [facility] [address] [address] 07/15/2024 15:01:43 07/15/2024 15:50:41 Candidiasis 84844808 B37.9 There is still thrush. Previously on nystatin, sent in clotrimazo le. Improved fullness right tonsillar pillar and she is asymptomat ic for sore throat. Abnormal a uditory perception 61849722 H93.291 No cerumen today. Audiometri c testing shows stable HF SNHL. [id number] HALI RUDOLPH [facility] [address] [address] 07/15/2024 15:28:23 07/18/2024 08:40:51 Sensorineural hearing loss 29580591 H90.5 Right Ear:Normal hearing through 3K Hz sloping to a mild SNHL with excellent speech discrimina tion.Type Ad tympanogra m.Left Ear:Normal hearing through 3K Hz sloping to a mild SNHL with excellent speech discrimina tion.Type Ad tympanogra m. [id number] LINDY FIGUEROA PA-C [facility] [address] [address] 11/18/2024 14:53:20 11/18/2024 15:20:34 Impacted cerumen of bilateral ears 7151108313 583001 H61.23 [id number] LEDA MARINA MD [facility] [address] [address] 01/27/2025 10:41:32 01/27/2025 11:45:15 Candidiasis of mouth 02459574 B37.0 816670 39-year-ol d female presents today for follow-up. She has recurrent pharyngiti s. Sore throat is resolved since her last visit, but she does have evidence of thrush on exam for which I sent in clotrimazo le. We can reassess in a year with audio then. [id number] LEDA MARINA MD [facility] [address] [address] 05/15/2025 14:37:32 05/15/2025 15:38:36 Candidiasis of mouth 23577995 B37.0 890142 Dysfunctio n of right eustachian tube 6753640724 365944 H69.91 94733494 Seasonal allergy 7067650 04 J30.2 82670 Health Concerns Section Related Observation LastModified by Organization Detai ls LastModified Time None Recorded Concern Status LastModified by Organization Details LastModified Time None Recorded Advance Directives Directive None Recorded Payers Insurance Date Sequence Insurance Name Policy Number Policy Young Covered Member ID Young Member ID Guarantor Name 05/12/2025 1 [place] [employer] Joslyn Beaulieu [id number] Joslyn Beaulieu 05/12/2025 2 [place] [facility] Joslyn Beaulieu [id number] Joslyn Beaulieu Notes Date Note Type Note Provider Name and Address Organization Details Recorded Time 07/15/2024 text/html ROS as noted in the HPI Getting some right ear blockage. Better since last visit after cerumen removal. No sore throat or dysphagia. Previous RAST testing showed sensitivities to elm, oak, [place] grass, [place], pecan, [place] grass, birch all relatively mild. PV: 38-year-old female presents today for follow-up after Rast allergy testing. She was unable to come off her beta-serge forintradermal testing. Sore throat comes and goes. Acute pharyngitis since her last visit has resolved. LEDA MARINA MD [address] [place] [address], [address], [place] [facility] [place] [...] daily for allergy management. LEDA MARINA MD [address] [place] [address],[address], [address], [place] - [facility] 11/19/2024 15:29:17 01/27/2025 text/html 39-year-old female presents today for follow-up. Sore throat has resolved since her last visit. getting headaches more than the sore throatno sinus infections 1-2 time per weekstaying hydrated ipratropium and antihistamine LEDA MARINA MD [address] [place] [address],[address], [address], [place] - [facility] 01/28/2025 11:57:28 05/15/2025 text/html 39-year-old female presents today for evaluation of right sided ear blockage does clench teeth, right ear intermittent blockage previous rast testing 10/2023 showed trees, grasses, weeds were positivecould not have skin testing due to metoprolol LEDA MARINA MD [address] [place] [address], [place], [address], [place] - [facility] 05/16/2025 06:57:11 OBGyn Episode No OBEpisode recorded.
--- OUTSIDE RECORDS SUMMARY | 2025-07-25 13:49 | XMS_ITS | Encounter Summary ---
Author Organization [facility] Address [address] [place] [address] Care Team Providers Care Human Capital Consultant Name Role Phone Lg Shepherd PA-C Primary Care Provider Encounter Details Date Type Department Care Team (Late st Contact Info) Description 12/15/2018 Scanned Document [facility] [address] [place] [phone] Lg Shepherd PA-C [address] [place] [address] Social History Tobacco Use Types Packs/Day Years [...] on filedocumented in this encounter Care Teams Human Capital Consultant Relationship Specialty Start Date End Date Lg Shepherd PA-C PCP - General Internal Medicine 12/01/17 documented as of this encounter
--- OUTSIDE RECORDS SUMMARY | 2025-07-25 13:49 | XMS_ITS | Encounter Summary ---
Author Organization [facility] Address [address] [place] [address] Care Team Providers Care Music Professionals Name Role Phone Lg Shepherd PA-C Primary Care Provider Encounter Details Date Type Department Care Team (Late st Contact Info) Description 07/13/2019 Scanned Document [facility] Surgery [address] [place] [id number] Provider, Rashmi, [address] [place] [address] Social History Tobacco Use Types Packs/Day Years [...] filedocumented in this encounter Care Teams Music Professionals Relationship Specialty Start Date End Date Lg Shepherd PA-C PCP - General Internal Medicine 12/01/17 documented as of this encounter
--- OUTSIDE RECORDS SUMMARY | 2025-07-25 13:50 | XMS_ITS | Encounter Summary ---
Author Organization [facility] Address [address] [place] [address] Care Team Providers Care Motorcycle Designer Name Role Phone Lg Shepherd PA-C Primary Care Provider Encounter Details Date Type Department Care Team (Late st Contact Info) Description 09/03/2021 Scanned Document [facility] [address] [place] [address] [phone] Provider, MD Rashmi [address] [place] [address] Social History Tobacco Use Types Packs/Day Years [...] on filedocumented in this encounter Care Teams Motorcycle Designer Relationship Specialty Start Date End Date Lg Shepherd PA-C PCP - General Internal Medicine 12/01/17 documented as of this encounter
--- OUTSIDE RECORDS SUMMARY | 2025-07-25 13:50 | XMS_ITS | Encounter Summary ---
Author Organization [facility] Address [address] [place] [address] Care Team Providers Care Commercial Internship Name Role Phone Lg Shepherd PA-C Primary Care Provider Encounter Details Date Type Department Care Team (Late st Contact Info) Description 02/26/2018 Scanned Document [facility] Urologic Surgery [address] [place] [address] Provider, MD Rashmi [address] [place] [address] Social History Tobacco Use Types Packs/Day Years [...] on filedocumented in this encounter Care Teams Commercial Internship Relationship Specialty Start Date End Date Lg Shepherd PA-C PCP - General Internal Medicine 12/01/17 documented as of this encounter
--- OUTSIDE RECORDS SUMMARY | 2025-07-25 13:50 | XMS_ITS | Encounter Summary ---
Author Organization [facility] Address [address] [place] [address] Care Team Providers Care Platen Press Operator Apprentice Name Role Phone Lg Shepherd PA-C Primary Care Provider [phone] Encounter Details Date Type Department Care Team (Late st Contact Info) Description 09/11/2017 Scanned Document [facility] Urologic Surgery [address] [place] [address] Gerber Rosario MD [address] [place] [address] [address] [place] [address] Social History Tobacco Use Types Packs/Day Years [...] on filedocumented in this encounter Care Teams Platen Press Operator Apprentice Relationship Specialty Start Date End Date Lg Shepherd PA-C PCP - General Internal Medicine 12/01/17 documented as of this encounter
--- OUTSIDE RECORDS SUMMARY | 2025-07-25 13:50 | XMS_ITS | Encounter Summary ---
Author Organization [facility] Address [address] [place] [address] Care Team Providers Care Ornament Stapler Name Role Phone Bette Corona MD Primary Care Provider [phone] Reason for Referral * Consultation (Urgent) - Closed Specialty Diagnoses / Procedures Referred By Harlan boyd Referred To Contact Nephrology Diagnoses Metabolic acidosis Manjit Hall MD [address] [place] [address] Phone: tel: fax: [facility] [address] [address] Phone: tel: fax: Referral ID Status Reason Start Date Expiration Date V isits Requested Visits Authorized [id number] Closed Specialty Services Required 06/16/2025 06/16/2026 1 1 Encounter Details Date Type Department Care Team (Late st Contact Info) Description 06/16/2025 Results Follow-Up Adult Medicine [address] [phone] Manjit Hall MD [address] [place] [address] Social History Tobacco Use Types Packs/Day Years [...] 07/26/2025 1:45 PM EST Office Visit Adult [address] [phone] Manjit Hall MD [address] [place] [address] 08/10/2025 3:30 PM EST Office Visit [address] [phone] Bette Corona MD [address] [place] [address] 08/31/2025 3:00 PM EST Clinical Support Obstetrics and Gynecology [address] [phone] 09/08/2025 3:00 PM EST Appointment [facility] Ultrasound [address] [place] [phone] 09/21/2025 3:30 PM EST Office Visit [facility] Hematology Oncology [address] [place] [phone] Angelito Mcfarlane MD [address] [place] [phone] 10/16/2025 3:20 PM EDT Office Visit Gastroenterology - [address] [facility] [address] [place] [address] Bisi Dinero, KIRA 299 [facility] [address] [place] [address] Scheduled Referrals Name Type Priority Associated Diagnoses Order Schedule Ambulatory referral to Nephrology Outpatient Referral Routine Metabolic acidosis Expected: 06/30/2025, Expires: 06/16/2026 documented as of this encounter Visit Diagnoses Diagnosis Metabolic acidosis- Primary Acidosis documented in this encounter Care Teams Ornament Stapler Relationship Specialty Start Date End Date Bette Corona MD [address] [place] [address] PCP - General Internal Medicine 05/09/25 documented as of this encounter
--- OUTSIDE RECORDS SUMMARY | 2025-07-25 13:50 | XMS_ITS | Encounter Summary ---
Author Organization [facility] Address [address] [place] [address] Care Team Providers Care Histologic Technician Name Role Phone Lg Shepherd PA-C Primary Care Provider Encounter Details Date Type Department Care Team (Late st Contact Info) Description 06/10/2021 Scanned Document [facility] [address] [place] [address] [phone] Provider, MD Rashmi [address] [place] [address] Social History Tobacco Use Types Packs/Day Years [...] on filedocumented in this encounter Care Teams Histologic Technician Relationship Specialty Start Date End Date Lg Shepherd PA-C PCP - General Internal Medicine 12/01/17 documented as of this encounter
--- OUTSIDE RECORDS SUMMARY | 2025-07-25 13:50 | XMS_ITS | Encounter Summary ---
Author Organization [facility] Address [address] [place] [address] Care Team Providers Care Horse Farm Manager Name Role Phone Lg Shepherd PA-C Primary Care Provider Encounter Details Date Type Department Care Team (Late st Contact Info) Description 07/04/2022 Scanned Document [facility] [address] [place] [address] [phone] Provider, MD Rashmi [address] [place] [address] Social History Tobacco Use Types Packs/Day Years [...] on filedocumented in this encounter Care Teams Horse Farm Manager Relationship Specialty Start Date End Date Lg Shepherd PA-C PCP - General Internal Medicine 12/01/17 documented as of this encounter
--- OUTSIDE RECORDS SUMMARY | 2025-07-25 13:50 | XMS_ITS | Encounter Summary ---
Author Organization [facility] Address [address] [place] [address] Care Team Providers Care Biological Technical Officer Name Role Phone Lg Shepherd PA-C Primary Care Provider Encounter Details Date Type Department Care Team (Late st Contact Info) Description 09/17/2018 Scanned Document [facility] [address] [place] [address] [phone] Provider, MD Rashmi [address] [place] [address] Social History Tobacco Use Types Packs/Day Years [...] on filedocumented in this encounter Care Teams Biological Technical Officer Relationship Specialty Start Date End Date Lg Shepherd PA-C PCP - General Internal Medicine 12/01/17 documented as of this encounter
--- OUTSIDE RECORDS SUMMARY | 2025-07-25 13:50 | XMS_ITS | Encounter Summary ---
Author Organization [facility] Address [address] [place] [address] Care Team Providers Care Semiconductor Processor Name Role Phone Lg Shepherd PA-C Primary Care Provider [phone] Encounter Details Date Type Department Care Team (Late st Contact Info) Description 08/19/2018 Scanned Document [facility] Urologic Surgery [address] [place] [address] Provider, MD Rashmi [address] [place] [address] Social History Tobacco Use Types Packs/Day Years [...] on filedocumented in this encounter Care Teams Semiconductor Processor Relationship Specialty Start Date End Date Lg Shepherd PA-C PCP - General Internal Medicine 12/01/17 documented as of this encounter
--- OUTSIDE RECORDS SUMMARY | 2025-07-25 13:50 | XMS_ITS | Encounter Summary ---
Author Organization [facility] Address [address] [place] [address] Care Team Providers Care Front Desk Manager Name Role Phone Lg Shepherd PA-C Primary Care Provider Encounter Details Date Type Department Care Team (Late st Contact Info) Description 06/07/2021 Scanned Document [facility] [address] [phone] Sommer Gonzalez DO [address] [place] [address] Social History Tobacco Use Types Packs/Day Years [...] on filedocumented in this encounter Care Teams Front Desk Manager Relationship Specialty Start Date End Date Lg Shepherd PA-C PCP - General Internal Medicine 12/01/17 documented as of this encounter
--- OUTSIDE RECORDS SUMMARY | 2025-07-25 13:50 | XMS_ITS | Encounter Summary ---
Author Organization [facility] Address [address] [place] [address] Care Team Providers Care Sling Operator Name Role Phone Lg Shepherd PA-C Primary Care Provider Encounter Details Date Type Department Care Team (Late st Contact Info) Description 01/21/2018 Scanned Document [facility] Urologic Surgery [address] [place] [address] Provider, MD Rashmi [address] [place] [address] Social History Tobacco Use Types Packs/Day Years [...] on filedocumented in this encounter Care Teams Sling Operator Relationship Specialty Start Date End Date Lg Shepherd PA-C PCP - General Internal Medicine 12/01/17 documented as of this encounter
--- OUTSIDE RECORDS SUMMARY | 2025-07-25 13:50 | XMS_ITS | Encounter Summary ---
Author Organization [facility] Address [address] [place] [address] Care Team Providers Care Assistant Speech Language Pathologist Name Role Phone Lg Shepherd PA-C Primary Care Provider Encounter Details Date Type Department Care Team (Late st Contact Info) Description 06/10/2021 Scanned Document [facility] [address] [place] [address] [phone] Provider, MD Rashmi [address] [place] [address] Social History Tobacco Use Types Packs/Day Years [...] on filedocumented in this encounter Care Teams Assistant Speech Language Pathologist Relationship Specialty Start Date End Date Lg Shepherd PA-C PCP - General Internal Medicine 12/01/17 documented as of this encounter
--- OUTSIDE RECORDS SUMMARY | 2025-07-25 13:50 | XMS_ITS | Encounter Summary ---
Author Organization [facility] Address [address] [place] [address] Care Team Providers Care Smt Machine Operator Name Role Phone Lg Shepherd PA-C Primary Care Provider Encounter Details Date Type Department Care Team (Late st Contact Info) Description 10/20/2017 Scanned Document [facility] Urologic Surgery [address] [place] [address] Gerber Rosario MD [address] [place] [address] [address] [place] [address] Social History Tobacco Use Types Packs/Day Years [...] on filedocumented in this encounter Care Teams Smt Machine Operator Relationship Specialty Start Date End Date Lg Shepherd PA-C PCP - General Internal Medicine 12/01/17 documented as of this encounter
--- OUTSIDE RECORDS SUMMARY | 2025-07-25 13:50 | XMS_ITS | Encounter Summary ---
Author Organization [facility] Address [address] [place] [address] Care Team Providers Care Muck Miner Blasting Name Role Phone Lg Shepherd PA-C Primary Care Provider Encounter Details Date Type Department Care Team (Late st Contact Info) Description 08/19/2017 Scanned Document [facility] Urologic Surgery [address] [place] [address] Noel Blanco MD Social History Tobacco Use [...] on filedocumented in this encounter Care Teams Muck Miner Blasting Relationship Specialty Start Date End Date Lg Shepherd PA-C PCP - General Internal Medicine 12/01/17 documented as of this encounter
--- OUTSIDE RECORDS SUMMARY | 2025-07-25 13:50 | XMS_ITS | Encounter Summary ---
Author Organization [facility] Address [address] [place] [address] Care Team Providers Care Book Jacket Cover Machine Operator Name Role Phone Lg Shepherd PA-C Primary Care Provider Encounter Details Date Type Department Care Team (Late st Contact Info) Description 03/16/2018 Scanned Document [facility] Urologic Surgery [address] [place] [address] Provider, MD Rashmi [address] [place] [address] Social History Tobacco Use Types Packs/Day Years [...] on filedocumented in this encounter Care Teams Book Jacket Cover Machine Operator Relationship Specialty Start Date End Date Lg Shepherd PA-C PCP - General Internal Medicine 12/01/17 documented as of this encounter
--- OUTSIDE RECORDS SUMMARY | 2025-07-25 13:50 | XMS_ITS | Encounter Summary ---
Author Organization [facility] Address [address] [place] [address] Care Team Providers Care Pta Name Role Phone Lg Shepherd PA-C Primary Care Provider [phone] Encounter Details Date Type Department Care Team (Late st Contact Info) Description 08/22/2017 Scanned Document [facility] Urologic Surgery [address] [place] [address] Zafar Barber MD Social History Tobacco Use [...] on filedocumented in this encounter Care Teams Pta Relationship Specialty Start Date End Date Lg Shepherd PA-C PCP - General Internal Medicine 12/01/17 documented as of this encounter
--- OUTSIDE RECORDS SUMMARY | 2025-07-25 13:50 | XMS_ITS | Encounter Summary ---
Author Organization [facility] Address [address] [place] [address] Care Team Providers Care Vp Compliance Name Role Phone Bette Corona MD Primary Care Provider Encounter Details Date Type Department Care Team (Late Contact Info) Description 05/17/2025 Lab Requisition [facility] - Main Lab [address] [facility] [place] [phone] Kike Reynolds MD [address] [facility] [address] [place] [phone] Encounter for screening for other suspected endocrine [...] Department Care Team (Late Contact Info) Description 07/26/2025 1:45 PM EST Office Visit Adult Medicine [address] [phone] Manjit Hall MD [address] [place] [address] 08/10/2025 3:30 PM EST Office Visit Adult Medicine [place] - [address] [phone] Bette Corona MD [address] [place] [address] 08/31/2025 3:00 PM EST Clinical Support Obstetrics and Gynecology - [address] [phone] 09/08/2025 3:00 PM EST Appointment [facility] Ultrasound [address] [place] [phone] 09/21/2025 3:30 PM EST Office Visit [facility] Hematology Oncology [address] [place] [phone] Angelito Mcfarlane MD [address] [place] [phone] 10/16/2025 3:20 PM EDT Office Visit Gastroenterology - [address] [phone] Bisi Dinero NP [address] [address] documented as of this encounter Procedures Procedure Name Priority Date/Time Associated Diagnosis Comments PARATHYROID HORMONE INTACT Routine 05/17/2025 3:32 PM EDT Encounter for screening for other suspected endocrine disorder documented in this encounter Results * Parathyroid hormone intact (05/17/2025 3:32 PM EDT) PTH 22.7 18.5 - 88.0 pcg/mL LAB CHEMISTRY METHOD 05/17/2025 6:39 PM EDT [facility] Blood Venous blood specimen / Unknown 05/17/2025 3:32 PM EDT 05/17/2025 5:46 PM EDT us Kike Reynolds MD LAB BLOOD ORDERABLES Final R esult [facility] [address] [place] [address], documented in this encounter Visit Diagnoses Diagnosis Encounter for screening for other suspected endocrine disorder documented in this encounter Care Teams Vp Compliance Relationship Specialty Start Date End Date Bette Corona MD [address] [place] [address] PCP - General Internal Medicine 05/09/25 documented as of this encounter
--- OUTSIDE RECORDS SUMMARY | 2025-07-25 13:50 | XMS_ITS | Encounter Summary ---
Author Organization [facility] Address [address] [place] [address] Care Team Providers Care Batch Operator Name Role Phone Lg Shepherd PA-C Primary Care Provider Encounter Details Date Type Department Care Team (Late st Contact Info) Description 09/03/2017 Scanned Document [facility] Urologic Surgery [address] [place] [address] Noel Blanco MD Social History Tobacco Use [...] on filedocumented in this encounter Care Teams Batch Operator Relationship Specialty Start Date End Date Lg Shepherd PA-C PCP - General Internal Medicine 12/01/17 documented as of this encounter
--- OUTSIDE RECORDS SUMMARY | 2025-07-25 13:50 | XMS_ITS | Encounter Summary ---
Author Organization [facility] Address [address] [place] [address] Care Team Providers Care Internet Marketing Strategist Name Role Phone gL Shepherd PA-C Primary Care Provider Encounter Details Date Type Department Care Team (Late st Contact Info) Description 06/12/2021 Scanned Document [facility] [address] [place] [address] [phone] Provider, MD Rashmi [address] [place] [address] Social History Tobacco Use Types Packs/Day Years [...] on filedocumented in this encounter Care Teams Internet Marketing Strategist Relationship Specialty Start Date End Date Lg Shepherd PA-C PCP - General Internal Medicine 12/01/17 documented as of this encounter
--- OUTSIDE RECORDS SUMMARY | 2025-07-25 13:50 | XMS_ITS | Clinical Summary ---
Author Organization [facility] Address [address] [place] [address] Phone Care Team Providers Care Bottle Tester Name Role Phone Bette Corona MD Primary [...] (ABDOMINAL CRAMPING). 360 capsule 03/24/20 25 Active nystatin (MYCOSTATIN) 100,000 unit/mL suspension Take 5 mL (500,000 Units total) by mouth 4 (four) times a day. Swish in mouth and swallow. 280 mL 05/08/20 Active dilTIAZem CD (CARDIZEM CD) 120 mg 24 hr capsule TAKE 1 CAPSULE BY MOUTH 3 TIMES A DAY 270 capsule 07/04/20 25 Active oxyCODONE (ROXICODONE) 5 mg immediate release tablet Take 1 tablet (5 mg total) by mouth every 6 (six) hours if needed for severe pain. Max Daily Amount: 20 mg 7 tablet 07/01/20 Active ergocalciferol (VITAMIN D-2) 1,250 mcg (50,000 unit) capsule Take 1 capsule (50,000 Units total) by mouth 1 (one) time per week. 8 capsule 07/04/20 25 2025 Active dilTIAZem CD (CARDIZEM CD) 120 mg 24 hr capsule TAKE 1 CAPSULE (120 MG TOTAL) BY MOUTH 3 (THREE) TIMES A DAY. 270 capsule 1 01/10/20 25 2024 Discontinued cephalexin (KEFLEX) 500 mg capsule Take 1 capsule (500 mg total) by mouth 4 (four) times a day for 7 days. 28 each 07/01/20 25 2024 acetaminophen (TYLENOL) 500 mg tablet Take 2 tablets (1,000 mg total) by mouth every 6 (six) hours if needed for mild pain for up to 10 days. 30 tablet 07/01/20 25 2024 dicyclomine (BENTYL) 20 mg tablet Take 1 tablet (20 mg total) by mouth 2 (two) times a day for 10 days. 20 tablet 07/01/20 25 2024 ondansetron (ZOFRAN) 4 mg tablet Take 1 tablet (4 mg total) by mouth every 8 (eight) hours if needed for nausea or vomiting for up to 7 days. 20 tablet 07/01/20 25 2024 Active Problems Problem Noted Date Diagnosed Date [...] Mild persistent asthma without complication 09/2022 Malnutrition 09/04/2022 Insomnia 09/04/2022 Iron deficiency anemia secon walter to inadequate dietary iron intake 08/28/2022 POTS (postural orthostatic tachycardia syndrome) 08/28/2022 Overview (05/18/2024): Last Assessment & Plan: Again this appears to be better with the changes in her medications. Been no changes to these. I encouraged her to increase her fluid intake as well. Paroxysmal A-fib 05/29/2022 Overview (05/18/2024): Last Assessment & Plan: 1 episode of documented atrial fibrillation no symptoms since PSVT (paroxysmal supraventricular tachycardia) 1 Overview (05/18/2024): Last Assessment & Plan: SVT [...] she had catecholamine induced A-fib Pulmonary hypertension 05/29/2022 Overview (05/18/2024): Last Assessment & Plan: [...] s) 05/04/2018 PAF (paroxysmal atrial fibrillation) 10/26/2017 Hypertension 12/01/2016 Inguinal pain 12/01/2016 Mitral valve insufficiency 12/01/2016 Obstructive sleep apnea syndrome 12/01/2016 Orthostatic hypotension 12/01/2016 Palpitations 12/01/2016 Overview (03/28/2024): Cardiac cath 09/05/2015, 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 See under POTS Sinus tachycardia 12/01/2016 Snoring 12/01/2016 Wide-complex tachycardia 12/01/2016 Supraventricular tachycardia 12/01/2016 GERD (gastroesophageal reflux disease) 3 Overview (05/18/2024): [...] Encounters Date Type Department Care Team Description 07/18/2025 Telephone Adult Medicine [address] [phone] Bette Corona MD 07/12/2025 Telephone Adult Medicine [address] [phone] Bette Corona MD 07/01/2025 9:13 AM EST - 07/01/2025 1:08 PM EST Emergency Emergency [address] [place] [phone] Pyelonephritis (Primary Dx) Discharge Disposition: Home or Self Care 06/28/2025 10:40 AM EST Lab Draw [address] Renal tubular acidosis, type 1 (Primary Dx); Calculus of kidney; Other disorders resulting from impaired renal tubular function 06/21/2025 3:30 PM EST Office Visit Hematology Oncology [address] [place] [phone] Angelito Mcfarlane MD Iron deficiency anemia secondary to inadequate dietary iron intake (Primary Dx); B12 deficiency 06/16/2025 2:55 PM EST Lab Draw Station [address] Macrocytosis; Metabolic acidosis; Iron deficiency anemia secondary to inadequate dietary iron intake 06/16/2025 Results Follow-Up Adult [address] [phone] Manjit Hall MD 06/08/2025 3:15 PM EST Clinical Support Obstetrics and Gynecology - [address] [phone] Surveillance for Depo-Provera contraception (Primary Dx) 05/17/2025 Lab Requisition [facility] - Main Lab [address] [place] [address] Kike Reynolds MD Encounter for screening for other suspected endocrine disorder 05/08/2025 3:30 PM EDT Office Visit Adult [address] [phone] Manjit Hall MD Oral thrush (Primary Dx); Macrocytosis; Weight loss; Metabolic acidosis; Gastroesophageal reflux disease without esophagitis; POTS (postural orthostatic tachycardia syndrome); Kidney stones; Anxiety and depression 04/28/2025 Telephone [facility] Cardiology [address] [place] [address] Mandeep Horn MD 04/27/2025 Telephone Hematology Oncology [address] [place] [address] Donita Lau MA from Last 3 Months Immunizations Immunization Administration Dates Next Due DTP 02/23/1989, 6,01/07/1985,11/05,1984 [id number] (Pentacel) 2mo to less than 5yo 07/03/1986 [...] FOOT SURGERY PROCEDURE:FOOT SURGERY OTHER SURGICAL HISTORY PROCEDURE:[place] PELVIC EXAMINATION W/ANESTHESIA OTHER THAN LOCAL ARRHYTHMIA SURGERY 09/05/2015 N/A PROCEDURE:ARRHYTHMIA SURGERY;COMMENT:Procedure: Comp Eps W/ Cs/La Pac & Record; Surgeon: Roman Oliver MD; Location: [facility] ELECTROPHYSIOLOGY LAB (EP); Service: Cardiology; Laterality: N/A; ARRHYTHMIA SURGERY 09/05/2015 N/A PROCEDURE:ARRHYTHMIA SURGERY;COMMENT:Procedure: Comp Eps With Induction; Surgeon: Roman Oliver MD; Location: [facility] ELECTROPHYSIOLOGY LAB (EP); Service: Cardiology; Laterality: N/A; ARRHYTHMIA SURGERY 09/05/2015 N/A PROCEDURE:ARRHYTHMIA SURGERY;COMMENT:Procedure: Pes/Pacing After Iv Drug Infusion; Surgeon: Roman Oliver MD; Location: [facility] ELECTROPHYSIOLOGY LAB (EP); Service: Cardiology; Laterality: N/A; ATRIAL ABLATION SURGERY 02/06/2014 N/A PROCEDURE:ATRIAL ABLATION SURGERY;COMMENT:Procedure: COMP EP EVAL INCL INSERT AND REPOS OF MULT ELECT CATHS W/ INDUCT OR ATTP INDUC OF ARRHY W/ R. ATRIAL && VENT PACING && RECORD W/ TX OF SVT BY ABLATION; Surgeon: Roman Oliver MD; Location: [facility] ELECTROPHYSIOLOGY (EP) LAB; Service: Cardiolog ARRHYTHMIA SURGERY 02/06/2014 N/A PROCEDURE:ARRHYTHMIA SURGERY;COMMENT:Procedure: INTRACARDIAC ELECTROPHYSIOLOGIC 3-D MAPPING; Surgeon: Roman Oliver MD; Location: [facility] ELECTROPHYSIOLOGY (EP) LAB; Service: Cardiology; Laterality: N/A; ARRHYTHMIA SURGERY 02/06/2014 N/A PROCEDURE:ARRHYTHMIA SURGERY;COMMENT:Procedure: COMP EP EVAL INCL INSERT AND REPOS OF MULT ELECT CATHS W/ INDUC OR ATTP INDUC OF ARRH W/ L ATRIAL PACING && RECORDING FROM JOSIANE SINUS OR L ATRIUM.; Surgeon: Roman Oliver MD; Location: [facility] ELECTROPHYSIOLOGY (EP) LAB; Service: Cardiology; ARRHYTHMIA SURGERY 02/06/2014 N/A PROCEDURE:ARRHYTHMIA SURGERY;COMMENT:Procedure: PROGRAMMED STIMULATION AND PACING AFTER INTRAVENOUS DRUG INFUSION; Surgeon: Roman Oliver MD; Location: [facility] ELECTROPHYSIOLOGY (EP) LAB; Service: Cardiology; Laterality: N/A; TONSILLECTOMY 3rd grade PROCEDURE: HISTORICAL TONSILLECTOMY ANKLE SURGERY 11/02/2007 PROCEDURE: HISTORICAL ANKLE SURGERY; COMMENT: Non healing fracture WRIST SURGERY PROCEDURE: HISTORICAL WRIST SURGERY; COMMENT: Sprain FOOT SURGERY 08/03/2009 PROCEDURE: [place] UNLISTED PROCEDURE FOOT/TOES; COMMENT: Bone spur right foot COLONOSCOPY 11/11/2012 PROCEDURE: HISTORICAL COLONOSCOPY; COMMENT: melanosis coli ESOPHAGOGASTRODUODENOSCOPY 11/11/2012 PROCEDURE: [place] ESOPHAGOGASTRODUODENOSCOPY TRANSORAL DIAGNOSTIC; COMMENT: normal OTHER SURGICAL HISTORY 05/11/2017 PROCEDURE: [place] EGD PARTIAL/COMPL ESOPHAGOGASTRIC FUNDOPLASTY; COMMENT: Duodenitis, gastritis [...] of infectious mononucleosis Lower limb amputation, ankle ([facility] V24, [facility] V28) DX:Lower limb amputation, an kle ([facility]) Other specified viral warts 05/2002 [...] bowel syndrome Peptic ulcer disease Bowel obstruction ([facility] V 24, [facility] V28) 2019 Family History Medical [...] 1:45 PM EST Office Visit Adult Medicine [address] [phone] Manjit Hall MD [address] [place] [address] 08/10/2025 3:30 PM EST Office Visit Adult Medicine [address] [phone] Bette Corona MD [address] [place] [address] 08/31/2025 3:00 PM EST Clinical Support Obstetrics and Gynecology - [place] [address] [place] [address] 09/08/2025 3:00 PM EST Appointment Ultrasound [address] [place] [phone] 09/21/2025 3:30 PM EST Office Visit Hematology Oncology [address] [place] [phone] Angelito Mcfarlane MD [address] [place] [phone] 10/16/2025 3:20 PM EDT Office Visit Gastroenterology - [address] [phone] Bisi Dinero, KIRA [address] [address] Health Maintenance Due Date Last Done Comments [...] this topic Medical Devices Implanted Type Area Linen Sorter Device Identifier Shelf Expiration Date Model / Serial / Lot Stent Uret [id number] Contr Percuflex Hydroplus - Sn/A - [id number] Implanted:Qty: 1 on 03/24/2025 by Alexei Medeiros MD at [facility] Stents Right: Ureter [employer] [facility]GYN[facility]OLG Y 12/22/2027 [id number] / N/A / [id number] Procedures Procedure Name Priority Date/Time Associated Diagnosis Comments EXTERNAL XRAY REPORT 07/05/2025 EXTERNAL XRAY REPORT 07/05/[address] REPORT 07/05/2025 CT ABDOMEN PELVIS W CONTRAST STAT 07/01/2025 [...] suspected endocrine disorder EXTERNAL CT REPORT 05/17/2025 LIPID PANEL Routine 08/11/2022 HM HPV Routine 06/09/2022 from Last 3 Months or Most Recently Relevant to Health Maintenance Results * External Xray Report (07/05/2025) Only the most recent of2 resultswithin the time period is included. Anatomical Region Laterality Modality Radiographic Jie ging us Provider [facility] XR PROCEDURES Final Result * External CT Report (07/05/2025) Only the most recent of2 resultswithin the time period is included. Anatomical Region Laterality Modality Computed Tomogra phy us Provider [facility] CT PROCEDURES Final Result * CT Abdomen Pelvis w Contrast (07/01/2025 [...] Signed Date: 07/01/2025 12:12 ET Workstation ID: [id number] Transcribed By: Self Edit Transcribed Date: 07/01/2025 [...] Signed Date: 07/01/2025 12:12 ET Workstation ID: [id number] Transcribed By: Self Edit Transcribed Date: 07/01/2025 12:07 ET [facility] IMG CT PROCEDURES Final Res ult * Blood Culture, Peripheral Draw #2 (07/01/2025 10:35 AM EST) Only the most recent of2 resultswithin the time period is included. Culture, Blood No growth at 5 days LAB MICROBIOLOGY METHOD 07/06/2025 11:01 AM EST [facility] Blood Venous blood specimen / Unknown Venipuncture / Unknown 07/01/2025 10:35 AM EST 07/01/2025 10:44 AM EST [facility] LAB MICROBIOLOGY - GENERAL ORDERABLES Final Result [facility] [address] [place] [address], [place] [phone] * Lactate, with Reflex (07/01/2025 10:05 AM EST) LACTIC ACID 0.7 0.4 - 2.0 mmol/L 07/01/2025 10:43 AM EST [facility] Blood Venous blood specimen / Unknown Venipuncture / Unknown 07/01/2025 10:05 AM EST 07/01/2025 10:10 AM EST us [facility] LAB BLOOD ORDERABLES Final Result [facility] [address] [place] [address], * (ABNORMAL) CBC auto differential (07/01/2025 10:05 AM EST) Only the most recent of3 resultswithin the time period is included. WBC 7.9 4.8 - 10.8 K/mcL LAB HEMETOLOGY METHOD 07/01/2025 10:16 AM [facility] RBC 3.50(L) 3.80 - 4.80 M/mcL LAB HEMETOLOGY METHOD 07/01/2025 10:16 AM [facility] Hemoglobin 13.7 11.5 - 16.0 g/dL LAB HEMETOLOGY METHOD 07/01/2025 10:16 AM [facility] Hematocrit 41.3 35.0 - 47.0 % LAB HEMETOLOGY METHOD 07/01/2025 10:16 AM [facility] MCV 118.7(H) 79.0 - 98.0 FL LAB HEMETOLOGY METHOD 07/01/2025 10:16 AM [facility] MCH 39.4(H) 27.0 - 32.0 pcg LAB HEMETOLOGY METHOD 07/01/2025 10:16 AM [facility] MCHC 33.2 32.0 - 37.0 g/dL LAB HEMETOLOGY METHOD 07/01/2025 10:16 AM [facility] RDW 13.4 11.0 - 15.0 % LAB HEMETOLOGY METHOD 07/01/2025 10:16 AM [facility] Platelets 336 130 - 400 K/mcL LAB HEMETOLOGY METHOD 07/01/2025 10:16 AM [facility] MPV 8.4 7.0 - 11.0 FL LAB HEMETOLOGY METHOD 07/01/2025 10:16 AM [facility] NRBC 0.0 <1.0 % LAB HEMETOLOGY METHOD 07/01/2025 10:16 AM [facility] NRBC Absolute 0.00 <0.10 K/mcL LAB HEMETOLOGY METHOD 07/01/2025 10:16 AM [facility] Neutrophils Relative 76.5 % LAB HEMETOLOGY METHOD 07/01/2025 10:16 AM [facility] Lymphocytes Relative 15.6 % LAB HEMETOLOGY METHOD 07/01/2025 10:16 AM [facility] Monocytes Relative 5.8 % LAB HEMETOLOGY METHOD 07/01/2025 10:16 AM [facility] Eosinophils Relative 1.1 % LAB HEMETOLOGY METHOD 07/01/2025 10:16 AM [facility] Basophils Relative 0.5 % LAB HEMETOLOGY METHOD 07/01/2025 10:16 AM [facility] Immature Granulocytes Relative 0.5 % LAB HEMETOLOGY METHOD 07/01/2025 10:16 AM [facility] Neutrophils Absolute 6.06 1.50 - 7.00 K/mcL LAB HEMETOLOGY METHOD 07/01/2025 10:16 AM [facility] Lymphocytes Absolute 1.24 1.00 - 5.00 K/mcL LAB HEMETOLOGY METHOD 07/01/2025 10:16 AM [facility] Monocytes Absolute 0.46 0.20 - 1.00 K/mcL LAB HEMETOLOGY METHOD 07/01/2025 10:16 AM [facility] Eosinophils Absolute 0.09 0.00 - 0.50 K/mcL LAB HEMETOLOGY METHOD 07/01/2025 10:16 AM EST [facility] Basophils Absolute 0.04 0.00 - 0.20 K/mcL LAB HEMETOLOGY METHOD 07/01/2025 10:16 AM EST [facility] Immature Granulocytes Absolute 0.04(H) 0.00 - 0.03 K/[facility] LAB HEMETOLOGY METHOD 07/01/2025 10:16 AM [facility] Blood Venous blood specimen / Unknown Venipuncture / Unknown 07/01/2025 10:05 AM EST 07/01/2025 10:10 AM EST [facility] LAB BLOOD ORDERABLES Final Result Performing Organization Address City/[facility]/ZIP Co de Phone Number [facility] [address] [place] [address], [place] [phone] * Lipase (07/01/2025 10:05 AM EST) Lipase 48 12 - 53 unit/L 07/01/2025 10:50 AM EST [facility] Blood Venous blood specimen / Unknown Venipuncture / Unknown 07/01/2025 10:05 AM EST 07/01/2025 10:10 AM EST [facility] LAB BLOOD ORDERABLES Final Result Performing Organization Address City/[facility]/ZIP Co de Phone Number [facility] [address] [place] [address], [place] [phone] * (ABNORMAL) Comprehensive Metabolic Panel (CMP) (07/01/2025 10:05 AM EST) Sodium 143 133 - 145 mmol/L 07/01/2025 10:56 AM [facility] Potassium 4.0 3.5 - 5.5 mmol/L 07/01/2025 10:56 AM [facility] Chloride 114(H) 96 - 110 mmol/L 07/01/2025 10:56 AM [facility] CO2 17(L) 21 - 32 mmol/L 07/01/2025 10:56 AM [facility] Anion Gap 12(H) 3 - 11 07/01/2025 10:56 AM [facility] Glucose 95 70 - 100 mg/dL 07/01/2025 10:56 AM [facility] BUN 14 5 - 25 mg/dL 07/01/2025 10:56 AM [facility] Creatinine 0.98 0.50 - 1.10 mg/dL 07/01/2025 10:56 AM [facility] eGFR 75 >=60 mL/min/1. 73m2 07/01/2025 10:56 AM [facility] Comment:Calculation based on the Chronic Kidney Disease Epidemiology Collaboration (CKD-EPI) equation refit without adjustment for race. BUN/Creatinine Ratio 14.3 07/01/2025 10:56 AM [facility] Calcium 9.6 8.5 - 10.5 mg/dL 07/01/2025 10:56 AM [facility] AST (SGOT) 40 10 - 42 unit/L 07/01/2025 10:56 AM [facility] ALT (SGPT) 45 10 - 60 unit/L 07/01/2025 10:56 AM [facility] Alkaline Phosphatase 113 42 - 121 unit/L 07/01/2025 10:56 AM [facility] Total Protein 7.1 6.0 - 8.0 g/dL 07/01/2025 10:56 AM [facility] Albumin 4.7 3.2 - 5.0 g/dL 07/01/2025 10:56 AM [facility] Total Bilirubin 0.2 0.0 - 1.4 mg/dL 07/01/2025 10:56 AM EST [facility] Blood Venous blood specimen / Unknown Venipuncture / Unknown 07/01/2025 10:05 AM EST 07/01/2025 10:10 AM EST [facility] LAB BLOOD ORDERABLES Final Result [facility] [address] [place] [address], [place] [phone] * POC , urine manually resulted (07/01/2025 9:11 AM EST) HCG, Ur POC Negative Negative POC hCG Int QC Pass? Yes Yes Urine Urine specimen obtained by clean catch procedure / Unknown 07/01/2025 9:11 AM EST [facility] POINT OF CARE TEST ENTER/ED IT ORDERABLES Final Result * (ABNORMAL) Urinalysis with reflex microscopic and culture (07/01/2025 9:02 AM EST) Pathologist [facility] Specific [place] Urine 1.032(H) 1.003 - 1.030 LAB URINALYSIS - AUTOMATED METHOD 07/01/2025 9:42 AM [facility] pH, Urine 6.0 5.0 - 8.0 pH LAB URINALYSIS - AUTOMATED METHOD 07/01/2025 9:42 AM [facility] Leukocytes, Urine Negative Negative LAB URINALYSIS - AUTOMATED METHOD 07/01/2025 9:42 AM [facility] Nitrite, Urine Negative Negative LAB URINALYSIS - AUTOMATED METHOD 07/01/2025 9:42 AM [facility] Protein, Urine 300(A) <=Trace mg/dL LAB URINALYSIS - AUTOMATED METHOD 07/01/2025 9:42 AM [facility] Glucose, Urine Negative Negative mg/dL LAB URINALYSIS - AUTOMATED METHOD 07/01/2025 9:42 AM [facility] Ketones, Urine Negative Negative mg/dL LAB URINALYSIS - AUTOMATED METHOD 07/01/2025 9:42 AM [facility] Urobilinogen, Urine 0.2 0.2 - 1.0 mg/dL LAB URINALYSIS - AUTOMATED METHOD 07/01/2025 9:42 AM [facility] Bilirubin, Urine Negative Negative LAB URINALYSIS - AUTOMATED METHOD 07/01/2025 9:42 AM [facility] Blood, Urine Large(A) Negative LAB URINALYSIS - AUTOMATED METHOD 07/01/2025 9:42 AM [facility] RBC, Urine 30(H) 0 - 4 /HPF 07/01/2025 9:42 AM [facility] WBC, Urine 1 0 - 4 /HPF 07/01/2025 9:42 AM [facility] Squamous Epithelial, Urine 10 0 - 60 /LPF 07/01/2025 9:42 AM [facility] Bacteria, Urine Few(A) Negative /HPF 07/01/2025 9:42 AM [facility] Hyaline Casts, Urine 20(H) 0 - 3 /LPF 07/01/2025 9:42 AM [facility] Urine Urine specimen obtained by clean catch procedure / Unknown Non-blood Collection / Unknown 07/01/2025 9:02 AM EST 07/01/2025 9:20 AM EST us [facility] LAB URINE ORDERABLES Final Result [facility] [address] [place] [address], * Diana urine culture tube (07/01/2025 9:02 AM EST) Extra Tube Hold for add-ons. 07/01/2025 11:01 AM [facility] Comment:Auto resulted. Urine Urine specimen obtained by clean catch procedure / Unknown Non-blood Collection / Unknown 07/01/2025 9:02 AM EST 07/01/2025 9:20 AM EST us [facility] LAB URINE ORDERABLES Final Result [facility] [address] [place] [address], [place] [phone] * (ABNORMAL) Urinalysis with reflex microscopic (06/28/2025 11:02 AM EST) Specific [place] Urine 1.043(H) 1.003 - 1.030 LAB URINALYSIS - AUTOMATED METHOD 06/28/2025 12:27 PM [facility] pH, Urine 5.5 5.0 - 8.0 pH LAB URINALYSIS - AUTOMATED METHOD 06/28/2025 12:27 PM [facility] Leukocytes, Urine Negative Negative LAB URINALYSIS - AUTOMATED METHOD 06/28/2025 12:27 PM [facility] Nitrite, Urine Negative Negative LAB URINALYSIS - AUTOMATED METHOD 06/28/2025 12:27 PM [facility] Protein, Urine 300(A) <=Trace mg/dL LAB URINALYSIS - AUTOMATED METHOD 06/28/2025 12:27 PM [facility] Glucose, Urine Negative Negative mg/dL LAB URINALYSIS - AUTOMATED METHOD 06/28/2025 12:27 PM [facility] Ketones, Urine Negative Negative mg/dL LAB URINALYSIS - AUTOMATED METHOD 06/28/2025 12:27 PM [facility] Urobilinogen , Urine 0.2 0.2 - 1.0 mg/dL LAB URINALYSIS - AUTOMATED METHOD 06/28/2025 12:27 PM [facility] Bilirubin, Urine Negative Negative LAB URINALYSIS - AUTOMATED METHOD 06/28/2025 12:27 PM [facility] Blood, Urine Large(A) Negative LAB URINALYSIS - AUTOMATED METHOD 06/28/2025 12:27 PM [facility] RBC, Urine 20(H) 0 - 4 /HPF 06/28/2025 12:27 PM [facility] WBC, Urine 20(H) 0 - 4 /HPF 06/28/2025 12:27 PM [facility] Squamous Epithelial, Urine 50 0 - 60 /LPF 06/28/2025 12:27 PM [facility] Bacteria, Urine Few(A) Negative /HPF 06/28/2025 12:27 PM [facility] Other Casts, Urine 30 COARSE GRANULAR CASTS /LPF 06/28/2025 12:27 PM [facility] Urine Urine specimen obtained by clean catch procedure / Unknown Non-blood Collection / Unknown 06/28/2025 11:02 AM EST 06/28/2025 11:02 AM EST us Mikey Guido MD LAB URINE ORDERABLES Final Result [facility] [address] [place] [address], [place] [phone] * Urea nitrogen, urine (06/28/2025 11:02 AM EST) Urea Nitrogen, Ur 714 mg/dL 06/28/2025 1:11 PM [facility] Urine Urine specimen obtained by clean catch procedure / Unknown Non-blood Collection / Unknown 06/28/2025 11:02 AM EST 06/28/2025 11:02 AM EST us Mikey Guido MD LAB URINE ORDERABLES Final Result [facility] [address] [place] [address], [place] [phone] * (ABNORMAL) Protein and creatinine with ratio, urine (06/28/2025 11:02 AM EST) Protein, Urine 205 mg/dL 06/28/2025 2:02 PM [facility] Comment:Results verified by repeat testing Prot/Creat, Ur 3.15(H) <=0.20 mg/mg creat 06/28/2025 2:02 PM [facility] Creatinine, Urine 65.0 mg/dL 06/28/2025 2:02 PM [facility] Urine Urine specimen obtained by clean catch procedure / Unknown Non-blood Collection / Unknown 06/28/2025 11:02 AM EST 06/28/2025 11:02 AM EST Mikey Guido MD LAB URINE ORDERABLES Final Result [facility] [address] [place] [address], [place] [phone] * (ABNORMAL) Microalbumin creatinine urine ratio (06/28/2025 11:02 AM EST) Creatinine, Urine 65.0 mg/dL 06/28/2025 2:02 PM [facility] Microalb, Ur 672.0(H) 0.0 - 29.0 mg/L 06/28/2025 2:02 PM [facility] Comment:Results verified by repeat testing Microalb/Creat Ratio 1,034(H) <30 mg/g creat 06/28/2025 2:02 PM [facility] Urine Urine specimen obtained by clean catch procedure / Unknown Non-blood Collection / Unknown 06/28/2025 11:02 AM EST 06/28/2025 11:02 AM EST us Mikey Guido MD LAB URINE ORDERABLES Final Result Performing Organization Address [facility]/ZIP Co de Phone Number [facility] [address] [place] [address], [place] [phone] * Sodium, urine, random (06/28/2025 11:02 AM EST) Sodium, Ur 57 mmol/L 06/28/2025 1:02 PM [facility] Urine Urine specimen obtained by clean catch procedure / Unknown Non-blood Collection / Unknown 06/28/2025 11:02 AM EST 06/28/2025 11:02 AM EST us Mikey Guido MD LAB URINE ORDERABLES Final Result Performing Organization Address [facility]/ZIP Co de Phone Number [facility] [address] [place] [address], [place] [phone] * Potassium, urine, random (06/28/2025 11:02 AM EST) Potassium, Ur 43.0 mmol/L 06/28/2025 1:02 PM [facility] Urine Urine specimen obtained by clean catch procedure / Unknown Non-blood Collection / Unknown 06/28/2025 11:02 AM EST 06/28/2025 11:02 AM EST us Mikey Guido MD LAB URINE ORDERABLES Final Result [facility] [address] [place] [address], [place] [phone] * Chloride, urine, random (06/28/2025 11:02 AM EST) Chloride, Ur 70 mmol/L 06/28/2025 1:02 PM EST [facility] Urine Urine specimen obtained by clean catch procedure / Unknown Non-blood Collection / Unknown 06/28/2025 11:02 AM EST 06/28/2025 11:02 AM EST us Mikey Guido MD LAB URINE ORDERABLES Final Result [facility] [address] [place] [address], [place] [phone] * Calcium, urine, random (06/28/2025 11:02 AM EST) Calcium, Ur 34.0 mg/dL 06/28/2025 2:02 PM EST [facility] Comment:Results verified by repeat testing Urine Urine specimen obtained by clean catch procedure / Unknown Non-blood Collection / Unknown 06/28/2025 11:02 AM EST 06/28/2025 11:02 AM EST us Mikey Guido MD LAB URINE ORDERABLES Final Result Performing Organization Address City/[facility]/ZIP Co de Phone Number [facility] [address] [place] [address], [place] [phone] * (ABNORMAL) Vitamin D 25 hydroxy (06/28/2025 11:02 AM EST) Vit D, 25-Hydroxy 9.6(L) 30.0 - 80.0 ng/mL 06/28/2025 2:51 PM EST [facility] Blood Venous blood specimen / Unknown Venipuncture / Unknown 06/28/2025 11:02 AM EST 06/28/2025 11:02 AM EST us Mikey Guido MD LAB BLOOD ORDERABLES Final Result [facility] [address] [place] [address], [place] [phone] * Phosphorus (06/28/2025 11:02 AM EST) Phosphorus 3.6 2.5 - 4.5 mg/dL 06/28/2025 2:56 PM EST [facility] Blood Venous blood specimen / Unknown Venipuncture / Unknown 06/28/2025 11:02 AM EST 06/28/2025 11:02 AM EST us Mikey Guido MD LAB BLOOD ORDERABLES Final Result [facility] [address] [place] [address], [place] [phone] * Parathyroid hormone intact (06/28/2025 11:02 AM EST) Only the most recent of2 resultswithin the time period is included. PTH 37.4 18.5 - 88.0 pcg/mL 06/28/2025 2:48 PM EST [facility] Blood Venous blood specimen / Unknown Venipuncture / Unknown 06/28/2025 11:02 AM EST 06/28/2025 11:02 AM EST us Mikey Guido MD LAB BLOOD ORDERABLES Final Result [facility] [address] [place] [address], [place] [phone] * Magnesium (06/28/2025 11:02 AM EST) Magnesium 2.3 1.9 - 2.6 mg/dL 06/28/2025 2:56 PM EST [facility] Blood Venous blood specimen / Unknown Venipuncture / Unknown 06/28/2025 11:02 AM EST 06/28/2025 11:02 AM EST Mikey Guido MD LAB BLOOD ORDERABLES Final Result [facility] [address] [place] [address], [place] [phone] * Calcium, ionized (06/28/2025 11:02 AM EST) Calcium Ionized 4.9 4.6 - 5.4 mg/dL 07/04/2025 9:41 AM EST [facility] Comment: Test performed at [facility], [address], [place] [address] Sho Kruger MD, PhD - Mushroom Laborer Blood Venous blood specimen / Unknown Venipuncture / Unknown 06/28/2025 11:02 AM EST 06/28/2025 11:02 AM EST Mikey Guido MD LAB BLOOD ORDERABLES Final Result [facility] [address] [place] [address] * (ABNORMAL) Basic metabolic panel (06/28/2025 11:02 AM EST) Only the most recent of2 resultswithin the time period is included. Sodium 142 133 - 145 mmol/L 06/28/2025 2:56 PM EST [facility] Potassium 4.0 3.5 - 5.5 mmol/L 06/28/2025 2:56 PM EST [facility] Chloride 112(H) 96 - 110 mmol/L 06/28/2025 2:56 PM [facility] CO2 16(L) 21 - 32 mmol/L 06/28/2025 2:56 PM [facility] Anion Gap 14(H) 3 - 11 06/28/2025 2:56 PM EST [facility] Glucose 81 70 - 100 mg/dL 06/28/2025 2:56 PM EST [facility] BUN 19 5 - 25 mg/dL 06/28/2025 2:56 PM [facility] Creatinine 0.88 0.50 - 1.10 mg/dL 06/28/2025 2:56 PM [facility] eGFR 85 >=60 mL/min/1. 73m2 06/28/2025 2:56 PM [facility] Comment:Calculation based on the Chronic Kidney Disease Epidemiology Collaboration (CKD-EPI) equation refit without adjustment for race. BUN/Creatinine Ratio 21.6 06/28/2025 2:56 PM [facility] Calcium 7.9(L) 8.5 - 10.5 mg/dL 06/28/2025 2:56 PM [facility] Blood Venous blood specimen / Unknown Venipuncture / Unknown 06/28/2025 11:02 AM EST 06/28/2025 11:02 AM EST us Mikey Guido MD LAB BLOOD ORDERABLES Final Result [facility] [address] [place] [address], * Iron and TIBC (06/16/2025 3:04 PM EST) Iron 54 40 - 150 mcg/dL LAB CHEMISTRY METHOD 06/16/2025 7:18 PM [facility] TIBC 295 250 - 450 mcg/dL LAB CHEMISTRY METHOD 06/16/2025 7:18 PM [facility] Iron Saturation 18 15 - 50 % LAB CHEMISTRY METHOD 06/16/2025 7:18 PM [facility] Blood Venous blood specimen / Unknown Venipuncture / Unknown 06/16/2025 3:04 PM EST 06/16/2025 3:04 PM EST Angelito Mcfarlane MD LAB BLOOD ORDERABLES Final Result Performing Organization Address [facility] Co de Phone Number [facility] [address] [place] [address], [place] [phone] * (ABNORMAL) Reticulocyte count (06/16/2025 3:04 PM EST) Retic Ct Abs 0.130(H) 0.030 - 0.090 M/mcL LAB HEMETOLOGY METHOD 06/16/2025 5:55 PM EST [facility] Retic Ct Pct 4.3(H) 0.7 - 1.7 % LAB HEMETOLOGY METHOD 06/16/2025 5:55 PM EST [facility] Immature Retic Fract 11.4 2.3 - 15.9 % LAB HEMETOLOGY METHOD 06/16/2025 5:55 PM EST [facility] Reticulocyte Hemoglobin 38.2 >29.0 pcg LAB HEMETOLOGY METHOD 06/16/2025 5:55 PM EST [facility] Blood Venous blood specimen / Unknown Venipuncture / Unknown 06/16/2025 3:04 PM EST 06/16/2025 3:04 PM EST Angelito Mcfarlane MD LAB BLOOD ORDERABLES Final Result Performing Organization Address [facility]/ZIP Co de Phone Number [facility] [address] [place] [address], [place] [phone] * (ABNORMAL) Ferritin (06/16/2025 3:04 PM EST) Ferritin 387(H) 8 - 252 ng/mL LAB CHEMISTRY METHOD 06/16/2025 7:20 PM EST [facility] Blood Venous blood specimen / Unknown Venipuncture / Unknown 06/16/2025 3:04 PM EST 06/16/2025 3:04 PM EST Angelito Mcfaralne MD LAB BLOOD ORDERABLES Final Result [facility] ([facility]) [facility] [address] [place] [address], * (ABNORMAL) Lipid panel (08/11/2022) LDL/HDL Ratio 3 0 - 4 Triglycerides 146 0 - 150 mg/dL Cholesterol 208(A) 0 - 200 mg/dL HDL 68 >=40 mg/dL LDL Cholesterol 111(A) 0 - 100 mg/dL Blood Venous blood specimen / Unknown Historical Provider LAB BLOOD ORDERABLES Lakia l Result * Cervical Cancer Screening: HPV (06/09/2022) Pathologist [facility] Cervical Cancer Screening: HPV negative, abstracted Historical Provider HEALTH MAINTENANCE Final Result from Last 3 Months or Most Recently Relevant to Health Maintenance Insurance MEDICARE [place]ICAID [place] Care Teams Bottle Tester Relationship Specialty Start Date End Date Bette Corona MD [address] [place] [address] PCP - General Internal Medicine 05/09/25
--- OUTSIDE RECORDS SUMMARY | 2025-07-25 13:50 | XMS_ITS | Encounter Summary ---
Author Organization [facility]ly [facility] Address [address] [place] [address] Care Team Providers Care Bag Machine Operator Helper Name Role Phone Lg Shepherd PA-C Primary Care Provider [phone] Encounter Details Date Type Department Care Team (Late st Contact Info) Description 10/21/2017 Scanned Document [facility] Urologic Surgery [address] [place] [address] Provider, MD Rashmi [address] [place] [address] Social History Tobacco Use Types Packs/Day Years [...] on filedocumented in this encounter Care Teams Bag Machine Operator Helper Relationship Specialty Start Date End Date Lg Shepherd PA-C PCP - General Internal Medicine 12/01/17 documented as of this encounter
== END 2025-07-25 14:05 | disposition home or self-care (01) ==
LOC: HO.HOS 12:48
PROVIDERS: PCP Internal Medicine; Visit Provider Physician Assistant
DX: S72.111A Displaced fracture of greater trochanter of right femur, initial encounter for closed fracture (principal); S93.601A Unspecified sprain of right foot, initial encounter; S93.401A Sprain of unspecified ligament of right ankle, initial encounter
CPT/HCPCS: 99204

== ENCOUNTER → 2025-07-25 12:50 | Outpatient (BNV) | payer MEDICARE, MEDICAID, SELFPAY | PROVIDERS: Visit Provider Radiology Diagnostic Radiology | DX: M89.8X8 Other specified disorders of bone, other site (principal); M85.80 Other specified disorders of bone density and structure, unspecified site; M19.071 Primary osteoarthritis, right ankle and foot; M85.871 Other specified disorders of bone density and structure, right ankle and foot | CPT/HCPCS: 73502; 73610 ==

== ENCOUNTER 2025-07-25 13:25 | Outpatient (REF) | payer MEDICARE, MEDICAID, SELFPAY ==
--- NOTE | ~2025-07-25 | XR_ITS ---
EXAMINATION: XR HIP, RIGHT CLINICAL INFORMATION: M25.559 - Pain in unspecified hip, follow-up fracture, right COMPARISON: 07/05/2025 TECHNIQUE: AP pelvis and AP and frog-leg lateral views of the right hip. FINDINGS: There is diffuse osteopenia There is lucency and cortical offset involving the cephalad aspect of the greater trochanter consistent with known fracture. Also, on the AP view of the right hip joint, there is vague groundglass density in the intertrochanteric region. No other abnormalities are identified. XR/XR hip RT min 2V IMPRESSION: Osteopenia. Stable fracture involving the right greater trochanter. Increasing sclerosis in the central right intertrochanteric region suggests a healing nondisplaced occult fracture. Electronically signed by: Jose Carlos Booth MD 07/25/2025 02:30 PM [facility]
--- NOTE | ~2025-07-25 | XR_ITS ---
EXAMINATION: XR ANKLE, right CLINICAL INFORMATION: M25.579 - Pain in unspecified ankle and joints of unspecified foot COMPARISON: None available. TECHNIQUE: AP, lateral, and mortise views lower extremity joint, ankle. FINDINGS: There is diffuse osteopenia. There is degenerative irregularity in the inferior fibula. There is likely a healed fracture of the distal fibular metadiaphysis. Ankle mortise is congruent. There is no widening of the syndesmosis. Talar dome is intact. There are no calcaneal enthesophyte(s). Incidental note is made of the dorsal talar ridge. XR/XR ankle RT min 3V IMPRESSION: Osteopenia. Degenerative changes in the lateral ankle joint. Electronically signed by: Jose Carlos Booth MD 07/25/2025 02:25 PM [facility]
--- OUTSIDE RECORDS SUMMARY | 2025-09-17 19:00 | XMS_ITS | Clinical Summary ---
Author Organization Unknown Care Team Providers Care Registered Midwife Name Role Phone ANGELITA ROSALES, GINNA Unavailable Unavailable SARY RN, JUAN Unavailable Unavailab brian BURLESON LPN, JONATAN Unavailable Unavailable BAUTISTA PT, YAZMIN Unavailable Unavailable ROMERO PT, MIRIAM Unavailable Unavail able KAMILA QUALITY ASSISTANT, TORSTEN Unavailable Unavailable Payers Payer Name Policy Type Policy Number Effective Date Expira tion Date MEDICARE.NGS.PDGM [id number] Problems Condition Name Condition Details Condition Category Status Onset Date Resolution Date Last Treatment Date Treating Clinician Comments DISP FX OF GREATER TROCHANTER OF R FEMR, 7THD Active 2024-08 00:00: 00 SUPRAVENTRIC ULAR TACHYCARDIA, UNSPECIFIED Active 2024-08 00:00: 00 UNSPECIFIED ATRIAL FLUTTER Active 2024-08 00:00: 00 UNSPECIFIED ATRIAL FIBRILLATION Active 2024-08 00:00: 00 CHRONIC OBSTRUCTIVE PULMONARY DISEASE, UNSPECIFIED Active 2024-08 00:00: 00 DEPRESSION, UNSPECIFIED Active 2024-08 00:00: 00 GASTRIC ULCER, UNSP ACUTE OR CHRONIC, W/O HEMOR OR PERF Active 2024-08 00:00: 00 GENERALIZED ANXIETY DISORDER Active 2024-08 00:00: 00 CONSTIPATION , UNSPECIFIED Active 2024-08 00:00: 00 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 INHALED STEROIDS Active 2024-08 00:00: 00 HISTORY OF FALLING Active 2024-08 00:00: 00 Allergies, Adverse Reactions, Alerts Allergy Name Allergy Type Status Severity Reaction(s) Onset Date Inactive Date Treating Clinician Comments VANCOMYCIN Propensity to adverse reactions Active 2024-08 11:16: 45 CELEBREX Propensity to adverse reactions Active 2024-08 11:17: 08 Vital Signs Vital Name Observation Time Observation Value Commen ts Temperature 2025-07-25 09:18:00.000 97.9 [degF] Temperature 2025-07-24 11:24:00.000 97.4 [degF] Temperature 2025-07-21 11:14:00.000 97.6 [degF] BMI (%) 2025-07-21 11:04:45.000 16 kg/m2 Height 2025-07-21 11:04:38.000 60 [in_us] Pulse 2025-07-25 09:18:00.000 98 /min Pulse 2025-07-24 11:24:00.000 100 /min Pulse 2025-07-21 11:14:00.000 100 /min O2 Saturation (%) 2025-07-25 09:18:00.000 99 % O2 Saturation (%) 2025-07-24 11:24:00.000 100 % Respirations 2025-07-25 09:18:00.000 16 /min Respirations 2025-07-24 11:24:00.000 16 /min Respirations 2025-07-21 11:14:00.000 16 /min Weight (lbs) 2025-07-21 11:04:45.000 85 [lb_av] Systolic Blood Pressure 2025-07-25 09:18:00.000 100 mm [Hg] Systolic Blood Pressure 2025-07-24 11:24:00.000 110 mm [Hg] Systolic Blood Pressure 2025-07-21 11:14:00.000 108 mm [Hg] Diastolic Blood Pressure 2025-07-25 09:18:00.000 65 mm [Hg] Diastolic Blood Pressure 2025-07-24 11:24:00.000 70 mm [Hg] Diastolic Blood Pressure 2025-07-21 11:14:00.000 60 mm [Hg] Plan of Treatment Planned Activity Planned Date Details Comments Future Scheduled Test RN TO OBSE RVE, ASSESS, EVALUATE, AND DEVELOP AN INDIVIDUALIZED PLAN OF CARE. AGENCY MAY ACCEPT ORDERS FROM CONSULTING PHYSICIANS RN TO OBSERVE AND ASSESS, WET PRIMER POWDER BLENDER/ARRANGING FUNERAL DIRECTOR TO OBSERVE FOR RISK FOR FALLS AND INSTRUCT IN FALL PREVENTION, HOME SAFETY, MEDICATION MANAGEMENT, INFECTION PREVENTION, AND NUTRITION MANAGEMENT. RN/WET PRIMER POWDER BLENDER/ARRANGING FUNERAL DIRECTOR NURSE MAY PERFORM O2 SATURATION LEVEL ON ADMISSION AND PRN FOR RESP STATUS CHANGES FOR RN TO ASSESS/WET PRIMER POWDER BLENDER TO OBSERVE PATIENT, WITH NOTIFICATION TO THE PHYSICIAN IF SATURATION IS 90% IN THE ABSENCE OF MORE SPECIFIC PARAMETERS FROM THE PHYSICIAN. AGENCY MAY PERFORM A RESUMPTION OF CARE VISIT FOLLOWING ANY HOSPITAL ADMISSION. RN/WET PRIMER POWDER BLENDER/ARRANGING FUNERAL DIRECTOR TO MONITOR CO-MORBID CONDITIONS LISTED ON THE PLAN OF CARE AND ANY NEW CONDITIONS THAT PRESENT THEMSELVES DURING THIS EPISODE TO IDENTIFY CHANGES AND INTERVENE TO MINIMIZE COMPLICATIONS. [code = RN TO OBSERVE, ASSESS, EVALUATE, AND DEVELOP AN INDIVIDUALIZED PLAN OF CARE. AGENCY MAY ACCEPT ORDERS FROM CONSULTING PHYSICIANS RN TO OBSERVE AND ASSESS, WET PRIMER POWDER BLENDER/ARRANGING FUNERAL DIRECTOR TO OBSERVE FOR RISK FOR FALLS AND INSTRUCT IN FALL PREVENTION, HOME SAFETY, MEDICATION MANAGEMENT, INFECTION PREVENTION, AND NUTRITION MANAGEMENT. RN/WET PRIMER POWDER BLENDER/ARRANGING FUNERAL DIRECTOR NURSE MAY PERFORM O2 SATURATION LEVEL ON ADMISSION AND PRN FOR RESP STATUS CHANGES FOR RN TO ASSESS/WET PRIMER POWDER BLENDER TO OBSERVE PATIENT, WITH NOTIFICATION TO THE PHYSICIAN IF SATURATION IS 90% IN THE ABSENCE OF MORE SPECIFIC PARAMETERS FROM THE PHYSICIAN. AGENCY MAY PERFORM A RESUMPTION OF CARE VISIT FOLLOWING ANY HOSPITAL ADMISSION. RN/WET PRIMER POWDER BLENDER/ARRANGING FUNERAL DIRECTOR TO MONITOR CO-MORBID CONDITIONS LISTED ON THE PLAN OF CARE AND ANY NEW CONDITIONS THAT PRESENT THEMSELVES DURING THIS EPISODE TO IDENTIFY CHANGES AND INTERVENE TO MINIMIZE COMPLICATIONS.] Future Scheduled Test MEDICATION MANAGEMENT; RN/WET PRIMER POWDER BLENDER/ARRANGING FUNERAL DIRECTOR TO REVIEW MEDICATIONS FOR INTERACTIONS, EFFECTIVENESS OF DRUG THERAPY, AND SIGNS/SYMPTOMS OF ADVERSE REACTIONS. MAY INSTRUCT AND REINFORCE MEDICATION TEACHING RELATED TO THE USE OF MEDICATIONS, DOSAGE, FREQUENCY, PURPOSE, SIDE EFFECTS, AND TO REPORT COMPLICATIONS. [code = MEDICATION MANAGEMENT; RN/WET PRIMER POWDER BLENDER/ARRANGING FUNERAL DIRECTOR TO REVIEW MEDICATIONS FOR INTERACTIONS, EFFECTIVENESS OF DRUG THERAPY, AND SIGNS/SYMPTOMS OF ADVERSE REACTIONS. MAY INSTRUCT AND REINFORCE MEDICATION TEACHING RELATED TO THE USE OF MEDICATIONS, DOSAGE, FREQUENCY, PURPOSE, SIDE EFFECTS, AND TO REPORT COMPLICATIONS.] Future Scheduled Test CARDIOVASC ULAR SYSTEM; RN TO ASSESS/TEACH, WET PRIMER POWDER BLENDER/ARRANGING FUNERAL DIRECTOR TO OBSERVE/TEACH RELATED TO ALTERED CARDIOVASCULAR STATUS TO MINIMIZE COMPLICATIONS AND REDUCE HOSPITALIZATION. [code = CARDIOVASCULAR SYSTEM; RN TO ASSESS/TEACH, WET PRIMER POWDER BLENDER/ARRANGING FUNERAL DIRECTOR TO OBSERVE/TEACH RELATED TO ALTERED CARDIOVASCULAR STATUS TO MINIMIZE COMPLICATIONS AND REDUCE HOSPITALIZATION.] Future Scheduled Test ARRHYTHMIA MANAGEMENT; RN TO ASSESS AND TEACH, WET PRIMER POWDER BLENDER/ARRANGING FUNERAL DIRECTOR TO OBSERVE AND TEACH WARNING SIGNS AND SYMPTOMS TO AVOID HOSPITALIZATION. [code = ARRHYTHMIA MANAGEMENT; RN TO ASSESS AND TEACH, WET PRIMER POWDER BLENDER/ARRANGING FUNERAL DIRECTOR TO OBSERVE AND TEACH WARNING SIGNS AND SYMPTOMS TO AVOID HOSPITALIZATION.] Future Scheduled Test PAIN MANAG EMENT; RN TO ASSESS AND TEACH, ARRANGING FUNERAL DIRECTOR/WET PRIMER POWDER BLENDER TO OBSERVE AND TEACH AND PROVIDE EDUCATION ON PAIN MANAGEMENT TECHNIQUES. [code = PAIN MANAGEMENT; RN TO ASSESS AND TEACH, ARRANGING FUNERAL DIRECTOR/WET PRIMER POWDER BLENDER TO OBSERVE AND TEACH AND PROVIDE EDUCATION ON PAIN MANAGEMENT TECHNIQUES.] Future Scheduled Test FALL REDUC TION MANAGEMENT; RN TO ASSESS AND OBSERVE, WET PRIMER POWDER BLENDER/ARRANGING FUNERAL DIRECTOR TO OBSERVE FALL RISK FACTORS AND EDUCATE PATIENT/CAREGIVER ON STRATEGIES TO MINIMIZE THE RISK OF FALLING. [code = FALL REDUCTION MANAGEMENT; RN TO ASSESS AND OBSERVE, WET PRIMER POWDER BLENDER/ARRANGING FUNERAL DIRECTOR TO OBSERVE FALL RISK FACTORS AND EDUCATE PATIENT/CAREGIVER ON STRATEGIES TO MINIMIZE THE RISK OF FALLING.] Future Scheduled Test PHYSICAL T HERAPIST TO EVALUATE FOR STRENGTH AND ENDURANCE TRAINING [code = PHYSICAL THERAPIST TO EVALUATE FOR STRENGTH AND ENDURANCE TRAINING] Future Scheduled Test OCCUPATION AL THERAPIST TO EVALUATE FOR I/ADL DEFECITS [code = OCCUPATIONAL THERAPIST TO EVALUATE FOR I/ADL DEFECITS] Future Scheduled Test AGENCY MAY PERFORM A RESUMPTION OF CARE VISIT FOLLOWING ANY HOSPITAL ADMISSION. PT TO EVALUATE, OBSERVE / ASSESS, AND MONITOR, QUALITY ASSISTANT TO OBSERVE AND MONITOR, PROVIDE SKILLED THERAPEUTIC INTERVENTION, ACTIVITY, EDUCATION, AND TRAINING TO ADDRESS; PT/QUALITY ASSISTANT TO PROVIDE GAIT TRAINING FOR IMPROVED MOBILITY AND /OR TO NORMALIZE GAIT PATTERN THERAPEUTIC EXERCISES AND ESTABLISHING A HOME EXERCISE PROGRAM (PT/QUALITY ASSISTANT) SIT TO/FROM STAND TRANSFERS (PT/QUALITY ASSISTANT) PT / QUALITY ASSISTANT TO MONITOR AND EDUCATE ON OXYGEN SATURATION DURING ADLS/IADLS, NOTIFY PHYSICIAN AND/OR THE RN CLINICAL CHLORINE OPERATOR FOR PHYSICIAN NOTIFICATION AND IF O2 SATS BELOW PHYSICIAN ORDERED PARAMETERS AFTER 10 MIN OF REST PT / QUALITY ASSISTANT MAY EDUCATE ON PAIN MANAGEMENT CLINICALLY INDICATED, INCLUDING NON-PHARMACOLOGICAL PAIN REDUCTION TECHNIQUES AND USE OF CRYOTHERAPY UP TO 20 MIN AT A TIME FOR PAIN MANAGEMENT 4 TIMES PER DAY TO R HIP PT TO ASSESS / QUALITY ASSISTANT TO MONITOR CARDIO/RESPIRATORY SYSTEM; AND NOTIFY THE PHYSICIAN AND/OR THE RN CLINICAL CHLORINE OPERATOR FOR PHYSICIAN NOTIFICATION FOR EARLY SIGNS AND SYMPTOMS OF EXACERBATION OR DETERIORATION. PT/QUALITY ASSISTANT TO IDENTIFY FALL RISK FACTORS; EDUCATE THE PATIENT/CAREGIVER ON WAYS TO REDUCE FALL RISK FACTORS AND ESTABLISH HOME EXERCISE PROGRAM TO MINIMIZE FALL RISK. MAY TEACH THE PATIENT FLOOR RECOVERY WHEN CLINICALLY APPROPRIATE [code = AGENCY MAY PERFORM A RESUMPTION OF CARE VISIT FOLLOWING ANY HOSPITAL ADMISSION. PT TO EVALUATE, OBSERVE / ASSESS, AND MONITOR, QUALITY ASSISTANT TO OBSERVE AND MONITOR, PROVIDE SKILLED THERAPEUTIC INTERVENTION, ACTIVITY, EDUCATION, AND TRAINING TO ADDRESS; PT/QUALITY ASSISTANT TO PROVIDE GAIT TRAINING FOR IMPROVED MOBILITY AND /OR TO NORMALIZE GAIT PATTERN THERAPEUTIC EXERCISES AND ESTABLISHING A HOME EXERCISE PROGRAM (PT/QUALITY ASSISTANT) SIT TO/FROM STAND TRANSFERS (PT/QUALITY ASSISTANT) PT / QUALITY ASSISTANT TO MONITOR AND EDUCATE ON OXYGEN SATURATION DURING ADLS/IADLS, NOTIFY PHYSICIAN AND/OR THE RN CLINICAL CHLORINE OPERATOR FOR PHYSICIAN NOTIFICATION AND IF O2 SATS BELOW PHYSICIAN ORDERED PARAMETERS AFTER 10 MIN OF REST PT / QUALITY ASSISTANT MAY EDUCATE ON PAIN MANAGEMENT CLINICALLY INDICATED, INCLUDING NON-PHARMACOLOGICAL PAIN REDUCTION TECHNIQUES AND USE OF CRYOTHERAPY UP TO 20 MIN AT A TIME FOR PAIN MANAGEMENT 4 TIMES PER DAY TO R HIP PT TO ASSESS / QUALITY ASSISTANT TO MONITOR CARDIO/RESPIRATORY SYSTEM; AND NOTIFY THE PHYSICIAN AND/OR THE RN CLINICAL CHLORINE OPERATOR FOR PHYSICIAN NOTIFICATION FOR EARLY SIGNS AND SYMPTOMS OF EXACERBATION OR DETERIORATION. PT/QUALITY ASSISTANT TO IDENTIFY FALL RISK FACTORS; EDUCATE THE PATIENT/CAREGIVER ON WAYS TO REDUCE FALL RISK FACTORS AND ESTABLISH HOME EXERCISE PROGRAM TO MINIMIZE FALL RISK. MAY TEACH THE PATIENT FLOOR RECOVERY WHEN CLINICALLY APPROPRIATE] Goal Patient Goal - TO WALK ERIK LLY Goal Provider Goal - A PLAN OF CARE WILL BE ESTABLISHED THAT MEETS THE PATIENT S NEEDS. PATIENT WILL DEMONSTRATE OXYGEN SATURATION WITHIN NORMAL LIMITS OR PATIENT S OPTIMAL LEVEL ESTABLISHED BY THE PHYSICIAN THROUGHOUT CARE. CHANGES TO CO-MORBID CONDITIONS AND ANY NEW CONDITIONS WILL BE IDENTIFIED AND REPORTED TO THE PHYSICIAN. Goal Provider Goal - PATIENT/CAREGIVER TO VERBALIZE, AND CONSISTENTLY DEMONSTRATE EFFECTIVE, SAFE MANAGEMENT OF MEDICATION INCLUDING KNOWLEDGE OF EFFECTIVENESS, POTENTIAL SIDE EFFECTS AND DRUG REACTIONS AND WHEN TO CONTACT THE APPROPRIATE CARE PROVIDER. PATIENT/CAREGIVER WILL BE ABLE TO VERBALIZE UNDERSTANDING OF MEDICATION REGIMEN AND ACCURATELY TAKE MEDICATIONS PRESCRIBED WITHOUT ADVERSE EFFECTS BY 09/18/25 Goal Provider Goal - PATIENT / CAREGIVER WILL VERBALIZE/DEMONSTRATE UNDERSTANDING OF MEASURES TO MANAGE ALTERED CARDIOVASCULAR STATUS BY 09/18/25 Goal Provider Goal - PATIENT / CAREGIVER WILL VERBALIZE/DEMONSTRATE AN ABILITY TO ADHERE TO SELF-MANAGEMENT OF HEART ARRHYTHMIA TO MINIMIZE COMPLICATIONS AND AVOID HOSPITALIZATION BY 09/18/25 Goal Provider Goal - PATIENT / CAREGIVER WILL VERBALIZE / DEMONSTRATE UNDERSTANDING OF PAIN CONTROL MEASURES BY 09/18/25 Goal Provider Goal - PATIENT/CAREGIVER WILL VERBALIZE/DEMONSTRATE UNDERSTANDING OF FALL RISK FACTORS AND IMPLEMENT STRATEGIES TO MINIMIZE FALL RISK. PATIENT/CAREGIVER WILL VERBALIZE/DEMONSTRATE AN ABILITY TO ADHERE TO FALL REDUCTION SELF-MANAGEMENT AND LIFE-STYLE CHANGES BY 09/18/25 Goal Provider Goal - Goal Provider Goal - Goal Provider Goal - PT STG: PATIENT WILL DEMONSTRATE IMPROVED SAFE FUNCTIONAL MOBILITY BY MAINTAINING PWB R LE ON LEVEL USING RW FROM SBA TO INDEPENDENT WITHIN 4 IN ORDER TO ACCESS HOME FULLY. PT LTG: PATIENT WILL AMBULATE INDEPENDENTLY WITH LRAD WHILE MAINTAINING WEIGH BEARING PRECAUTIONS WITHIN 9 WEEKS TO PROMOTE RETURN TO PLOF. PT LTG: PATIENT WILL DEMONSTRATE IMPROVED FUNCTIONAL STRENGTH EVIDENCED BY FIVE TIMES SIT TO STAND TEST (CUT SCORE >12 SECONDS INDICATES AN INCREASED FALL RISK) IMPROVING FROM NT TO 12 WITHIN 9 WEEKS IN ORDER TO RESTORE FUNCTIONAL MOBILITY. PT LTG: PATIENT WILL DEMONSTRATE INCREASED STRENGTH OF R LE FROM 3-/5 TO 4/5 WITHIN 9 WEEKS IN ORDER TO MAXIMIZE FUNCTION PT STG: PATIENT WILL DEMONSTRATE IMPROVED ABILITY TO PERFORM SIT TO/FROM STAND TRANSFERS TO REDUCE THE RISK OF SKIN BREAKDOWN AND REDUCE FALL RISK FROM SBA TO INDEPENDENT WITHIN 3 WEEKS PT LTG: PATIENT WILL MAINTAIN OXYGEN SATURATION WITHIN PHYSICIAN ORDERED PARAMETERS THROUGHOUT EPISODE OF CARE. PT GOAL: PATIENT WILL DEMONSTRATE UNDERSTANDING OF PAIN MANAGEMENT TECHNIQUES EVIDENCED BY REDUCED PAIN IN R HIP FROM 6/10 TO 2/10 WITHIN 9 WEEKS PT LTG: PATIENT WILL NOT EXPERIENCE CARDIAC OR RESPIRATORY COMPLICATIONS THROUGHOUT THE EPISODE OF CARE. PT LTG: PATIENT/CAREGIVER WILL DEMONSTRATE ADHERENCE TO FALL REDUCTION SELF-MANAGEMENT AND REDUCING FALL RISK FACTORS TO MINIMIZE FALL RISK BY END OF EPISODE PT LTG: PATIENT WILL BE INDEPENDENT WITH IMPLEMENTATION OF HEP WITHIN 9 WEEKS Progress Notes Progress Notes <paragraph>[Visit Date: 2024 by CATHIE DURAN PT]:</paragraph><paragraph>PROVIDED CARE:</paragraph><paragraph></paragraph><paragraph>PATIENT IS A 40 YEAR OLD FEMALE WHO FELL OFF A LADDER WHILE CLEANING SNOW OFF THE ROOF OF HER CAR. PATIENT SUSTAINED A CORTICAL COMMUNITED DISRUPTION INVOLVING GREATER TROCHANTER TO R LE. NO SURGICAL INTERVENTION. PATIENT WENT TO REHAB BEFORE RETURNING HOME. PATIENT IS PARTIAL WEIGHTBEARING R LE. ORTHO FOLLOW-UP SCHEDULED FOR 07/25/25. PATIENT HAS PMH OF AFIB, SVT, COPD, AND ASTHMA</paragraph><paragraph></paragraph><paragraph>PRIOR TO INJURY, PATIENT AMBULATING INDEPENDENTLY WITHOUT ASSISTIVE DEVICE. 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 SHE WAS DRIVING. SHE LIVES WITH HER PARENTS IN A SINGLE FAMILY HOME. BEDROOM IS UPSTAIRS BUT SHE IS CURRENTLY STAYING ON FIRST LEVEL.</paragraph><paragraph></paragraph><paragraph>CURRENTLY, PATIENT IS AMBULATING WITH PWB WITH ROLLING WALKER. SHE DOES BILATERAL AXILLARY CRUTCHES BUT PREFERS WALKER. PATIENT IS HESITANT TO PUT WEIGHT THROUGH R LE AND IS AMBULATING MORE WITH A TOUCH DOWN WEIGHT BEARING THAN PARTIAL WEIGHT BEARING. STAIRS WERE NOT ASSESSED TODAY DUE TO WEIGHT BEARING STATUS. PATIENT IS AMBULATING AND TRANSFERRING WITH SBA. PAIN IS CONTROLLED WITH TYLENOL</paragraph><paragraph></paragraph><paragraph>PATIENT PRESENTS WITH R LOWER EXTREMITY WEAKNESS, PWB R LE AND INCREASED PAIN CONSISTENT WITH NON-DISPLACED FX OF GREATER TROCHANTER RESULTING IN DECREASED FUNCTIONAL MOBILITY, IMPAIRED GAIT, AND DIFFICULTIES WITH TRANSFERS. PATIENT REQUIRES SKILLED PHYSICAL THERAPY TO ADDRESS THE ABOVE FUNCTIONAL LIMITATIONS IN ORDER TO MAXIMIZE HEALING AND RETURN TO PLOF. PATIENT AND PHYSICIAN AGREEABLE TO PLAN OF CARE. DISCUSSED PLAN OF CARE WITH QUALITY ASSISTANT AND HOUSEKEEPING ROOM INSPECTOR. REINFORCED CALL US PROGRAM. PATIENT VERBALIZED AGREEMENT.</paragraph> <paragraph>[Visit Date: 2024 by UNRULY MAE OT]:</paragraph><paragraph>PROVIDED CARE: REVIEW SHOWER TRANSFER TRAINING AND EDUCATED PATIENT AND CAREGIVERS ON TYPES OF SHOWER BENCHES/CHAIRS THAT CAN BE OBTAINED FROM [facility] TO INCREASE SAFETY WITH SHOWER TRANSFER TO DECREASE RISK OF FALLING</paragraph><paragraph></paragraph><paragraph>PATIENT IS A 40 YEAR OLD FEMALE REFERRED FOR SKILLED OCCUPATIONAL THERAPY SERVICES AFTER FALLING OFF A LADDER WHILE CLEANING SNOW OFF THE ROOF OF HER CAR. PATIENT SUSTAINED A CORTICAL COMMUNITED DISRUPTION INVOLVING GREATER TROCHANTER TO R LE. PATIENT LIVES IN A SINGLE- FAMILY TWO-STORY HOME WITH HER PARENTS AND BROTHER. SHE IS CURRENTLY AMBULATING USING A ROLLING WALKER. PATIENT IS REPORTING PAIN RANGING FROM 5-8/10 IN RIGHT HIP THAT LEADS DOWN TO FOOT. MINIMAL SWELLING IN RIGHT ANKLE. PATIENTS MAIN BEDROOM IS ON THE SECOND FLOOR HOWEVER SHE HAS BEEN SLEEPING ON THE COUCH DUE TO BEING UNABLE TO CLIMB THE STAIRS. SINCE RETURNING HOME PATIENT HAS BEEN REPORTING UPPER EXTREMITY WEAKNESS AND DIFFICULTY WITH LOWER BODY DRESSING AND SHOWER TRANSFER TASKS.</paragraph><paragraph></paragraph><paragraph>PMH:AFIB, SVT, COPD, AND ASTHMA</paragraph><paragraph></paragraph><paragraph>PLOF:IND WITH ADLS, IADLS, AND MOBILITY. WAS DRIVING AND WORKING. </paragraph><paragraph></paragraph><paragraph>CLOF:MOD A FOR LB DRESSING,MIN A FOR TOILETING, MOD A FOR BATHING, MOD A FOR SHOWER TRANSFER</paragraph><paragraph></paragraph><paragraph>MBI SCORE OF 77/100 INDICATING A MILD LEVEL OF DEPENDENCY ON CAREGIVER.</paragraph><paragraph></paragraph><paragraph>PATIENT WILL BENEFIT FROM SKILLED OCCUPATIONAL THERAPY SERVICES IN ORDER TO INCREASE INDEPENDENCE WITH A PREETI AND MAXIMIZE STRENGTH AND BALANCE TO DECREASE RISK OF FALLING AGAIN</paragraph><paragraph></paragraph><paragraph>GOALS ESTABLISHED WITH PATIENT/CAREGIVER AND IN AGREEMENT WITH POC.</paragraph> Encounters Start Date/Time End Date/Time Encounter Type Admission Type Attending [facility] [place] Facility Care Department Encounter ID Discharge Date Discharge Status Discharge Condition Discharge Reason Percent Goals Met 2025-07-21 00:00:00 2025-09-18 00:00:00 Outpatient NEW ADMISSION [facility] [id number] 80.00
== END 2025-07-25 13:26 | disposition home or self-care (01) ==
LOC: HO.HOSX 13:25
PROVIDERS: Visit Provider Physician Assistant
DX: S79.911A Unspecified injury of right hip, initial encounter (principal); S93.601A Unspecified sprain of right foot, initial encounter; S93.401A Sprain of unspecified ligament of right ankle, initial encounter; W11.XXXA Fall on and from ladder, initial encounter; Y92.89 Other specified places as the place of occurrence of the external cause; Y93.9 Activity, unspecified; Y99.9 Unspecified external cause status
CPT/HCPCS: 73502; 73610